=== PATIENT | male | born 1930 | race Caucasian/White ===

== ENCOUNTER 2016-12-20 07:23 | Day surgery (SDC) | payer MEDICARE ==
[2016-12-20] VITALS (7 sets, daily range): BP systolic 154–196; BP diastolic 68–79; PULSE 56–78; RESP 16–20; TEMP 97.6–98.3; O2SAT 97–99
[~2016-12-20 07:23] MED LIST: ASPI81TA11 PO; CRES20TA PO; FISHCAP PO; GEMF600T PO; GLIM4TAB PO; ISOS30TA3 PO; LANTINJ SQ; LEVO100T4 PO; LISI-363 PO; MULT1TAB PO; PROP40TA3 PO
[2016-12-20] MEDS ORDERED: ceFAZolin INJ 1,000 MG VIAL ONE (08:03)
[2016-12-20] MEDS ORDERED: SODIUM CHLORIDE 0.9% INJ 100 ML ONE (08:03)
[2016-12-20] MEDS ORDERED: GLIM4TAB PO (08:05)
[2016-12-20] MEDS ORDERED: ROSU1TAB10 PO (08:05)
[2016-12-20] MEDS ORDERED: ASPI81CH CHEW (08:05)
[2016-12-20] MEDS ORDERED: LEVO100T5 PO (08:05)
[2016-12-20] MEDS ORDERED: VITA10002 PO (08:05)
[2016-12-20] MEDS ORDERED: LISI-515 PO (08:05)
[2016-12-20] MEDS ORDERED: PROP40TA3 PO (08:05)
[2016-12-20] MEDS ORDERED: ISOS30TA3 PO (08:05)
[2016-12-20] MEDS ORDERED: OMEG12007 PO (08:05)
[2016-12-20] MEDS ORDERED: CHLORHEXIDINE GLUCONATE 2 % 1 PACK (2 CLOTHS) TOPICAL PRN (08:15)
[2016-12-20] MEDS ORDERED: POVIDONE IODINE 5% (ANTISEPSIS KIT) 4 APPLICATIONS EACH NARE PRN (08:15)
[2016-12-20] MEDS ORDERED: ceFAZolin 1,000 MG/NS 100 ML IV SCH ×2 (08:15)
[2016-12-20] MEDS ORDERED: INSULIN HUMAN REGULAR 1,000 UNITS/10 ML VIAL SQ PRN (08:15)
[2016-12-20] MEDS ORDERED: LACTATED RINGER'S 1000 ML IV PRN (08:15)
[2016-12-20] MEDS ORDERED: SODIUM CHLORID 0.9% 500 ML IV PRN (08:15)
[2016-12-20] MEDS ORDERED: METOPROLOL TARTRATE 25 MG TAB PO PRN (08:15)
[2016-12-20 08:18] LABS: AUTOMATED NEUTROPHIL # 8.2 TH/MM3 (1.8-7.7); BASOPHIL # 0.1 TH/MM3 (0-0.2); BASOPHIL % 0.5 % (0.0-2.0); EOSINOPHIL # 0.4 TH/MM3 (0-0.4); EOSINOPHIL % 3.5 % (0.0-4.0); HEMATOCRIT 33.5 % (39.0-51.0); HEMO FLAGS DIFF FINAL; LYMPH % 17.3 % (9.0-44.0); MEAN CELL VOLUME 91.7 FL (80.0-100.0); MEAN CORPUSCULAR HEMOGLOBIN 29.3 PG (27.0-34.0); MONO % 7.8 % (0.0-8.0); NEUT % 70.9 % (16.0-70.0); PLATELET COUNT 175 TH/MM3 (150-450); RED BLOOD COUNT 3.65 MIL/MM3 (4.50-5.90); RED CELL DISTRIBUTION WIDTH 13.8 % (11.6-17.2); WHITE BLOOD COUNT 11.5 TH/MM3 (4.0-11.0)
[2016-12-20 08:27] LABS: APTT (PATIENT) 27.2 SEC (24.3-30.1); PROTHROMBIN TIME - PATIENT 11.4 SEC (9.8-11.6)
[2016-12-20 08:34] LABS: BICARBONATE 25.7 MEQ/L (21.0-32.0); POTASSIUM 4.2 MEQ/L (3.5-5.1)
--- NOTE | 2016-12-20 08:35 | EKG ---
Date Performed: 12/20/2016 Time Performed: 08:06:29 PTAGE: 86 years EKG: SINUS BRADYCARDIA LEFT AXIS DEVIATION NONSPECIFIC INTRAVENTRICULAR CONDUCTION DELAY POSSIBL E LEFT VENTRICULAR HYPERTROPHY AND ST-T CHANGE ABNORMAL ECG PREVIOUS TRACING : 12/29/2015 11.13 Compared to previous tracing, lateral T wave inversion is n ow less pronounced. DOCTOR: Chadd Romeo Interpretating Date/Time 12/20/2016 08:34:22
[2016-12-20] MEDS ORDERED: MIDAZOLAM HCL 2 MG/2 ML VIAL ONE (09:40)
[2016-12-20] MEDS ORDERED: FAMOTIDINE 20 MG/2 ML VIAL ONE (09:40)
[2016-12-20] MEDS ORDERED: BUPIVACAINE/EPINEPHRINE 0.5% 50 ML VIAL ONE (09:53)
[2016-12-20] MEDS ORDERED: HEPARIN SODIUM - IV 10,000 UNITS/10 ML VIAL ONE (09:53)
[2016-12-20] MEDS ORDERED: HEPARIN SODIUM - SQ 10,000 UNITS/ML VIAL ONE (09:53)
[2016-12-20] MEDS ORDERED: PROTAMINE SULFATE 50 MG/5 ML VIAL ONE (09:53)
[2016-12-20] MEDS ORDERED: IODIXANOL 320 MG/ML 50 ML VIAL (for EPS) ONE (10:59)
[2016-12-20] MEDS ORDERED: PROPOFOL 200 MG/20 ML AMP IV ONE (12:00)
[2016-12-20] MEDS ORDERED: DO NOT ADM ANY ANTICOAGULANT DRUGS PRN (12:04)
[2016-12-20] MEDS: hydrALAZINE HCL 20 MG/ML VIAL IV PRN ×3 (12:36→18:49)
[2016-12-20] MEDS ORDERED: CLOPIDOGREL 75 MG TAB PO ONE (12:45)
[2016-12-20] MEDS ORDERED: ONDANSETRON HCL 4 MG/2 ML VIAL IV PUSH PRN (12:45)
[2016-12-20] MEDS ORDERED: ATROPINE SULFATE 1 MG/ML VIAL IV PUSH ONE (13:00)
[2016-12-20] MEDS ORDERED: SODIUM CHLORIDE 0.9% FLUSH 10 ML FLUSH IV FLUSH PRN (13:00)
[2016-12-20] MEDS ORDERED: LACTATED RINGER'S 1000 ML INJ 500 ML IV ONE (13:00)
[2016-12-20] MEDS ORDERED: ATROPINE SULFATE 1 MG/10 ML SYRINGE ONE (16:36)
[2016-12-20] MEDS ORDERED: hydrALAZINE HCL 20 MG/ML VIAL IV PUSH ONE (17:15)
--- NOTE | 2016-12-21 08:22 | MP ---
cc: AAKASH HERNANDEZ DATE OF SURGERY: 12/20/2016 PREOPERATIVE DIAGNOSIS Disabling bilateral lower extremity ischemia. POSTOPERATIVE DIAGNOSIS Disabling bilateral lower extremity ischemia. OPERATIVE PROCEDURE Right popliteal percutaneous balloon angioplasty. Aortofemoral arteriogram. SURGEON Aakash Hernandez MD TRANSPORTATION ASSISTANT ASHLEY Romano ANESTHESIA Local MAC. DESCRIPTION OF THE OPERATIVE PROCEDURE With the patient in the supine position IV sedation was induced, the lower abdomen, both groins, thighs were prepped with Betadine and draped in a sterile fashion. Following a protocol time-out, the skin and subcutaneous tissue at proposed access site was preemptively infiltrated with 0.5% Marcaine with epinephrine. Utilizing ultrasound guidance, an 18 gauge needle was inserted into the left mid common femoral lumen. A J-wire was advanced retrograde into the iliac artery. A 5-Tongan hemostatic sheath was deployed over the J-wire. An advantage guidewire Omni catheter combination was navigated into the sub renal aorta. Utilizing CO2 as contrast in conjunction with digital C-arm fluoroscopic imaging, aortofemoral arteriogram was completed. This confirmed a widely patent distal aorta, common internal, external iliac and bilateral common femoral arteries. On the right side the SFA was widely patent down to the adductor level at which point a minor, approximately 30% focal constriction existed. The focal constriction did not appear hemodynamically significant. The above-knee popliteal exhibited a focal, near occlusion at the superior patella margin. Beyond this the popliteal appeared minimally constricted. The previously angioplastied below-knee popliteal remained patent and only minimal restenosis had occurred at this point. The anterior and posterior tibial arteries were occluded. The peroneal provided uninterrupted single vessel runoff to the right foot. The posterior tibial reconstituted beyond the ankle by peroneal collateralization. On the left side the SFA and popliteal were relatively non-diseased. 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 The anterior and posterior tibial arteries were completely occluded. The origin of the peroneal was occluded as well. Several centimeters beyond its origin, the peroneal was reconstituted by collaterals and provided uninterrupted flow to the ankle. The posterior tibial reconstituted at the midcalf level but exhibited multiple stenoses beyond reconstitution. The patient was systemically heparinized with 5000 units. The advantage guidewire was navigated into the right common femoral lumen and the short 5-Tongan sheath exchanged for a 45 cm 5-Tongan sheath which was parked within the proximal right SFA. Utilizing roadmapping guidance and CO2 as contrast, the above-knee popliteal stenosis was balloon angioplastied with a 4 x 40 mm balloon. Also, the below-knee minimal restenosis was treated with the 4 x 40 mm balloon. Both received inflation to nominal 6 atmospheres, 2-minute inflations followed by treatment of both areas with a 4 x 40 mm drug coated balloon inflated to 6 atmospheres, 3-minute inflations. Completion angiogram revealed no residual stenosis with much improved, rapid flow distally. No distal technical defects were present. The long 5-Tongan sheath was exchanged for a short 5-Tongan sheath which was secured with a skin suture of 4-0 Nylon. Sterile dressing was applied. At the conclusion of the procedure the right dorsalis pedis pulse was easily palpable with robust Doppler flow and left pedal Doppler flow unchanged. The patient returned to Post Anesthesia Care Unit in stable condition having tolerated the procedure well. MD CLARE Thomas/CARMEN /7:52 AM /8:09 AM
== END 2016-12-20 20:56 | disposition home or self-care (01) ==
LOC: HSDC 07:23 → HCIN 14:48 → HSDC 20:56
PROVIDERS: ATTEND Surgery Vascular Surgery
DX: I73.89 Other specified peripheral vascular diseases (principal); R00.1 Bradycardia, unspecified; E11.9 Type 2 diabetes mellitus without complications; Z79.84 Long term (current) use of oral hypoglycemic drugs
CPT/HCPCS: 01440; 37224; 75736; 80048; 82948; 85025; 85610; 85730; 86850; 86900; 86901; 93005; C1725; C1769; C1887; C2623; J0360; J0690; J1644; J2250; J2720; J7120; J0461; Q9967

== ENCOUNTER 2018-03-17 13:27 | Inpatient (IN) ==
[2018-03-17 14:35] LABS: Baso % (Auto) 0.2 % (0.0-2.0); Eos % (Auto) 0.3 % (0.0-4.0); Hematocrit 23.5 % (39.0-51.0); Hemoglobin 7.8 gm/dL (13.0-17.0); Lymph # (Auto) 0.9 th/mm3 (1.0-4.8); Lymph % (Auto) 9.8 % (9.0-44.0); Mean Corpuscular HGB Conc 33.1 % (32.0-36.0); Mean Corpuscular Hemoglobin 32.5 pg (27.0-34.0); Mean Platelet Volume 8.5 fL (7.0-11.0); Mono # (Auto) 0.6 th/mm3 (0.0-0.9); Neut # (Auto) 7.4 th/mm3 (1.8-7.7); Neut % (Auto) 82.7 % (16.0-70.0); Platelet Count 251 th/mm3 (150-450); Red Cell Distribution Width 16.7 % (11.6-17.2); White Blood Count 8.9 th/mm3 (4.0-11.0)
[2018-03-17 14:54] LABS: Alanine Aminotransferase 14 U/L (12-78); Albumin 2.7 g/dL (3.4-5.0); Anion Gap 11 meq/L (5-15); Aspartate Aminotransferase 17 U/L (15-37); Blood Urea Nitrogen 46 mg/dL (7-18); Calcium 8.3 mg/dL (8.5-10.1); Carbon Dioxide 19.2 meq/L (21.0-32.0); Chloride 115 meq/L (98-107); Glomerular Filtration Rate 15 mL/min (>89); Glucose,Random 137 mg/dL (74-106); Potassium 4.2 meq/L (3.5-5.1); Sodium 145 meq/L (136-145)
[2018-03-17 14:58] LABS: Alkaline Phosphatase 56 U/L (45-117); Total Protein 6.3 g/dL (6.4-8.2); Troponin I 0.21 ng/mL (0.02-0.05)
[2018-03-17] MEDS ORDERED: Isosorbide Mononitrate 30 MG ER 24HR Tablet (Imdur) PO ONE (15:46)
--- NOTE | 2018-03-17 16:45 | CT ---
EXAM DATE: 03/17/2018 4:34 PM EDT AGE/SEX: 87 years / Male INDICATIONS: Weakness, multiple falls CLINICAL DATA: This is the patient's initial encounter. Patient reports that signs and symptoms have been present for 1 day and indicates a pain score of 0/10. MEDICAL/SURGICAL HISTORY: Diabetes. Hypertension. CABG. RADIATION DOSE: 35.52 CTDI (mGy) COMPARISON: No prior exams available for comparison. TECHNIQUE: CT of the head without contrast. Using automated exposure control and adjustment of the mA and/or kV according to patient size, radiation dose was kept as low as reasonably achievable to ob tain optimal diagnostic quality images. DICOM format image data is available electronically for revi ew and comparison. FINDINGS: Cerebrum: There is mild generalized atrophy and ventricles are normal given the degree of atrophy. M ild periventricular white matter change is present. No midline shift, mass lesion, hemorrhage or acu te infarction. No extraaxial fluid collections are seen. Posterior Fossa: The cerebellum and brainstem demonstrate no acute abnormality. The 4th ventricle is midline. The cerebellopontine angle is within normal limits. Extracranial: The visualized sinuses are clear. Skull: The calvaria is intact. No skull fracture. CONCLUSION: 1. No acute intracranial abnormality is identified. 2. Chronic age-appropriate related changes including mild generalized cerebral atrophy and mild advertising account manager kan periventricular white matter change. . Electronically signed by: Dom Yeboah MD 03/17/2018 4:44 PM EDT
[2018-03-17] MEDS ORDERED: Heparin 10,000 UNITS/10 ML Vial (for IV use) IV.PUSH STA (16:56)
[2018-03-17] MEDS ORDERED: Heparin Drip 25,000 UNIT/250 ML BAG IV.CONT PRN (16:56)
--- NOTE | 2018-03-17 17:15 | ED ---
HPI General Chief complaint: Weakness Stated complaint: Weakness Time Seen by Provider: 03/17/18 13:38 Source: patient Mode of arrival: EMS Limitations: no limitations History of Present Illness HPI narrative: Patient is a 87 year old male who comes in by EMS due to hypoglycemia and generalized weakness. Patient says he has not been eating lately because he feels very weak and no one can help him get any groceries. He says he has just been drinking milk. EMS states that neighbors called because they have noticed he has been declining over the past few days. He says he fell today and hit his elbow. He says his son last month and he has been feeling depressed since then. He denies SI/HI. He denies chest pain, but has had some SOB. Related Data Home Medications Medication Instructions Recorded Confirmed gabapentin 600 mg PO BID 03/17/18 03/17/18 isosorbide mononitrate 30 mg PO DAILY 03/17/18 03/17/18 levothyroxine [Synthroid] 100 mcg PO DAILY 03/17/18 03/17/18 nifedipine [Procardia XL] 60 mg PO BID 03/17/18 03/17/18 propranolol 40 mg PO DAILY 03/17/18 03/17/18 rosuvastatin [Crestor] 20 mg PO DAILY 03/17/18 03/17/18 Allergies Allergy/AdvReac Type Severity Reaction Status Date / Time codeine AdvReac Severe NAUSEA Verified 03/17/18 13:48 Review of Systems ROS: all other systems reviewed are negative Constitutional Denies chills and Denies fever(s) Cardiovascular Denies chest pain and Reports dyspnea Respiratory Denies cough Gastrointestinal Denies abdominal pain, Denies nausea and Denies vomiting Genitourinary Denies dysuria Musculoskeletal Denies myalgias and Denies arthralgias Integumentary/Breasts Denies lesions Neurologic Reports weakness PMFSH Medical History Medical History Diabetes (Acute) Hypertension (Acute) Surgical History Surgical History Hx of CABG (Acute) Family History Family History Father Heart attack Social History Social History Substance History: No History of Abuse Second Hand Smoke Exposure: No Smoking Status: Never smoker How Often Do You Have a Drink Containing Alcohol: Never Recent Travel in [place] within the Last 8 Weeks: No Recent Out of Country Travel within the Last 8 Weeks: No Immunization History Tetanus Immunization: >5 Years Hx Influenza Vaccine This Season: Yes Exam Narrative Exam Narrative: GENERAL: Awake and alert, in no acute distress. SKIN: Focused skin assessment warm/dry. Skin tear to the left elbow. HEAD: Atraumatic. Normocephalic. EYES: Pupils equal and round. No scleral icterus. ENT: Mucous membranes pink and moist. NECK: Trachea midline. No JVD. No cervical spine tenderness. CARDIOVASCULAR: Regular rate and rhythm. No murmur appreciated. RESPIRATORY: No accessory muscle use. Clear to auscultation. Breath sounds equal bilaterally. GASTROINTESTINAL: Abdomen soft, non-tender, nondistended. MUSCULOSKELETAL: No obvious deformities. No clubbing. No cyanosis. No edema. NEUROLOGICAL: Awake and alert. No obvious cranial nerve deficits. Motor grossly within normal limits. Normal speech. PSYCHIATRIC: Appropriate mood and affect; insight and judgment normal. Course Initial Documented Vital Signs Temperature 99.1 F 03/17/18 13:43 Pulse Rate 87 03/17/18 13:43 Respiratory Rate 20 03/17/18 13:43 Blood Pressure 212/97 H 03/17/18 13:43 Pulse Oximetry 98 03/17/18 13:43 Last Documented Vital Signs Temperature 98.3 F 03/20/18 03:00 Pulse Rate 68 03/20/18 07:00 Respiratory Rate 16 03/20/18 03:00 Blood Pressure 146/83 H 03/20/18 03:00 Pulse Oximetry 96 03/20/18 03:00 Medical Decision Making [facility] Narrative Medical decision making narrative: Patient is an 87-year-old male comes in complaining of weakness. He was found to have a glucose of 37 by EMS, this improved after glucose paste as well as D10. IV established, labs sent. Patient given something to eat. Labs concerning for an elevated troponin, creatinine is also elevated. Given aspirin and started on heparin. CT head performed shows no acute abnormalities. Patient will be admitted for further management. Rectal exam shows brown stool negative for occult blood. Medical Screen Exam Complete: Yes Emergency Medical Condition: Yes Differential Diagnosis Differential Diagnosis: Dehydration versus ACS versus electrolyte abnormality versus kidney injury Medical Records Medical records reviewed: Yes I reviewed the patient's medical records. Lab Data Lab results reviewed: Yes I reviewed the patient's lab results. Result diagrams: 03/20/18 06:00 03/20/18 06:00 Lab Results 03/17/18 03/17/18 03/17/18 Range/Units 13:54 13:54 13:54 WBC 8.9 (4.0-11.0) th/mm3 RBC 2.40 L (4.50-5.90) mil/mm3 Hgb 7.8 L (13.0-17.0) gm/dL Hct 23.5 L (39.0-51.0) % MCV 98.0 (80.0-100.0) fL MCH 32.5 (27.0-34.0) pg MCHC 33.1 (32.0-36.0) % RDW 16.7 (11.6-17.2) % Plt Count 251 (150-450) th/mm3 MPV 8.5 (7.0-11.0) fL Neut % (Auto) 82.7 H (16.0-70.0) % Lymph % (Auto) 9.8 (9.0-44.0) % Nye % (Auto) 7.0 (0.0-8.0) % Eos % (Auto) 0.3 (0.0-4.0) % Baso % (Auto) 0.2 (0.0-2.0) % Neut # (Auto) 7.4 (1.8-7.7) th/mm3 Lymph # (Auto) 0.9 L (1.0-4.8) th/mm3 Nye # (Auto) 0.6 (0.0-0.9) th/mm3 Eos # (Auto) 0.0 (0.0-0.4) th/mm3 Baso # (Auto) 0.0 (0.0-0.2) th/mm3 WBC Differential . Differential Comment Auto diff final PT (9.8-11.6) sec INR Ratio APTT (24.3-30.1) sec Sodium 145 (136-145) meq/L Potassium 4.2 (3.5-5.1) meq/L Chloride 115 H (98-107) meq/L Carbon Dioxide 19.2 L (21.0-32.0) meq/L Anion Gap 11 (5-15) meq/L BUN 46 H (7-18) mg/dL Creatinine 3.85 H (0.60-1.30) mg/dL Estimated GFR 15 L (>89) mL/min POC Glucose 152 H (68-110) mg/dl Random Glucose 137 H (74-106) mg/dL Hemoglobin A1c (4.3-6.0) % Calcium 8.3 L (8.5-10.1) mg/dL Phosphorus (2.5-4.9) mg/dL Magnesium (1.5-2.5) mg/dL Iron (65-175) mcg/dL TIBC (250-450) mcg/dL % Saturation (20-50) % Ferritin (26-388) ng/mL Total Bilirubin 0.4 (0.2-1.0) mg/dL AST 17 (15-37) U/L ALT 14 (12-78) U/L Alkaline Phosphatase 56 (45-117) U/L Troponin I 0.21 H (0.02-0.05) ng/mL Total Protein 6.3 L (6.4-8.2) g/dL Albumin 2.7 L (3.4-5.0) g/dL TSH (0.358-3.740) uIU/mL Urine Color (Yellw/Straw) Urine Clarity (Clear) Urine pH (5.0-8.5) Ur Specific [place] (1.002-1.035) Urine Protein (Neg-Trace) mg/dL Urine Glucose (UA) (Negative) mg/dL Urine Ketones (Negative) mg/dL Urine Occult Blood (Negative) Urine Nitrate (Negative) Urine Bilirubin (Negative) Urine Urobilinogen (Less than 2) mg/dL Ur Leukocyte Esterase (Negative) Urine RBC (0-3) /hpf Urine WBC (0-5) /hpf Ur Squamous Epith Cells (0-5) /hpf Amorphous Sediment (None) /hpf Hyaline Casts (0-3) /lpf Granular Casts (None) /lpf Urine Mucus (Occasional) /lpf Micro UA Comment Ur Microscopic Review Urine Culture Comments Blood Type Antibody Screen MTS Gel Crossmatch 03/17/18 03/17/18 03/17/18 Range/Units 13:54 13:54 18:10 WBC (4.0-11.0) th/mm3 RBC (4.50-5.90) mil/mm3 Hgb (13.0-17.0) gm/dL Hct (39.0-51.0) % MCV (80.0-100.0) fL MCH (27.0-34.0) pg MCHC (32.0-36.0) % RDW (11.6-17.2) % Plt Count (150-450) th/mm3 MPV (7.0-11.0) fL Neut % (Auto) (16.0-70.0) % Lymph % (Auto) (9.0-44.0) % Nye % (Auto) (0.0-8.0) % Eos % (Auto) (0.0-4.0) % Baso % (Auto) (0.0-2.0) % Neut # (Auto) (1.8-7.7) th/mm3 Lymph # (Auto) (1.0-4.8) th/mm3 Nye # (Auto) (0.0-0.9) th/mm3 Eos # (Auto) (0.0-0.4) th/mm3 Baso # (Auto) (0.0-0.2) th/mm3 WBC Differential Differential Comment PT 11.5 (9.8-11.6) sec INR 1.1 Ratio APTT 29.2 (24.3-30.1) sec Sodium (136-145) meq/L Potassium (3.5-5.1) meq/L Chloride (98-107) meq/L Carbon Dioxide (21.0-32.0) meq/L Anion Gap (5-15) meq/L BUN (7-18) mg/dL Creatinine (0.60-1.30) mg/dL Estimated GFR (>89) mL/min POC Glucose (68-110) mg/dl Random Glucose (74-106) mg/dL Hemoglobin A1c 5.1 (4.3-6.0) % Calcium (8.5-10.1) mg/dL Phosphorus (2.5-4.9) mg/dL Magnesium (1.5-2.5) mg/dL Iron (65-175) mcg/dL TIBC (250-450) mcg/dL % Saturation (20-50) % Ferritin (26-388) ng/mL Total Bilirubin (0.2-1.0) mg/dL AST (15-37) U/L ALT (12-78) U/L Alkaline Phosphatase (45-117) U/L Troponin I (0.02-0.05) ng/mL Total Protein (6.4-8.2) g/dL Albumin (3.4-5.0) g/dL TSH 1.460 (0.358-3.740) uIU/mL Urine Color (Yellw/Straw) Urine Clarity (Clear) Urine pH (5.0-8.5) Ur Specific [place] (1.002-1.035) Urine Protein (Neg-Trace) mg/dL Urine Glucose (UA) (Negative) mg/dL Urine Ketones (Negative) mg/dL Urine Occult Blood (Negative) Urine Nitrate (Negative) Urine Bilirubin (Negative) Urine Urobilinogen (Less than 2) mg/dL Ur Leukocyte Esterase (Negative) Urine RBC (0-3) /hpf Urine WBC (0-5) /hpf Ur Squamous Epith Cells (0-5) /hpf Amorphous Sediment (None) /hpf Hyaline Casts (0-3) /lpf Granular Casts (None) /lpf Urine Mucus (Occasional) /lpf Micro UA Comment Ur Microscopic Review Urine Culture Comments Blood Type Antibody Screen MTS Gel Crossmatch 03/17/18 03/17/18 03/17/18 Range/Units 18:20 18:40 19:01 WBC (4.0-11.0) th/mm3 RBC (4.50-5.90) mil/mm3 Hgb (13.0-17.0) gm/dL Hct (39.0-51.0) % MCV (80.0-100.0) fL MCH (27.0-34.0) pg MCHC (32.0-36.0) % RDW (11.6-17.2) % Plt Count (150-450) th/mm3 MPV (7.0-11.0) fL Neut % (Auto) (16.0-70.0) % Lymph % (Auto) (9.0-44.0) % Nye % (Auto) (0.0-8.0) % Eos % (Auto) (0.0-4.0) % Baso % (Auto) (0.0-2.0) % Neut # (Auto) (1.8-7.7) th/mm3 Lymph # (Auto) (1.0-4.8) th/mm3 Nye # (Auto) (0.0-0.9) th/mm3 Eos # (Auto) (0.0-0.4) th/mm3 Baso # (Auto) (0.0-0.2) th/mm3 WBC Differential Differential Comment PT (9.8-11.6) sec INR Ratio APTT (24.3-30.1) sec Sodium (136-145) meq/L Potassium (3.5-5.1) meq/L Chloride (98-107) meq/L Carbon Dioxide (21.0-32.0) meq/L Anion Gap (5-15) meq/L BUN (7-18) mg/dL Creatinine (0.60-1.30) mg/dL Estimated GFR (>89) mL/min POC Glucose 49 L* (68-110) mg/dl Random Glucose (74-106) mg/dL Hemoglobin A1c (4.3-6.0) % Calcium (8.5-10.1) mg/dL Phosphorus (2.5-4.9) mg/dL Magnesium (1.5-2.5) mg/dL Iron (65-175) mcg/dL TIBC (250-450) mcg/dL % Saturation (20-50) % Ferritin (26-388) ng/mL Total Bilirubin (0.2-1.0) mg/dL AST (15-37) U/L ALT (12-78) U/L Alkaline Phosphatase (45-117) U/L Troponin I (0.02-0.05) ng/mL Total Protein (6.4-8.2) g/dL Albumin (3.4-5.0) g/dL TSH (0.358-3.740) uIU/mL Urine Color Yellow Yellow (Yellw/Straw) Urine Clarity Turbid H Cloudy H (Clear) Urine pH 7.0 5.0 (5.0-8.5) Ur Specific [place] 1.013 1.013 (1.002-1.035) Urine Protein Negative 500 or greater (Neg-Trace) mg/dL Urine Glucose (UA) Negative 50 (Negative) mg/dL Urine Ketones Trace Negative (Negative) mg/dL Urine Occult Blood Negative Negative (Negative) Urine Nitrate Negative Negative (Negative) Urine Bilirubin Negative Negative (Negative) Urine Urobilinogen Less than 2 Less than 2 (Less than 2) mg/dL Ur Leukocyte Esterase Negative Negative (Negative) Urine RBC 1 2 (0-3) /hpf Urine WBC 3 (0-5) /hpf Ur Squamous Epith Cells 1 (0-5) /hpf Amorphous Sediment Moderate H Few H (None) /hpf Hyaline Casts 1 (0-3) /lpf Granular Casts 1 (None) /lpf Urine Mucus Few H Few H (Occasional) /lpf Micro UA Comment Culture not ind Culture not ind Ur Microscopic Review Not Reportable Not Reportable Urine Culture Comments Culture not ind Culture not ind Blood Type Antibody Screen MTS Gel Crossmatch 03/17/18 03/17/18 03/17/18 Range/Units 20:00 20:00 20:10 WBC (4.0-11.0) th/mm3 RBC (4.50-5.90) mil/mm3 Hgb (13.0-17.0) gm/dL Hct (39.0-51.0) % MCV (80.0-100.0) fL MCH (27.0-34.0) pg MCHC (32.0-36.0) % RDW (11.6-17.2) % Plt Count (150-450) th/mm3 MPV (7.0-11.0) fL Neut % (Auto) (16.0-70.0) % Lymph % (Auto) (9.0-44.0) % Nye % (Auto) (0.0-8.0) % Eos % (Auto) (0.0-4.0) % Baso % (Auto) (0.0-2.0) % Neut # (Auto) (1.8-7.7) th/mm3 Lymph # (Auto) (1.0-4.8) th/mm3 Nye # (Auto) (0.0-0.9) th/mm3 Eos # (Auto) (0.0-0.4) th/mm3 Baso # (Auto) (0.0-0.2) th/mm3 WBC Differential Differential Comment PT (9.8-11.6) sec INR Ratio APTT (24.3-30.1) sec Sodium (136-145) meq/L Potassium (3.5-5.1) meq/L Chloride (98-107) meq/L Carbon Dioxide (21.0-32.0) meq/L Anion Gap (5-15) meq/L BUN (7-18) mg/dL Creatinine (0.60-1.30) mg/dL Estimated GFR (>89) mL/min POC Glucose 96 (68-110) mg/dl Random Glucose 92 (74-106) mg/dL Hemoglobin A1c (4.3-6.0) % Calcium (8.5-10.1) mg/dL Phosphorus (2.5-4.9) mg/dL Magnesium (1.5-2.5) mg/dL Iron (65-175) mcg/dL TIBC (250-450) mcg/dL % Saturation (20-50) % Ferritin (26-388) ng/mL Total Bilirubin (0.2-1.0) mg/dL AST (15-37) U/L ALT (12-78) U/L Alkaline Phosphatase (45-117) U/L Troponin I 0.30 H (0.02-0.05) ng/mL Total Protein (6.4-8.2) g/dL Albumin (3.4-5.0) g/dL TSH (0.358-3.740) uIU/mL Urine Color (Yellw/Straw) Urine Clarity (Clear) Urine pH (5.0-8.5) Ur Specific [place] (1.002-1.035) Urine Protein (Neg-Trace) mg/dL Urine Glucose (UA) (Negative) mg/dL Urine Ketones (Negative) mg/dL Urine Occult Blood (Negative) Urine Nitrate (Negative) Urine Bilirubin (Negative) Urine Urobilinogen (Less than 2) mg/dL Ur Leukocyte Esterase (Negative) Urine RBC (0-3) /hpf Urine WBC (0-5) /hpf Ur Squamous Epith Cells (0-5) /hpf Amorphous Sediment (None) /hpf Hyaline Casts (0-3) /lpf Granular Casts (None) /lpf Urine Mucus (Occasional) /lpf Micro UA Comment Ur Microscopic Review Urine Culture Comments Blood Type Antibody Screen MTS Gel Crossmatch 03/17/18 03/18/18 03/18/18 Range/Units 21:45 02:25 02:25 WBC 11.3 H (4.0-11.0) th/mm3 RBC 2.43 L (4.50-5.90) mil/mm3 Hgb 7.6 L (13.0-17.0) gm/dL Hct 23.3 L (39.0-51.0) % MCV 95.8 (80.0-100.0) fL MCH 31.2 (27.0-34.0) pg MCHC 32.5 (32.0-36.0) % RDW 16.9 (11.6-17.2) % Plt Count 278 (150-450) th/mm3 MPV 8.4 (7.0-11.0) fL Neut % (Auto) 78.2 H (16.0-70.0) % Lymph % (Auto) 12.3 (9.0-44.0) % Nye % (Auto) 8.4 H (0.0-8.0) % Eos % (Auto) 0.8 (0.0-4.0) % Baso % (Auto) 0.3 (0.0-2.0) % Neut # (Auto) 8.9 H (1.8-7.7) th/mm3 Lymph # (Auto) 1.4 (1.0-4.8) th/mm3 Nye # (Auto) 1.0 H (0.0-0.9) th/mm3 Eos # (Auto) 0.1 (0.0-0.4) th/mm3 Baso # (Auto) 0.0 (0.0-0.2) th/mm3 WBC Differential . Differential Comment Auto diff final PT (9.8-11.6) sec INR Ratio APTT (24.3-30.1) sec Sodium (136-145) meq/L Potassium (3.5-5.1) meq/L Chloride (98-107) meq/L Carbon Dioxide (21.0-32.0) meq/L Anion Gap (5-15) meq/L BUN (7-18) mg/dL Creatinine (0.60-1.30) mg/dL Estimated GFR (>89) mL/min POC Glucose 188 H (68-110) mg/dl Random Glucose (74-106) mg/dL Hemoglobin A1c (4.3-6.0) % Calcium (8.5-10.1) mg/dL Phosphorus 3.5 (2.5-4.9) mg/dL Magnesium (1.5-2.5) mg/dL Iron 36 L (65-175) mcg/dL TIBC 304 (250-450) mcg/dL % Saturation 11.8 L (20-50) % Ferritin 77 (26-388) ng/mL Total Bilirubin (0.2-1.0) mg/dL AST (15-37) U/L ALT (12-78) U/L Alkaline Phosphatase (45-117) U/L Troponin I 0.28 H (0.02-0.05) ng/mL Total Protein (6.4-8.2) g/dL Albumin (3.4-5.0) g/dL TSH (0.358-3.740) uIU/mL Urine Color (Yellw/Straw) Urine Clarity (Clear) Urine pH (5.0-8.5) Ur Specific [place] (1.002-1.035) Urine Protein (Neg-Trace) mg/dL Urine Glucose (UA) (Negative) mg/dL Urine Ketones (Negative) mg/dL Urine Occult Blood (Negative) Urine Nitrate (Negative) Urine Bilirubin (Negative) Urine Urobilinogen (Less than 2) mg/dL Ur Leukocyte Esterase (Negative) Urine RBC (0-3) /hpf Urine WBC (0-5) /hpf Ur Squamous Epith Cells (0-5) /hpf Amorphous Sediment (None) /hpf Hyaline Casts (0-3) /lpf Granular Casts (None) /lpf Urine Mucus (Occasional) /lpf Micro UA Comment Ur Microscopic Review Urine Culture Comments Blood Type Antibody Screen MTS Gel Crossmatch 03/18/18 03/18/18 03/18/18 Range/Units 02:25 02:25 06:13 WBC (4.0-11.0) th/mm3 RBC (4.50-5.90) mil/mm3 Hgb (13.0-17.0) gm/dL Hct (39.0-51.0) % MCV (80.0-100.0) fL MCH (27.0-34.0) pg MCHC (32.0-36.0) % RDW (11.6-17.2) % Plt Count (150-450) th/mm3 MPV (7.0-11.0) fL Neut % (Auto) (16.0-70.0) % Lymph % (Auto) (9.0-44.0) % Nye % (Auto) (0.0-8.0) % Eos % (Auto) (0.0-4.0) % Baso % (Auto) (0.0-2.0) % Neut # (Auto) (1.8-7.7) th/mm3 Lymph # (Auto) (1.0-4.8) th/mm3 Nye # (Auto) (0.0-0.9) th/mm3 Eos # (Auto) (0.0-0.4) th/mm3 Baso # (Auto) (0.0-0.2) th/mm3 WBC Differential Differential Comment PT (9.8-11.6) sec INR Ratio APTT 95.4 H* D 43.8 H D (24.3-30.1) sec Sodium 147 H (136-145) meq/L Potassium 4.3 (3.5-5.1) meq/L Chloride 113 H (98-107) meq/L Carbon Dioxide 20.9 L (21.0-32.0) meq/L Anion Gap 13 (5-15) meq/L BUN 50 H (7-18) mg/dL Creatinine 3.95 H (0.60-1.30) mg/dL Estimated GFR 14 L (>89) mL/min POC Glucose (68-110) mg/dl Random Glucose 207 H D (74-106) mg/dL Hemoglobin A1c (4.3-6.0) % Calcium 8.0 L (8.5-10.1) mg/dL Phosphorus (2.5-4.9) mg/dL Magnesium 2.2 (1.5-2.5) mg/dL Iron (65-175) mcg/dL TIBC (250-450) mcg/dL % Saturation (20-50) % Ferritin (26-388) ng/mL Total Bilirubin 0.4 (0.2-1.0) mg/dL AST 17 (15-37) U/L ALT 13 (12-78) U/L Alkaline Phosphatase 55 (45-117) U/L Troponin I (0.02-0.05) ng/mL Total Protein 6.5 (6.4-8.2) g/dL Albumin 2.8 L (3.4-5.0) g/dL TSH (0.358-3.740) uIU/mL Urine Color (Yellw/Straw) Urine Clarity (Clear) Urine pH (5.0-8.5) Ur Specific [place] (1.002-1.035) Urine Protein (Neg-Trace) mg/dL Urine Glucose (UA) (Negative) mg/dL Urine Ketones (Negative) mg/dL Urine Occult Blood (Negative) Urine Nitrate (Negative) Urine Bilirubin (Negative) Urine Urobilinogen (Less than 2) mg/dL Ur Leukocyte Esterase (Negative) Urine RBC (0-3) /hpf Urine WBC (0-5) /hpf Ur Squamous Epith Cells (0-5) /hpf Amorphous Sediment (None) /hpf Hyaline Casts (0-3) /lpf Granular Casts (None) /lpf Urine Mucus (Occasional) /lpf Micro UA Comment Ur Microscopic Review Urine Culture Comments Blood Type Antibody Screen MTS Gel Crossmatch 03/18/18 03/18/18 03/18/18 Range/Units 07:41 10:33 12:37 WBC (4.0-11.0) th/mm3 RBC (4.50-5.90) mil/mm3 Hgb (13.0-17.0) gm/dL Hct (39.0-51.0) % MCV (80.0-100.0) fL MCH (27.0-34.0) pg MCHC (32.0-36.0) % RDW (11.6-17.2) % Plt Count (150-450) th/mm3 MPV (7.0-11.0) fL Neut % (Auto) (16.0-70.0) % Lymph % (Auto) (9.0-44.0) % Nye % (Auto) (0.0-8.0) % Eos % (Auto) (0.0-4.0) % Baso % (Auto) (0.0-2.0) % Neut # (Auto) (1.8-7.7) th/mm3 Lymph # (Auto) (1.0-4.8) th/mm3 Nye # (Auto) (0.0-0.9) th/mm3 Eos # (Auto) (0.0-0.4) th/mm3 Baso # (Auto) (0.0-0.2) th/mm3 WBC Differential Differential Comment PT (9.8-11.6) sec INR Ratio APTT 41.5 H (24.3-30.1) sec Sodium (136-145) meq/L Potassium (3.5-5.1) meq/L Chloride (98-107) meq/L Carbon Dioxide (21.0-32.0) meq/L Anion Gap (5-15) meq/L BUN (7-18) mg/dL Creatinine (0.60-1.30) mg/dL Estimated GFR (>89) mL/min POC Glucose 286 H 320 H (68-110) mg/dl Random Glucose (74-106) mg/dL Hemoglobin A1c (4.3-6.0) % Calcium (8.5-10.1) mg/dL Phosphorus (2.5-4.9) mg/dL Magnesium (1.5-2.5) mg/dL Iron (65-175) mcg/dL TIBC (250-450) mcg/dL % Saturation (20-50) % Ferritin (26-388) ng/mL Total Bilirubin (0.2-1.0) mg/dL AST (15-37) U/L ALT (12-78) U/L Alkaline Phosphatase (45-117) U/L Troponin I (0.02-0.05) ng/mL Total Protein (6.4-8.2) g/dL Albumin (3.4-5.0) g/dL TSH (0.358-3.740) uIU/mL Urine Color (Yellw/Straw) Urine Clarity (Clear) Urine pH (5.0-8.5) Ur Specific [place] (1.002-1.035) Urine Protein (Neg-Trace) mg/dL Urine Glucose (UA) (Negative) mg/dL Urine Ketones (Negative) mg/dL Urine Occult Blood (Negative) Urine Nitrate (Negative) Urine Bilirubin (Negative) Urine Urobilinogen (Less than 2) mg/dL Ur Leukocyte Esterase (Negative) Urine RBC (0-3) /hpf Urine WBC (0-5) /hpf Ur Squamous Epith Cells (0-5) /hpf Amorphous Sediment (None) /hpf Hyaline Casts (0-3) /lpf Granular Casts (None) /lpf Urine Mucus (Occasional) /lpf Micro UA Comment Ur Microscopic Review Urine Culture Comments Blood Type Antibody Screen MTS Gel Crossmatch 03/18/18 03/18/18 03/18/18 Range/Units 16:57 17:30 20:52 WBC (4.0-11.0) th/mm3 RBC (4.50-5.90) mil/mm3 Hgb (13.0-17.0) gm/dL Hct (39.0-51.0) % MCV (80.0-100.0) fL MCH (27.0-34.0) pg MCHC (32.0-36.0) % RDW (11.6-17.2) % Plt Count (150-450) th/mm3 MPV (7.0-11.0) fL Neut % (Auto) (16.0-70.0) % Lymph % (Auto) (9.0-44.0) % Nye % (Auto) (0.0-8.0) % Eos % (Auto) (0.0-4.0) % Baso % (Auto) (0.0-2.0) % Neut # (Auto) (1.8-7.7) th/mm3 Lymph # (Auto) (1.0-4.8) th/mm3 Nye # (Auto) (0.0-0.9) th/mm3 Eos # (Auto) (0.0-0.4) th/mm3 Baso # (Auto) (0.0-0.2) th/mm3 WBC Differential Differential Comment PT (9.8-11.6) sec INR Ratio APTT 41.6 H (24.3-30.1) sec Sodium (136-145) meq/L Potassium (3.5-5.1) meq/L Chloride (98-107) meq/L Carbon Dioxide (21.0-32.0) meq/L Anion Gap (5-15) meq/L BUN (7-18) mg/dL Creatinine (0.60-1.30) mg/dL Estimated GFR (>89) mL/min POC Glucose 197 H 228 H (68-110) mg/dl Random Glucose (74-106) mg/dL Hemoglobin A1c (4.3-6.0) % Calcium (8.5-10.1) mg/dL Phosphorus (2.5-4.9) mg/dL Magnesium (1.5-2.5) mg/dL Iron (65-175) mcg/dL TIBC (250-450) mcg/dL % Saturation (20-50) % Ferritin (26-388) ng/mL Total Bilirubin (0.2-1.0) mg/dL AST (15-37) U/L ALT (12-78) U/L Alkaline Phosphatase (45-117) U/L Troponin I (0.02-0.05) ng/mL Total Protein (6.4-8.2) g/dL Albumin (3.4-5.0) g/dL TSH (0.358-3.740) uIU/mL Urine Color (Yellw/Straw) Urine Clarity (Clear) Urine pH (5.0-8.5) Ur Specific [place] (1.002-1.035) Urine Protein (Neg-Trace) mg/dL Urine Glucose (UA) (Negative) mg/dL Urine Ketones (Negative) mg/dL Urine Occult Blood (Negative) Urine Nitrate (Negative) Urine Bilirubin (Negative) Urine Urobilinogen (Less than 2) mg/dL Ur Leukocyte Esterase (Negative) Urine RBC (0-3) /hpf Urine WBC (0-5) /hpf Ur Squamous Epith Cells (0-5) /hpf Amorphous Sediment (None) /hpf Hyaline Casts (0-3) /lpf Granular Casts (None) /lpf Urine Mucus (Occasional) /lpf Micro UA Comment Ur Microscopic Review Urine Culture Comments Blood Type Antibody Screen MTS Gel Crossmatch 03/19/18 03/19/18 03/19/18 Range/Units 05:55 05:55 05:55 WBC 9.1 (4.0-11.0) th/mm3 RBC 2.18 L (4.50-5.90) mil/mm3 Hgb 6.9 L* (13.0-17.0) gm/dL Hct 20.9 L* (39.0-51.0) % MCV 95.9 (80.0-100.0) fL MCH 31.7 (27.0-34.0) pg MCHC 33.0 (32.0-36.0) % RDW 17.3 H (11.6-17.2) % Plt Count 234 (150-450) th/mm3 MPV 8.6 (7.0-11.0) fL Neut % (Auto) 79.9 H (16.0-70.0) % Lymph % (Auto) 12.6 (9.0-44.0) % Nye % (Auto) 6.6 (0.0-8.0) % Eos % (Auto) 0.6 (0.0-4.0) % Baso % (Auto) 0.3 (0.0-2.0) % Neut # (Auto) 7.3 (1.8-7.7) th/mm3 Lymph # (Auto) 1.1 (1.0-4.8) th/mm3 Nye # (Auto) 0.6 (0.0-0.9) th/mm3 Eos # (Auto) 0.1 (0.0-0.4) th/mm3 Baso # (Auto) 0.0 (0.0-0.2) th/mm3 WBC Differential . Differential Comment Auto diff final PT (9.8-11.6) sec INR Ratio APTT 29.1 D (24.3-30.1) sec Sodium 146 H (136-145) meq/L Potassium 4.0 (3.5-5.1) meq/L Chloride 113 H (98-107) meq/L Carbon Dioxide 18.5 L (21.0-32.0) meq/L Anion Gap 15 (5-15) meq/L BUN 47 H (7-18) mg/dL Creatinine 3.87 H (0.60-1.30) mg/dL Estimated GFR 15 L (>89) mL/min POC Glucose (68-110) mg/dl Random Glucose 175 H (74-106) mg/dL Hemoglobin A1c (4.3-6.0) % Calcium 7.9 L (8.5-10.1) mg/dL Phosphorus (2.5-4.9) mg/dL Magnesium (1.5-2.5) mg/dL Iron (65-175) mcg/dL TIBC (250-450) mcg/dL % Saturation (20-50) % Ferritin (26-388) ng/mL Total Bilirubin 0.4 (0.2-1.0) mg/dL AST 12 L (15-37) U/L ALT 14 (12-78) U/L Alkaline Phosphatase 54 (45-117) U/L Troponin I (0.02-0.05) ng/mL Total Protein 6.4 (6.4-8.2) g/dL Albumin 2.9 L (3.4-5.0) g/dL TSH (0.358-3.740) uIU/mL Urine Color (Yellw/Straw) Urine Clarity (Clear) Urine pH (5.0-8.5) Ur Specific [place] (1.002-1.035) Urine Protein (Neg-Trace) mg/dL Urine Glucose (UA) (Negative) mg/dL Urine Ketones (Negative) mg/dL Urine Occult Blood (Negative) Urine Nitrate (Negative) Urine Bilirubin (Negative) Urine Urobilinogen (Less than 2) mg/dL Ur Leukocyte Esterase (Negative) Urine RBC (0-3) /hpf Urine WBC (0-5) /hpf Ur Squamous Epith Cells (0-5) /hpf Amorphous Sediment (None) /hpf Hyaline Casts (0-3) /lpf Granular Casts (None) /lpf Urine Mucus (Occasional) /lpf Micro UA Comment Ur Microscopic Review Urine Culture Comments Blood Type Antibody Screen MTS Gel Crossmatch 03/19/18 03/19/18 03/19/18 Range/Units 08:21 12:00 12:15 WBC (4.0-11.0) th/mm3 RBC (4.50-5.90) mil/mm3 Hgb (13.0-17.0) gm/dL Hct (39.0-51.0) % MCV (80.0-100.0) fL MCH (27.0-34.0) pg MCHC (32.0-36.0) % RDW (11.6-17.2) % Plt Count (150-450) th/mm3 MPV (7.0-11.0) fL Neut % (Auto) (16.0-70.0) % Lymph % (Auto) (9.0-44.0) % Nye % (Auto) (0.0-8.0) % Eos % (Auto) (0.0-4.0) % Baso % (Auto) (0.0-2.0) % Neut # (Auto) (1.8-7.7) th/mm3 Lymph # (Auto) (1.0-4.8) th/mm3 Nye # (Auto) (0.0-0.9) th/mm3 Eos # (Auto) (0.0-0.4) th/mm3 Baso # (Auto) (0.0-0.2) th/mm3 WBC Differential Differential Comment PT (9.8-11.6) sec INR Ratio APTT (24.3-30.1) sec Sodium (136-145) meq/L Potassium (3.5-5.1) meq/L Chloride (98-107) meq/L Carbon Dioxide (21.0-32.0) meq/L Anion Gap (5-15) meq/L BUN (7-18) mg/dL Creatinine (0.60-1.30) mg/dL Estimated GFR (>89) mL/min POC Glucose 190 H 264 H (68-110) mg/dl Random Glucose (74-106) mg/dL Hemoglobin A1c (4.3-6.0) % Calcium (8.5-10.1) mg/dL Phosphorus (2.5-4.9) mg/dL Magnesium (1.5-2.5) mg/dL Iron (65-175) mcg/dL TIBC (250-450) mcg/dL % Saturation (20-50) % Ferritin (26-388) ng/mL Total Bilirubin (0.2-1.0) mg/dL AST (15-37) U/L ALT (12-78) U/L Alkaline Phosphatase (45-117) U/L Troponin I (0.02-0.05) ng/mL Total Protein (6.4-8.2) g/dL Albumin (3.4-5.0) g/dL TSH (0.358-3.740) uIU/mL Urine Color (Yellw/Straw) Urine Clarity (Clear) Urine pH (5.0-8.5) Ur Specific [place] (1.002-1.035) Urine Protein (Neg-Trace) mg/dL Urine Glucose (UA) (Negative) mg/dL Urine Ketones (Negative) mg/dL Urine Occult Blood (Negative) Urine Nitrate (Negative) Urine Bilirubin (Negative) Urine Urobilinogen (Less than 2) mg/dL Ur Leukocyte Esterase (Negative) Urine RBC (0-3) /hpf Urine WBC (0-5) /hpf Ur Squamous Epith Cells (0-5) /hpf Amorphous Sediment (None) /hpf Hyaline Casts (0-3) /lpf Granular Casts (None) /lpf Urine Mucus (Occasional) /lpf Micro UA Comment Ur Microscopic Review Urine Culture Comments Blood Type A Positive Antibody Screen Negative MTS Gel Crossmatch See Detail 03/19/18 03/19/18 03/20/18 Range/Units 18:10 20:27 06:00 WBC 10.3 (4.0-11.0) th/mm3 RBC 3.07 L (4.50-5.90) mil/mm3 Hgb 9.6 L D (13.0-17.0) gm/dL Hct 28.9 L (39.0-51.0) % MCV 94.1 (80.0-100.0) fL MCH 31.5 (27.0-34.0) pg MCHC 33.4 (32.0-36.0) % RDW 17.8 H (11.6-17.2) % Plt Count 212 (150-450) th/mm3 MPV 8.6 (7.0-11.0) fL Neut % (Auto) 76.4 H (16.0-70.0) % Lymph % (Auto) 12.7 (9.0-44.0) % [place] % (Auto) 9.2 H (0.0-8.0) % Eos % (Auto) 1.5 (0.0-4.0) % Baso % (Auto) 0.2 (0.0-2.0) % Neut # (Auto) 7.9 H (1.8-7.7) th/mm3 Lymph # (Auto) 1.3 (1.0-4.8) th/mm3 [place] # (Auto) 0.9 (0.0-0.9) th/mm3 Eos # (Auto) 0.2 (0.0-0.4) th/mm3 Baso # (Auto) 0.0 (0.0-0.2) th/mm3 WBC Differential . Differential Comment Auto diff final PT (9.8-11.6) sec INR Ratio APTT (24.3-30.1) sec Sodium (136-145) meq/L Potassium (3.5-5.1) meq/L Chloride (98-107) meq/L Carbon Dioxide (21.0-32.0) meq/L Anion Gap (5-15) meq/L BUN (7-18) mg/dL Creatinine (0.60-1.30) mg/dL Estimated GFR (>89) mL/min POC Glucose 138 H 196 H (68-110) mg/dl Random Glucose (74-106) mg/dL Hemoglobin A1c (4.3-6.0) % Calcium (8.5-10.1) mg/dL Phosphorus (2.5-4.9) mg/dL Magnesium (1.5-2.5) mg/dL Iron (65-175) mcg/dL TIBC (250-450) mcg/dL % Saturation (20-50) % Ferritin (26-388) ng/mL Total Bilirubin (0.2-1.0) mg/dL AST (15-37) U/L ALT (12-78) U/L Alkaline Phosphatase (45-117) U/L Troponin I (0.02-0.05) ng/mL Total Protein (6.4-8.2) g/dL Albumin (3.4-5.0) g/dL TSH (0.358-3.740) uIU/mL Urine Color (Yellw/Straw) Urine Clarity (Clear) Urine pH (5.0-8.5) Ur Specific [place] (1.002-1.035) Urine Protein (Neg-Trace) mg/dL Urine Glucose (UA) (Negative) mg/dL Urine Ketones (Negative) mg/dL Urine Occult Blood (Negative) Urine Nitrate (Negative) Urine Bilirubin (Negative) Urine Urobilinogen (Less than 2) mg/dL Ur Leukocyte Esterase (Negative) Urine RBC (0-3) /hpf Urine WBC (0-5) /hpf Ur Squamous Epith Cells (0-5) /hpf Amorphous Sediment (None) /hpf Hyaline Casts (0-3) /lpf Granular Casts (None) /lpf Urine Mucus (Occasional) /lpf Micro UA Comment Ur Microscopic Review Urine Culture Comments Blood Type Antibody Screen MTS Gel Crossmatch 03/20/18 Range/Units 06:00 WBC (4.0-11.0) th/mm3 RBC (4.50-5.90) mil/mm3 Hgb (13.0-17.0) gm/dL Hct (39.0-51.0) % MCV (80.0-100.0) fL MCH (27.0-34.0) pg MCHC (32.0-36.0) % RDW (11.6-17.2) % Plt Count (150-450) th/mm3 MPV (7.0-11.0) fL Neut % (Auto) (16.0-70.0) % Lymph % (Auto) (9.0-44.0) % [place] % (Auto) (0.0-8.0) % Eos % (Auto) (0.0-4.0) % Baso % (Auto) (0.0-2.0) % Neut # (Auto) (1.8-7.7) th/mm3 Lymph # (Auto) (1.0-4.8) th/mm3 [place] # (Auto) (0.0-0.9) th/mm3 Eos # (Auto) (0.0-0.4) th/mm3 Baso # (Auto) (0.0-0.2) th/mm3 WBC Differential Differential Comment PT (9.8-11.6) sec INR Ratio APTT (24.3-30.1) sec Sodium 146 H (136-145) meq/L Potassium 3.9 (3.5-5.1) meq/L Chloride 115 H (98-107) meq/L Carbon Dioxide 18.1 L (21.0-32.0) meq/L Anion Gap 13 (5-15) meq/L BUN 47 H (7-18) mg/dL Creatinine 3.78 H (0.60-1.30) mg/dL Estimated GFR 15 L (>89) mL/min POC Glucose (68-110) mg/dl Random Glucose 112 H (74-106) mg/dL Hemoglobin A1c (4.3-6.0) % Calcium 7.7 L (8.5-10.1) mg/dL Phosphorus 3.8 (2.5-4.9) mg/dL Magnesium (1.5-2.5) mg/dL Iron 174 (65-175) mcg/dL TIBC 298 (250-450) mcg/dL % Saturation 58.4 H (20-50) % Ferritin 106 (26-388) ng/mL Total Bilirubin 0.8 (0.2-1.0) mg/dL AST 14 L (15-37) U/L ALT 17 (12-78) U/L Alkaline Phosphatase 54 (45-117) U/L Troponin I (0.02-0.05) ng/mL Total Protein 6.2 L (6.4-8.2) g/dL Albumin 2.8 L (3.4-5.0) g/dL TSH (0.358-3.740) uIU/mL Urine Color (Yellw/Straw) Urine Clarity (Clear) Urine pH (5.0-8.5) Ur Specific [place] (1.002-1.035) Urine Protein (Neg-Trace) mg/dL Urine Glucose (UA) (Negative) mg/dL Urine Ketones (Negative) mg/dL Urine Occult Blood (Negative) Urine Nitrate (Negative) Urine Bilirubin (Negative) Urine Urobilinogen (Less than 2) mg/dL Ur Leukocyte Esterase (Negative) Urine RBC (0-3) /hpf Urine WBC (0-5) /hpf Ur Squamous Epith Cells (0-5) /hpf Amorphous Sediment (None) /hpf Hyaline Casts (0-3) /lpf Granular Casts (None) /lpf Urine Mucus (Occasional) /lpf Micro UA Comment Ur Microscopic Review Urine Culture Comments Blood Type Antibody Screen MTS Gel Crossmatch Imaging Data Radiologist's impression: Abdomen/Bladder Ultrasound 03/17/18 00:00 CONCLUSION: 1. Cortical thinning and diffuse increased echogenicity throughout both kidneys characteristic of chronic renal disease. 2. Right renal cyst 3. No evidence of hydronephrosis. Head CT 03/17/18 15:45 CONCLUSION: 1. No acute intracranial abnormality is identified. 2. Chronic age-appropriate related changes including mild generalized cerebral atrophy and mild chronic periventricular white matter change. . Chest X-Ray 03/18/18 00:00 CONCLUSION: 1. Cardiomegaly with positive fluid balance. 2. Small to moderate left pleural effusion with associated left lower lobe airspace disease. 3. Probable trace right pleural effusion with associated right lung base airspace disease. 4. Suspect chronic interstitial and parenchymal scarring in the lateral right upper lung zone. Discharge Plan Discharge Disposition Patient Disposition: 30 Still Patient Discharge Condition Condition: Stable Discharge Details Diagnosis: Acute non-ST elevation myocardial infarction (NSTEMI), Kidney failure, acute, Anemia Physicians Team ED Provider: Candy Peck Primary Care Provider: Prashanth Mason Attending Provider: Jerry Tran Other Providers: Allyssa Antoine ; Fara Watt Discharge Interventions Interventions: ED Discharge Assessment Last Done: 03/17/18 20:20 Status ED Status: Left Department Discharge Information Discharge Date/Time: 03/17/18 20:20
[2018-03-17] MEDS ORDERED: Acetaminophen 325 MG Tablet PO PRN (17:41)
--- NOTE | 2018-03-17 17:41 | P.HP ---
History of Present Illness Service: [facility] Primary Care Physician: Prashanth Mason MD Chief Complaint: Weakness x 2 weeks, not eating History of Present Illness: Patient is an 87-year-old male with past medical history of diabetes, hypertension, hyperlipidemia, hypothyroidism, CAD with CABG in 2007, chronic kidney disease who came into the hospital secondary to complaints of generalized weakness, not eating or hydrating. Patient states that he has not been taking his medications for the past 2 weeks. States that he has no intention to hurt himself or kill himself. He just does not feel like doing so. Possible component of depression. Patient reports that his son last January and it was very difficult for him. He is very tearful talking about his son. Patient reports that he is only drinking milk but no solid food, not hydrating well not sleeping well at home. He lives by himself. States that he had a history of chronic kidney disease and has seen Dr. Jose Armando Horton before, approximately several months ago when he was told that he might need hemodialysis. States that he saw Dr. Prashanth Baird about 2 weeks ago but did not have any labs drawn. Reporting that it was a regular visit. Patient states he feels a lot better now that he is at the hospital. Per EMS report, patient has hypoglycemia and generalized weakness. Elevated BP was also noted. Denies pain and discomfort. Denies SOB/ dyspnea. Denies chest pain, palpitations, headaches, dizziness. Denies fevers, chills, n/v/d. Denies dysuria. Denies hematuria, hematemesis, hematochezia. Currently troponin is 0.21, creatinine 3.85, hemoglobin 7.8. CT of the brain without acute intracranial activity. EKG reviewed first-degree AV block with LVH, possible anterior NE. Current vitals 212/97, 99.1, heart rate of 87, respiratory rate 20 - Diagnosis (1) Kidney failure, acute (2) Myocardial infarction Review of Systems All other systems reviewed negative except as stated in HPI PMFSH - History History 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, Office Assistant / EMT - Medical History Medical History: Medical History (Last Reviewed 03/17/18 @ 17:12 by Candy Peck MD) Diabetes Hypertension - Surgical History Surgical History: Surgical History (Last Reviewed 03/17/18 @ 17:12 by Candy Peck MD) Hx of CABG - Family History Family History: Family History (Last Updated 03/17/18 @ 17:59 by GILLIAN Keller) Father Heart attack - Tobacco History Second Hand Smoke Exposure: No Smoking Status: Never smoker - Alcohol History How Often Do You Have a Drink Containing Alcohol: Never - Substance Use History Substance History: No History of Abuse - Travel History Recent Travel in the [place] Within the Last 8 Weeks: No Recent Travel Out of the Country Within the Last 8 Weeks: No - Immunization History Tetanus Immunization: >5 Years Hx Influenza Vaccine This Season: Yes Medications and Allergies Active Medications: Active Medications Heparin Sodium/Dextrose (Heparin/D5w 25,000 U/250 Ml) 25,000 unit in 250 mls @ 0 mls/hr IV.CONT TITRATE PRN; Protocol PRN Reason: Per Protocol Allergies Allergy/AdvReac Type Severity Reaction Status Date / Time codeine AdvReac Severe NAUSEA Verified 03/17/18 13:48 Home Medications Medication Instructions Recorded Confirmed Type gabapentin 600 mg PO BID 03/17/18 03/17/18 History isosorbide mononitrate 30 mg PO DAILY 03/17/18 03/17/18 History levothyroxine [Synthroid] 100 mcg PO DAILY 03/17/18 03/17/18 History nifedipine [Procardia XL] 60 mg PO BID 03/17/18 03/17/18 History propranolol 40 mg PO DAILY 03/17/18 03/17/18 History rosuvastatin [Crestor] 20 mg PO DAILY 03/17/18 03/17/18 History Exam Vital signs: Vital Signs 03/17/18 13:43 03/17/18 15:30 03/17/18 16:41 Temperature 99.1 F 97.9 F 97.8 F Pulse Rate 87 89 77 Respiratory Rate 20 16 17 Blood Pressure 212/97 H 200/91 H 180/87 H Pulse Oximetry 98 98 97 Intake & Output 03/16/18 03/17/18 03/17/18 18:59 06:59 18:59 Weight 72.575 kg Narrative: GENERAL: This is a pleasant, well-developed patient, in no apparent distress. SKIN: Warm and dry. Pale. HEENT: Normocephalic. Pupils equal round and reactive. Nose without bleeding. Airway patent. NECK: Trachea midline. Supple. CARDIOVASCULAR: Regular rate and rhythm with murmurs. No gallops, or rubs. RESPIRATORY: Clear to auscultation. Breath sounds equal bilaterally. No wheezes , rales, or rhonchi. GASTROINTESTINAL: Abdomen soft, non-tender, nondistended. Bowel Sounds normoactive x4. MUSCULOSKELETAL: Extremities without clubbing, cyanosis. Bilateral lower extremity +1 edema NEUROLOGICAL: Awake and alert. No focal neuro deficit. Moves all extremities. Normal speech. Results - Labs CBC & Chem 7: 03/18/18 02:25 03/18/18 02:25 Labs: Laboratory Results - last 24 hr 03/17/18 03/17/18 03/17/18 13:54 13:54 13:54 WBC 8.9 RBC 2.40 L Hgb 7.8 L Hct 23.5 L MCV 98.0 MCH 32.5 MCHC 33.1 RDW 16.7 Plt Count 251 MPV 8.5 Neut % (Auto) 82.7 H Lymph % (Auto) 9.8 [place] % (Auto) 7.0 Eos % (Auto) 0.3 Baso % (Auto) 0.2 Neut # (Auto) 7.4 Lymph # (Auto) 0.9 L [place] # (Auto) 0.6 Eos # (Auto) 0.0 Baso # (Auto) 0.0 WBC Differential . Differential Comment Auto diff final Sodium 145 Potassium 4.2 Chloride 115 H Carbon Dioxide 19.2 L Anion Gap 11 BUN 46 H Creatinine 3.85 H Estimated GFR 15 L POC Glucose 152 H Random Glucose 137 H Calcium 8.3 L Total Bilirubin 0.4 AST 17 ALT 14 Alkaline Phosphatase 56 Troponin I 0.21 H Total Protein 6.3 L Albumin 2.7 L - Imaging Impressions Head CT 03/17/18 15:45 CONCLUSION: 1. No acute intracranial abnormality is identified. 2. Chronic age-appropriate related changes including mild generalized cerebral atrophy and mild chronic periventricular white matter change. . Caprini VTE Risk Assessment Caprini VTE Risk Assessment: Moderate/High Risk (score >= 2) Caprini Risk Assessment Model: Point Value = 1 Point Value = 2 Point Value = 3 Point Value = 5 Age 41-60 Minor surgery BMI > 25 kg/m2 Swollen legs Varicose veins or History of unexplained or recurrent spontaneous Oral contraceptives or hormone replacement Sepsis (< 1 month) Serious lung disease, including pneumonia (< 1 month) Abnormal pulmonary function Acute myocardial infarction Congestive heart failure (< 1 month) History of inflammatory bowel disease Medical patient at bed rest Age 61-74 Arthroscopic surgery Major open surgery (> 45 min) Laparoscopic surgery (> 45 min) Malignancy Confined to bed (> 72 hours) Immobilizing plaster cast Central venous access Age >= 75 History of VTE Family history of VTE Factor V Leiden Prothrombin [id number] Lupus anticoagulant Anticardiolipin antibodies Elevated serum homocysteine Heparin-induced thrombocytopenia Other congenital or acquired thrombophilia Stroke (< 1 month) Elective arthroplasty Hip, pelvis, or leg fracture Acute spinal cord injury (< 1 month) Prophylaxis Regimen: Total Risk Factor Score Risk Level Prophylaxis Regimen 0-1 Low Early ambulation 2 Moderate Order ONE of the following: *Sequential Compression Device (SCD) *Heparin 5000 units SQ BID 3-4 Higher Order ONE of the following medications: *Heparin 5000 units SQ TID *Enoxaparin/Lovenox 40 mg SQ daily (WT < 150 kg, CrCl > 30 mL/min) *Enoxaparin/Lovenox 30 mg SQ daily (WT < 150 kg, CrCl > 10-29 mL/min) *Enoxaparin/Lovenox 30 mg SQ BID (WT < 150 kg, CrCl > 30 mL/min) AND/OR *Sequential Compression Device (SCD) 5 or more Highest Order ONE of the following medications: *Heparin 5000 units SQ TID (Preferred with Epidurals) *Enoxaparin/Lovenox 40 mg SQ daily (WT < 150 kg, CrCl > 30 mL/min) *Enoxaparin/Lovenox 30 mg SQ daily (WT < 150 kg, CrCl > 10-29 mL/min) *Enoxaparin/Lovenox 30 mg SQ BID (WT < 150 kg, CrCl > 30 mL/min) AND *Sequential Compression Device (SCD) Assessment and Plan - Assessment (1) Kidney failure, acute Code(s): N17.9 - Acute kidney failure, unspecified Status: Acute (2) Myocardial infarction Code(s): I21.9 - Acute myocardial infarction, unspecified Status: Acute - Plan Patient is an 87-year-old male with past medical history of diabetes, hypertension, hyperlipidemia, hypothyroidism, CAD with CABG in 2007, chronic kidney disease who came into the hospital secondary to complaints of generalized weakness, not eating or hydrating. Hypertensive urgency R/O ACS Elevated Trop, 0.21 History of CABG HLD -Has not been taking his medication 2 weeks. This could possibly also be secondary to chronic kidney disease stage IV-V -EKG reviewed first-degree AV block with LVH, possible anterior NE. -Started on heparin drip by ED, aspirin given. -Trend troponin, trending EKG. -Follow-up labs, check TSH -Cardiology consulted. Patient is following with Dr. Dumont -Resume home medications, metoprolol 50 mg twice daily, clonidine as needed -Monitor BP trend Acute kidney injury on chronic kidney disease St IV -Dehydration might be contributing factor -Patient is following with Dr. Blake in the outpatient, discussed possibility of hemodialysis -Ultrasound renal, follow-up results -Avoid nephrotoxins. Monitor renal indicis. -Check UA -IVF gentle hydration, monitor for overload -Patient presentation appears to be possibly caused by complications of end- stage renal disease versus separate diagnosis -hypertension, anemia, malnutrition Anemia, normocytic, normochromic -Possibly secondary to chronic kidney disease vs acute bleed -Hemoccult checked in the ED, negative -Denies hematochezia, hematemesis, hematuria DM 2 -States he takes Lantus at home. Has not taken it for 2 weeks. -Check hemoglobin A1c -Hold Lantus for now, insulin sliding scale. Monitor Accu-Cheks. -IVF D5WNS -Monitor for hypoglycemia Hypothyroidism -Continue home medication. Check TSH DVT prop on heparin drip Code Status: Full Code Discussed Condition With: Patient, nursing, Dr. Del Castillo Discharge Planning: Plan to DC home when clinically improved.
[2018-03-17] MEDS ORDERED: Sod Chloride 0.9% Inj 1,000 ML IV.CONT SCH (18:00)
[2018-03-17 18:32] LABS: Activated Partial Thrombo Time 29.2 sec (24.3-30.1); INR 1.1 Ratio; Prothrombin Time 11.5 sec (9.8-11.6)
--- NOTE | 2018-03-17 19:05 | US ---
EXAM DATE: 03/17/2018 6:45 PM EDT AGE/SEX: 87 years / Male INDICATIONS: Increased BUN/Creatnine. CLINICAL DATA: This is the patient's initial encounter. Patient reports that signs and symptoms have been present for 1 day and indicates a pain score of 0/10. MEDICAL/SURGICAL HISTORY: Hypertension. Diabetes. CABG. COMPARISON: No prior exams available for comparison. MEASUREMENTS: Right Kidney:__9.0 x 4.3 x 4.9 cm Left Kidney:__8.7 x 4.4 x 5.2 cm FINDINGS: Right Kidney: Increased echotexture. No mass or hydronephrosis. 2 cm cyst is identified in the upper pole. Left Kidney: Increased echotexture. No mass or hydronephrosis. Bladder: Within normal limits given the degree of distension. Other: None. CONCLUSION: 1. Cortical thinning and diffuse increased echogenicity throughout both kidneys characteristic of ch ronic renal disease. 2. Right renal cyst 3. No evidence of hydronephrosis. Electronically signed by: Jose Desai MD 03/17/2018 7:04 PM EDT
[2018-03-17 19:30] LABS: Amorphous Sediment,Urine Moderate /hpf; Bilirubin,Urine Negative (Negative); Clarity,Urine Turbid (Clear); Color,Urine Yellow (Yellw/Straw); Glucose,Urine (UA) Negative (Negative); Leukocyte Esterase,Urine Negative (Negative); Mucus,Urine Few /lpf (Occasional); Nitrite,Urine Negative (Negative); Specific Gravity,Urine 1.013 (1.002-1.035)
[2018-03-17] MEDS: Isosorbide Mononitrate 30 MG ER 24HR Tablet (Imdur) PO SCH (19:55)
[2018-03-17 20:38] LABS: Amorphous Sediment,Urine Few /hpf; Bilirubin,Urine Negative (Negative); Clarity,Urine Cloudy (Clear); Color,Urine Yellow (Yellw/Straw); Glucose,Urine (UA) 50 mg/dL (Negative); Hyaline Casts,Urine 1 /lpf (0-3); Leukocyte Esterase,Urine Negative (Negative); Mucus,Urine Few /lpf (Occasional); Nitrite,Urine Negative (Negative); Specific Gravity,Urine 1.013 (1.002-1.035); Squamous Epithelial Cell,Urine 1 /hpf (0-5)
[2018-03-17] MEDS ORDERED: Dextrose 50% in Water 50 ML Vial IV.PUSH PRN (20:46)
[2018-03-17] MEDS: Metoprolol Tartrate 50 MG Tablet PO SCH (21:45)
[2018-03-17] MEDS: Senna/Docusate Sodium 8.6/50 MG Tablet PO SCH (21:46)
[2018-03-17] MEDS: Insulin NovoLOG Aspart Correctional Sugar Inj SQ SCH (23:38)
[2018-03-18 03:02] LABS: Hematocrit 23.3 % (39.0-51.0); Hemoglobin 7.6 gm/dL (13.0-17.0); Mean Corpuscular HGB Conc 32.5 % (32.0-36.0); Mean Corpuscular Hemoglobin 31.2 pg (27.0-34.0); Mean Corpuscular Volume 95.8 fL (80.0-100.0); Red Blood Count 2.43 mil/mm3 (4.50-5.90); Red Cell Distribution Width 16.9 % (11.6-17.2); White Blood Count 11.3 th/mm3 (4.0-11.0)
[2018-03-18 03:03] LABS: Baso % (Auto) 0.3 % (0.0-2.0); Eos # (Auto) 0.1 th/mm3 (0.0-0.4); Eos % (Auto) 0.8 % (0.0-4.0); Lymph # (Auto) 1.4 th/mm3 (1.0-4.8); Lymph % (Auto) 12.3 % (9.0-44.0); Mean Platelet Volume 8.4 fL (7.0-11.0); Mono % (Auto) 8.4 % (0.0-8.0); Neut # (Auto) 8.9 th/mm3 (1.8-7.7); Neut % (Auto) 78.2 % (16.0-70.0); Platelet Count 278 th/mm3 (150-450)
[2018-03-18 03:22] LABS: Anion Gap 13 meq/L (5-15); Blood Urea Nitrogen 50 mg/dL (7-18); Carbon Dioxide 20.9 meq/L (21.0-32.0); Chloride 113 meq/L (98-107); Potassium 4.3 meq/L (3.5-5.1); Sodium 147 meq/L (136-145)
[2018-03-18 03:23] LABS: Alanine Aminotransferase 13 U/L (12-78); Albumin 2.8 g/dL (3.4-5.0); Aspartate Aminotransferase 17 U/L (15-37); Glomerular Filtration Rate 14 mL/min (>89); Glucose,Random 207 mg/dL (74-106); Magnesium 2.2 mg/dL (1.5-2.5); Total Protein 6.5 g/dL (6.4-8.2)
[2018-03-18 03:24] LABS: Alkaline Phosphatase 55 U/L (45-117); Phosphorus 3.5 mg/dL (2.5-4.9)
[2018-03-18 03:25] LABS: Troponin I 0.28 ng/mL (0.02-0.05)
[2018-03-18 03:40] LABS: % Iron Saturation 11.8 % (20-50)
[2018-03-18] MEDS: Dextrose 5%/NaCl 0.9% Inj 1,000 ML IV.CONT SCH ×2 (04:55→12:32)
[2018-03-18] MEDS: Levothyroxine 100 MCG Tablet PO SCH (07:34)
[2018-03-18] MEDS: Insulin NovoLOG Aspart Correctional Sugar Inj SQ SCH ×4 (08:00→21:00)
[2018-03-18] MEDS: Metoprolol Tartrate 50 MG Tablet PO SCH ×2 (10:43→21:01)
[2018-03-18] MEDS: Isosorbide Mononitrate 30 MG ER 24HR Tablet (Imdur) PO SCH (10:44)
[2018-03-18] MEDS: Senna/Docusate Sodium 8.6/50 MG Tablet PO SCH ×2 (10:44→21:01)
[2018-03-18 11:06] LABS: Hemoglobin A1c 5.1 % (4.3-6.0)
--- NOTE | 2018-03-18 12:05 | P.PN ---
Subjective Interval history: Follow-up chest pain/hypertensive urgency/acute on chronic kidney disease stage IV March 18, 2018-patient seen and examined, reports some shortness of breath however denies any chest pain. Physical Exam Vital signs: Vital Signs 03/17/18 13:43 03/17/18 15:30 03/17/18 16:41 Temperature 99.1 F 97.9 F 97.8 F Pulse Rate 87 89 77 Respiratory Rate 20 16 17 Blood Pressure 212/97 H 200/91 H 180/87 H Pulse Oximetry 98 98 97 03/17/18 17:42 03/17/18 20:00 03/17/18 21:00 Temperature 97.8 F Pulse Rate 89 94 H 102 H Respiratory Rate 16 16 Blood Pressure 178/82 H 176/79 H Pulse Oximetry 98 96 03/17/18 22:00 03/17/18 23:00 03/18/18 00:00 Temperature 99.2 F Pulse Rate 100 H 83 62 Respiratory Rate 18 Blood Pressure 131/59 L Pulse Oximetry 94 L 03/18/18 01:00 03/18/18 02:00 03/18/18 03:00 Temperature Pulse Rate 62 64 63 Respiratory Rate Blood Pressure Pulse Oximetry 03/18/18 04:00 03/18/18 05:00 03/18/18 06:00 Temperature 98.0 F Pulse Rate 68 70 70 Respiratory Rate 16 Blood Pressure 131/65 Pulse Oximetry 92 L 03/18/18 07:00 03/18/18 07:34 03/18/18 08:00 Temperature 97.6 F Pulse Rate 73 71 72 Respiratory Rate 16 Blood Pressure 135/64 Pulse Oximetry 97 03/18/18 09:00 03/18/18 10:00 03/18/18 10:59 Temperature 97.7 F Pulse Rate 72 84 80 Respiratory Rate 16 Blood Pressure 119/74 Pulse Oximetry 97 Intake & Output 03/17/18 03/18/18 03/18/18 18:59 06:59 18:59 Intake Total 720 / 720 Output Total 100 / 100 Balance 620 / 620 Weight 72.575 kg 72.4 kg Intake: IV 600 / 600 NS Inj 1,000 ML @ 75 mls/hr IV. 600 / 600 CONT .[id number] [facility] Rx#:[id number] Oral 120 / 120 Output: Urine 100 / 100 Other: Date of Last Bowel Movement 03/14/18 Narrative: GENERAL: NAD SKIN: Warm and dry. HEAD: Normocephalic. EYES: No scleral icterus. No injection or drainage. NECK: Supple, trachea midline. No JVD or lymphadenopathy. CARDIOVASCULAR: Regular rate and rhythm without murmurs, gallops, or rubs. RESPIRATORY: Breath sounds decrease bilaterally L>R. No accessory muscle use. GASTROINTESTINAL: Abdomen soft, non-tender, nondistended. MUSCULOSKELETAL: No cyanosis, or edema. BACK: Nontender without obvious deformity. No CVA tenderness. Results - Labs CBC & Chem 7: 03/18/18 02:25 03/18/18 02:25 Laboratory Results - last 24 hr 03/17/18 03/17/18 03/17/18 13:54 13:54 13:54 WBC 8.9 RBC 2.40 L Hgb 7.8 L Hct 23.5 L MCV 98.0 MCH 32.5 MCHC 33.1 RDW 16.7 Plt Count 251 MPV 8.5 Neut % (Auto) 82.7 H Lymph % (Auto) 9.8 [place] % (Auto) 7.0 Eos % (Auto) 0.3 Baso % (Auto) 0.2 Neut # (Auto) 7.4 Lymph # (Auto) 0.9 L [place] # (Auto) 0.6 Eos # (Auto) 0.0 Baso # (Auto) 0.0 WBC Differential . Differential Comment Auto diff final PT INR APTT Sodium 145 Potassium 4.2 Chloride 115 H Carbon Dioxide 19.2 L Anion Gap 11 BUN 46 H Creatinine 3.85 H Estimated GFR 15 L POC Glucose 152 H Random Glucose 137 H Hemoglobin A1c Calcium 8.3 L Phosphorus Magnesium Iron TIBC % Saturation Ferritin Total Bilirubin 0.4 AST 17 ALT 14 Alkaline Phosphatase 56 Troponin I 0.21 H Total Protein 6.3 L Albumin 2.7 L TSH Urine Color Urine Clarity Urine pH Ur Specific [place] Urine Protein Urine Glucose (UA) Urine Ketones Urine Occult Blood Urine Nitrate Urine Bilirubin Urine Urobilinogen Ur Leukocyte Esterase Urine RBC Urine WBC Ur Squamous Epith Cells Amorphous Sediment Hyaline Casts Granular Casts Urine Mucus Micro UA Comment Ur Microscopic Review Urine Culture Comments 03/17/18 03/17/18 03/17/18 13:54 13:54 18:10 WBC RBC Hgb Hct MCV MCH MCHC RDW Plt Count MPV Neut % (Auto) Lymph % (Auto) [place] % (Auto) Eos % (Auto) Baso % (Auto) Neut # (Auto) Lymph # (Auto) [place] # (Auto) Eos # (Auto) Baso # (Auto) WBC Differential Differential Comment PT 11.5 INR 1.1 APTT 29.2 Sodium Potassium Chloride Carbon Dioxide Anion Gap BUN Creatinine Estimated GFR POC Glucose Random Glucose Hemoglobin A1c 5.1 Calcium Phosphorus Magnesium Iron TIBC % Saturation Ferritin Total Bilirubin AST ALT Alkaline Phosphatase Troponin I Total Protein Albumin TSH 1.460 Urine Color Urine Clarity Urine pH Ur Specific [place] Urine Protein Urine Glucose (UA) Urine Ketones Urine Occult Blood Urine Nitrate Urine Bilirubin Urine Urobilinogen Ur Leukocyte Esterase Urine RBC Urine WBC Ur Squamous Epith Cells Amorphous Sediment Hyaline Casts Granular Casts Urine Mucus Micro UA Comment Ur Microscopic Review Urine Culture Comments 03/17/18 03/17/18 03/17/18 18:20 18:40 19:01 WBC RBC Hgb Hct MCV MCH MCHC RDW Plt Count MPV Neut % (Auto) Lymph % (Auto) [place] % (Auto) Eos % (Auto) Baso % (Auto) Neut # (Auto) Lymph # (Auto) [place] # (Auto) Eos # (Auto) Baso # (Auto) WBC Differential Differential Comment PT INR APTT Sodium Potassium Chloride Carbon Dioxide Anion Gap BUN Creatinine Estimated GFR POC Glucose 49 L* Random Glucose Hemoglobin A1c Calcium Phosphorus Magnesium Iron TIBC % Saturation Ferritin Total Bilirubin AST ALT Alkaline Phosphatase Troponin I Total Protein Albumin TSH Urine Color Yellow Yellow Urine Clarity Turbid H Cloudy H Urine pH 7.0 5.0 Ur Specific [place] 1.013 1.013 Urine Protein Negative 500 or greater Urine Glucose (UA) Negative 50 Urine Ketones Trace Negative Urine Occult Blood Negative Negative Urine Nitrate Negative Negative Urine Bilirubin Negative Negative Urine Urobilinogen Less than 2 Less than 2 Ur Leukocyte Esterase Negative Negative Urine RBC 1 2 Urine WBC 3 Ur Squamous Epith Cells 1 Amorphous Sediment Moderate H Few H Hyaline Casts 1 Granular Casts 1 Urine Mucus Few H Few H Micro UA Comment Culture not ind Culture not ind Ur Microscopic Review Not Reportable Not Reportable Urine Culture Comments Culture not ind Culture not ind 03/17/18 03/17/18 03/17/18 20:00 20:00 20:10 WBC RBC Hgb Hct MCV MCH MCHC RDW Plt Count MPV Neut % (Auto) Lymph % (Auto) [place] % (Auto) Eos % (Auto) Baso % (Auto) Neut # (Auto) Lymph # (Auto) [place] # (Auto) Eos # (Auto) Baso # (Auto) WBC Differential Differential Comment PT INR APTT Sodium Potassium Chloride Carbon Dioxide Anion Gap BUN Creatinine Estimated GFR POC Glucose 96 Random Glucose 92 Hemoglobin A1c Calcium Phosphorus Magnesium Iron TIBC % Saturation Ferritin Total Bilirubin AST ALT Alkaline Phosphatase Troponin I 0.30 H Total Protein Albumin TSH Urine Color Urine Clarity Urine pH Ur Specific [place] Urine Protein Urine Glucose (UA) Urine Ketones Urine Occult Blood Urine Nitrate Urine Bilirubin Urine Urobilinogen Ur Leukocyte Esterase Urine RBC Urine WBC Ur Squamous Epith Cells Amorphous Sediment Hyaline Casts Granular Casts Urine Mucus Micro UA Comment Ur Microscopic Review Urine Culture Comments 03/17/18 03/18/18 03/18/18 21:45 02:25 02:25 WBC 11.3 H RBC 2.43 L Hgb 7.6 L Hct 23.3 L MCV 95.8 MCH 31.2 MCHC 32.5 RDW 16.9 Plt Count 278 MPV 8.4 Neut % (Auto) 78.2 H Lymph % (Auto) 12.3 [place] % (Auto) 8.4 H Eos % (Auto) 0.8 Baso % (Auto) 0.3 Neut # (Auto) 8.9 H Lymph # (Auto) 1.4 [place] # (Auto) 1.0 H Eos # (Auto) 0.1 Baso # (Auto) 0.0 WBC Differential . Differential Comment Auto diff final PT INR APTT Sodium Potassium Chloride Carbon Dioxide Anion Gap BUN Creatinine Estimated GFR POC Glucose 188 H Random Glucose Hemoglobin A1c Calcium Phosphorus 3.5 Magnesium Iron 36 L TIBC 304 % Saturation 11.8 L Ferritin 77 Total Bilirubin AST ALT Alkaline Phosphatase Troponin I 0.28 H Total Protein Albumin TSH Urine Color Urine Clarity Urine pH Ur Specific [place] Urine Protein Urine Glucose (UA) Urine Ketones Urine Occult Blood Urine Nitrate Urine Bilirubin Urine Urobilinogen Ur Leukocyte Esterase Urine RBC Urine WBC Ur Squamous Epith Cells Amorphous Sediment Hyaline Casts Granular Casts Urine Mucus Micro UA Comment Ur Microscopic Review Urine Culture Comments 03/18/18 03/18/18 03/18/18 02:25 02:25 06:13 WBC RBC Hgb Hct MCV MCH MCHC RDW Plt Count MPV Neut % (Auto) Lymph % (Auto) [place] % (Auto) Eos % (Auto) Baso % (Auto) Neut # (Auto) Lymph # (Auto) [place] # (Auto) Eos # (Auto) Baso # (Auto) WBC Differential Differential Comment PT INR APTT 95.4 H* D 43.8 H D Sodium 147 H Potassium 4.3 Chloride 113 H Carbon Dioxide 20.9 L Anion Gap 13 BUN 50 H Creatinine 3.95 H Estimated GFR 14 L POC Glucose Random Glucose 207 H D Hemoglobin A1c Calcium 8.0 L Phosphorus Magnesium 2.2 Iron TIBC % Saturation Ferritin Total Bilirubin 0.4 AST 17 ALT 13 Alkaline Phosphatase 55 Troponin I Total Protein 6.5 Albumin 2.8 L TSH Urine Color Urine Clarity Urine pH Ur Specific [place] Urine Protein Urine Glucose (UA) Urine Ketones Urine Occult Blood Urine Nitrate Urine Bilirubin Urine Urobilinogen Ur Leukocyte Esterase Urine RBC Urine WBC Ur Squamous Epith Cells Amorphous Sediment Hyaline Casts Granular Casts Urine Mucus Micro UA Comment Ur Microscopic Review Urine Culture Comments 03/18/18 03/18/18 07:41 10:33 WBC RBC Hgb Hct MCV MCH MCHC RDW Plt Count MPV Neut % (Auto) Lymph % (Auto) [place] % (Auto) Eos % (Auto) Baso % (Auto) Neut # (Auto) Lymph # (Auto) [place] # (Auto) Eos # (Auto) Baso # (Auto) WBC Differential Differential Comment PT INR APTT 41.5 H Sodium Potassium Chloride Carbon Dioxide Anion Gap BUN Creatinine Estimated GFR POC Glucose 286 H Random Glucose Hemoglobin A1c Calcium Phosphorus Magnesium Iron TIBC % Saturation Ferritin Total Bilirubin AST ALT Alkaline Phosphatase Troponin I Total Protein Albumin TSH Urine Color Urine Clarity Urine pH Ur Specific [place] Urine Protein Urine Glucose (UA) Urine Ketones Urine Occult Blood Urine Nitrate Urine Bilirubin Urine Urobilinogen Ur Leukocyte Esterase Urine RBC Urine WBC Ur Squamous Epith Cells Amorphous Sediment Hyaline Casts Granular Casts Urine Mucus Micro UA Comment Ur Microscopic Review Urine Culture Comments - Imaging Impressions Abdomen/Bladder Ultrasound 03/17/18 00:00 CONCLUSION: 1. Cortical thinning and diffuse increased echogenicity throughout both kidneys characteristic of chronic renal disease. 2. Right renal cyst 3. No evidence of hydronephrosis. Head CT 03/17/18 15:45 CONCLUSION: 1. No acute intracranial abnormality is identified. 2. Chronic age-appropriate related changes including mild generalized cerebral atrophy and mild chronic periventricular white matter change. . Assessment and Plan - Assessment (1) Kidney failure, acute Code(s): N17.9 - Acute kidney failure, unspecified Status: Acute (2) Myocardial infarction Code(s): I21.9 - Acute myocardial infarction, unspecified Status: Acute - Plan 87-year-old man with Hypertensive urgency-resolved R/O ACS Elevated Trop, 0.21 History of CABG HLD -Has not been taking his medication 2 weeks. This could possibly also be secondary to chronic kidney disease stage IV-V -EKG reviewed first-degree AV block with LVH, possible anterior IA. -Currently on heparin drip , aspirin given. -Cardiology consulted. Patient is following with Dr. Dumont -Continue home medications, metoprolol 50 mg twice daily, clonidine as needed -Check chest x-ray Acute kidney injury on chronic kidney disease St IV -Dehydration might be contributing factor -Patient is following with Dr. Blake in the outpatient, discussed possibility of hemodialysis -Ultrasound renal noted -Avoid nephrotoxins. Monitor renal indicis. -IVF gentle hydration, monitor for overload Anemia, normocytic, normochromic -Possibly secondary to chronic kidney disease -Hemoccult negative -Monitor H&H DM 2 -States he takes Lantus at home. Has not taken it for 2 weeks. -hemoglobin A1c pending -Hold Lantus for now, insulin sliding scale. Monitor Accu-Cheks. Hypothyroidism -Continue home medication. Check TSH DVT prop on heparin drip
[2018-03-18] MEDS: Sod Chloride 0.9% Inj 1,000 ML IV.CONT SCH (12:30)
--- NOTE | 2018-03-18 13:02 | XR ---
EXAM DATE: 03/18/2018 12:56 PM EDT AGE/SEX: 87 years / Male INDICATIONS: Shortness of bretah and dizziness. CLINICAL DATA: This is the patient's initial encounter. Patient reports that signs and symptoms have been present for 3 days and indicates a pain score of 0/10. MEDICAL/SURGICAL HISTORY: Hypertension. Diabetes. CABG. COMPARISON: No prior exams available for comparison. FINDINGS: Small to moderate left pleural effusion with associated airspace disease in the left lower lung zone. There is likely trace right pleural effusion with associated right lung base airspace disease. Mixed interstitial and parenchymal opacities in the right lateral upper lung zone. Cardiac silhouette is m ildly enlarged with slightly indistinct central pulmonary vascularity. Median sternotomy wires with p ostsurgical features of prior CABG. Bony thorax is intact. CONCLUSION: 1. Cardiomegaly with positive fluid balance. 2. Small to moderate left pleural effusion with associated left lower lobe airspace disease. 3. Probable trace right pleural effusion with associated right lung base airspace disease. 4. Suspect chronic interstitial and parenchymal scarring in the lateral right upper lung zone. Electronically signed by: Edvin Man MD 03/18/2018 1:00 PM EDT
--- NOTE | 2018-03-18 13:35 | ECG ---
Date Performed: 03/17/2018 Time Performed: 14:13:38 PTAGE: 87 years EKG: Sinus rhythm WITH FIRST DEGREE AV BLOCK INTRAVENTRICULAR CONDUCTION DELAY LEFT VENTRICULAR HYPERTROPHY AND ST-T C HANGE POSSIBLE ANTERIOR MYOCARDIAL INFARCTION ABNORMAL ECG PREVIOUS TRACING : 12/20/2016 08.06 Compared to previous tracing, ST depressions are mpre promi nent. Consider Ischemia DOCTOR: Andrea Baires Interpretating Date/Time 03/18/2018 13:34:36
--- NOTE | 2018-03-18 13:37 | ECG ---
Date Performed: 03/17/2018 Time Performed: 19:51:28 PTAGE: 87 years EKG: Sinus rhythm LEFT VENTRICULAR HYPERTROPHY AND ST-T CHANGE POSSIBLE ANTERIOR MYOCARDIAL INFARCTION ABNORMAL ECG PREVIOUS TRACING : 03/17/2018 14.13 Since the previous tracing, no significant change noted DOCTOR: Andrea Baires Interpretating Date/Time 03/18/2018 13:35:28
--- NOTE | 2018-03-18 13:37 | ECG ---
Date Performed: 03/17/2018 Time Performed: 23:50:54 PTAGE: 87 years EKG: Sinus rhythm Leftward axis IV conduction defect Inferior infarct - age undetermined Possible anteroseptal infarct - age undetermined Possible LVH with secondary repolarization abnormality Lateral ST-T changes may b e due to hypertrophy and/or ischemia Abnormal ECG PREVIOUS TRACING : 03/17/2018 19.51 Compared to previous tracing, T-wave changes are more promi nent Consider Ischemia DOCTOR: Andera Baires Interpretating Date/Time 03/18/2018 13:36:19
--- NOTE | 2018-03-18 14:27 | MB ---
cc: Allyssa Antoine MD DATE: 03/18/2018 REASON FOR CONSULTATION: Troponin elevation in the setting of dehydration and generalized weakness. HISTORY OF PRESENT ILLNESS: Mr. Mendoza is an 87-year-old [place] , who presented to [facility] with generalized weakness. Unfortunately, he had some family event and he did not feel like he wanted to eat or drink. He has also skipped his medication for the last 2 weeks. He does have CAD, status post bypass in 2007, and he has been seeing Dr. Dumont regularly. The patient was also noted to have hypertension, hypercholesterolemia, hypothyroidism, and chronic renal insufficiency, and has been followed by Dr. Blake. At some point, he was told that he may need dialysis soon. Again, he has been skipping his medication for weeks and has been eating or drinking. When he was admitted, the patient was noted to have creatinine elevated 3.85 with hemoglobin only 7.8. Potassium is normal, but the patient was also noted to have troponin 0.21 in the setting of elevated creatinine and poor urine output. EKG so far showed T-wave inversions in the precordial leads. He has been admitted. So far, he was treated with D5 half, then switched to normal saline. Urine output has improved. He has been feeling a bit stronger. He denies any recent episodes of chest discomfort. PMH as above. ALLERGIES: NO KNOWN DRUG ALLERGIES. PAST SURGICAL HISTORY: As above including bypass. MEDICATIONS AT HOME: Includin. Atorvastatin 40 mg. 2. Imdur 30 mg. 3. Levothyroxine 100 mcg daily. 4. Metoprolol 50 mg b.i.d. 5. Nifedipine 60 mg every 12 hours b.i.d. He has skipped all his medications for the last few weeks. FAMILY HISTORY: Not significant for CAD at an early age. PHYSICAL EXAMINATION: VITAL SIGNS: The patient has blood pressure 120/70 with pulse in the 70s. The patient is afebrile. HEENT: Normal oral exam. PERRLA. ENDOCRINE: There is no thyroid enlargement. LYMPHATICS: No lymphadenopathy. RESPIRATORY: Decreased breath sounds bilaterally, but no crackles. CARDIOVASCULAR: Slight decrease S1, S2. Bypass scar is noted. No loud murmurs. ABDOMEN: Active bowel sounds in all 4 quadrants. GENITOURINARY: Deferred. MUSCULOSKELETAL: All range of motion intact. SKIN: The patient does have 1+ edema in the lower extremities. PSYCHIATRIC: The patient has good mood and good judgment. NEUROLOGIC: There are no focal neurologic deficits. TESTS: Again, EKG showed T-wave inversion in the precordial leads, with creatinine elevated at 3.85 with hemoglobin A1c low between 7.3-7.8. ASSESSMENT: 1. Troponin elevation in the setting of acute elevation of creatinine, along with dehydration. 2. Coronary artery disease, status post bypass. 3. Hypertension. 4. Hypercholesterolemia. 5. Hypothyroidism. 6. Poor appetite without eating or drinking, along with skipping the medications for 2 weeks. PLAN: I did encourage the patient to have increased p.o. intake including fluids. We will continue all home medications. I did emphasize the importance of medication compliance. We will add Baby aspirin 81 mg back and continue statin therapy, along with Imdur. Continue levothyroxine 100 mcg daily. Continue metoprolol and nifedipine for hypertension and CAD. I will leave the treatment of renal insufficiency up to Dr. Blake. We will also have Dr. Dumont see the patient tomorrow. No specific cardiac intervention needed. We will follow up on the a troponin level for the next 2 draws. I would like to thank Dr. Meredith for letting me participate in the care of Mr. Mendoza, and Dr. Gipson will follow. MD VINITA Austin/александр , 01:09 PM , 01:20 PM
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
[2018-03-19] MEDS: Sod Chloride 0.9% Inj 1,000 ML IV.CONT SCH (05:43)
[2018-03-19] MEDS: Levothyroxine 100 MCG Tablet PO SCH (05:46)
[2018-03-19 06:46] LABS: Baso % (Auto) 0.3 % (0.0-2.0); Eos # (Auto) 0.1 th/mm3 (0.0-0.4); Eos % (Auto) 0.6 % (0.0-4.0); Lymph # (Auto) 1.1 th/mm3 (1.0-4.8); Lymph % (Auto) 12.6 % (9.0-44.0); Mean Corpuscular Hemoglobin 31.7 pg (27.0-34.0); Mean Corpuscular Volume 95.9 fL (80.0-100.0); Mean Platelet Volume 8.6 fL (7.0-11.0); Mono # (Auto) 0.6 th/mm3 (0.0-0.9); Mono % (Auto) 6.6 % (0.0-8.0); Neut # (Auto) 7.3 th/mm3 (1.8-7.7); Neut % (Auto) 79.9 % (16.0-70.0); Platelet Count 234 th/mm3 (150-450); Red Blood Count 2.18 mil/mm3 (4.50-5.90); Red Cell Distribution Width 17.3 % (11.6-17.2); White Blood Count 9.1 th/mm3 (4.0-11.0)
[2018-03-19 06:56] LABS: Hematocrit 20.9 % (39.0-51.0); Hemoglobin 6.9 gm/dL (13.0-17.0)
[2018-03-19 07:17] LABS: Albumin 2.9 g/dL (3.4-5.0); Anion Gap 15 meq/L (5-15); Aspartate Aminotransferase 12 U/L (15-37); Blood Urea Nitrogen 47 mg/dL (7-18); Calcium 7.9 mg/dL (8.5-10.1); Carbon Dioxide 18.5 meq/L (21.0-32.0); Chloride 113 meq/L (98-107); Glomerular Filtration Rate 15 mL/min (>89); Glucose,Random 175 mg/dL (74-106); Sodium 146 meq/L (136-145)
[2018-03-19 07:20] LABS: Alanine Aminotransferase 14 U/L (12-78); Alkaline Phosphatase 54 U/L (45-117); Total Protein 6.4 g/dL (6.4-8.2)
[2018-03-19] MEDS: Metoprolol Tartrate 50 MG Tablet PO SCH ×2 (08:19→21:06)
[2018-03-19] MEDS: Senna/Docusate Sodium 8.6/50 MG Tablet PO SCH ×2 (08:19→21:57)
[2018-03-19] MEDS: Isosorbide Mononitrate 30 MG ER 24HR Tablet (Imdur) PO SCH (08:19)
[2018-03-19] MEDS: Insulin NovoLOG Aspart Correctional Sugar Inj SQ SCH ×4 (08:23→21:08)
--- NOTE | 2018-03-19 10:24 | P.PN ---
Subjective Interval history: Follow-up chest pain/hypertensive urgency/acute on chronic kidney disease stage IV March 18, 2018-patient seen and examined, reports some shortness of breath however denies any chest pain. March 19, 2018-patient seen and examined, denies any shortness of breath, GI bleed. H&H low. 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 Physical Exam Vital signs: Vital Signs 03/18/18 10:59 03/18/18 11:00 03/18/18 12:00 Temperature 97.7 F Pulse Rate 80 78 58 L Respiratory Rate 16 Blood Pressure 119/74 Pulse Oximetry 97 03/18/18 13:00 03/18/18 14:00 03/18/18 15:00 Temperature Pulse Rate 60 60 71 Respiratory Rate Blood Pressure Pulse Oximetry 03/18/18 16:00 03/18/18 17:00 03/18/18 18:00 Temperature 97.6 F Pulse Rate 62 68 70 Respiratory Rate 18 Blood Pressure 120/59 L Pulse Oximetry 92 L 03/18/18 19:00 03/18/18 20:00 03/18/18 21:00 Temperature 98 F Pulse Rate 80 85 77 Respiratory Rate 18 Blood Pressure 150/66 H Pulse Oximetry 96 03/18/18 22:00 03/19/18 00:00 03/19/18 03:00 Temperature 98 F Pulse Rate 77 67 79 Respiratory Rate 18 Blood Pressure 130/63 Pulse Oximetry 97 03/19/18 04:00 03/19/18 04:57 03/19/18 06:00 Temperature 98 F Pulse Rate 79 74 79 Respiratory Rate 18 Blood Pressure 129/64 Pulse Oximetry 97 Intake & Output 03/18/18 03/19/18 03/19/18 18:59 06:59 18:59 Intake Total 1500 / 1500 240 / 240 509 / 509 Output Total 320 / 320 500 / 500 Balance 1180 / 1180 -260 / -260 509 / 509 Weight 72.5 kg Intake: IV 700 / 700 509 / 509 D5W/Normal Saline Inj 1,000 ML 700 / 700 @ 75 mls/hr IV.CONT .[id number] [facility] Rx#:[id number] Heparin/D5W 25,000 U/250 mL 25, 186 / 186 000 unit In 250 ml @ Per Protocol IV.CONT TITRATE PRN Rx #:[id number] NS Inj 1,000 ML @ 70 mls/hr IV. 323 / 323 CONT .[id number] [facility] Rx#:[id number] Oral 800 / 800 240 / 240 Output: Urine 320 / 320 500 / 500 Other: Date of Last Bowel Movement 03/14/18 03/14/18 Narrative: GENERAL: NAD SKIN: Warm and dry. HEAD: Normocephalic. EYES: No scleral icterus. No injection or drainage. NECK: Supple, trachea midline. No JVD or lymphadenopathy. CARDIOVASCULAR: Regular rate and rhythm without murmurs, gallops, or rubs. RESPIRATORY: Breath sounds decrease bilaterally L>R. No accessory muscle use. GASTROINTESTINAL: Abdomen soft, non-tender, nondistended. MUSCULOSKELETAL: No cyanosis, or edema. BACK: Nontender without obvious deformity. No CVA tenderness. Results - Labs CBC & Chem 7: 03/19/18 05:55 03/19/18 05:55 Laboratory Results - last 24 hr 03/17/18 03/18/18 03/18/18 13:54 10:33 12:37 WBC RBC Hgb Hct MCV MCH MCHC RDW Plt Count MPV Neut % (Auto) Lymph % (Auto) [place] % (Auto) Eos % (Auto) Baso % (Auto) Neut # (Auto) Lymph # (Auto) [place] # (Auto) Eos # (Auto) Baso # (Auto) WBC Differential Differential Comment APTT 41.5 H Sodium Potassium Chloride Carbon Dioxide Anion Gap BUN Creatinine Estimated GFR POC Glucose 320 H Random Glucose Hemoglobin A1c 5.1 Calcium Total Bilirubin AST ALT Alkaline Phosphatase Total Protein Albumin 03/18/18 03/18/18 03/18/18 16:57 17:30 20:52 WBC RBC Hgb Hct MCV MCH MCHC RDW Plt Count MPV Neut % (Auto) Lymph % (Auto) [place] % (Auto) Eos % (Auto) Baso % (Auto) Neut # (Auto) Lymph # (Auto) [place] # (Auto) Eos # (Auto) Baso # (Auto) WBC Differential Differential Comment APTT 41.6 H Sodium Potassium Chloride Carbon Dioxide Anion Gap BUN Creatinine Estimated GFR POC Glucose 197 H 228 H Random Glucose Hemoglobin A1c Calcium Total Bilirubin AST ALT Alkaline Phosphatase Total Protein Albumin 03/19/18 03/19/18 03/19/18 05:55 05:55 05:55 WBC 9.1 RBC 2.18 L Hgb 6.9 L* Hct 20.9 L* MCV 95.9 MCH 31.7 MCHC 33.0 RDW 17.3 H Plt Count 234 MPV 8.6 Neut % (Auto) 79.9 H Lymph % (Auto) 12.6 [place]bs % (Auto) 6.6 Eos % (Auto) 0.6 Baso % (Auto) 0.3 Neut # (Auto) 7.3 Lymph # (Auto) 1.1 [place]bs # (Auto) 0.6 Eos # (Auto) 0.1 Baso # (Auto) 0.0 WBC Differential . Differential Comment Auto diff final APTT 29.1 D Sodium 146 H Potassium 4.0 Chloride 113 H Carbon Dioxide 18.5 L Anion Gap 15 BUN 47 H Creatinine 3.87 H Estimated GFR 15 L POC Glucose Random Glucose 175 H Hemoglobin A1c Calcium 7.9 L Total Bilirubin 0.4 AST 12 L ALT 14 Alkaline Phosphatase 54 Total Protein 6.4 Albumin 2.9 L 03/19/18 08:21 WBC RBC Hgb Hct MCV MCH MCHC RDW Plt Count MPV Neut % (Auto) Lymph % (Auto) [place] % (Auto) Eos % (Auto) Baso % (Auto) Neut # (Auto) Lymph # (Auto) [place] # (Auto) Eos # (Auto) Baso # (Auto) WBC Differential Differential Comment APTT Sodium Potassium Chloride Carbon Dioxide Anion Gap BUN Creatinine Estimated GFR POC Glucose 190 H Random Glucose Hemoglobin A1c Calcium Total Bilirubin AST ALT Alkaline Phosphatase Total Protein Albumin - Imaging Impressions Chest X-Ray 03/18/18 00:00 CONCLUSION: 1. Cardiomegaly with positive fluid balance. 2. Small to moderate left pleural effusion with associated left lower lobe airspace disease. 3. Probable trace right pleural effusion with associated right lung base airspace disease. 4. Suspect chronic interstitial and parenchymal scarring in the lateral right upper lung zone. Assessment and Plan - Assessment (1) Kidney failure, acute Code(s): N17.9 - Acute kidney failure, unspecified Status: Acute (2) Myocardial infarction Code(s): I21.9 - Acute myocardial infarction, unspecified Status: Acute - Plan 87-year-old man with Hypertensive urgency-resolved R/O ACS Elevated Trop, 0.21 History of CABG HLD -Has not been taking his medication 2 weeks. This could possibly also be secondary to chronic kidney disease stage IV-V -EKG reviewed first-degree AV block with LVH, possible anterior MS. -Currently on heparin drip , aspirin given. -Cardiology consulted. Patient is following with Dr. Dumont -Continue home medications, metoprolol 50 mg twice daily, clonidine as needed -Check chest x-ray Acute kidney injury on chronic kidney disease St IV -Patient is following with Dr. Blake in the outpatient, discussed possibility of hemodialysis -Ultrasound renal noted -Avoid nephrotoxins. Monitor renal indicis. -d/c IVF hydration Anemia, normocytic, normochromic -Possibly secondary to chronic kidney disease -Hemoccult negative -As H&H down to 6.9/20.9, will transfuse 2 units packed red blood cell today March 19, 2018 DM 2 -States he takes Lantus at home. Has not taken it for 2 weeks. -hemoglobin A1c pending -Hold Lantus for now, insulin sliding scale. Monitor Accu-Cheks. Hypothyroidism -Continue home medication. Check TSH DVT prop on heparin drip
[2018-03-19] MEDS ORDERED: Sodium Chlor 0.9% Inj 250 ML IV.SIG SCH (11:00)
--- NOTE | 2018-03-19 16:50 | P.PNNP ---
Subjective Interval history: Sitting up in chair. Reports that he is feeling better. Denies any shortness of breath. Bilateral lower extremity edema. <Vesna Boland - Last Filed: 03/19/18 16:30> Physical Exam Vital signs: Vital Signs 03/18/18 17:00 03/18/18 18:00 03/18/18 19:00 Temperature Pulse Rate 68 70 80 Respiratory Rate Blood Pressure Pulse Oximetry 03/18/18 20:00 03/18/18 21:00 03/18/18 22:00 Temperature 98 F Pulse Rate 85 77 77 Respiratory Rate 18 Blood Pressure 150/66 H Pulse Oximetry 96 03/19/18 00:00 03/19/18 03:00 03/19/18 04:00 Temperature 98 F 98 F Pulse Rate 67 79 79 Respiratory Rate 18 18 Blood Pressure 130/63 129/64 Pulse Oximetry 97 97 03/19/18 04:57 03/19/18 06:00 03/19/18 07:00 Temperature Pulse Rate 74 79 75 Respiratory Rate Blood Pressure Pulse Oximetry 03/19/18 08:00 03/19/18 12:00 03/19/18 16:07 Temperature 97.7 F 97.6 F 97.6 F Pulse Rate 78 63 Respiratory Rate 18 18 18 Blood Pressure 147/71 H 131/64 147/67 H Pulse Oximetry 97 96 92 L Intake & Output 03/18/18 03/19/18 03/19/18 18:59 06:59 18:59 Intake Total 1500 / 1500 240 / 240 509 / 509 Output Total 320 / 320 500 / 500 Balance 1180 / 1180 -260 / -260 509 / 509 Weight 72.5 kg Intake: IV 700 / 700 509 / 509 D5W/Normal Saline Inj 1,000 ML 700 / 700 @ 75 mls/hr IV.CONT .[id number] [facility] Rx#:[id number] Heparin/D5W 25,000 U/250 mL 25, 186 / 186 000 unit In 250 ml @ Per Protocol IV.CONT TITRATE PRN Rx #:[id number] NS Inj 1,000 ML @ 70 mls/hr IV. 323 / 323 CONT .[id number] [facility] Rx#:[id number] Oral 800 / 800 240 / 240 Intake (Blood Product) Amt 0 / 0 Rbc As-3 Leukoreduced Unit 0 / 0 [id number] Output: Urine 320 / 320 500 / 500 Other: Date of Last Bowel Movement 03/14/18 03/14/18 03/18/18 Narrative: GENERAL: alert and oriented SKIN: Warm and dry. HEAD: Normocephalic. EYES: No scleral icterus. No injection or drainage. NECK: Supple, trachea midline. No JVD or lymphadenopathy. CARDIOVASCULAR: Regular rate and rhythm without murmurs, gallops, or rubs. RESPIRATORY: Breath sounds diminished. No accessory muscle use. GASTROINTESTINAL: Abdomen soft, non-tender, nondistended. MUSCULOSKELETAL: No cyanosis, bilateral lower extremity edema BACK: Nontender without obvious deformity. No CVA tenderness. <Vesna Boland - Last Filed: 03/19/18 16:30> Vital signs: Vital Signs 03/19/18 14:00 03/19/18 15:00 03/19/18 16:00 Temperature 97.6 F Pulse Rate 64 64 70 Respiratory Rate 18 Blood Pressure 135/60 Pulse Oximetry 94 L 03/19/18 16:07 03/19/18 16:24 03/19/18 17:00 Temperature 97.6 F 98.4 F Pulse Rate 73 70 Respiratory Rate 18 18 Blood Pressure 147/67 H 141/69 H Pulse Oximetry 92 L 96 03/19/18 18:00 03/19/18 19:00 03/19/18 19:17 Temperature 97.7 F Pulse Rate 84 78 85 Respiratory Rate 18 Blood Pressure 141/75 H Pulse Oximetry 91 L 03/19/18 19:33 03/19/18 20:00 03/19/18 21:00 Temperature 97.0 F L 97.7 F Pulse Rate 82 80 92 H Respiratory Rate 20 16 Blood Pressure 140/76 141/75 H Pulse Oximetry 92 L 92 L 03/19/18 21:53 03/19/18 22:00 03/19/18 23:00 Temperature 97.5 F L 97.3 F L Pulse Rate 78 78 67 Respiratory Rate 20 16 Blood Pressure 157/80 H 154/79 H Pulse Oximetry 96 95 03/20/18 00:00 03/20/18 01:00 03/20/18 02:00 Temperature Pulse Rate 72 74 82 Respiratory Rate Blood Pressure Pulse Oximetry 03/20/18 03:00 03/20/18 04:00 03/20/18 05:00 Temperature 98.3 F Pulse Rate 108 H 96 H 79 Respiratory Rate 16 Blood Pressure 146/83 H Pulse Oximetry 96 03/20/18 06:00 03/20/18 07:00 03/20/18 08:00 Temperature 97.8 F Pulse Rate 74 68 68 Respiratory Rate 18 Blood Pressure 153/73 H Pulse Oximetry 96 03/20/18 09:00 03/20/18 10:00 03/20/18 11:00 Temperature Pulse Rate 80 72 59 L Respiratory Rate Blood Pressure Pulse Oximetry 03/20/18 12:00 Temperature 97.6 F Pulse Rate 61 Respiratory Rate 18 Blood Pressure 149/68 H Pulse Oximetry 92 L Intake & Output 03/19/18 03/20/18 03/20/18 18:59 06:59 18:59 Intake Total 1109 / 1109 1434 / 1434 480 / 480 Output Total 300 / 300 650 / 650 400 / 400 Balance 809 / 809 784 / 784 80 / 80 Weight 68.5 kg Intake: IV 509 / 509 314 / 314 Heparin/D5W 25,000 U/250 mL 25, 186 / 186 64 / 64 000 unit In 250 ml @ Per Protocol IV.CONT TITRATE PRN Rx #:[id number] NS Inj 1,000 ML @ 70 mls/hr IV. 323 / 323 CONT .[id number] [facility] Rx#:[id number] NS Inj 250 ML @ 15 mls/hr IV. 250 / 250 SIG ONCE [facility] Rx#:[id number] Oral 600 / 600 720 / 720 480 / 480 Intake (Blood Product) Amt 0 / 0 400 / 400 Rbc As-3 Leukoreduced Unit 400 / 400 [id number] Rbc As-3 Leukoreduced Unit 0 / 0 [id number] Output: Urine 300 / 300 650 / 650 400 / 400 Other: # Voids 2 Date of Last Bowel Movement 03/19/18 03/19/18 03/19/18 # Bowel Movements 1 # Incontinent Bowel Movements 1 <Kirill Pavon - Last Filed: 03/20/18 13:58> Assessment and Plan - Assessment (1) Chronic kidney disease, stage IV (severe) Code(s): N18.4 - Chronic kidney disease, stage 4 (severe) Status: Acute Plan: Patient has advance stage 4 chronic kidney disease. 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 Has some acute worsening with a creatinine of 3.87 and HCO3 of 18.5. MONIKA possibly related to poor intake and dehydration. Creatinine when seen in office in December was 3.35 and the GFR at 16 ml/min. Dialysis has been discussed with patient and he would proceed with dialysis if necessary. Creatinine at 3.87 Urinary output at 800ml/24 hours Plan Avoid Nephrotoxins including IV contrast Avoid gadolinium as GFR is less than 30ml/min Continue to monitor strict I+ O HCO3 at 18.5 will add sodium bicarbonate 650 mg BID IV stopped and oral fluids encouraged. Will monitor urinary output and BMP No urgent need for hemodialysis at current time. Labs in AM (2) Anemia Code(s): D64.9 - Anemia, unspecified Status: Acute Plan: Most likely of chronic disease HGB at 6.9 plan to transfuse 2 units of PRBC Anemia panel ordered (3) Diabetes Code(s): E11.9 - Type 2 diabetes mellitus without complications Status: Acute Plan: Maintain blood sugars between 140 mg/dl to 180 mg/dl <Vesna Boland - Last Filed: 03/19/18 16:30> - Assessment (1) Chronic kidney disease, stage IV (severe) Code(s): N18.4 - Chronic kidney disease, stage 4 (severe) Status: Acute (2) Anemia Code(s): D64.9 - Anemia, unspecified Status: Acute Qualifiers: Anemia type: unspecified type Qualified Code(s): D64.9 - Anemia, unspecified - Attending Attestation vPatient seen and examined; records reviewed; agree with the plan and recommendations of the REGISTERED PHARMACIST <Kirill Pavon - Last Filed: 03/20/18 13:58>
--- NOTE | 2018-03-19 17:34 | P.PNCA ---
Subjective Interval history: pt denies chest pain and SOB Physical Exam Vital signs: Vital Signs 03/18/18 18:00 03/18/18 19:00 03/18/18 20:00 Temperature 98 F Pulse Rate 70 80 85 Respiratory Rate 18 Blood Pressure 150/66 H Pulse Oximetry 96 03/18/18 21:00 03/18/18 22:00 03/19/18 00:00 Temperature 98 F Pulse Rate 77 77 67 Respiratory Rate 18 Blood Pressure 130/63 Pulse Oximetry 97 03/19/18 03:00 03/19/18 04:00 03/19/18 04:57 Temperature 98 F Pulse Rate 79 79 74 Respiratory Rate 18 Blood Pressure 129/64 Pulse Oximetry 97 03/19/18 06:00 03/19/18 07:00 03/19/18 08:00 Temperature 97.7 F Pulse Rate 79 75 78 Respiratory Rate 18 Blood Pressure 147/71 H Pulse Oximetry 97 03/19/18 12:00 03/19/18 16:07 03/19/18 16:24 Temperature 97.6 F 97.6 F 98.4 F Pulse Rate 63 73 Respiratory Rate 18 18 18 Blood Pressure 131/64 147/67 H 141/69 H Pulse Oximetry 96 92 L 96 Intake & Output 03/18/18 03/19/18 03/19/18 18:59 06:59 18:59 Intake Total 1500 / 1500 240 / 240 509 / 509 Output Total 320 / 320 500 / 500 Balance 1180 / 1180 -260 / -260 509 / 509 Weight 72.5 kg Intake: IV 700 / 700 509 / 509 D5W/Normal Saline Inj 1,000 ML 700 / 700 @ 75 mls/hr IV.CONT .[id number] [facility] Rx#:[id number] Heparin/D5W 25,000 U/250 mL 25, 186 / 186 000 unit In 250 ml @ Per Protocol IV.CONT TITRATE PRN Rx #:[id number] NS Inj 1,000 ML @ 70 mls/hr IV. 323 / 323 CONT .[id number] [facility] Rx#:[id number] Oral 800 / 800 240 / 240 Intake (Blood Product) Amt 0 / 0 Rbc As-3 Leukoreduced Unit 0 / 0 [id number] Output: Urine 320 / 320 500 / 500 Other: Date of Last Bowel Movement 03/14/18 03/14/18 03/18/18 - Constitutional no acute distress - Routine HEENT Exam Head: Present: normocephalic, atraumatic Eye: Present: PERRL - Routine Neck Exam Present: supple. Absent: JVD - Routine Respiratory Exam Present: CTA bilaterally. Absent: accessory muscle use - Routine Cardiovascular Exam Present: RRR, S1, S2. Absent: S3 - Routine Abdominal Exam Present: soft. Absent: tenderness, rigid - Routine Extremities Exam Present: edema. Absent: cyanosis, clubbing Assessment and Plan - Plan NO impression of ACS, Mildly positive Trops is due to renal failure. Keep Hgb> 10.0 gm due to previous history of CAD, S/P CABG. appreciate renal input. I will follow
[2018-03-19] MEDS: Sodium Bicarbonate 650 MG Tablet PO SCH (21:47)
[2018-03-20] MEDS: Levothyroxine 100 MCG Tablet PO SCH (05:03)
[2018-03-20 06:43] LABS: Baso % (Auto) 0.2 % (0.0-2.0); Eos # (Auto) 0.2 th/mm3 (0.0-0.4); Eos % (Auto) 1.5 % (0.0-4.0); Hematocrit 28.9 % (39.0-51.0); Hemoglobin 9.6 gm/dL (13.0-17.0); Lymph # (Auto) 1.3 th/mm3 (1.0-4.8); Lymph % (Auto) 12.7 % (9.0-44.0); Mean Corpuscular HGB Conc 33.4 % (32.0-36.0); Mean Corpuscular Hemoglobin 31.5 pg (27.0-34.0); Mean Corpuscular Volume 94.1 fL (80.0-100.0); Mean Platelet Volume 8.6 fL (7.0-11.0); Mono # (Auto) 0.9 th/mm3 (0.0-0.9); Mono % (Auto) 9.2 % (0.0-8.0); Neut # (Auto) 7.9 th/mm3 (1.8-7.7); Neut % (Auto) 76.4 % (16.0-70.0); Platelet Count 212 th/mm3 (150-450); Red Blood Count 3.07 mil/mm3 (4.50-5.90); Red Cell Distribution Width 17.8 % (11.6-17.2); White Blood Count 10.3 th/mm3 (4.0-11.0)
[2018-03-20 06:57] LABS: Alanine Aminotransferase 17 U/L (12-78); Albumin 2.8 g/dL (3.4-5.0); Anion Gap 13 meq/L (5-15); Aspartate Aminotransferase 14 U/L (15-37); Blood Urea Nitrogen 47 mg/dL (7-18); Calcium 7.7 mg/dL (8.5-10.1); Carbon Dioxide 18.1 meq/L (21.0-32.0); Chloride 115 meq/L (98-107); Glomerular Filtration Rate 15 mL/min (>89); Glucose,Random 112 mg/dL (74-106); Iron 174 mcg/dL (65-175); Phosphorus 3.8 mg/dL (2.5-4.9); Potassium 3.9 meq/L (3.5-5.1); Sodium 146 meq/L (136-145)
[2018-03-20 07:00] LABS: % Iron Saturation 58.4 % (20-50); Alkaline Phosphatase 54 U/L (45-117); Ferritin 106 ng/mL (26-388); Total Iron Binding Capacity 298 mcg/dL (250-450); Total Protein 6.2 g/dL (6.4-8.2)
[2018-03-20] MEDS: Sodium Bicarbonate 650 MG Tablet PO SCH (09:14)
[2018-03-20] MEDS: Insulin NovoLOG Aspart Correctional Sugar Inj SQ SCH ×2 (09:14→13:01)
[2018-03-20] MEDS: Senna/Docusate Sodium 8.6/50 MG Tablet PO SCH (09:15)
[2018-03-20] MEDS: Isosorbide Mononitrate 30 MG ER 24HR Tablet (Imdur) PO SCH (09:15)
[2018-03-20] MEDS: Metoprolol Tartrate 50 MG Tablet PO SCH (09:15)
--- NOTE | 2018-03-20 10:20 | P.DCO ---
- Diagnosis (2) Anemia - Physical Therapy Order: Evaluate and treat - Home Health Nursing Order: Signs/symptoms of disease process - Certification I have seen patient Ankit Mendoza on 03/20/18. My clinical findings support the need for the requested home health care services because: Patient has SOB, Deconditioned with increased weakness I certify that my clinical findings support that this patient is homebound because: Poor cardiac reserve (2) Anemia Qualifiers: Anemia type: unspecified type Qualified Code(s): D64.9 - Anemia, unspecified
--- NOTE | 2018-03-20 10:23 | P.PN ---
Subjective Interval history: Follow-up chest pain/hypertensive urgency/acute on chronic kidney disease stage IV March 18, 2018-patient seen and examined, reports some shortness of breath however denies any chest pain. March 19, 2018-patient seen and examined, denies any shortness of breath, GI bleed. H&H low. Case discussed with nurse practitioner from supervisor stave finishing March 20, 2018-patient seen and examined, was transfused 2 units packed red blood cells yesterday with improvement of H&H. Denies any chest pain. No nausea or vomiting with p.o. intake. Currently afebrile. Physical Exam Vital signs: Vital Signs 03/19/18 11:00 03/19/18 12:00 03/19/18 13:00 Temperature 97.6 F Pulse Rate 60 62 70 Respiratory Rate 18 Blood Pressure 131/64 Pulse Oximetry 96 03/19/18 14:00 03/19/18 15:00 03/19/18 16:00 Temperature 97.6 F Pulse Rate 64 64 70 Respiratory Rate 18 Blood Pressure 135/60 Pulse Oximetry 94 L 03/19/18 16:07 03/19/18 16:24 03/19/18 17:00 Temperature 97.6 F 98.4 F Pulse Rate 73 70 Respiratory Rate 18 18 Blood Pressure 147/67 H 141/69 H Pulse Oximetry 92 L 96 03/19/18 18:00 03/19/18 19:00 03/19/18 19:17 Temperature 97.7 F Pulse Rate 84 78 85 Respiratory Rate 18 Blood Pressure 141/75 H Pulse Oximetry 91 L 03/19/18 19:33 03/19/18 20:00 03/19/18 21:00 Temperature 97.0 F L 97.7 F Pulse Rate 82 80 92 H Respiratory Rate 20 16 Blood Pressure 140/76 141/75 H Pulse Oximetry 92 L 92 L 03/19/18 21:53 03/19/18 22:00 03/19/18 23:00 Temperature 97.5 F L 97.3 F L Pulse Rate 78 78 67 Respiratory Rate 20 16 Blood Pressure 157/80 H 154/79 H Pulse Oximetry 96 95 03/20/18 00:00 03/20/18 01:00 03/20/18 02:00 Temperature Pulse Rate 72 74 82 Respiratory Rate Blood Pressure Pulse Oximetry 03/20/18 03:00 03/20/18 04:00 03/20/18 05:00 Temperature 98.3 F Pulse Rate 108 H 96 H 79 Respiratory Rate 16 Blood Pressure 146/83 H Pulse Oximetry 96 03/20/18 06:00 03/20/18 07:00 Temperature Pulse Rate 74 68 Respiratory Rate Blood Pressure Pulse Oximetry Intake & Output 03/19/18 03/20/18 03/20/18 18:59 06:59 18:59 Intake Total 1109 / 1109 1434 / 1434 Output Total 300 / 300 650 / 650 Balance 809 / 809 784 / 784 Weight 68.5 kg Intake: IV 509 / 509 314 / 314 Heparin/D5W 25,000 U/250 mL 25, 186 / 186 64 / 64 000 unit In 250 ml @ Per Protocol IV.CONT TITRATE PRN Rx #:[id number] NS Inj 1,000 ML @ 70 mls/hr IV. 323 / 323 CONT .[id number] PAMELA Rx#:[id number] NS Inj 250 ML @ 15 mls/hr IV. 250 / 250 SIG ONCE PAMELA Rx#:[id number] Oral 600 / 600 720 / 720 Intake (Blood Product) Amt 0 / 0 400 / 400 Rbc As-3 Leukoreduced Unit 400 / 400 [id number] Rbc As-3 Leukoreduced Unit 0 / 0 [id number] Output: Urine 300 / 300 650 / 650 Other: # Voids 2 Date of Last Bowel Movement 03/19/18 03/19/18 # Bowel Movements 1 # Incontinent Bowel Movements 1 Narrative: GENERAL: NAD SKIN: Warm and dry. HEAD: Normocephalic. EYES: No scleral icterus. No injection or drainage. NECK: Supple, trachea midline. No JVD or lymphadenopathy. CARDIOVASCULAR: Regular rate and rhythm without murmurs, gallops, or rubs. RESPIRATORY: Breath sounds diminished. No accessory muscle use. GASTROINTESTINAL: Abdomen soft, non-tender, nondistended. MUSCULOSKELETAL: No cyanosis, bilateral lower extremity edema BACK: Nontender without obvious deformity. No CVA tenderness. Results - Labs CBC & Chem 7: 03/20/18 06:00 03/20/18 06:00 Laboratory Results - last 24 hr 03/19/18 03/19/18 03/19/18 12:00 12:15 18:10 WBC RBC Hgb Hct MCV MCH MCHC RDW Plt Count MPV Neut % (Auto) Lymph % (Auto) [place] % (Auto) Eos % (Auto) Baso % (Auto) Neut # (Auto) Lymph # (Auto) [place] # (Auto) Eos # (Auto) Baso # (Auto) WBC Differential Differential Comment Sodium Potassium Chloride Carbon Dioxide Anion Gap BUN Creatinine Estimated GFR POC Glucose 264 H 138 H Random Glucose Calcium Phosphorus Iron TIBC % Saturation Ferritin Total Bilirubin AST ALT Alkaline Phosphatase Total Protein Albumin Blood Type A Positive Antibody Screen Negative MTS Gel Crossmatch See Detail 03/19/18 03/20/18 03/20/18 20:27 06:00 06:00 WBC 10.3 RBC 3.07 L Hgb 9.6 L D Hct 28.9 L MCV 94.1 MCH 31.5 MCHC 33.4 RDW 17.8 H Plt Count 212 MPV 8.6 Neut % (Auto) 76.4 H Lymph % (Auto) 12.7 [place] % (Auto) 9.2 H Eos % (Auto) 1.5 Baso % (Auto) 0.2 Neut # (Auto) 7.9 H Lymph # (Auto) 1.3 [place] # (Auto) 0.9 Eos # (Auto) 0.2 Baso # (Auto) 0.0 WBC Differential . Differential Comment Auto diff final Sodium 146 H Potassium 3.9 Chloride 115 H Carbon Dioxide 18.1 L Anion Gap 13 BUN 47 H Creatinine 3.78 H Estimated GFR 15 L POC Glucose 196 H Random Glucose 112 H Calcium 7.7 L Phosphorus 3.8 Iron 174 TIBC 298 % Saturation 58.4 H Ferritin 106 Total Bilirubin 0.8 AST 14 L ALT 17 Alkaline Phosphatase 54 Total Protein 6.2 L Albumin 2.8 L Blood Type Antibody Screen MTS Gel Crossmatch 03/20/18 09:13 WBC RBC Hgb Hct MCV MCH MCHC RDW Plt Count MPV Neut % (Auto) Lymph % (Auto) [place] % (Auto) Eos % (Auto) Baso % (Auto) Neut # (Auto) Lymph # (Auto) [place] # (Auto) Eos # (Auto) Baso # (Auto) WBC Differential Differential Comment Sodium Potassium Chloride Carbon Dioxide Anion Gap BUN Creatinine Estimated GFR POC Glucose 120 H Random Glucose Calcium Phosphorus Iron TIBC % Saturation Ferritin Total Bilirubin AST ALT Alkaline Phosphatase Total Protein Albumin Blood Type Antibody Screen MTS Gel Crossmatch - Procedures None Assessment and Plan - Assessment (1) Acute non-ST elevation myocardial infarction (NSTEMI) Code(s): I21.4 - Non-ST elevation (NSTEMI) myocardial infarction Status: Acute (2) Anemia Code(s): D64.9 - Anemia, unspecified Status: Acute (3) Chronic kidney disease, stage IV (severe) Code(s): N18.4 - Chronic kidney disease, stage 4 (severe) Status: Acute (4) Kidney failure, acute Code(s): N17.9 - Acute kidney failure, unspecified Status: Acute (5) Myocardial infarction Code(s): I21.9 - Acute myocardial infarction, unspecified Status: Acute - Plan 87-year-old man with Hypertensive urgency-resolved R/O ACS Elevated Trop, 0.21 History of CABG HLD -Has not been taking his medication 2 weeks. This could possibly also be secondary to chronic kidney disease stage IV-V -EKG reviewed first-degree AV block with LVH, possible anterior SC. -d/c heparin drip , aspirin given. -Cardiology consulted. Patient is following with Dr. Dumnot -Continue home medications, metoprolol 50 mg twice daily, clonidine as needed Acute kidney injury on chronic kidney disease St IV -Patient is following with Dr. Blake in the outpatient, discussed possibility of hemodialysis, however for the time being continue to monitor BUN and Cr -Ultrasound renal noted -Avoid nephrotoxins. Monitor renal indicis. -d/c IVF hydration Anemia, normocytic, normochromic Transfused 2 units packed red blood cells yesterday March 19, 2018, H&H currently stable -Possibly secondary to chronic kidney disease -Hemoccult negative DM 2 -States he takes Lantus at home. Has not taken it for 2 weeks. -hemoglobin A1c 5.1 -Hold Lantus for now, insulin sliding scale. Monitor Accu-Cheks. Hypothyroidism -Continue home medication. Check TSH DVT prop on heparin drip (2) Anemia Qualifiers: Anemia type: unspecified type Qualified Code(s): D64.9 - Anemia, unspecified (4) Kidney failure, acute Qualifiers: Acute renal failure type: unspecified Qualified Code(s): N17.9 - Acute kidney failure, unspecified
--- NOTE | 2018-03-20 10:34 | P.DS ---
Date of admission: 03/17/18 17:51 Primary care physician: Prashanth Mason MD Anticipated date of discharge: 03/20/18 Brief History from admission: Patient is an 87-year-old male with past medical history of diabetes, hypertension, hyperlipidemia, hypothyroidism, CAD with CABG in 2007, chronic kidney disease who came into the hospital secondary to complaints of generalized weakness, not eating or hydrating. Patient states that he has not been taking his medications for the past 2 weeks. States that he has no intention to hurt himself or kill himself. He just does not feel like doing so. Possible component of depression. Patient reports that his son last January and it was very difficult for him. He is very tearful talking about his son. Patient reports that he is only drinking milk but no solid food, not hydrating well not sleeping well at home. He lives by himself. States that he had a history of chronic kidney disease and has seen Dr. Jose Armando Horton before, approximately several months ago when he was told that he might need hemodialysis. States that he saw Dr. Prashanth Baird about 2 weeks ago but did not have any labs drawn. Reporting that it was a regular visit. Patient states he feels a lot better now that he is at the hospital. Per EMS report, patient has hypoglycemia and generalized weakness. Elevated BP was also noted. Denies pain and discomfort. Denies SOB/ dyspnea. Denies chest pain, palpitations, headaches, dizziness. Denies fevers, chills, n/v/d. Denies dysuria. Denies hematuria, hematemesis, hematochezia. Currently troponin is 0.21, creatinine 3.85, hemoglobin 7.8. CT of the brain without acute intracranial activity. EKG reviewed first-degree AV block with LVH, possible anterior WA. Current vitals 212/97, 99.1, heart rate of 87, respiratory rate 20 DS: Diagnosis - Discharge Diagnosis (1) Acute non-ST elevation myocardial infarction (NSTEMI) Status: Acute (2) Anemia Status: Acute (3) Chronic kidney disease, stage IV (severe) Status: Acute (4) Kidney failure, acute Status: Acute (5) Myocardial infarction Status: Acute DS: Summary Hospital Course: While in hospital, patient was treated for: Hypertensive urgency-resolved R/O ACS Elevated Trop, 0.21 History of CABG HLD -Has not been taking his medication 2 weeks. This could possibly also be secondary to chronic kidney disease stage IV-V -EKG reviewed first-degree AV block with LVH, possible anterior WA. -d/c heparin drip , aspirin given. -Cardiology consulted. Patient is following with Dr. Dumont -Treated with home medications, metoprolol 50 mg twice daily, clonidine as needed Acute kidney injury on chronic kidney disease St IV -Patient is following with Dr. Blake in the outpatient, discussed possibility of hemodialysis, however for the time being continue to monitor BUN and Cr -Ultrasound renal noted -Avoid nephrotoxins. Monitor renal indicis. -d/c IVF hydration Anemia, normocytic, normochromic Transfused 2 units packed red blood cells March 19, 2018, H&H currently stable -Possibly secondary to chronic kidney disease -Hemoccult negative DM 2 -States he takes Lantus at home. -hemoglobin A1c 5.1 Hypothyroidism -Continue home medication. Check TSH DVT prop on heparin drip - Time Spent with Patient Total time spent providing and/or coordinating discharge services: Greater than 30 minutes Exam Vital signs: Vital Signs 03/19/18 11:00 03/19/18 12:00 03/19/18 13:00 Temperature 97.6 F Pulse Rate 60 62 70 Respiratory Rate 18 Blood Pressure 131/64 Pulse Oximetry 96 03/19/18 14:00 03/19/18 15:00 03/19/18 16:00 Temperature 97.6 F Pulse Rate 64 64 70 Respiratory Rate 18 Blood Pressure 135/60 Pulse Oximetry 94 L 03/19/18 16:07 03/19/18 16:24 03/19/18 17:00 Temperature 97.6 F 98.4 F Pulse Rate 73 70 Respiratory Rate 18 18 Blood Pressure 147/67 H 141/69 H Pulse Oximetry 92 L 96 03/19/18 18:00 03/19/18 19:00 03/19/18 19:17 Temperature 97.7 F Pulse Rate 84 78 85 Respiratory Rate 18 Blood Pressure 141/75 H Pulse Oximetry 91 L 03/19/18 19:33 03/19/18 20:00 03/19/18 21:00 Temperature 97.0 F L 97.7 F Pulse Rate 82 80 92 H Respiratory Rate 20 16 Blood Pressure 140/76 141/75 H Pulse Oximetry 92 L 92 L 03/19/18 21:53 03/19/18 22:00 03/19/18 23:00 Temperature 97.5 F L 97.3 F L Pulse Rate 78 78 67 Respiratory Rate 20 16 Blood Pressure 157/80 H 154/79 H Pulse Oximetry 96 95 03/20/18 00:00 03/20/18 01:00 03/20/18 02:00 Temperature Pulse Rate 72 74 82 Respiratory Rate Blood Pressure Pulse Oximetry 03/20/18 03:00 03/20/18 04:00 03/20/18 05:00 Temperature 98.3 F Pulse Rate 108 H 96 H 79 Respiratory Rate 16 Blood Pressure 146/83 H Pulse Oximetry 96 03/20/18 06:00 03/20/18 07:00 03/20/18 08:00 Temperature 97.8 F Pulse Rate 74 68 87 Respiratory Rate 18 Blood Pressure 153/73 H Pulse Oximetry 96 Intake & Output 03/19/18 03/20/18 03/20/18 18:59 06:59 18:59 Intake Total 1109 / 1109 1434 / 1434 Output Total 300 / 300 650 / 650 Balance 809 / 809 784 / 784 Weight 68.5 kg Intake: IV 509 / 509 314 / 314 Heparin/D5W 25,000 U/250 mL 25, 186 / 186 64 / 64 000 unit In 250 ml @ Per Protocol IV.CONT TITRATE PRN Rx #:[id number] NS Inj 1,000 ML @ 70 mls/hr IV. 323 / 323 CONT .[id number] PAMELA Rx#:[id number] NS Inj 250 ML @ 15 mls/hr IV. 250 / 250 SIG ONCE PAMELA Rx#:[id number] Oral 600 / 600 720 / 720 Intake (Blood Product) Amt 0 / 0 400 / 400 Rbc As-3 Leukoreduced Unit 400 / 400 [id number] Rbc As-3 Leukoreduced Unit 0 / 0 [id number] Output: Urine 300 / 300 650 / 650 Other: # Voids 2 Date of Last Bowel Movement 03/19/18 03/19/18 03/19/18 # Bowel Movements 1 # Incontinent Bowel Movements 1 Narrative: GENERAL: NAD SKIN: Warm and dry. HEAD: Atraumatic. Normocephalic. EYES: Pupils equal and round. No scleral icterus. No injection or drainage. ENT: No nasal bleeding or discharge. Mucous membranes pink and moist. NECK: Trachea midline. No JVD. CARDIOVASCULAR: Regular rate and rhythm. RESPIRATORY: No accessory muscle use. Clear to auscultation. Breath sounds equal bilaterally. GASTROINTESTINAL: Abdomen soft, non-tender, nondistended. Hepatic and splenic margins not palpable. MUSCULOSKELETAL: Extremities without clubbing, cyanosis, or edema. No obvious deformities. NEUROLOGICAL: Awake and alert. No obvious cranial nerve deficits. Motor grossly within normal limits. Five out of 5 muscle strength in the arms and legs. Normal speech. PSYCHIATRIC: Appropriate mood and affect; insight and judgment normal. Results Procedures completed during hospitalization: None Labs on day of discharge: Labs from last 24 hours 03/20/18 03/20/18 03/20/18 09:13 06:00 06:00 WBC 10.3 RBC 3.07 L Hgb 9.6 L D Hct 28.9 L MCV 94.1 MCH 31.5 MCHC 33.4 RDW 17.8 H Plt Count 212 MPV 8.6 Neut % (Auto) 76.4 H Lymph % (Auto) 12.7 [place] % (Auto) 9.2 H Eos % (Auto) 1.5 Baso % (Auto) 0.2 Neut # (Auto) 7.9 H Lymph # (Auto) 1.3 [place] # (Auto) 0.9 Eos # (Auto) 0.2 Baso # (Auto) 0.0 WBC Differential . Differential Comment Auto diff final Sodium 146 H Potassium 3.9 Chloride 115 H Carbon Dioxide 18.1 L Anion Gap 13 BUN 47 H Creatinine 3.78 H Estimated GFR 15 L POC Glucose 120 H Random Glucose 112 H Calcium 7.7 L Phosphorus 3.8 Iron 174 TIBC 298 % Saturation 58.4 H Ferritin 106 Total Bilirubin 0.8 AST 14 L ALT 17 Alkaline Phosphatase 54 Total Protein 6.2 L Albumin 2.8 L Blood Type Antibody Screen MTS Gel Crossmatch 03/19/18 03/19/18 03/19/18 20:27 18:10 12:15 WBC RBC Hgb Hct MCV MCH MCHC RDW Plt Count MPV Neut % (Auto) Lymph % (Auto) [place] % (Auto) Eos % (Auto) Baso % (Auto) Neut # (Auto) Lymph # (Auto) [place] # (Auto) Eos # (Auto) Baso # (Auto) WBC Differential Differential Comment Sodium Potassium Chloride Carbon Dioxide Anion Gap BUN Creatinine Estimated GFR POC Glucose 196 H 138 H 264 H Random Glucose Calcium Phosphorus Iron TIBC % Saturation Ferritin Total Bilirubin AST ALT Alkaline Phosphatase Total Protein Albumin Blood Type Antibody Screen MTS Gel Crossmatch 03/19/18 12:00 WBC RBC Hgb Hct MCV MCH MCHC RDW Plt Count MPV Neut % (Auto) Lymph % (Auto) [place] % (Auto) Eos % (Auto) Baso % (Auto) Neut # (Auto) Lymph # (Auto) [place] # (Auto) Eos # (Auto) Baso # (Auto) WBC Differential Differential Comment Sodium Potassium Chloride Carbon Dioxide Anion Gap BUN Creatinine Estimated GFR POC Glucose Random Glucose Calcium Phosphorus Iron TIBC % Saturation Ferritin Total Bilirubin AST ALT Alkaline Phosphatase Total Protein Albumin Blood Type A Positive Antibody Screen Negative MTS Gel Crossmatch See Detail - Impressions ITS Impressions Abdomen/Bladder Ultrasound 03/17/18 00:00 CONCLUSION: 1. Cortical thinning and diffuse increased echogenicity throughout both kidneys characteristic of chronic renal disease. 2. Right renal cyst 3. No evidence of hydronephrosis. Head CT 03/17/18 15:45 CONCLUSION: 1. No acute intracranial abnormality is identified. 2. Chronic age-appropriate related changes including mild generalized cerebral atrophy and mild chronic periventricular white matter change. . Chest X-Ray 03/18/18 00:00 CONCLUSION: 1. Cardiomegaly with positive fluid balance. 2. Small to moderate left pleural effusion with associated left lower lobe airspace disease. 3. Probable trace right pleural effusion with associated right lung base airspace disease. 4. Suspect chronic interstitial and parenchymal scarring in the lateral right upper lung zone. Discharge Plan - Discharge Disposition Patient Disposition: /Home Health Service - Discharge Condition Condition: Stable - Discharge Order Discharge Orders: Discharge Order (Routine); Ordered 03/20/18 Ordered By: Jerry Tran - Discharge Details Anticipated Discharge Date: 03/20/18 - Physicians Team Primary Care Provider: Prashanth Mason Attending Provider: Jerry Tran Other Providers: Allyssa Antoine MD ; Fara Watt MD
--- NOTE | 2018-03-20 10:48 | P.PNNP ---
Subjective Interval history: Reports feeling well. Denies any shortness of breath. Bilateral lower extremity edema. Creatinine is improving at 3.78 today, non oliguric. <Vesna Boland - Last Filed: 03/20/18 10:41> Physical Exam Vital signs: Vital Signs 03/19/18 11:00 03/19/18 12:00 03/19/18 13:00 Temperature 97.6 F Pulse Rate 60 62 70 Respiratory Rate 18 Blood Pressure 131/64 Pulse Oximetry 96 03/19/18 14:00 03/19/18 15:00 03/19/18 16:00 Temperature 97.6 F Pulse Rate 64 64 70 Respiratory Rate 18 Blood Pressure 135/60 Pulse Oximetry 94 L 03/19/18 16:07 03/19/18 16:24 03/19/18 17:00 Temperature 97.6 F 98.4 F Pulse Rate 73 70 Respiratory Rate 18 18 Blood Pressure 147/67 H 141/69 H Pulse Oximetry 92 L 96 03/19/18 18:00 03/19/18 19:00 03/19/18 19:17 Temperature 97.7 F Pulse Rate 84 78 85 Respiratory Rate 18 Blood Pressure 141/75 H Pulse Oximetry 91 L 03/19/18 19:33 03/19/18 20:00 03/19/18 21:00 Temperature 97.0 F L 97.7 F Pulse Rate 82 80 92 H Respiratory Rate 20 16 Blood Pressure 140/76 141/75 H Pulse Oximetry 92 L 92 L 03/19/18 21:53 03/19/18 22:00 03/19/18 23:00 Temperature 97.5 F L 97.3 F L Pulse Rate 78 78 67 Respiratory Rate 20 16 Blood Pressure 157/80 H 154/79 H Pulse Oximetry 96 95 03/20/18 00:00 03/20/18 01:00 03/20/18 02:00 Temperature Pulse Rate 72 74 82 Respiratory Rate Blood Pressure Pulse Oximetry 03/20/18 03:00 03/20/18 04:00 03/20/18 05:00 Temperature 98.3 F Pulse Rate 108 H 96 H 79 Respiratory Rate 16 Blood Pressure 146/83 H Pulse Oximetry 96 03/20/18 06:00 03/20/18 07:00 03/20/18 08:00 Temperature 97.8 F Pulse Rate 74 68 87 Respiratory Rate 18 Blood Pressure 153/73 H Pulse Oximetry 96 Intake & Output 03/19/18 03/20/18 03/20/18 18:59 06:59 18:59 Intake Total 1109 / 1109 1434 / 1434 Output Total 300 / 300 650 / 650 Balance 809 / 809 784 / 784 Weight 68.5 kg Intake: IV 509 / 509 314 / 314 Heparin/D5W 25,000 U/250 mL 25, 186 / 186 64 / 64 000 unit In 250 ml @ Per Protocol IV.CONT TITRATE PRN Rx #:[id number] NS Inj 1,000 ML @ 70 mls/hr IV. 323 / 323 CONT .[id number] PAMELA Rx#:[id number] NS Inj 250 ML @ 15 mls/hr IV. 250 / 250 SIG ONCE PAMELA Rx#:[id number] Oral 600 / 600 720 / 720 Intake (Blood Product) Amt 0 / 0 400 / 400 Rbc As-3 Leukoreduced Unit 400 / 400 [id number] Rbc As-3 Leukoreduced Unit 0 / 0 [id number] Output: Urine 300 / 300 650 / 650 Other: # Voids 2 Date of Last Bowel Movement 03/19/18 03/19/18 03/19/18 # Bowel Movements 1 # Incontinent Bowel Movements 1 Narrative: GENERAL: alert and oriented SKIN: Warm and dry. HEAD: Normocephalic. NECK: Supple, trachea midline. No JVD or lymphadenopathy. CARDIOVASCULAR: Regular rate and rhythm without murmurs, gallops, or rubs. RESPIRATORY: Breath sounds diminished. No accessory muscle use. GASTROINTESTINAL: Abdomen soft, non-tender, nondistended. MUSCULOSKELETAL: No cyanosis, bilateral lower extremity edema BACK: Nontender without obvious deformity. No CVA tenderness. <Vesna Boland - Last Filed: 03/20/18 10:41> Vital signs: Vital Signs 03/19/18 15:00 03/19/18 16:00 03/19/18 16:07 Temperature 97.6 F 97.6 F Pulse Rate 64 70 Respiratory Rate 18 18 Blood Pressure 135/60 147/67 H Pulse Oximetry 94 L 92 L 03/19/18 16:24 03/19/18 17:00 03/19/18 18:00 Temperature 98.4 F Pulse Rate 73 70 84 Respiratory Rate 18 Blood Pressure 141/69 H Pulse Oximetry 96 03/19/18 19:00 03/19/18 19:17 03/19/18 19:33 Temperature 97.7 F 97.0 F L Pulse Rate 78 85 82 Respiratory Rate 18 20 Blood Pressure 141/75 H 140/76 Pulse Oximetry 91 L 92 L 03/19/18 20:00 03/19/18 21:00 03/19/18 21:53 Temperature 97.7 F 97.5 F L Pulse Rate 80 92 H 78 Respiratory Rate 16 20 Blood Pressure 141/75 H 157/80 H Pulse Oximetry 92 L 96 03/19/18 22:00 03/19/18 23:00 03/20/18 00:00 Temperature 97.3 F L Pulse Rate 78 67 72 Respiratory Rate 16 Blood Pressure 154/79 H Pulse Oximetry 95 03/20/18 01:00 03/20/18 02:00 03/20/18 03:00 Temperature 98.3 F Pulse Rate 74 82 108 H Respiratory Rate 16 Blood Pressure 146/83 H Pulse Oximetry 96 03/20/18 04:00 03/20/18 05:00 03/20/18 06:00 Temperature Pulse Rate 96 H 79 74 Respiratory Rate Blood Pressure Pulse Oximetry 03/20/18 07:00 03/20/18 08:00 03/20/18 09:00 Temperature 97.8 F Pulse Rate 68 68 80 Respiratory Rate 18 Blood Pressure 153/73 H Pulse Oximetry 96 03/20/18 10:00 03/20/18 11:00 03/20/18 12:00 Temperature 97.6 F Pulse Rate 72 59 L 61 Respiratory Rate 18 Blood Pressure 149/68 H Pulse Oximetry 92 L Intake & Output 03/19/18 03/20/18 03/20/18 18:59 06:59 18:59 Intake Total 1109 / 1109 1434 / 1434 480 / 480 Output Total 300 / 300 650 / 650 400 / 400 Balance 809 / 809 784 / 784 80 / 80 Weight 68.5 kg Intake: IV 509 / 509 314 / 314 Heparin/D5W 25,000 U/250 mL 25, 186 / 186 64 / 64 000 unit In 250 ml @ Per Protocol IV.CONT TITRATE PRN Rx #:[id number] NS Inj 1,000 ML @ 70 mls/hr IV. 323 / 323 CONT .[id number] PAMELA Rx#:[id number] NS Inj 250 ML @ 15 mls/hr IV. 250 / 250 SIG ONCE PAMELA Rx#:[id number] Oral 600 / 600 720 / 720 480 / 480 Intake (Blood Product) Amt 0 / 0 400 / 400 Rbc As-3 Leukoreduced Unit 400 / 400 [id number] Rbc As-3 Leukoreduced Unit 0 / 0 [id number] Output: Urine 300 / 300 650 / 650 400 / 400 Other: # Voids 2 Date of Last Bowel Movement 03/19/18 03/19/18 03/19/18 # Bowel Movements 1 # Incontinent Bowel Movements 1 <DiannacristoferRenetta smithmadhu Sloan - Last Filed: 03/20/18 14:07> Assessment and Plan - Assessment (1) Chronic kidney disease, stage IV (severe) Code(s): N18.4 - Chronic kidney disease, stage 4 (severe) Status: Acute Plan: Patient has advance stage 4 chronic kidney disease. 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 Has some acute worsening with a creatinine of 3.87 and HCO3 of 18.5 on day of consult. MONIKA possibly related to poor intake and dehydration. Creatinine when seen in office in December was 3.35 and the GFR at 16 ml/min. Dialysis has been discussed with patient and he would proceed with dialysis if necessary. Creatinine at 3.87 ->3.78 Urinary output at 900ml/24 hours Plan Avoid Nephrotoxins including IV contrast Avoid gadolinium as GFR is less than 30ml/min Continue to monitor strict I+ O Continue sodium bicarbonate 650 mg BID Oral fluids encouraged. Plan for discharge home today. Follow up with Nephrology in 2 weeks needed. Office contacted. (2) Anemia Code(s): D64.9 - Anemia, unspecified Status: Acute Qualifiers: Anemia type: unspecified type Qualified Code(s): D64.9 - Anemia, unspecified Plan: Most likely of chronic disease HGB at 6.9 yesterday transfused with 2 units of PRBC with HGB of 9.6 Anemia panel done and iron stores normal. <Vesna Boland - Last Filed: 03/20/18 10:41> - Assessment (1) Chronic kidney disease, stage IV (severe) Code(s): N18.4 - Chronic kidney disease, stage 4 (severe) Status: Acute (2) Anemia Code(s): D64.9 - Anemia, unspecified Status: Acute Qualifiers: Anemia type: unspecified type Qualified Code(s): D64.9 - Anemia, unspecified - Attending Attestation Patient seen and examined; records reviewed; agree with the plan and recommendations of the HEAD MIXER <Kirill Pavon S - Last Filed: 03/20/18 14:07>
--- NOTE | 2018-03-20 16:07 | ECG ---
Date Performed: 03/20/2018 Time Performed: 05:15:58 PTAGE: 87 years EKG: Sinus rhythm with PVC(s) Leftward axis IV conduction defect Possible anterior infarct - age undetermined Lateral ST-T changes may be due to myocardial ischemia Since the previous tracing, no significant change note d Abnormal ECG NO PREVIOUS TRACING DOCTOR: Dre Amaya Interpretating Date/Time 03/20/2018 16:07:26
== END 2018-03-20 13:19 | disposition home health service (06) ==
LOC: NEPE 13:27 → NEDA 17:51 → HCIS 20:20
PROVIDERS: ADMIT Hospitalist; ATTEND Hospitalist

== ENCOUNTER 2018-03-27 20:23 | Observation (INO) ==
--- NOTE | 2018-03-27 20:48 | ED ---
HPI General Chief complaint: Fall Stated complaint: Diabetic Issue Source: patient Mode of arrival: EMS Limitations: no limitations History of Present Illness HPI narrative: 87yo M with PMH of DM, HTN, HLD, hypothyroidism, CAD with CABG, CKD who lives by himself was brought in by [facility] after falling at 2pm today and unable to get up. When [facility] arrived, his glucose was 33 and given D10. Glucose here is 110. Pt said he has been feeling generalized weakness for a few days as well as diarrhea. Said he went to unload his laundry but his legs gave out and he slip on the floor. Denies any head trauma or LOC. However, was unable to get up for hours. Denies any fever, chest pain, sob, n/v, abdominal pain, focal weakness or numbness. Related Data Home Medications Medication Instructions Recorded Confirmed gabapentin 600 mg PO BID 03/17/18 03/17/18 Previous Rx's Medication Instructions Recorded aspirin 81 mg PO DAILY #30 tab 03/20/18 isosorbide mononitrate 30 mg PO DAILY #30 mg 03/20/18 levothyroxine [Synthroid] 100 mcg PO DAILY #30 mcg 03/20/18 metoprolol tartrate 50 mg PO BID #60 tab 03/20/18 nifedipine [Procardia XL] 60 mg PO BID #60 mg 03/20/18 rosuvastatin [Crestor] 20 mg PO DAILY #30 mg 03/20/18 Allergies Allergy/AdvReac Type Severity Reaction Status Date / Time codeine AdvReac Severe NAUSEA Verified 03/27/18 20:48 Review of Systems ROS: all other systems reviewed are negative PMFSH Family History Family History Father Heart attack Social History Social History Substance History: No History of Abuse Second Hand Smoke Exposure: No Smoking Status: Unknown if ever smoked Tobacco Type: Cigarettes How Often Do You Have a Drink Containing Alcohol: Unable to Obtain Recent Travel in [place] within the Last 8 Weeks: No Recent Out of Country Travel within the Last 8 Weeks: No Exam Narrative Exam Narrative: GENERAL: 87yo M in mild distress. SKIN: Focused skin assessment warm/dry. HEAD: Atraumatic. Normocephalic. EYES: Pupils equal and round. No scleral icterus. No injection or drainage. ENT: No nasal bleeding or discharge. Mucous membranes pink and moist. NECK: Trachea midline. No JVD. CARDIOVASCULAR: Regular rate and rhythm. No murmur appreciated. RESPIRATORY: No accessory muscle use. Clear to auscultation. Breath sounds equal bilaterally. GASTROINTESTINAL: Abdomen soft, non-tender, nondistended. MUSCULOSKELETAL: No obvious deformities. No clubbing. No cyanosis. No edema. NEUROLOGICAL: Awake and alert. No obvious cranial nerve deficits. Motor grossly within normal limits in all extremities. Sensation intact and equal. Normal speech. PSYCHIATRIC: Appropriate mood and affect; insight and judgment normal. Course Initial Documented Vital Signs Temperature 97.9 F 03/27/18 20:49 Pulse Rate 77 03/27/18 20:49 Respiratory Rate 18 03/27/18 20:49 Blood Pressure 154/99 H 03/27/18 20:49 Pulse Oximetry 97 03/27/18 20:49 Last Documented Vital Signs Temperature 96.9 F L 03/28/18 04:00 Pulse Rate 70 03/28/18 04:00 Respiratory Rate 20 03/28/18 04:00 Blood Pressure 145/66 H 03/28/18 04:00 Pulse Oximetry 96 03/28/18 04:00 Medical Decision Making MDM Narrative Medical decision making narrative: 87yo M was found on floor after feeling weak and unable to get up himself for hours today. Denies any head trauma. Pt was recently discharged end of last month and had elevated troponin and was evaluated by Dr. Dumont who thought it was from renal failure. Labs reviewed, no leukocytosis. H/H low at 9.7/29.5. Glucose low at 51. Pt given juice. He is awake and alert. BUN/creatinine elevated at 66/3.80. Last creatinine is 3.78. CPK normal. UA showed WBC 0-5. Repeat glucose is 40 after 2 juice so ordered 25gm of D50 IV. Pt has not taken insulin today but has persistent hypoglycemia. Will admit for observation for hypoglycemia and rn field case manager consult for placement likely since pt cannot take care of himself. Discussed with Dr. Lim and accepted to her service. Medical Screen Exam Complete: Yes Emergency Medical Condition: Yes Differential Diagnosis Differential Diagnosis: Rhabdomyolysis vs. dehydration vs. electrolyte abnormality vs. cdiff vs. UTI Lab Data Result diagrams: 03/28/18 05:50 03/28/18 05:50 Lab Results 03/27/18 03/27/18 03/27/18 Range/Units 20:44 21:10 21:45 CBC w Diff Slide review pending WBC 6.5 (4.0-11.0) th/mm3 RBC 3.21 L (4.50-5.90) mil/mm3 Hgb 9.7 L (13.0-17.0) gm/dL Hct 29.5 L (39.0-51.0) % MCV 91.8 (80.0-100.0) fL MCH 30.3 (27.0-34.0) pg MCHC 33.0 (32.0-36.0) % RDW 16.3 (11.6-17.2) % Plt Count 176 (150-450) th/mm3 MPV 8.9 (7.0-11.0) fL Neut % (Auto) (16.0-70.0) % Lymph % (Auto) (9.0-44.0) % [place] % (Auto) (0.0-8.0) % Eos % (Auto) (0.0-4.0) % Baso % (Auto) (0.0-2.0) % Neut # (Auto) (1.8-7.7) th/mm3 Lymph # (Auto) (1.0-4.8) th/mm3 [place] # (Auto) (0.0-0.9) th/mm3 Eos # (Auto) (0.0-0.4) th/mm3 Baso # (Auto) (0.0-0.2) th/mm3 WBC Differential Manual diff final Seg Neuts % (Manual) 78 H (16-70) % Band Neuts % (Manual) 4 (0-6) % Lymphocytes % (Manual) 12 (9-44) % Monocytes % (Manual) 6 (0-8) % Abs Neuts (Manual) 5.3 (1.8-7.7) th/mm3 Differential Comment . Platelet Estimate Normal (Normal) Platelet Morphology Normal (Normal) RBC Morphology Normal (Normal) Sodium 145 (136-145) meq/L Potassium 3.4 L (3.5-5.1) meq/L Chloride 113 H (98-107) meq/L Carbon Dioxide 19.7 L (21.0-32.0) meq/L Anion Gap 12 (5-15) meq/L BUN 66 H (7-18) mg/dL Creatinine 3.80 H (0.60-1.30) mg/dL Estimated GFR 15 L (>89) mL/min POC Glucose 101 (68-110) mg/dl Random Glucose 51 L (74-106) mg/dL Calcium 8.0 L (8.5-10.1) mg/dL Total Creatine Kinase 91 (39-308) U/L Urine Color (Yellw/Straw) Urine Clarity (Clear) Urine pH (5.0-8.5) Ur Specific [place] (1.002-1.035) Urine Protein (Neg-Trace) mg/dL Urine Glucose (UA) (Negative) mg/dL Urine Ketones (Negative) mg/dL Urine Occult Blood (Negative) Urine Nitrate (Negative) Urine Bilirubin (Negative) Urine Urobilinogen (Less than 2) mg/dL Ur Leukocyte Esterase (Negative) Urine RBC (0-3) /hpf Urine WBC (0-5) /hpf Ur Squamous Epith Cells (0-5) /hpf Amorphous Sediment (None) /hpf Micro UA Comment Ur Microscopic Review Urine Culture Comments 03/27/18 03/27/18 03/28/18 Range/Units 21:45 22:51 00:41 CBC w Diff WBC (4.0-11.0) th/mm3 RBC (4.50-5.90) mil/mm3 Hgb (13.0-17.0) gm/dL Hct (39.0-51.0) % MCV (80.0-100.0) fL MCH (27.0-34.0) pg MCHC (32.0-36.0) % RDW (11.6-17.2) % Plt Count (150-450) th/mm3 MPV (7.0-11.0) fL Neut % (Auto) (16.0-70.0) % Lymph % (Auto) (9.0-44.0) % [place] % (Auto) (0.0-8.0) % Eos % (Auto) (0.0-4.0) % Baso % (Auto) (0.0-2.0) % Neut # (Auto) (1.8-7.7) th/mm3 Lymph # (Auto) (1.0-4.8) th/mm3 [place] # (Auto) (0.0-0.9) th/mm3 Eos # (Auto) (0.0-0.4) th/mm3 Baso # (Auto) (0.0-0.2) th/mm3 WBC Differential Seg Neuts % (Manual) (16-70) % Band Neuts % (Manual) (0-6) % Lymphocytes % (Manual) (9-44) % Monocytes % (Manual) (0-8) % Abs Neuts (Manual) (1.8-7.7) th/mm3 Differential Comment Platelet Estimate (Normal) Platelet Morphology (Normal) RBC Morphology (Normal) Sodium (136-145) meq/L Potassium (3.5-5.1) meq/L Chloride (98-107) meq/L Carbon Dioxide (21.0-32.0) meq/L Anion Gap (5-15) meq/L BUN (7-18) mg/dL Creatinine (0.60-1.30) mg/dL Estimated GFR (>89) mL/min POC Glucose 40 L* 73 (68-110) mg/dl Random Glucose (74-106) mg/dL Calcium (8.5-10.1) mg/dL Total Creatine Kinase (39-308) U/L Urine Color Yellow (Yellw/Straw) Urine Clarity Slightly cloudy (Clear) Urine pH 5.5 (5.0-8.5) Ur Specific [place] 1.020 (1.002-1.035) Urine Protein 100 H (Neg-Trace) mg/dL Urine Glucose (UA) Negative (Negative) mg/dL Urine Ketones Negative (Negative) mg/dL Urine Occult Blood Trace (Negative) Urine Nitrate Negative (Negative) Urine Bilirubin Negative (Negative) Urine Urobilinogen 0.2 (Less than 2) mg/dL Ur Leukocyte Esterase Negative (Negative) Urine RBC 4-15 H (0-3) /hpf Urine WBC 0-5 (0-5) /hpf Ur Squamous Epith Cells 0-5 (0-5) /hpf Amorphous Sediment Moderate H (None) /hpf Micro UA Comment Cath-culture not ind Ur Microscopic Review Microscopic reviewed Urine Culture Comments Cath-cult not ind 03/28/18 03/28/18 03/28/18 Range/Units 01:41 02:58 05:50 CBC w Diff Auto diff final WBC 7.4 (4.0-11.0) th/mm3 RBC 3.09 L (4.50-5.90) mil/mm3 Hgb 9.3 L (13.0-17.0) gm/dL Hct 29.0 L (39.0-51.0) % MCV 94.0 (80.0-100.0) fL MCH 30.1 (27.0-34.0) pg MCHC 32.0 (32.0-36.0) % RDW 16.1 (11.6-17.2) % Plt Count 223 (150-450) th/mm3 MPV 8.3 (7.0-11.0) fL Neut % (Auto) 67.7 (16.0-70.0) % Lymph % (Auto) 15.6 (9.0-44.0) % [place] % (Auto) 12.5 H (0.0-8.0) % Eos % (Auto) 4.1 H (0.0-4.0) % Baso % (Auto) 0.1 (0.0-2.0) % Neut # (Auto) 5.1 (1.8-7.7) th/mm3 Lymph # (Auto) 1.2 (1.0-4.8) th/mm3 [place] # (Auto) 0.9 (0.0-0.9) th/mm3 Eos # (Auto) 0.3 (0.0-0.4) th/mm3 Baso # (Auto) 0.0 (0.0-0.2) th/mm3 WBC Differential . Seg Neuts % (Manual) (16-70) % Band Neuts % (Manual) (0-6) % Lymphocytes % (Manual) (9-44) % Monocytes % (Manual) (0-8) % Abs Neuts (Manual) (1.8-7.7) th/mm3 Differential Comment . Platelet Estimate (Normal) Platelet Morphology (Normal) RBC Morphology (Normal) Sodium (136-145) meq/L Potassium (3.5-5.1) meq/L Chloride (98-107) meq/L Carbon Dioxide (21.0-32.0) meq/L Anion Gap (5-15) meq/L BUN (7-18) mg/dL Creatinine (0.60-1.30) mg/dL Estimated GFR (>89) mL/min POC Glucose 69 106 (68-110) mg/dl Random Glucose (74-106) mg/dL Calcium (8.5-10.1) mg/dL Total Creatine Kinase (39-308) U/L Urine Color (Yellw/Straw) Urine Clarity (Clear) Urine pH (5.0-8.5) Ur Specific [place] (1.002-1.035) Urine Protein (Neg-Trace) mg/dL Urine Glucose (UA) (Negative) mg/dL Urine Ketones (Negative) mg/dL Urine Occult Blood (Negative) Urine Nitrate (Negative) Urine Bilirubin (Negative) Urine Urobilinogen (Less than 2) mg/dL Ur Leukocyte Esterase (Negative) Urine RBC (0-3) /hpf Urine WBC (0-5) /hpf Ur Squamous Epith Cells (0-5) /hpf Amorphous Sediment (None) /hpf Micro UA Comment Ur Microscopic Review Urine Culture Comments 03/28/18 Range/Units 05:50 CBC w Diff WBC (4.0-11.0) th/mm3 RBC (4.50-5.90) mil/mm3 Hgb (13.0-17.0) gm/dL Hct (39.0-51.0) % MCV (80.0-100.0) fL MCH (27.0-34.0) pg MCHC (32.0-36.0) % RDW (11.6-17.2) % Plt Count (150-450) th/mm3 MPV (7.0-11.0) fL Neut % (Auto) (16.0-70.0) % Lymph % (Auto) (9.0-44.0) % [place] % (Auto) (0.0-8.0) % Eos % (Auto) (0.0-4.0) % Baso % (Auto) (0.0-2.0) % Neut # (Auto) (1.8-7.7) th/mm3 Lymph # (Auto) (1.0-4.8) th/mm3 [place] # (Auto) (0.0-0.9) th/mm3 Eos # (Auto) (0.0-0.4) th/mm3 Baso # (Auto) (0.0-0.2) th/mm3 WBC Differential Seg Neuts % (Manual) (16-70) % Band Neuts % (Manual) (0-6) % Lymphocytes % (Manual) (9-44) % Monocytes % (Manual) (0-8) % Abs Neuts (Manual) (1.8-7.7) th/mm3 Differential Comment Platelet Estimate (Normal) Platelet Morphology (Normal) RBC Morphology (Normal) Sodium 147 H (136-145) meq/L Potassium 3.3 L (3.5-5.1) meq/L Chloride 115 H (98-107) meq/L Carbon Dioxide 21.1 (21.0-32.0) meq/L Anion Gap 11 (5-15) meq/L BUN (7-18) mg/dL Creatinine (0.60-1.30) mg/dL Estimated GFR (>89) mL/min POC Glucose (68-110) mg/dl Random Glucose (74-106) mg/dL Calcium 7.5 L (8.5-10.1) mg/dL Total Creatine Kinase (39-308) U/L Urine Color (Yellw/Straw) Urine Clarity (Clear) Urine pH (5.0-8.5) Ur Specific [place] (1.002-1.035) Urine Protein (Neg-Trace) mg/dL Urine Glucose (UA) (Negative) mg/dL Urine Ketones (Negative) mg/dL Urine Occult Blood (Negative) Urine Nitrate (Negative) Urine Bilirubin (Negative) Urine Urobilinogen (Less than 2) mg/dL Ur Leukocyte Esterase (Negative) Urine RBC (0-3) /hpf Urine WBC (0-5) /hpf Ur Squamous Epith Cells (0-5) /hpf Amorphous Sediment (None) /hpf Micro UA Comment Ur Microscopic Review Urine Culture Comments ECG Data EKG Prior to Arrival: No Attestation: I personally reviewed and interpreted this ECG as follows: Interpretation: NSR with 1st degree AV block. LAD. Q waves III, aVF. Discharge Plan Discharge Disposition Patient Disposition: 30 Still Patient Discharge Details Diagnosis: Hypoglycemia Physicians Team ED Provider: Angela Smart Primary Care Provider: Prashanth Mason Attending Provider: Nicole Triana Discharge Interventions Interventions: ED Discharge Assessment Last Done: 03/28/18 01:47 Vital Signs Last Done: 03/27/18 23:28 Status ED Status: Left Department Discharge Information Discharge Date/Time: 03/28/18 01:40
[2018-03-27 21:19] LABS: Hematocrit 29.5 % (39.0-51.0); Hemoglobin 9.7 gm/dL (13.0-17.0); Mean Corpuscular Hemoglobin 30.3 pg (27.0-34.0); Mean Corpuscular Volume 91.8 fL (80.0-100.0); Mean Platelet Volume 8.9 fL (7.0-11.0); Platelet Count 176 th/mm3 (150-450); Red Blood Count 3.21 mil/mm3 (4.50-5.90); Red Cell Distribution Width 16.3 % (11.6-17.2); White Blood Count 6.5 th/mm3 (4.0-11.0)
[2018-03-27 21:51] LABS: Lymphocytes 12 % (9-44); Monocytes 6 % (0-8)
[2018-03-27 21:52] LABS: Platelet Estimate Normal (Normal); Platelet Morphology Normal (Normal); RBC Morphology Normal (Normal)
[2018-03-27 21:53] LABS: Bilirubin,Urine Negative (Negative); Clarity,Urine Slightly Cloudy (Clear); Color,Urine Yellow (Yellw/Straw); Glucose,Urine (UA) Negative (Negative); Leukocyte Esterase,Urine Negative (Negative); Nitrite,Urine Negative (Negative); PH,Urine 5.5 (5.0-8.5); Urobilinogen,Urine 0.2 mg/dL (Less than 2)
[2018-03-27 21:59] LABS: Amorphous Sediment,Urine Moderate /hpf; Squamous Epithelial Cell,Urine 0-5 /hpf (0-5); WBC,Urine 0-5 /hpf (0-5)
[2018-03-27 22:01] LABS: Potassium 3.4 meq/L (3.5-5.1)
[2018-03-27 22:04] LABS: Carbon Dioxide 19.7 meq/L (21.0-32.0)
[2018-03-27] MEDS ORDERED: Sodium Chlor 0.9% Inj 500 ML IV.SIG SCH (23:00)
[2018-03-27] MEDS ORDERED: Bisacodyl 10 MG Supp RECTAL PRN (23:41)
[2018-03-27] MEDS ORDERED: Acetaminophen 325 MG Tablet PO PRN (23:41)
[2018-03-28] MEDS: Dextrose 5% in Water Inj 1,000 ML IV.CONT SCH ×2 (02:19→15:40)
[2018-03-28] MEDS: Dextrose 50% in Water 50 ML Vial IV.PUSH PRN ×2 (02:19→07:05)
[2018-03-28 06:30] LABS: Baso % (Auto) 0.1 % (0.0-2.0); Eos # (Auto) 0.3 th/mm3 (0.0-0.4); Eos % (Auto) 4.1 % (0.0-4.0); Hemoglobin 9.3 gm/dL (13.0-17.0); Lymph # (Auto) 1.2 th/mm3 (1.0-4.8); Lymph % (Auto) 15.6 % (9.0-44.0); Mean Corpuscular Hemoglobin 30.1 pg (27.0-34.0); Mean Platelet Volume 8.3 fL (7.0-11.0); Mono # (Auto) 0.9 th/mm3 (0.0-0.9); Mono % (Auto) 12.5 % (0.0-8.0); Neut # (Auto) 5.1 th/mm3 (1.8-7.7); Neut % (Auto) 67.7 % (16.0-70.0); Platelet Count 223 th/mm3 (150-450); Red Blood Count 3.09 mil/mm3 (4.50-5.90); Red Cell Distribution Width 16.1 % (11.6-17.2); White Blood Count 7.4 th/mm3 (4.0-11.0)
[2018-03-28 06:38] LABS: Potassium 3.3 meq/L (3.5-5.1)
[2018-03-28 06:42] LABS: Calcium 7.5 mg/dL (8.5-10.1); Carbon Dioxide 21.1 meq/L (21.0-32.0)
[2018-03-28] MEDS: Senna/Docusate Sodium 8.6/50 MG Tablet PO SCH ×2 (08:40→20:09)
--- NOTE | 2018-03-28 10:56 | ECG ---
Date Performed: 03/27/2018 Time Performed: 20:57:58 PTAGE: 87 years EKG: Sinus rhythm WITH FIRST DEGREE AV BLOCK INTRAVENTRICULAR CONDUCTION DELAY INFERIOR MYOCARDIAL INFARCTION ABNORMAL ECG PREVIOUS TRACING : 03/20/2018 05.15 DOCTOR: Brent Hawkins Interpretating Date/Time 03/28/2018 10:54:26
--- NOTE | 2018-03-28 11:55 | P.HP ---
History of Present Illness Service: Hospitalist Primary Care Physician: Prashanth Mason MD Chief Complaint: Fall, inability to get up, low glucose. History of Present Illness: Mr. Mendoza is a pleasant 87 year old male with a history of DM, HTN, HLD, hypothyroidism, CAD with CABG, CKD who presented to the ED after he fell at home and was unable to get up. He was doing laundry and fell on the floor but was unable to get up until he received help. EMS found his blood glucose to be around 33 and subsequently gave him D50. Patient was recently admitted to the hospital and was discharged towards the end of February. He reports that he has not been taking Lantus since he was discharged. He was started on D5W and his blood glucose continued to be low. Patient denies any chest pain, shortness of breath, fever, chills. Denies any changes in bowel or bladder habits. PMH: Diabetes mellitus - does not take any insulin anymore, CAD, CKD PSH: CABG Social history: Does not use tobacco, alcohol or illicit drugs. Family history: No family history of Alzheimer's or Parkinson's. - Diagnosis (1) Chronic kidney disease, stage IV (severe) (2) Hypoglycemia Review of Systems All other systems reviewed negative except as stated in HPI [facility] - History History 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 - Medical History Medical History: Medical History (Last Reviewed 03/28/18 @ 11:52 by Darren Jara) Diabetes Hypertension - Surgical History Surgical History: Surgical History (Last Reviewed 03/28/18 @ 11:52 by Darren Jara) Hx of CABG - Family History Family History: Family History (Last Updated 03/17/18 @ 17:59 by GILLIAN Keller) Father Heart attack - Tobacco History Second Hand Smoke Exposure: No Tobacco Use In Past 30 Days: Yes Smoking Status: Unknown if ever smoked Tobacco Type: Cigarettes - Alcohol History How Often Do You Have a Drink Containing Alcohol: Unable to Obtain - Substance Use History Substance History: No History of Abuse - Travel History Recent Travel in the [place] Within the Last 8 Weeks: No Recent Travel Out of the Country Within the Last 8 Weeks: No - Immunization History Tetanus Immunization: <5 Years Hx Influenza Vaccine This Season: Yes Medications and Allergies Active Medications: Active Medications Acetaminophen (Tylenol) 650 mg PO Q4H PRN PRN Reason: Temp > 100.4 Al Hydroxide/Mg Hydroxide (Milk Of Magnesia Liq) 30 ml PO Q12H PRN PRN Reason: Mild Constipation Bisacodyl (Dulcolax Supp) 10 mg RECTAL DAILY PRN PRN Reason: SEVERE CONSITIPATION Dextrose (D50w Vial) 50 ml IV.PUSH UNSCH PRN PRN Reason: PER HYPOGLYCEMIA PROTOCOL Last Admin: 03/28/18 07:05 Dose: 50 ml Glucagon (Glucagon Inj) 1 mg OTHER PRN PRN PRN Reason: for Hypoglycemia Protocol Sodium Chloride (Ns Inj) 500 mls @ 0 mls/hr IV.SIG BOLUS PAMELA Dextrose (D5w Inj) 1,000 mls @ 84 mls/hr IV.CONT .[id number] [facility] Last Admin: 03/28/18 02:19 Dose: 84 mls/hr Dextrose (D10w Inj) 1,000 mls @ 84 mls/hr IV.CONT .[id number] PAMELA Lactulose (Lactulose Liq) 30 ml PO DAILY PRN PRN Reason: SEVERE CONSITIPATION Ondansetron HCl (Zofran Inj) 4 mg IV.PUSH Q6H PRN PRN Reason: NAUSEA OR VOMITING Senna/Docusate Sodium (Jossy-Colace) [address] [facility] Last Admin: 03/28/18 08:40 Dose: Not Given Sennosides (Senokot) 17.2 mg PO Q12H PRN PRN Reason: Moderate Constipation Allergies Allergy/AdvReac Type Severity Reaction Status Date / Time codeine AdvReac Severe NAUSEA Verified 03/27/18 20:48 Home Medications Medication Instructions Recorded Confirmed Type gabapentin 600 mg PO BID 03/17/18 03/28/18 History rosuvastatin [Crestor] 20 mg PO HS 03/28/18 03/28/18 History Exam Vital signs: Vital Signs 03/27/18 20:49 03/27/18 22:30 03/27/18 23:28 Temperature 97.9 F Pulse Rate 77 71 79 Respiratory Rate 18 18 18 Blood Pressure 154/99 H 162/70 H 167/80 H Pulse Oximetry 97 03/28/18 01:07 03/28/18 01:44 03/28/18 01:55 Temperature 96.8 F L Pulse Rate 76 72 81 Respiratory Rate 18 20 Blood Pressure 187/68 H 130/74 190/80 H Pulse Oximetry 98 03/28/18 04:00 03/28/18 08:00 Temperature 96.9 F L 97.8 F Pulse Rate 70 73 Respiratory Rate 20 17 Blood Pressure 145/66 H 148/67 H Pulse Oximetry 96 98 Intake & Output 03/27/18 03/28/18 03/28/18 18:59 06:59 18:59 Intake Total 540 / 540 Output Total 1200 / 1200 Balance -660 / -660 Weight 67.5 kg Intake: Oral 540 / 540 Output: Urine 300 / 300 Stool 400 / 400 Urine Amount (Catheter) 500 / 500 Straight 500 / 500 Other: # Voids 1 Date of Last Bowel Movement 03/28/18 # Bowel Movements 1 Weight On Admission 67.3 kg Narrative: GENERAL: This is a well-nourished, well-developed patient, in no apparent distress. SKIN: No rashes, ecchymoses or lesions. Warm and dry. HEAD: Atraumatic. Normocephalic. No temporal or scalp tenderness. EYES: Pupils equal round and reactive. No injection or drainage. ENT: Nose without bleeding, purulent drainage or septal hematoma. Airway patent. NECK: Trachea midline. No lymphadenopathy. Supple, nontender, no meningeal signs. CARDIOVASCULAR: Regular rate and rhythm without murmurs, gallops, or rubs. No JVD. RESPIRATORY: Clear to auscultation. Breath sounds equal bilaterally. No wheezes , rales, or rhonchi. GASTROINTESTINAL: Abdomen soft, non-tender, nondistended. No guarding. MUSCULOSKELETAL: Extremities without clubbing, cyanosis, or edema. NEUROLOGICAL: Awake and alert. Cranial nerves II through XII intact. No focal neurological deficits. Normal speech. Results - Labs CBC & Chem 7: 03/28/18 05:50 03/28/18 05:50 Labs: Laboratory Results - last 24 hr 03/27/18 03/27/18 03/27/18 20:44 21:10 21:45 CBC w Diff Slide review pending WBC 6.5 RBC 3.21 L Hgb 9.7 L Hct 29.5 L MCV 91.8 MCH 30.3 MCHC 33.0 RDW 16.3 Plt Count 176 MPV 8.9 Neut % (Auto) Lymph % (Auto) [place]berry % (Auto) Eos % (Auto) Baso % (Auto) Neut # (Auto) Lymph # (Auto) [place]berry # (Auto) Eos # (Auto) Baso # (Auto) WBC Differential Manual diff final Seg Neuts % (Manual) 78 H Band Neuts % (Manual) 4 Lymphocytes % (Manual) 12 Monocytes % (Manual) 6 Abs Neuts (Manual) 5.3 Differential Comment . Platelet Estimate Normal Platelet Morphology Normal RBC Morphology Normal Sodium 145 Potassium 3.4 L Chloride 113 H Carbon Dioxide 19.7 L Anion Gap 12 BUN 66 H Creatinine 3.80 H Estimated GFR 15 L POC Glucose 101 Random Glucose 51 L Calcium 8.0 L Total Creatine Kinase 91 Urine Color Urine Clarity Urine pH Ur Specific Dieterich Urine Protein Urine Glucose (UA) Urine Ketones Urine Occult Blood Urine Nitrate Urine Bilirubin Urine Urobilinogen Ur Leukocyte Esterase Urine RBC Urine WBC Ur Squamous Epith Cells Amorphous Sediment Micro UA Comment Ur Microscopic Review Urine Culture Comments 03/27/18 03/27/18 03/28/18 21:45 22:51 00:41 CBC w Diff WBC RBC Hgb Hct MCV MCH MCHC RDW Plt Count MPV Neut % (Auto) Lymph % (Auto) Newberry % (Auto) Eos % (Auto) Baso % (Auto) Neut # (Auto) Lymph # (Auto) [place]berry # (Auto) Eos # (Auto) Baso # (Auto) WBC Differential Seg Neuts % (Manual) Band Neuts % (Manual) Lymphocytes % (Manual) Monocytes % (Manual) Abs Neuts (Manual) Differential Comment Platelet Estimate Platelet Morphology RBC Morphology Sodium Potassium Chloride Carbon Dioxide Anion Gap BUN Creatinine Estimated GFR POC Glucose 40 L* 73 Random Glucose Calcium Total Creatine Kinase Urine Color Yellow Urine Clarity Slightly cloudy Urine pH 5.5 Ur Specific Dieterich 1.020 Urine Protein 100 H Urine Glucose (UA) Negative Urine Ketones Negative Urine Occult Blood Trace Urine Nitrate Negative Urine Bilirubin Negative Urine Urobilinogen 0.2 Ur Leukocyte Esterase Negative Urine RBC 4-15 H Urine WBC 0-5 Ur Squamous Epith Cells 0-5 Amorphous Sediment Moderate H Micro UA Comment Cath-culture not ind Ur Microscopic Review Microscopic reviewed Urine Culture Comments Cath-cult not ind 03/28/18 03/28/18 03/28/18 01:41 02:58 05:50 CBC w Diff Auto diff final WBC 7.4 RBC 3.09 L Hgb 9.3 L Hct 29.0 L MCV 94.0 MCH 30.1 MCHC 32.0 RDW 16.1 Plt Count 223 MPV 8.3 Neut % (Auto) 67.7 Lymph % (Auto) 15.6 Newberry % (Auto) 12.5 H Eos % (Auto) 4.1 H Baso % (Auto) 0.1 Neut # (Auto) 5.1 Lymph # (Auto) 1.2 Newberry # (Auto) 0.9 Eos # (Auto) 0.3 Baso # (Auto) 0.0 WBC Differential . Seg Neuts % (Manual) Band Neuts % (Manual) Lymphocytes % (Manual) Monocytes % (Manual) Abs Neuts (Manual) Differential Comment . Platelet Estimate Platelet Morphology RBC Morphology Sodium Potassium Chloride Carbon Dioxide Anion Gap BUN Creatinine Estimated GFR POC Glucose 69 106 Random Glucose Calcium Total Creatine Kinase Urine Color Urine Clarity Urine pH Ur Specific Dieterich Urine Protein Urine Glucose (UA) Urine Ketones Urine Occult Blood Urine Nitrate Urine Bilirubin Urine Urobilinogen Ur Leukocyte Esterase Urine RBC Urine WBC Ur Squamous Epith Cells Amorphous Sediment Micro UA Comment Ur Microscopic Review Urine Culture Comments 03/28/18 03/28/18 03/28/18 05:50 07:05 07:15 CBC w Diff WBC RBC Hgb Hct MCV MCH MCHC RDW Plt Count MPV Neut % (Auto) Lymph % (Auto) Newberry % (Auto) Eos % (Auto) Baso % (Auto) Neut # (Auto) Lymph # (Auto) Newberry # (Auto) Eos # (Auto) Baso # (Auto) WBC Differential Seg Neuts % (Manual) Band Neuts % (Manual) Lymphocytes % (Manual) Monocytes % (Manual) Abs Neuts (Manual) Differential Comment Platelet Estimate Platelet Morphology RBC Morphology Sodium 147 H Potassium 3.3 L Chloride 115 H Carbon Dioxide 21.1 Anion Gap 11 BUN 61 H Creatinine 3.50 H Estimated GFR 17 L POC Glucose 50 L 190 H Random Glucose 46 L* Calcium 7.5 L Total Creatine Kinase Urine Color Urine Clarity Urine pH Ur Specific Dieterich Urine Protein Urine Glucose (UA) Urine Ketones Urine Occult Blood Urine Nitrate Urine Bilirubin Urine Urobilinogen Ur Leukocyte Esterase Urine RBC Urine WBC Ur Squamous Epith Cells Amorphous Sediment Micro UA Comment Ur Microscopic Review Urine Culture Comments 03/28/18 03/28/18 08:31 10:58 CBC w Diff WBC RBC Hgb Hct MCV MCH MCHC RDW Plt Count MPV Neut % (Auto) Lymph % (Auto) Newberry % (Auto) Eos % (Auto) Baso % (Auto) Neut # (Auto) Lymph # (Auto) [place] # (Auto) Eos # (Auto) Baso # (Auto) WBC Differential Seg Neuts % (Manual) Band Neuts % (Manual) Lymphocytes % (Manual) Monocytes % (Manual) Abs Neuts (Manual) Differential Comment Platelet Estimate Platelet Morphology RBC Morphology Sodium Potassium Chloride Carbon Dioxide Anion Gap BUN Creatinine Estimated GFR POC Glucose 119 H 89 Random Glucose Calcium Total Creatine Kinase Urine Color Urine Clarity Urine pH Ur Specific Dieterich Urine Protein Urine Glucose (UA) Urine Ketones Urine Occult Blood Urine Nitrate Urine Bilirubin Urine Urobilinogen Ur Leukocyte Esterase Urine RBC Urine WBC Ur Squamous Epith Cells Amorphous Sediment Micro UA Comment Ur Microscopic Review Urine Culture Comments Caprini VTE Risk Assessment Caprini VTE Risk Assessment: No/Low Risk (score <= 1) Caprini Risk Assessment Model: Point Value = 1 Point Value = 2 Point Value = 3 Point Value = 5 Age 41-60 Minor surgery BMI > 25 kg/m2 Swollen legs Varicose veins or History of unexplained or recurrent spontaneous Oral contraceptives or hormone replacement Sepsis (< 1 month) Serious lung disease, including pneumonia (< 1 month) Abnormal pulmonary function Acute myocardial infarction Congestive heart failure (< 1 month) History of inflammatory bowel disease Medical patient at bed rest Age 61-74 Arthroscopic surgery Major open surgery (> 45 min) Laparoscopic surgery (> 45 min) Malignancy Confined to bed (> 72 hours) Immobilizing plaster cast Central venous access Age >= 75 History of VTE Family history of VTE Factor V Leiden Prothrombin [id number] Lupus anticoagulant Anticardiolipin antibodies Elevated serum homocysteine Heparin-induced thrombocytopenia Other congenital or acquired thrombophilia Stroke (< 1 month) Elective arthroplasty Hip, pelvis, or leg fracture Acute spinal cord injury (< 1 month) Prophylaxis Regimen: Total Risk Factor Score Risk Level Prophylaxis Regimen 0-1 Low Early ambulation 2 Moderate Order ONE of the following: *Sequential Compression Device (SCD) *Heparin 5000 units SQ BID 3-4 Higher Order ONE of the following medications: *Heparin 5000 units SQ TID *Enoxaparin/Lovenox 40 mg SQ daily (WT < 150 kg, CrCl > 30 mL/min) *Enoxaparin/Lovenox 30 mg SQ daily (WT < 150 kg, CrCl > 10-29 mL/min) *Enoxaparin/Lovenox 30 mg SQ BID (WT < 150 kg, CrCl > 30 mL/min) AND/OR *Sequential Compression Device (SCD) 5 or more Highest Order ONE of the following medications: *Heparin 5000 units SQ TID (Preferred with Epidurals) *Enoxaparin/Lovenox 40 mg SQ daily (WT < 150 kg, CrCl > 30 mL/min) *Enoxaparin/Lovenox 30 mg SQ daily (WT < 150 kg, CrCl > 10-29 mL/min) *Enoxaparin/Lovenox 30 mg SQ BID (WT < 150 kg, CrCl > 30 mL/min) AND *Sequential Compression Device (SCD) Assessment and Plan - Assessment (1) Chronic kidney disease, stage IV (severe) Code(s): N18.4 - Chronic kidney disease, stage 4 (severe) Status: Acute (2) Hypoglycemia Code(s): E16.2 - Hypoglycemia, unspecified Status: Acute - Plan Mr. Mendoza is a pleasant 87-year-old male with a history of diabetes mellitus, hypertension, CAD who was brought to the hospital after he was found on the floor where he fell after doing laundry. His blood glucose was 33 at the time of EMS arrival. Hypoglycemia -Blood glucose was 33 on EMS arrival. He required multiple D50 administration. -Initially he was on D5 W and subsequently switched to D10. -He has a history of diabetes mellitus. His last hemoglobin A1c was 5.1 on . -Patient reports confidently that he has not been taking Lantus since his discharge on 03/20/2018. -We will check his insulin and C-peptide level. Chronic kidney disease stage IV Mild hypernatremia -Follows up with Dr. Blake. Baseline appears to be around 3.4-3.5. -Hypernatremia is likely due to poor oral intake -Will re-check BMP in the AM. Coronary artery disease Hypertension Hypothyroidism Diabetic neuropathy -We will continue home medications including statin, metoprolol, levothyroxine, Imdur, gabapentin, nifedipine. Full code. SCDs.
[2018-03-28] MEDS: Dextrose 10% in Water Inj 1,000 ML IV.CONT SCH (12:02)
[2018-03-28] MEDS: Metoprolol Tartrate 50 MG Tablet PO SCH (20:08)
[2018-03-29] MEDS: Dextrose 10% in Water Inj 1,000 ML IV.CONT SCH (00:32)
[2018-03-29] MEDS: Dextrose 50% in Water 50 ML Vial IV.PUSH PRN ×2 (03:08→06:06)
[2018-03-29] MEDS: Levothyroxine 100 MCG Tablet PO SCH (06:06)
[2018-03-29] MEDS: Isosorbide Mononitrate 30 MG ER 24HR Tablet (Imdur) PO SCH (06:06)
[2018-03-29 06:30] LABS: Potassium 3.2 meq/L (3.5-5.1)
[2018-03-29 06:38] LABS: Calcium 7.3 mg/dL (8.5-10.1)
[2018-03-29 06:50] LABS: Total Protein 5.3 g/dL (6.4-8.2)
--- NOTE | 2018-03-29 08:50 | P.PN ---
Subjective Interval history: Follow up for hypoglycemia, CKD, fall. Patient is currently doing well. Denies any CP, SOB, fever/chills. Eating breakfast but does not like the breakfast much. Physical Exam Vital signs: Vital Signs 03/28/18 12:00 03/28/18 16:00 03/28/18 20:00 Temperature 97.6 F 97.8 F 101.8 F H Pulse Rate 78 80 100 H Respiratory Rate 17 16 20 Blood Pressure 140/76 136/60 176/74 H Pulse Oximetry 97 98 90 L 03/29/18 00:00 03/29/18 04:00 03/29/18 08:27 Temperature 99.5 F 98.5 F 97.8 F Pulse Rate 66 89 57 L Respiratory Rate 20 22 16 Blood Pressure 144/63 H 195/89 H 163/67 H Pulse Oximetry 95 94 L 97 Intake & Output 03/28/18 03/29/18 03/29/18 18:59 06:59 18:59 Intake Total 1570 / 1570 1060 / 1060 Output Total 350 / 350 Balance 1570 / 1570 710 / 710 Weight 67.8 kg Intake: IV 850 / 850 1000 / 1000 D10W Inj 1,000 ML @ 50 mls/hr 1000 / 1000 IV.CONT .Q20H PAMELA Rx#: [id number] D5W Inj 1,000 ML @ 84 mls/hr IV 850 / 850 .CONT .[id number] PAMELA Rx#: [id number] Oral 720 / 720 60 / 60 Output: Urine 350 / 350 Other: # Incontinent Voids 3 2 # Urine Diapers 2 # Bowel Movements 1 # Incontinent Bowel Movements 2 Narrative: GENERAL: Alert, NAD. SKIN: Warm and dry. HEAD: Normocephalic. EYES: No scleral icterus. No injection or drainage. NECK: Supple, trachea midline. No JVD or lymphadenopathy. CARDIOVASCULAR: Regular rate and rhythm without murmurs, gallops, or rubs. RESPIRATORY: Breath sounds equal bilaterally. No accessory muscle use. GASTROINTESTINAL: Abdomen soft, non-tender, nondistended. MUSCULOSKELETAL: No cyanosis, or edema. BACK: Nontender without obvious deformity. No CVA tenderness. - Urinary Catheter Management Straight Cath placed during this visit: no Results - Labs CBC & Chem 7: 03/28/18 05:50 03/29/18 05:25 Laboratory Results - last 24 hr 03/27/18 03/28/18 03/28/18 23:30 10:58 12:01 Sodium Potassium Chloride Carbon Dioxide Anion Gap BUN Creatinine Estimated GFR POC Glucose 89 68 Random Glucose Calcium Prot Corrected Calcium Total Protein St C. diff Tox Epid 027 Negative C. difficile Tox (PCR) Negative 03/28/18 03/28/18 03/28/18 12:04 12:52 15:31 Sodium Potassium Chloride Carbon Dioxide Anion Gap BUN Creatinine Estimated GFR POC Glucose 73 77 198 H Random Glucose Calcium Prot Corrected Calcium Total Protein St C. diff Tox Epid 027 C. difficile Tox (PCR) 03/28/18 03/28/18 03/28/18 16:42 17:29 20:07 Sodium Potassium Chloride Carbon Dioxide Anion Gap BUN Creatinine Estimated GFR POC Glucose 102 121 H 176 H Random Glucose Calcium Prot Corrected Calcium Total Protein St C. diff Tox Epid 027 C. difficile Tox (PCR) 03/29/18 03/29/18 03/29/18 02:54 03:25 05:25 Sodium 145 Potassium 3.2 L Chloride 114 H Carbon Dioxide 21.0 Anion Gap 10 BUN 58 H Creatinine 3.50 H Estimated GFR 17 L POC Glucose 74 351 H Random Glucose 57 L Calcium 7.3 L* Prot Corrected Calcium 8.3 L Total Protein 5.[address] C[address] diff Tox Epid 027 C. difficile Tox (PCR) 03/29/18 03/29/18 03/29/18 06:01 06:23 07:16 Sodium Potassium Chloride Carbon Dioxide Anion Gap BUN Creatinine Estimated GFR POC Glucose 74 200 H 123 H Random Glucose Calcium Prot Corrected Calcium Total Protein St C. diff Tox Epid 027 C. difficile Tox (PCR) Assessment and Plan - Assessment (1) Chronic kidney disease, stage IV (severe) Code(s): N18.4 - Chronic kidney disease, stage 4 (severe) Status: Acute (2) Hypoglycemia Code(s): E16.2 - Hypoglycemia, unspecified Status: Acute - Plan Mr. Mendoza is a pleasant 87-year-old male with a history of diabetes mellitus, hypertension, CAD who was brought to the hospital after he was found on the floor where he fell after doing laundry. His blood glucose was 33 at the time of EMS arrival. Hypoglycemia -Blood glucose was 33 on EMS arrival. He required multiple D50 administration. -Will d/c D10W and observe. -He has a history of diabetes mellitus. His last hemoglobin A1c was 5.1 on . -Patient reports confidently that he has not been taking Lantus since his discharge on 03/20/2018. -We will check his insulin and C-peptide level. Chronic kidney disease stage IV Mild hypernatremia -Follows up with Dr. Blake. Baseline appears to be around 3.4-3.5. -Hypernatremia is likely due to poor oral intake Coronary artery disease Hypertension Hypothyroidism Diabetic neuropathy -We will continue home medications including statin, metoprolol, levothyroxine, Imdur, gabapentin, nifedipine. Psychiatry evaluated patient and believes that patient has capacity. Full code. SCDs.
[2018-03-29] MEDS: Senna/Docusate Sodium 8.6/50 MG Tablet PO SCH ×2 (09:29→22:15)
[2018-03-29] MEDS: Metoprolol Tartrate 50 MG Tablet PO SCH ×2 (09:32→22:15)
--- NOTE | 2018-03-29 13:30 | P.CONPSY ---
Provisional Diagnosis Admission Date: March 27, 2018 23:35 Brokaw I.: Adjustment disorder with depressed mood vs major depressive disorder Brokaw II.: Deferred Brokaw III.: Diabetes, hypertension Brokaw IV.: Recent loss of a significant family member Brokaw V.: 55 History of Present Illness Service: Medicine Primary Care Provider: Prashanth Mason MD Family Provider: Prashanth Mason MD Chief Complaint: Fall, inability to get up, low glucose. History of Present Illness: The patient is 87 year-old man, domiciled in [facility] by himself, single, retired, with no previous psychiatric history, no previous suicide attempts, no previous psychiatric hospitalizations, with a medical history of DM , HTN, HLD, hypothyroidism, CAD with CABG, CKD who presented to the ED after he fell at home and was unable to get up. He was doing laundry and fell on the floor but was unable to get up until he received help. EMS found his blood glucose to be around 33 and subsequently gave him D50. Patient was recently admitted to the hospital and was discharged towards the end of February. He was consulted to psychiatry for symptomatology of depression in the context of recent loss of his son. Chart was reviewed. The case was discussed with primary medical team. On my psychiatric evaluation I find a patient that is awake, calm, cooperative and pleasant. The patient reports that he has been feeling much better today. He denies pain, denies distress, and describes his mood as improved. He tells me that his son passed in a car accident about a month ago, he has been dealing with sadness since then, having episodes of tears , he denies anhedonia, denies hopelessness, denies helplessness, denies suicidal and homicidal ideation, denies visual and auditory hallucinations. He does report weight loss, poor sleep at night and decreased appetite. He reports that he is a very independent person, he drives everywhere, he takes care of himself, he has a very good special support group "I am a mirela and we meet weekly". He has a home health aide who comes 3 times per week, and he also has a nephew that comes once in a while to help him. The patient is fully oriented 3, without no attention deficit, no fluctuation of consciousness, no gross cognitive impairment present. I offered to the patient to take some medication for depression and to sleep better, and also to increase in weight, int his care Remeron, but the patient declines, stating that he prefers to try to get better without medications PPHx: No previous psychiatric history, no suicide attempts, no psychiatric hospitalizations per PMHx: Diabetes mellitus - does not take any insulin anymore, CAD, CKD Substance Hx: Does not use tobacco, alcohol or illicit drugs. Family Hx: No family history of Alzheimer's or Parkinson's Social Hx: Patient was born and raised in [place], he lives in [facility] by himself, he is , retired, his highest level of education is high school Review of Systems All other systems reviewed negative except as stated in HPI Psychiatric: Reports depression PMFSH - History History 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 - Medical History Medical History: Medical History (Last Reviewed 03/29/18 @ 12:48 by Gadiel Pak) Diabetes Hypertension - Surgical History Surgical History: Surgical History (Last Reviewed 03/29/18 @ 12:48 by Gadiel Pak) Hx of CABG - Family History Family History: Family History (Last Updated 03/17/18 @ 17:59 by GILLIAN Keller) Father Heart attack - Tobacco History Second Hand Smoke Exposure: No Tobacco Use In Past 30 Days: Yes Smoking Status: Unknown if ever smoked Tobacco Type: Cigarettes - Alcohol History How Often Do You Have a Drink Containing Alcohol: Unable to Obtain - Substance Use History Substance History: No History of Abuse - Travel History Recent Travel in the [place] Within the Last 8 Weeks: No Recent Travel Out of the Country Within the Last 8 Weeks: No - Immunization History Tetanus Immunization: <5 Years Hx Influenza Vaccine This Season: Yes Medications and Allergies Active Medications: Active Medications Acetaminophen (Tylenol) 650 mg PO Q4H PRN PRN Reason: Temp > 100.4 Last Admin: 03/28/18 21:38 Dose: 650 mg Al Hydroxide/Mg Hydroxide (Milk Of Magnesia Liq) 30 ml PO Q12H PRN PRN Reason: Mild Constipation Aspirin (Aspirin Chew) 81 mg PO DAILY PAMELA Last Admin: 03/29/18 09:32 Dose: 81 mg Atorvastatin Calcium (Lipitor) 40 mg PO HS PAMELA Last Admin: 03/28/18 20:08 Dose: 40 mg Bisacodyl (Dulcolax Supp) 10 mg RECTAL DAILY PRN PRN Reason: SEVERE CONSITIPATION Dextrose (D50w Vial) 50 ml IV.PUSH UNSCH PRN PRN Reason: PER HYPOGLYCEMIA PROTOCOL Last Admin: 03/29/18 06:06 Dose: 50 ml Glucagon (Glucagon Inj) 1 mg OTHER PRN PRN PRN Reason: for Hypoglycemia Protocol Sodium Chloride (Ns Inj) 500 mls @ 0 mls/hr IV.SIG BOLUS [facility] Isosorbide Mononitrate (Imdur) 30 mg PO DAILY@0700 [facility] Last Admin: 03/29/18 06:06 Dose: 30 mg Lactulose (Lactulose Liq) 30 ml PO DAILY PRN PRN Reason: SEVERE CONSITIPATION Levothyroxine Sodium (Synthroid) 100 mcg PO DAILY@0600 [facility] Last Admin: 03/29/18 06:06 Dose: 100 mcg Metoprolol Tartrate (Lopressor) 50 mg PO BID [facility] Last Admin: 03/29/18 09:32 Dose: 50 mg Nifedipine (Procardia Xl) 60 mg PO DAILY [facility] Last Admin: 03/29/18 09:32 Dose: 60 mg Ondansetron HCl (Zofran Inj) 4 mg IV.PUSH Q6H PRN PRN Reason: NAUSEA OR VOMITING Senna/Docusate Sodium (Jossy-Colace) 1 tab PO BID [facility] Last Admin: 03/29/18 09:29 Dose: Not Given Sennosides (Senokot) 17.2 mg PO Q12H PRN PRN Reason: Moderate Constipation Allergies Allergy/AdvReac Type Severity Reaction Status Date / Time codeine AdvReac Severe NAUSEA Verified 03/27/18 20:48 Home Medications Medication Instructions Recorded Confirmed Type gabapentin 600 mg PO BID 03/17/18 03/28/18 History rosuvastatin [Crestor] 20 mg PO HS 03/28/18 03/28/18 History Exam Vital signs: Vital Signs 03/28/18 16:00 03/28/18 20:00 03/29/18 00:00 Temperature 97.8 F 101.8 F H 99.5 F Pulse Rate 80 100 H 66 Respiratory Rate 16 20 20 Blood Pressure 136/60 176/74 H 144/63 H Pulse Oximetry 98 90 L 95 03/29/18 04:00 03/29/18 08:27 03/29/18 09:31 Temperature 98.5 F 97.8 F Pulse Rate 89 57 L 64 Respiratory Rate 22 16 Blood Pressure 195/89 H 163/67 H Pulse Oximetry 94 L 97 03/29/18 12:32 Temperature 96.7 F L Pulse Rate 58 L Respiratory Rate 16 Blood Pressure 170/73 H Pulse Oximetry 100 Intake & Output 03/28/18 03/29/18 03/29/18 18:59 06:59 18:59 Intake Total 1570 / 1570 1060 / 1060 Output Total 350 / 350 Balance 1570 / 1570 710 / 710 Weight 67.8 kg Intake: IV 850 / 850 1000 / 1000 D10W Inj 1,000 ML @ 50 mls/hr 1000 / 1000 IV.CONT .Q20H PAMELA Rx#: [id number] D5W Inj 1,000 ML @ 84 mls/hr IV 850 / 850 .CONT .[id number] PAMELA Rx#: [id number] Oral 720 / 720 60 / 60 Output: Urine 350 / 350 Other: # Incontinent Voids 3 2 # Urine Diapers 2 # Bowel Movements 1 # Incontinent Bowel Movements 2 Narrative: No tremors, no EPS, no psychomotor agitation retardation, no withdrawal symptoms - Constitutional no acute distress - Routine HEENT Exam Head: Present: normocephalic Eye: Present: EOMI, PERRL ENT: Present: mucous membranes moist Mental Status Examination Appearance: Appropriate Consciousness: Alert Orientation: x4 Motor Activity: Normal gait Speech: Unremarkable Language: Adequate Fund of Knowledge: Adequate Attention and Concentration: Adequate Memory: Unremarkable Mood: Appropriate Affect: Appropriate Thought Process & Associations: Intact Thought Content: Appropriate Hallucination Type: None Delusion Type: None Suicidal Ideation: No Suicidal Plan: No Suicidal Intention: No Homicidal Ideation: No Homicidal Plan: No Homicidal Intention: No Insight: Adequate Judgment: Adequate Assessment and Plan - Assessment (1) Acute adjustment disorder with depressed mood Code(s): F43.21 - Adjustment disorder with depressed mood Status: Acute - Plan Plan: Estimated LOS: [] days On my psychiatric evaluation today I find a patient that is calm, cooperative, very pleasant. The patient reports sadness, moments of tears, poor appetite, difficulty sleeping at night after the of his son about a month ago. However, the patient denies anhedonia, he denies hopelessness, he denies helplessness, he denies worthlessness, he denies suicidal and homicidal ideation he denies visual and auditory hallucinations. the patient seems to be motivated to continue his medical treatment and get better. He is future oriented, and reports protective factors and reasons to live. He does not have any previous psychiatric history, does not have any previous psychiatric hospitalizations, previous suicide attempts. He seems to be cognitively intact , oriented 3 at this moment. The patient does not meet criteria for involuntary psychiatric admission. I have discussed with him the benefit of taking Remeron 15 mg at bedtime to help with depression, insomnia and also with poor appetite, but the patient declined to take medications at this moment. He will think about it. Brief supportive psychotherapy, psychoeducation and motivation provided. Justification for Continued Inpatient Stay: No admission is indicated at this moment.
[2018-03-29] MEDS ORDERED: Dextrose 5% in Water Inj 1,000 ML IV.CONT SCH (19:30)
[2018-03-30] MEDS: Levothyroxine 100 MCG Tablet PO SCH (06:10)
[2018-03-30] MEDS: Isosorbide Mononitrate 30 MG ER 24HR Tablet (Imdur) PO SCH (06:10)
[2018-03-30] MEDS: Metoprolol Tartrate 50 MG Tablet PO SCH ×2 (08:51→22:28)
[2018-03-30] MEDS: Senna/Docusate Sodium 8.6/50 MG Tablet PO SCH ×2 (08:53→22:28)
--- NOTE | 2018-03-30 10:25 | P.PNIM ---
Subjective Interval history: The pt was resting comfortably in bed. He wanted to go home. He was not sure why his blood sugar was so low. He says he has been eating and working with physical therapy. Physical Exam Vital signs: Vital Signs 03/29/18 12:32 03/29/18 15:30 03/29/18 17:21 Temperature 96.7 F L Pulse Rate 58 L 64 64 Respiratory Rate 16 16 Blood Pressure 170/73 H 146/65 H Pulse Oximetry 100 94 L 97 03/29/18 20:00 03/29/18 21:55 03/30/18 00:00 Temperature 98.4 F 98.2 F Pulse Rate 81 67 Respiratory Rate 16 18 Blood Pressure 161/72 H 153/69 H Pulse Oximetry 95 97 98 03/30/18 08:42 Temperature 98.1 F Pulse Rate 80 Respiratory Rate 16 Blood Pressure 162/73 H Pulse Oximetry 9 L Intake & Output 03/29/18 03/30/18 03/30/18 18:59 06:59 18:59 Intake Total 800 / 800 Output Total 750 / 750 Balance 50 / 50 Weight 68.3 kg Intake: Oral 800 / 800 Output: Urine 750 / 750 Other: # Incontinent Voids 3 Date of Last Bowel Movement 03/28/18 # Incontinent Bowel Movements 1 Narrative: GENERAL: Alert, NAD. SKIN: Warm and dry. HEAD: Normocephalic. EYES: No scleral icterus. No injection or drainage. NECK: Supple, trachea midline. No JVD or lymphadenopathy. CARDIOVASCULAR: Regular rate and rhythm with harsh systolic murmur. RESPIRATORY: Breath sounds equal bilaterally. No accessory muscle use. GASTROINTESTINAL: Abdomen soft, non-tender, nondistended. MUSCULOSKELETAL: No cyanosis, or edema. BACK: Nontender without obvious deformity. No CVA tenderness. - Urinary Catheter Management Straight Cath placed during this visit: no Results - Labs CBC & Chem 7: 03/28/18 05:50 03/29/18 05:25 Laboratory Results - last 24 hr 03/29/18 03/29/18 03/29/18 11:18 17:12 17:14 POC Glucose 104 43 L* 41 L* 03/29/18 03/29/18 03/29/18 17:38 18:11 23:00 POC Glucose 58 L 89 208 H 03/30/18 03/30/18 06:10 07:25 POC Glucose 234 H 165 H Assessment and Plan - Assessment (1) Chronic kidney disease, stage IV (severe) Code(s): N18.4 - Chronic kidney disease, stage 4 (severe) Status: Acute (2) Hypoglycemia Code(s): E16.2 - Hypoglycemia, unspecified Status: Acute - Plan Mr. Mendoza is an 87-year-old male with a history of diabetes mellitus, hypertension, CAD who was brought to the hospital after he was found on the floor where he fell after doing laundry. His blood glucose was 33 at the time of EMS arrival. Hypoglycemia -Blood glucose was 33 on EMS arrival. He required multiple D50 administrations. -Will d/c dextrose and observe glucose every 4 hours. -He has a history of diabetes mellitus. His last hemoglobin A1c was 5.1 on . -Patient reports that he has not been taking Lantus since his discharge on . -We will check his insulin and C-peptide levels. Chronic kidney disease stage IV Mild hypernatremia Hypokalemia -Follows up with Dr. Blake. Baseline appears to be around 3.4-3.5. -Hypernatremia and hypokalemia are likely due to poor oral intake. -follow BMP. Coronary artery disease Hypertension Hypothyroidism Diabetic neuropathy -We will continue home medications including statin, metoprolol, levothyroxine, Imdur, gabapentin, nifedipine. Psychiatry evaluated patient and believes that the patient has capacity. PPx: SCDs
[2018-03-30 11:51] LABS: Potassium 3.5 meq/L (3.5-5.1)
[2018-03-30 11:56] LABS: Calcium 7.3 mg/dL (8.5-10.1); Carbon Dioxide 20.6 meq/L (21.0-32.0)
[2018-03-30 12:49] LABS: Total Protein 5.4 g/dL (6.4-8.2)
--- NOTE | 2018-03-30 15:00 | XR ---
EXAM DATE: 03/30/2018 2:51 PM EDT AGE/SEX: 87 years / Male INDICATIONS: Dyspnea. CLINICAL DATA: This is the patient's initial encounter. Patient reports that signs and symptoms have been present for 2 days and indicates a pain score of 0/10. MEDICAL/SURGICAL HISTORY: Hypertension. Diabetes. CABG. COMPARISON: [facility] [place], CHEST 1V SINGLE AP, 03/18/2018. . FINDINGS: The cardiac silhouette is enlarged in transverse diameter. There are findings of congestive heart jaime lure with interstitial and alveolar opacity bilaterally. There is left lower lobe atelectasis versus pneumonia. A moderate size left sided effusion is present. Median sternotomy wires are present. CONCLUSION: Cardiomegaly and findings of congestive heart failure. The findings are similar to the prior exam. Electronically signed by: Bull Salazar MD 03/30/2018 2:59 PM EDT
--- NOTE | 2018-03-30 20:28 | US ---
EXAM DATE: 03/30/2018 8:09 PM EDT AGE/SEX: 87 years / Male INDICATIONS: Insulinoma evaluation. CLINICAL DATA: This is the patient's initial encounter. Patient reports that signs and symptoms have been present for 3 days and indicates a pain score of 5/10. MEDICAL/SURGICAL HISTORY: Diabetes. Hypertension. Hypothyroidism. Hyperlipidemia. Coronary a rtery disease. Chronic kidney disease IV. CABG. [place] [facility] [place]17[place]. . MEASUREMENTS: Liver:__ 14.1 cm. Common Duct:__ 7mm. Right Kidney:__ 8.2 x 5.0 x 5.2 cm. FINDINGS: Liver: Normal echotexture without focal lesion or ductal dilatation. Common Duct: No intraluminal mass or stone visualized. Gallbladder: Demonstrates no wall thickening or pericholecystic fluid. No stones visualized. Pancreas: The visualized portions are within normal limits. The tail of the pancreas is not well vis ualized. The pancreatic duct measures 2 mm in caliber. Other: Right renal cysts are noted with the largest measuring 19 mm. The right kidney is small in si ze, echogenic and somewhat lobulated in contour. Right pleural effusion is noted. CONCLUSION: 1. Limited evaluation of the pancreas demonstrates no definite focal lesion within the visualized po rtions. 2. Right renal cysts with the largest measuring 19 mm. 3. Small echogenic lobulated right kidney. 4. Right pleural effusion. Electronically signed by: Luis Thomas MD 03/30/2018 8:26 PM EDT
[2018-03-31 03:51] LABS: Insulin Blood 5.4 uIU/mL (2.0-19.6)
[2018-03-31] MEDS: Levothyroxine 100 MCG Tablet PO SCH (06:46)
[2018-03-31] MEDS: Isosorbide Mononitrate 30 MG ER 24HR Tablet (Imdur) PO SCH (06:46)
[2018-03-31 07:51] VITALS: BP 167/77; PULSE 79; RESP 20; TEMP 96.8
[2018-03-31 08:07] LABS: Potassium 3.5 meq/L (3.5-5.1)
[2018-03-31 08:12] LABS: Calcium 7.7 mg/dL (8.5-10.1)
[2018-03-31 08:13] LABS: Carbon Dioxide 20.4 meq/L (21.0-32.0); Magnesium 1.9 mg/dL (1.5-2.5)
[2018-03-31] MEDS: Metoprolol Tartrate 50 MG Tablet PO SCH (08:44)
[2018-03-31] MEDS: Senna/Docusate Sodium 8.6/50 MG Tablet PO SCH (08:44)
--- NOTE | 2018-03-31 10:04 | P.DCO ---
- Physical Therapy Order: Evaluate and treat, Improve ambulation, Strength and gait training - Home Health Nursing Order: Medical education, Signs/symptoms of disease process, Medication education-adverse effect, Nursing assessment with vital signs - Certification I have seen patient Ankit Mendoza on 03/31/18. My clinical findings support the need for the requested home health care services because: Limited mobility due to disease progression, Deconditioned with increased weakness, Medication compliance is questionable, Limited ability to care for self, Need for psychosocial assistance I certify that my clinical findings support that this patient is homebound because: Unsteady gait/balance, Unsafe to leave home unassisted, Need for psychosocial assistance
--- NOTE | 2018-03-31 10:12 | P.DS ---
Date of admission: 03/27/18 23:35 Primary care physician: Prashanth Mason MD Anticipated date of discharge: 03/31/18 Brief History from admission: Mr. Mendoza is a pleasant 87 year old male with a history of DM, HTN, HLD, hypothyroidism, CAD with CABG, CKD who presented to the ED after he fell at home and was unable to get up. He was doing laundry and fell on the floor but was unable to get up until he received help. EMS found his blood glucose to be around 33 and subsequently gave him D50. Patient was recently admitted to the hospital and was discharged towards the end of February. He reports that he has not been taking Lantus since he was discharged. He was started on D5W and his blood glucose continued to be low. Patient denies any chest pain, shortness of breath, fever, chills. Denies any changes in bowel or bladder habits. PMH: Diabetes mellitus - does not take any insulin anymore, CAD, CKD PSH: CABG Social history: Does not use tobacco, alcohol or illicit drugs. Family history: No family history of Alzheimer's or Parkinson's. Patient update on day of discharge: The patient was feeling well and wanted to go home. He had no acute complaints. DS: Diagnosis - Discharge Diagnosis (1) Chronic kidney disease, stage IV (severe) Status: Acute (2) Hypoglycemia Status: Acute DS: Summary Hospital Course: Hypoglycemia Mr. Mendoza is an 87-year-old male with a history of diabetes mellitus, hypertension, CAD who was brought to the hospital after he was found on the floor where he fell after doing laundry. His blood glucose was 33 at the time of EMS arrival. He required multiple D50 administrations and was started on a continuous dextrose infusion. His last hemoglobin A1c was 5.1 on 03/17/2018. Patient reports that he has not been taking Lantus since his discharge on 2017. Insulin level normal. C-peptide level pending. Abdominal US negative for insulinoma. The pt was weaned off of dextrose and his blood sugars remained normal. He passed a home oxygen walk test prior to discharge. He will follow up with his PCP in 3-5 days. He was instructed not to resume his insulin without recommendation from a physician and to check his blood sugar regularly upon discharge. - Time Spent with Patient Total time spent providing and/or coordinating discharge services: Greater than 30 minutes - Quality: VTE Deep Vein Thrombosis/Pulmonary Embolism Present on Admission: No Exam Vital signs: Vital Signs 03/30/18 11:07 03/30/18 12:00 03/30/18 16:00 Temperature 97.5 F L 97.9 F Pulse Rate 77 84 Respiratory Rate 16 20 Blood Pressure 166/74 H 123/57 L Pulse Oximetry 94 L 94 L 93 L 03/30/18 20:00 03/30/18 22:32 03/31/18 00:00 Temperature 99.1 F 99.3 F Pulse Rate 91 H 66 Respiratory Rate 18 18 Blood Pressure 149/69 H 135/88 Pulse Oximetry 97 95 94 L 03/31/18 07:51 Temperature 96.8 F L Pulse Rate 79 Respiratory Rate 20 Blood Pressure 167/77 H Pulse Oximetry 100 Intake & Output 03/30/18 03/31/18 03/31/18 18:59 06:59 18:59 Intake Total 500 / 500 Balance 500 / 500 Weight 66.2 kg Intake: IV 500 / 500 D5W Inj 1,000 ML @ 50 mls/hr IV 500 / 500 .CONT .Q20H [facility] Rx#:[id number] Other: # Voids 2 Date of Last Bowel Movement 03/28/18 Narrative: GENERAL: Alert, NAD. SKIN: Warm and dry. HEAD: Normocephalic. EYES: No scleral icterus. No injection or drainage. NECK: Supple, trachea midline. No JVD or lymphadenopathy. CARDIOVASCULAR: Regular rate and rhythm with harsh systolic murmur. RESPIRATORY: Breath sounds equal bilaterally. No accessory muscle use. GASTROINTESTINAL: Abdomen soft, non-tender, nondistended. MUSCULOSKELETAL: No cyanosis, or edema. BACK: Nontender without obvious deformity. No CVA tenderness. Results Procedures completed during hospitalization: None Labs on day of discharge: Labs from last 24 hours 03/31/18 03/30/18 03/30/18 07:30 21:10 15:23 Sodium 145 Potassium 3.5 Chloride 114 H Carbon Dioxide 20.4 L Anion Gap 11 BUN 51 H Creatinine 3.20 H Estimated GFR 18 L POC Glucose 258 H 170 H Random Glucose 121 H Insulin Level Calcium 7.7 L Prot Corrected Calcium Magnesium 1.9 Total Protein 03/30/18 03/30/18 03/28/18 11:30 11:07 12:15 Sodium 142 Potassium 3.5 Chloride 111 H Carbon Dioxide 20.6 L Anion Gap 10 BUN 53 H Creatinine 3.30 H Estimated GFR 18 L POC Glucose 200 H Random Glucose 187 H D Insulin Level 5.4 Calcium 7.3 L* Prot Corrected Calcium 8.2 L Magnesium Total Protein 5.4 L - Impressions ITS Impressions Pancreas Ultrasound 03/30/18 00:00 CONCLUSION: 1. Limited evaluation of the pancreas demonstrates no definite focal lesion within the visualized portions. 2. Right renal cysts with the largest measuring 19 mm. 3. Small echogenic lobulated right kidney. 4. Right pleural effusion. Chest X-Ray 03/30/18 14:24 CONCLUSION: Cardiomegaly and findings of congestive heart failure. The findings are similar to the prior exam. Discharge Plan - Discharge Disposition Patient Disposition: /Home Health Service - Discharge Condition Condition: Stable - Discharge Order Discharge Orders: Discharge Order (Routine); Ordered 03/31/18 Ordered By: Daniel Da Silva - Discharge Details Anticipated Discharge Date: 03/31/18 - Physicians Team Primary Care Provider: Prashanth Mason Attending Provider: Daniel Da Silva Other Providers: Gabe Jewell MD
[2018-03-31 11:10] VITALS: O2SAT 93
[2018-03-31 23:52] LABS: C-Peptide 3.81 ng/mL (0.80-3.85)
== END 2018-03-31 11:49 | disposition home health service (06) ==
LOC: PHED 20:23 → PHEDA 20:23 → PH3 03-28 01:34
PROVIDERS: ADMIT Hospitalist; ATTEND Hospitalist

== ENCOUNTER 2018-05-07 12:13 | Inpatient (IN) ==
--- NOTE | 2018-05-07 13:42 | XR ---
EXAM DATE: 05/07/2018 1:05 PM EDT AGE/SEX: 87 years / Male INDICATIONS: Fall CLINICAL DATA: This is the patient's initial encounter. Patient reports that signs and symptoms have been present for 2 days and indicates a pain score of 5/10. MEDICAL/SURGICAL HISTORY: . Hypertension. Diabetes. CABG. COMPARISON: [facility], CHEST 1V SINGLE AP, 03/30/2018. . FINDINGS: There is a moderate left effusion which is slightly increased. Alveolar and interstitial opacities ar e noted bilaterally as before. Median sternotomy wires and cardiomegaly are noted. CONCLUSION: Slight increase in left effusion and bilateral infiltrates are stable. Electronically signed by: Rashad Booth MD 05/07/2018 1:40 PM EDT
[2018-05-07 13:44] LABS: Baso % (Auto) 0.3 % (0.0-2.0); Eos % (Auto) 0.5 % (0.0-4.0); Hematocrit 21.9 % (39.0-51.0); Hemoglobin 7.4 gm/dL (13.0-17.0); Lymph # (Auto) 1.6 th/mm3 (1.0-4.8); Lymph % (Auto) 16.5 % (9.0-44.0); Mean Corpuscular HGB Conc 33.6 % (32.0-36.0); Mean Corpuscular Hemoglobin 30.3 pg (27.0-34.0); Mean Corpuscular Volume 90.1 fL (80.0-100.0); Mean Platelet Volume 9.1 fL (7.0-11.0); Mono # (Auto) 0.8 th/mm3 (0.0-0.9); Mono % (Auto) 8.4 % (0.0-8.0); Neut # (Auto) 7.2 th/mm3 (1.8-7.7); Neut % (Auto) 74.3 % (16.0-70.0); Platelet Count 219 th/mm3 (150-450); Red Blood Count 2.43 mil/mm3 (4.50-5.90); Red Cell Distribution Width 17.8 % (11.6-17.2); White Blood Count 9.6 th/mm3 (4.0-11.0)
[2018-05-07 13:50] LABS: Potassium 4.3 meq/L (3.5-5.1)
[2018-05-07 13:54] LABS: Calcium 7.6 mg/dL (8.5-10.1); Carbon Dioxide 20.3 meq/L (21.0-32.0)
--- NOTE | 2018-05-07 14:07 | CT ---
EXAM DATE: 05/07/2018 1:36 PM EDT AGE/SEX: 87 years / Male INDICATIONS: Fell yesterday. Hit head. Left frontal contusion. CLINICAL DATA: This is the patient's initial encounter. Patient reports that signs and symptoms have been present for 2 days and indicates a pain score of 6/10. MEDICAL/SURGICAL HISTORY: Diabetes. Cardiovascular disease. Hypertension. CABG. RADIATION DOSE: 59.08 CTDI (mGy) COMPAR[place]: [facility] [place], 03/17/2018. . TECHNIQUE: CT of the head without contrast. Using automated exposure control and adjustment of the mA and/or kV according to patient size, radiation dose was kept as low as reasonably achievable to ob tain optimal diagnostic quality images. DICOM format image data is available electronically for revi ew and comparison. FINDINGS: Cerebrum: Moderate diffuse cerebral atrophy. The ventricles are normal for degree of atrophy. Mild p eriventricular white matter hypodensities. No evidence of midline shift, mass lesion, hemorrhage or a cute infarction. No extraaxial fluid collections are seen. Posterior Fossa: The cerebellum and brainstem are intact. The 4th ventricle is midline. The cerebe llopontine angle is unremarkable. Extracranial: The visualized portion of the orbits is intact. Skull: The calvaria is intact. No evidence of skull fracture. CONCLUSION: 1. No acute intracranial abnormality. . Electronically signed by: Edvin Man MD 05/07/2018 2:05 PM EDT
--- NOTE | 2018-05-07 14:10 | CT ---
EXAM DATE: 05/07/2018 1:36 PM EDT AGE/SEX: 87 years / Male INDICATIONS: Fell and hit head yesterday. Pain. CLINICAL DATA: This is the patient's initial encounter. Patient reports that signs and symptoms have been present for 2 days and indicates a pain score of 6/10. MEDICAL/SURGICAL HISTORY: Cardiovascular disease. Diabetes. Hypertension. CABG. RADIATION DOSE: 26.64 CTDI (mGy) COMPARISON: No prior exams available for comparison. TECHNIQUE: Contiguous axial images were obtained using helical multirow detector technique. The vol umetric data was post-processed with multiplanar reconstruction in oblique axial, sagittal, and coron al planes. Using automated exposure control and adjustment of the mA and/or kV according to patient s ize, radiation dose was kept as low as reasonably achievable to obtain optimal diagnostic quality addison ges. DICOM format image data is available electronically for review and comparison. FINDINGS: OSSEOUS STRUCTURES: Vertebral body heights are maintained. Osseous structures are intact without evid ence for acute bony fracture. Dens is intact. ALIGNMENT: Sagittal alignment is maintained. There is a normal C1-2 relationship. Facets are normal ly aligned. SOFT TISSUES: There is no significant prevertebral soft tissue hematoma. No significant cervical alanna nopathy or gross mass. The thyroid appears unremarkable. Visualized lung apices are clear without pn eumothorax. ADDITIONAL FINDINGS: Advanced multilevel degenerative spondylosis most prominently at C3-4, C5-6 and C6-7 with disc space narrowing and posterior disc osteophytes. Eccentric bony central canal narrowing at C3-4 and T6-7 secondary to bulky posterior osteophytes. Moderate severe bilateral bony neural for aminal narrowing at C6-7. Advanced multilevel facet arthropathy most prominently at C4-5. CONCLUSION: 1. No acute fracture or subluxation. 2. 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 Electronically signed by: Edvin Man MD 05/07/2018 2:09 PM EDT
[2018-05-07 14:12] LABS: Troponin I 1.92 ng/mL (0.02-0.05)
--- NOTE | 2018-05-07 16:32 | ED ---
HPI General Chief Complaint: Fall Stated Complaint: fall x yesterday/head injury/lt arm injury Time Seen by Provider: 05/07/18 12:53 Source: patient and other Mode of arrival: wheelchair History of Present Illness HPI Narrative: Patient is an 87-year-old male, past medical history significant for diabetes, CKD, previous DC, dementia, who presents after a fall. Yesterday he fell asleep on his wheelchair and slipped out falling onto his face. He sustained a bruise to the left side of his face. He and his caregiver also report that he had chest pain yesterday but the patient will not provide further information regarding this. He is on Xarelto for unknown DVT in the left upper extremity. He denies any pain at this time. complaint: Reports fall Onset (ago): day(s) Fall from: chair Fall witnessed: no Place fall occurred: home Loss of consciousness: none Prolonged down time: no Symptoms prior to fall: Reports none Associated symptoms (after fall): Reports denies Related Data Home Medications Medication Instructions Recorded Confirmed gabapentin 600 mg PO BID 03/17/18 05/07/18 rosuvastatin [Crestor] 20 mg PO HS 03/28/18 05/07/18 tamsulosin 0.4 mg PO DAILY 05/07/18 05/07/18 vitamins A,C,I-tkhq-xwadwu 1 tab PO BID 05/07/18 05/07/18 [PreserVision AREDS] Previous Rx's Medication Instructions Recorded isosorbide mononitrate 30 mg PO DAILY #30 mg 03/20/18 levothyroxine [Synthroid] 100 mcg PO DAILY #30 mcg 03/20/18 metoprolol tartrate 50 mg PO BID #60 tab 03/20/18 nifedipine [Procardia XL] 60 mg PO BID #60 mg 03/20/18 Allergies Allergy/AdvReac Type Severity Reaction Status Date / Time codeine AdvReac Severe NAUSEA Verified 05/07/18 13:06 Review of Systems ROS: all other systems reviewed are negative [facility] Medical History Medical History Blood clot of artery under arm (Acute) Enlarged prostate (Acute) High cholesterol (Acute) Neuropathy (Acute) Diabetes (Acute) Hypertension (Acute) Surgical History Surgical History History of cardiac radiofrequency ablation (Acute) Hx of CABG (Acute) Family History Family History Father Heart attack Social History Social History Substance History: No History of Abuse Second Hand Smoke Exposure: No Smoking Status: Former smoker Tobacco Type: Cigarettes How Often Do You Have a Drink Containing Alcohol: Never Recent Travel in [facility] within the Last 8 Weeks: No Recent Out of Country Travel within the Last 8 Weeks: No Immunization History Tetanus Immunization: Unsure Exam Narrative Exam Narrative: GENERAL: Well-appearing, elderly male in no acute distress SKIN: Focused skin assessment warm/dry. Bruising to left side of face with extensive bruising to the left forearm. HEAD: Normocephalic. EYES: Pupils equal and round. No scleral icterus. No injection or drainage. ENT: No nasal bleeding or discharge. Mucous membranes pink and moist. NECK: Trachea midline. No JVD. CARDIOVASCULAR: Regular rate and rhythm. No murmur appreciated. RESPIRATORY: No accessory muscle use. Clear to auscultation. Breath sounds equal bilaterally. GASTROINTESTINAL: Abdomen soft, non-tender, nondistended. Hepatic and splenic margins not palpable. MUSCULOSKELETAL: No obvious deformities. No clubbing. No cyanosis. Bilateral lower extreme any pitting edema with edema of the left upper extremity NEUROLOGICAL: Awake and alert oriented x 2. No obvious cranial nerve deficits. Motor grossly within normal limits. Normal sensation. Normal speech. PSYCHIATRIC: Appropriate mood and affect; insight and judgment normal. Course Initial Documented Vital Signs Temperature 97.8 F 05/07/18 12:31 Pulse Rate 86 05/07/18 12:31 Respiratory Rate 18 05/07/18 12:31 Blood Pressure 142/63 H 05/07/18 12:31 Pulse Oximetry 89 L 05/07/18 12:31 Last Documented Vital Signs Temperature 97.8 F 05/07/18 12:31 Pulse Rate 90 05/07/18 14:29 Respiratory Rate 18 05/07/18 14:29 Blood Pressure 143/85 H 05/07/18 14:29 Pulse Oximetry 94 L 05/07/18 14:29 Medical Decision Making MDM Narrative Medical decision making narrative: Patient is an 87-year-old male who presents with complaint of fall yesterday. He is on Xarelto. He also mentioned chest pain that occurred yesterday but has not happened since. EKG shows known left bundle branch block with slightly worsening depressions in V4 through V6. CT head and C-spine are unremarkable. Labs reveal worsening CKD in addition to an elevated troponin. He received aspirin. I spoke with Dr. Greco, Public Health Program Manager business continuity manager, whom recommended that heparin be held at this time as this patient took his Xarelto today. He recommended that the patient be transferred to the main hospital in case he needs a cardiac cath. Medical Screen Exam Complete: Yes Emergency Medical Condition: Yes Differential Diagnosis Differential Diagnosis: Differential diagnosis includes but is not limited to closed head injury, intracranial hemorrhage, acute coronary syndrome. Medical Records Medical records reviewed: Yes I reviewed the patient's medical records. Lab Data Lab results reviewed: Yes I reviewed the patient's lab results. Result diagrams: 05/07/18 13:10 05/07/18 13:10 Lab Results 05/07/18 05/07/18 Range/Units 13:10 13:10 CBC w Diff Auto diff final WBC 9.6 (4.0-11.0) th/mm3 RBC 2.43 L (4.50-5.90) mil/mm3 Hgb 7.4 L (13.0-17.0) gm/dL Hct 21.9 L (39.0-51.0) % MCV 90.1 (80.0-100.0) fL MCH 30.3 (27.0-34.0) pg MCHC 33.6 (32.0-36.0) % RDW 17.8 H (11.6-17.2) % Plt Count 219 (150-450) th/mm3 MPV 9.1 (7.0-11.0) fL Neut % (Auto) 74.3 H (16.0-70.0) % Lymph % (Auto) 16.5 (9.0-44.0) % [place] % (Auto) 8.4 H (0.0-8.0) % Eos % (Auto) 0.5 (0.0-4.0) % Baso % (Auto) 0.3 (0.0-2.0) % Neut # (Auto) 7.2 (1.8-7.7) th/mm3 Lymph # (Auto) 1.6 (1.0-4.8) th/mm3 [place] # (Auto) 0.8 (0.0-0.9) th/mm3 Eos # (Auto) 0.0 (0.0-0.4) th/mm3 Baso # (Auto) 0.0 (0.0-0.2) th/mm3 WBC Differential . Differential Comment . Sodium 143 (136-145) meq/L Potassium 4.3 (3.5-5.1) meq/L Chloride 112 H (98-107) meq/L Carbon Dioxide 20.3 L (21.0-32.0) meq/L Anion Gap 11 (5-15) meq/L BUN 71 H (7-18) mg/dL Creatinine 4.20 H (0.60-1.30) mg/dL Estimated GFR 13 L (>89) mL/min Random Glucose 140 H (74-106) mg/dL Calcium 7.6 L (8.5-10.1) mg/dL Troponin I 1.92 H* (0.02-0.05) ng/mL Imaging Data Attestation: I personally reviewed and interpreted this imaging study as follows : Radiologist's impression: Cervical Spine CT 05/07/18 13:05 CONCLUSION: 1. No acute fracture or subluxation. 2. 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 Chest X-Ray 05/07/18 13:05 CONCLUSION: Slight increase in left effusion and bilateral infiltrates are stable. Head CT 05/07/18 13:05 CONCLUSION: 1. No acute intracranial abnormality. . ECG Data EKG Prior to Arrival: No Attestation: I personally reviewed and interpreted this ECG as follows: (Sinus rhythm at a rate of 87 bpm. Left bundle branch block present. He has slight worsening depression of the ST segment in V4 through V6 which is slightly worse than his previous EKG.) Discharge Plan Discharge Disposition Patient Disposition: 02 Transfer To [facility] [place] Discharge Condition Condition: Stable Discharge Details Diagnosis: Acute non-ST elevation myocardial infarction (NSTEMI), CKD (chronic kidney disease), CHI (closed head injury) Physicians Team ED Provider: Christina Glass Primary Care Provider: Prashanth Mason Attending Provider: Jerry Tran Discharge Interventions Interventions: Vital Signs Last Done: 05/07/18 14:29 Status ED Status: Admitted Patient
[2018-05-07] MEDS ORDERED: Sod Chloride 0.9% Inj 1,000 ML IV.CONT SCH (18:00)
[2018-05-07] MEDS ORDERED: Acetaminophen 325 MG Tablet PO PRN (18:00)
[2018-05-07 20:18] LABS: Troponin I 1.4 ng/mL (0.02-0.05)
[2018-05-07] MEDS ORDERED: Sodium Chlor 0.9% Inj 250 ML IV.SIG SCH (22:00)
[2018-05-07] MEDS: Metoprolol Tartrate 50 MG Tablet PO SCH (22:44)
[2018-05-07] MEDS ORDERED: Pantoprazole Inj 40 MG Vial IV.PUSH ONE (23:15)
[2018-05-08] MEDS: Levothyroxine 100 MCG Tablet PO SCH (05:01)
[2018-05-08] MEDS: Metoprolol Tartrate 50 MG Tablet PO SCH ×2 (09:10→21:08)
[2018-05-08] MEDS: Isosorbide Mononitrate 30 MG ER 24HR Tablet (Imdur) PO SCH (09:10)
--- NOTE | 2018-05-08 09:40 | US ---
EXAM DATE: 05/08/2018 12:00 AM EDT AGE/SEX: 87 years / Male INDICATIONS: Increased BUN/Creatnine. CLINICAL DATA: This is the patient's subsequent encounter. Patient reports that signs and symptoms h ave been present for 1 day and indicates a pain score of 0/10. MEDICAL/SURGICAL HISTORY: . Diabetes. Chronic kidney disease. Myocardial infarction. Dementia. Anticoagulant therapy. CABG. Cardiac ablation. COMPARISON: [facility], US ABDOMEN PANCREAS, 03/30/2018. . MEASUREMENTS: Right Kidney:__9.0 x 5.1 x 4.8 cm Left Kidney:__8.8 x 5.6 x 5.0 cm FINDINGS: Right Kidney: Increased echotexture. No mass or hydronephrosis. Redemonstration of small anechoic hcoco al cysts measuring 1.9 x 2.0 x 1.9 cm and 1.1 x 1.4 x 0.9 cm in the superior pole. Left Kidney: Increased echotexture. No mass or hydronephrosis. Bladder: Anterior bladder diverticulum measuring 2.6 x 1.2 x 2.4 cm. Other: Prominent prostate gland. CONCLUSION: 1. Echogenic kidneys consistent with medical renal disease. No obstructive uropathy. 2. Redemonstration of small right renal cysts. 3. Prominent prostate gland with anterior bladder diverticulum measuring 2.6 cm. This may reflect so me degree of chronic bladder outlet obstruction. Electronically signed by: Edvin Man MD 05/08/2018 9:38 AM EDT
--- NOTE | 2018-05-08 09:55 | MB ---
cc: Jacqueline Dumont MD DATE: 05/08/2018 REASON FOR CONSULTATION: [id number] myocardial infarction and fall. HISTORY OF PRESENT ILLNESS: This is an 87-year-old male who is well known to me, has a past medical history of coronary artery disease, status post CABG, type 2 diabetes mellitus, hypertension, [employer] pacemaker, atrial fibrillation on Coumadin, severe cardiomyopathy with ejection fraction of 20%. The patient presented to [facility] Emergency Room after he got up out of a chair and fell. He denies a complete loss of consciousness. The patient sustained bruises to his left side of the face. The initial workup in the emergency room included a 12-lead EKG, which showed no acute ST changes. Troponin came back positive at 1.92 and this morning it was 1.4. The patient remains chest pain free. His creatinine was elevated at 4.20. The patient had a history of chronic kidney disease. His hemoglobin was low at 7.4 and he is receiving a blood transfusion. As mentioned above, the patient denies chest pain or shortness of breath. SOCIAL HISTORY: Nonsmoker, nondrinker. FAMILY HISTORY: Noncontributory. REVIEW OF SYSTEMS: HEENT: No complaints of syncope or presyncope. CARDIOVASCULAR: History of coronary artery disease, status post CABG, atrial fibrillation on Coumadin, and pacemaker. PULMONARY: No history of asthma or COPD. GASTROINTESTINAL: No history of GERD or GI bleed. GENITOURINARY: History of chronic kidney insufficiency. ENDOCRINE: Positive for type 2 diabetes mellitus. The remainder of his review of system is within normal limits. PHYSICAL EXAMINATION: VITAL SIGNS: Showed a temperature of 97.2, blood pressure of 125/63 with a heart rate of 87, respiratory rate of 12. The patient is afebrile. NECK: Supple with no jugular venous distention. CHEST: Clear to auscultation and percussion. HEART: S1 normal intensity S2 single. Regular rate and rhythm. No S3 appreciated. ABDOMEN: Benign. EXTREMITIES: No edema, clubbing or cyanosis. IMPRESSION: 1. Non-ST elevation myocardial infarction. 2. History of coronary artery disease, status post coronary artery bypass grafting. 3. 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 4. Status post pacemaker. 5. Chronic kidney disease. 6. Hypertension. 7. Type 2 diabetes mellitus. 8. Acute anemia. RECOMMENDATIONS: I had a discussion before with the patient during his last hospitalization about left heart catheterization. I explained the risk of developing end-stage renal disease requiring hemodialysis. The patient declined. We will adhere to conservative management. I recommend keeping hemoglobin above 10 because of the patient has history of coronary artery disease and recent non-ST elevation myocardial infarction. We will hold all anticoagulation because of possibility of gastrointestinal bleed. We will continue beta blockers at this point. There was also discussion before regarding placement of a defibrillator and the patient declined. I will continue to follow and provide further recommendations accordingly. MD SHASHANK Camarena/aníbal , 08:05 AM , 08:14 AM
[2018-05-08 10:12] LABS: Chol/HDL Ratio 2.28 Ratio; HDL Cholesterol 37.2 mg/dL (40.0-60.0)
--- NOTE | 2018-05-08 11:30 | P.HP ---
History of Present Illness Primary Care Physician: Prashanth Mason MD Chief Complaint: Fall at home History of Present Illness: This is an 87-year-old male patient with a known medical history of CAD with previous PA, diabetes, CKD, dementia and who presented to the ED status post fall at home. Patient is awake and alert upon assessment this morning, he states that yesterday he fell asleep in his wheelchair and he slipped falling out of his wheelchair hitting his left side of his face as well as his arm. Patient does live at home alone, is independent with his ADLs, does have a caregiver that comes in every day to see him. He denies any recent illness including fever, chills, cough, chest pain, shortness of breath, dumping, nausea , vomiting, diarrhea or dysuria. Patient denies any dizziness or lightheadedness prior to slipping out of his wheelchair. He has been eating well without any nausea or vomiting. Patient does state that he follows closely with his PCP, was diagnosed with a left upper extremity DVT 2 weeks ago and placed on Xarelto. Patient also follows with scrap separator, Dr. Dumont. Patient denies any new changes to his medications. He is also been told he has a history of chronic kidney disease and follows closely with Dr. Blake. - Diagnosis (1) Acute non-ST elevation myocardial infarction (NSTEMI) (2) Chronic kidney disease, stage IV (severe) (3) Anemia (4) Diabetes Inpatient Certification: I certify that the inpatient services were ordered in accordance with Medicare regulations governing the order. This includes certification that hospital inpatient services are reasonable and necessary and in the case of services not specified as inpatient-only under 42 CFR 419.22(n), that they are appropriately provided as inpatient services in accordance to with the 2-midnight benchmark under 43 CFR 412.3(e) Estimated Total Length of Stay (Days): 2 Plans for Post Hospital Care: Not yet determined Review of Systems All other systems reviewed negative except as stated in [facility] - History History 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 - Medical History Medical History: Medical History (Last Reviewed 05/08/18 @ 12:44 by Candy Reis) Blood clot of artery under arm Enlarged prostate High cholesterol Neuropathy Diabetes Hypertension - Surgical History Surgical History: Surgical History (Last Reviewed 05/08/18 @ 12:44 by Candy Reis) History of cardiac radiofrequency ablation Hx of CABG - Family History Family History: Family History (Last Reviewed 05/08/18 @ 12:44 by Candy Reis) Father Heart attack - Social History I have reviewed the patient's Social History: Yes - Tobacco History Second Hand Smoke Exposure: No Smoking Status: Never smoker Tobacco Type: Cigarettes - Alcohol History How Often Do You Have a Drink Containing Alcohol: Never - Substance Use History Substance History: No History of Abuse - Travel History Recent Travel in the [place] Within the Last 8 Weeks: No Recent Travel Out of the Country Within the Last 8 Weeks: No - Immunization History Tetanus Immunization: Unable to Assess Hx Influenza Vaccine This Season: Yes Medications and Allergies Active Medications: Active Medications Acetaminophen (Tylenol) 650 mg PO Q4H PRN PRN Reason: Temp > 100.4 Al Hydroxide/Mg Hydroxide (Milk Of Magnluz maria Liq) 30 ml PO Q12H PRN PRN Reason: Mild Constipation Albuterol (Duoneb Neb (Prn)) 1 ampul NEB Q2HR NEB PRN PRN Reason: SHORTNESS OF BREATH/WHEEZING Last Admin: 05/08/18 06:34 Dose: 1 ampul Atorvastatin Calcium (Lipitor) 40 mg PO HS [facility] Last Admin: 05/07/18 22:54 Dose: 40 mg Sodium Chloride (Ns Inj) 250 mls @ 15 mls/hr IV.SIG ONCE [facility] Stop: 05/08/18 14:39 Isosorbide Mononitrate (Imdur) 30 mg PO DAILY [facility] Last Admin: 05/08/18 09:10 Dose: 30 mg Levothyroxine Sodium (Synthroid) 100 mcg PO DAILY@0600 [facility] Last Admin: 05/08/18 05:01 Dose: 100 mcg Metoprolol Tartrate (Lopressor) 50 mg PO BID [facility] Last Admin: 05/08/18 09:10 Dose: 50 mg Nifedipine (Procardia Xl) 60 mg PO BID [facility] Last Admin: 05/07/18 22:46 Dose: Not Given Ondansetron HCl (Zofran Inj) 4 mg IV.PUSH Q6H PRN PRN Reason: NAUSEA OR VOMITING Sodium Chloride (Ns Flush) 2 ml IV.FLUSH PRN PRN PRN Reason: FLUSH AFTER USING IV ACCESS Tamsulosin HCl (Flomax) 0.4 mg PO DAILY [facility] Last Admin: 05/08/18 09:10 Dose: 0.4 mg Allergies Allergy/AdvReac Type Severity Reaction Status Date / Time codeine AdvReac Severe NAUSEA Verified 05/07/18 13:06 Home Medications Medication Instructions Recorded Confirmed Type gabapentin 600 mg PO BID 03/17/18 05/07/18 History rosuvastatin [Crestor] 20 mg PO HS 03/28/18 05/07/18 History tamsulosin 0.4 mg PO DAILY 05/07/18 05/07/18 History vitamins A,C,W-tjxy-jjemph 1 tab PO BID 05/07/18 05/07/18 History [PreserVision AREDS] Exam Vital signs: Vital Signs 05/07/18 12:31 05/07/18 13:07 05/07/18 14:29 Temperature 97.8 F Pulse Rate 86 85 90 Respiratory Rate 18 18 18 Blood Pressure 142/63 H 135/62 143/85 H Pulse Oximetry 89 L 95 94 L 05/07/18 17:26 05/07/18 19:48 05/07/18 20:45 Temperature Pulse Rate 94 H 86 Respiratory Rate 20 22 Blood Pressure 135/62 105/56 L Pulse Oximetry 95 93 L 94 L 05/07/18 21:15 05/07/18 21:16 05/07/18 23:00 Temperature 95.9 F L Pulse Rate 76 76 Respiratory Rate 22 25 H Blood Pressure 91/47 L 99/62 L Pulse Oximetry 94 L 98 98 05/07/18 23:11 05/07/18 23:15 05/08/18 01:00 Temperature 95.9 F L Pulse Rate 72 Respiratory Rate 16 Blood Pressure 91/64 L Pulse Oximetry 97 99 05/08/18 01:40 05/08/18 01:58 05/08/18 03:00 Temperature 94.9 F L 95.7 F L 96.2 F L Pulse Rate 78 74 78 Respiratory Rate 14 20 Blood Pressure 91/64 L 114/52 L 110/64 Pulse Oximetry 97 96 94 L 05/08/18 05:00 05/08/18 05:03 05/08/18 06:29 Temperature 97.2 F L 97.7 F Pulse Rate 84 87 Respiratory Rate 20 22 Blood Pressure 125/63 125/63 Pulse Oximetry 92 L 92 L 05/08/18 06:35 05/08/18 07:00 05/08/18 08:00 Temperature Pulse Rate 66 86 88 Respiratory Rate 20 8 L 13 Blood Pressure 143/74 H 146/87 H Pulse Oximetry 93 L 93 L 05/08/18 09:00 05/08/18 10:00 Temperature Pulse Rate 90 76 Respiratory Rate 19 19 Blood Pressure 148/69 H 119/69 Pulse Oximetry 91 L 90 L Intake & Output 05/07/18 05/08/18 05/08/18 18:59 06:59 18:59 Intake Total 800 / 800 Output Total 300 / 300 Balance -300 / -300 800 / 800 Weight 71.6 kg Intake: Other 400 / 400 Rbc As-3 Leukoreduced Unit 400 / 400 [id number] Intake (Blood Product) Amt 400 / 400 Rbc As-3 Leukoreduced Unit 400 / 400 [id number] Output: Urine 300 / 300 Other: Post Void Residual 300 # Voids 1 Date of Last Bowel Movement 05/06/18 05/06/18 Weight On Admission 71 kg Narrative: GENERAL: Well-developed, well-nourished patient in [facility]. SKIN: Warm and dry. No rash. HEAD: Normocephalic. Atraumatic. EYES: Pupils equal and round. No scleral icterus. Left eye ecchymosis. ENT: No nasal bleeding or discharge. Mucous membranes pink and moist. NECK: Supple. Trachea midline. CARDIOVASCULAR: Regular rate and rhythm. S1-S2 noted. Grade 2/6 systolic murmur. RESPIRATORY: No accessory muscle use. Clear to auscultation. Breath sounds equal bilaterally. GASTROINTESTINAL: Abdomen soft, non-tender, nondistended. Normoactive bowel sounds x4. MUSCULOSKELETAL: No obvious deformities. Extremities without clubbing, cyanosis , or edema. NEUROLOGICAL: Awake and alert. No obvious cranial nerve deficits. Motor grossly within normal limits. 5/5 muscle strength in bilateral upper and lower extremities. Normal speech. PSYCHIATRIC: Appropriate mood and affect; insight and judgment normal. Left upper extremity: Swollen with scattered ecchymosis. Previous DVT. Results - Labs CBC & Chem 7: 05/08/18 07:05 05/08/18 07:05 Labs: Laboratory Results - last 24 hr 05/07/18 05/07/18 05/07/18 13:10 13:10 19:30 CBC w Diff Auto diff final WBC 9.6 RBC 2.43 L Hgb 7.4 L Hct 21.9 L MCV 90.1 MCH 30.3 MCHC 33.6 RDW 17.8 H Plt Count 219 MPV 9.1 Neut % (Auto) 74.3 H Lymph % (Auto) 16.5 [place] % (Auto) 8.4 H Eos % (Auto) 0.5 Baso % (Auto) 0.3 Neut # (Auto) 7.2 Lymph # (Auto) 1.6 [place] # (Auto) 0.8 Eos # (Auto) 0.0 Baso # (Auto) 0.0 WBC Differential . Differential Comment . Sodium 143 Potassium 4.3 Chloride 112 H Carbon Dioxide 20.3 L Anion Gap 11 BUN 71 H Creatinine 4.20 H Estimated GFR 13 L POC Glucose Random Glucose 140 H Calcium 7.6 L Total Creatine Kinase 178 Troponin I 1.92 H* 1.40 H* Triglycerides Cholesterol LDL Cholesterol, Calc HDL Cholesterol Cholesterol/HDL Ratio Blood Type Antibody Screen MTS Gel Crossmatch Bld Prod Order Comment 05/07/18 05/08/18 05/08/18 20:15 07:05 07:47 CBC w Diff WBC RBC Hgb Hct MCV MCH MCHC RDW Plt Count MPV Neut % (Auto) Lymph % (Auto) [place] % (Auto) Eos % (Auto) Baso % (Auto) Neut # (Auto) Lymph # (Auto) [place] # (Auto) Eos # (Auto) Baso # (Auto) WBC Differential Differential Comment Sodium Potassium Chloride Carbon Dioxide Anion Gap BUN Creatinine Estimated GFR POC Glucose 209 H Random Glucose Calcium Total Creatine Kinase Troponin I Triglycerides 102 Cholesterol 85 L LDL Cholesterol, Calc 27 HDL Cholesterol 37.2 L Cholesterol/HDL Ratio 2.28 Blood Type A Positive Antibody Screen Negative MTS Gel Crossmatch See Detail Bld Prod Order Comment - Imaging Impressions Cervical Spine CT 05/07/18 13:05 CONCLUSION: 1. No acute fracture or subluxation. 2. 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 Chest X-Ray 05/07/18 13:05 CONCLUSION: Slight increase in left effusion and bilateral infiltrates are stable. Head CT 05/07/18 13:05 CONCLUSION: 1. No acute intracranial abnormality. . Abdomen/Bladder Ultrasound 05/08/18 00:00 CONCLUSION: 1. Echogenic kidneys consistent with medical renal disease. No obstructive uropathy. 2. Redemonstration of small right renal cysts. 3. Prominent prostate gland with anterior bladder diverticulum measuring 2.6 cm. This may reflect some degree of chronic bladder outlet obstruction. Caprini VTE Risk Assessment Caprini VTE Risk Assessment: Moderate/High Risk (score >= 2) Caprini Risk Assessment Model: Point Value = 1 Point Value = 2 Point Value = 3 Point Value = 5 Age 41-60 Minor surgery BMI > 25 kg/m2 Swollen legs Varicose veins or History of unexplained or recurrent spontaneous Oral contraceptives or hormone replacement Sepsis (< 1 month) Serious lung disease, including pneumonia (< 1 month) Abnormal pulmonary function Acute myocardial infarction Congestive heart failure (< 1 month) History of inflammatory bowel disease Medical patient at bed rest Age 61-74 Arthroscopic surgery Major open surgery (> 45 min) Laparoscopic surgery (> 45 min) Malignancy Confined to bed (> 72 hours) Immobilizing plaster cast Central venous access Age >= 75 History of VTE Family history of VTE Factor V Leiden Prothrombin [id number] Lupus anticoagulant Anticardiolipin antibodies Elevated serum homocysteine Heparin-induced thrombocytopenia Other congenital or acquired thrombophilia Stroke (< 1 month) Elective arthroplasty Hip, pelvis, or leg fracture Acute spinal cord injury (< 1 month) Prophylaxis Regimen: Total Risk Factor Score Risk Level Prophylaxis Regimen 0-1 Low Early ambulation 2 Moderate Order ONE of the following: *Sequential Compression Device (SCD) *Heparin 5000 units SQ BID 3-4 Higher Order ONE of the following medications: *Heparin 5000 units SQ TID *Enoxaparin/Lovenox 40 mg SQ daily (WT < 150 kg, CrCl > 30 mL/min) *Enoxaparin/Lovenox 30 mg SQ daily (WT < 150 kg, CrCl > 10-29 mL/min) *Enoxaparin/Lovenox 30 mg SQ BID (WT < 150 kg, CrCl > 30 mL/min) AND/OR *Sequential Compression Device (SCD) 5 or more Highest Order ONE of the following medications: *Heparin 5000 units SQ TID (Preferred with Epidurals) *Enoxaparin/Lovenox 40 mg SQ daily (WT < 150 kg, CrCl > 30 mL/min) *Enoxaparin/Lovenox 30 mg SQ daily (WT < 150 kg, CrCl > 10-29 mL/min) *Enoxaparin/Lovenox 30 mg SQ BID (WT < 150 kg, CrCl > 30 mL/min) AND *Sequential Compression Device (SCD) Assessment and Plan - Assessment (1) Acute non-ST elevation myocardial infarction (NSTEMI) Code(s): I21.4 - Non-ST elevation (NSTEMI) myocardial infarction Status: Acute (2) Chronic kidney disease, stage IV (severe) Code(s): N18.4 - Chronic kidney disease, stage 4 (severe) Status: Acute (3) Anemia Code(s): D64.9 - Anemia, unspecified Status: Acute (4) Diabetes Code(s): E11.9 - Type 2 diabetes mellitus without complications Status: Acute - Plan This is an 87-year-old with: Non-ST elevation myocardial infarction History of CAD with previous PA and CABG 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 Denies any chest pain. -Patient's scrap separator Dr. Dumont has been consulted and has seen patient. Conservative measures recommended for now. Keep H&H above 10 per cards recommendations. -Continue beta-becca. Recommendations are to hold anticoagulates secondary to GI bleed. -Continue on cardiac telemetry, monitor for any arrhythmias. Continue to monitor BP trends. -Supportive care. Systolic heart failure in exacerbation Acute hypoxia suspect secondary to above History of severe cardiomyopathy with EF 20% -Patient has been placed on supplemental O2 of 5LNC. A repeat x-ray has been ordered. Previous x-ray showing pleural effusions with stable infiltrates. -Continue Lasix gtt. Monitor intake and output. -Cardiology following. Fall at home -Patient states he asleep in his wheelchair and slipped out onto his face and left arm. Denies any LOC. Did hit his head with resultant left eye ecchymosis. -Head CT on presentation negative. -PT evaluation ordered, pending recommendations. -Monitor closely. Acute on chronic kidney disease -Creatinine 4.2/GFR 12 on presentation. -Nephrology consulted and has seen patient, started on Lasix drip. -Follow intake and output closely. -US has been ordered and reviewed showing echogenic kidneys consistent with medical renal disease. No obstructive uropathy. -Avoid nephrotoxins. -Follow BMP. Type 2 diabetes mellitus, chronic -ACCU check ACHS, sliding scale, cover as needed. Monitor blood sugar trends. Recent history of left upper arm DVT -Recently placed on Xarelto at home. Per cardiology recommendations, will hold anticoagulation for now. Encourage elevation. Hyperlipidemia, chronic: Continue home statin. DVT Prophylaxis: SCDs. Chemical prophylaxis held per cardiology recommendations. (3) Anemia Qualifiers: Anemia type: unspecified type Qualified Code(s): D64.9 - Anemia, unspecified
--- NOTE | 2018-05-08 11:42 | P.CONNP ---
History of Present Illness Service: Nephrology Consult date: 05/08/18 Requesting Physician: Jerry Tran Reason for Consult: Acute and chronic kidney disease Primary Care Provider: Prashanth Mason MD Chief Complaint: Shortness of breath History of Present Illness: Patient is a 87-year-old white male with a history of chronic kidney disease last creatinine 2.6-3.2 and, patient states that he had a fall, slipped from chair and injured his left side of the face there is a bruise around the left eye, he had increasing shortness of breath and came with these complaint feeling tired weak and lethargic, patient was found to be in congestive heart failure, creatinine of 4.2. He states he has been passing urine, caregiver states his appetite was declining and he had been weak. Review of Systems Constitutional: Reports anorexia, Reports body ache(s), Reports lack of energy, Reports weight gain Eyes: Reports other Ears, Nose, Mouth, and Throat: Reports other Cardiovascular: Reports foot swelling, Reports generalized swelling, Reports shortness of breath Respiratory: Reports shortness of breath Gastrointestinal: Reports nausea, Reports other Genitourinary: Reports other Musculoskeletal: Reports muscle weakness Skin/Breast: Reports other Psychiatric: Reports anxiety Endocrine: Reports other Hematologic/Lymphatic: Reports easy bruising PMFSH - History History 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 - Medical History Medical History: Medical History (Last Reviewed 05/08/18 @ 11:38 by Fara Watt MD) Blood clot of artery under arm Enlarged prostate High cholesterol Neuropathy Diabetes Hypertension - Surgical History Surgical History: Surgical History (Last Reviewed 05/08/18 @ 11:38 by Fara Watt MD) History of cardiac radiofrequency ablation Hx of CABG - Family History Family History: Family History (Last Reviewed 05/08/18 @ 11:38 by Fara Watt MD) Father Heart attack - Social History I have reviewed the patient's Social History: Yes - Tobacco History Second Hand Smoke Exposure: No Smoking Status: Never smoker Tobacco Type: Cigarettes - Alcohol History How Often Do You Have a Drink Containing Alcohol: Never - Substance Use History Substance History: No History of Abuse - Travel History Recent Travel in the [place] Within the Last 8 Weeks: No Recent Travel Out of the Country Within the Last 8 Weeks: No - Immunization History Tetanus Immunization: Unable to Assess Hx Influenza Vaccine This Season: Yes Medications and Allergies Active Medications: Active Medications Acetaminophen (Tylenol) 650 mg PO Q4H PRN PRN Reason: Temp > 100.4 Al Hydroxide/Mg Hydroxide (Milk Of Magnluz amria Liq) 30 ml PO Q12H PRN PRN Reason: Mild Constipation Albuterol (Duoneb Neb (Prn)) 1 ampul NEB Q2HR NEB PRN PRN Reason: SHORTNESS OF BREATH/WHEEZING Last Admin: 05/08/18 06:34 Dose: 1 ampul Atorvastatin Calcium (Lipitor) 40 mg PO HS [facility] Last Admin: 05/07/18 22:54 Dose: 40 mg Sodium Chloride (Ns Inj) 250 mls @ 15 mls/hr IV.SIG ONCE [facility] Stop: 05/08/18 14:39 Isosorbide Mononitrate (Imdur) 30 mg PO DAILY [facility] Last Admin: 05/08/18 09:10 Dose: 30 mg Levothyroxine Sodium (Synthroid) 100 mcg PO DAILY@0600 [facility] Last Admin: 05/08/18 05:01 Dose: 100 mcg Metoprolol Tartrate (Lopressor) 50 mg PO BID [facility] Last Admin: 05/08/18 09:10 Dose: 50 mg Nifedipine (Procardia Xl) 60 mg PO BID [facility] Last Admin: 05/07/18 22:46 Dose: Not Given Ondansetron HCl (Zofran Inj) 4 mg IV.PUSH Q6H PRN PRN Reason: NAUSEA OR VOMITING Sodium Chloride (Ns Flush) 2 ml IV.FLUSH PRN PRN PRN Reason: FLUSH AFTER USING IV ACCESS Tamsulosin HCl (Flomax) 0.4 mg PO DAILY [facility] Last Admin: 05/08/18 09:10 Dose: 0.4 mg Allergies Allergy/AdvReac Type Severity Reaction Status Date / Time codeine AdvReac Severe NAUSEA Verified 05/07/18 13:06 Home Medications Medication Instructions Recorded Confirmed Type gabapentin 600 mg PO BID 03/17/18 05/07/18 History rosuvastatin [Crestor] 20 mg PO HS 03/28/18 05/07/18 History tamsulosin 0.4 mg PO DAILY 05/07/18 05/07/18 History vitamins A,C,[id number] 1 tab PO BID 05/07/18 05/07/18 History [PreserVision AREDS] Exam Vital signs: Vital Signs 05/07/18 12:31 05/07/18 13:07 05/07/18 14:29 Temperature 97.8 F Pulse Rate 86 85 90 Respiratory Rate 18 18 18 Blood Pressure 142/63 H 135/62 143/85 H Pulse Oximetry 89 L 95 94 L 05/07/18 17:26 05/07/18 19:48 05/07/18 20:45 Temperature Pulse Rate 94 H 86 Respiratory Rate 20 22 Blood Pressure 135/62 105/56 L Pulse Oximetry 95 93 L 94 L 05/07/18 21:15 05/07/18 21:16 05/07/18 23:00 Temperature 95.9 F L Pulse Rate 76 76 Respiratory Rate 22 25 H Blood Pressure 91/47 L 99/62 L Pulse Oximetry 94 L 98 98 05/07/18 23:11 05/07/18 23:15 05/08/18 01:00 Temperature 95.9 F L Pulse Rate 72 Respiratory Rate 16 Blood Pressure 91/64 L Pulse Oximetry 97 99 05/08/18 01:40 05/08/18 01:58 05/08/18 03:00 Temperature 94.9 F L 95.7 F L 96.2 F L Pulse Rate 78 74 78 Respiratory Rate 14 20 Blood Pressure 91/64 L 114/52 L 110/64 Pulse Oximetry 97 96 94 L 05/08/18 05:00 05/08/18 05:03 05/08/18 06:29 Temperature 97.2 F L 97.7 F Pulse Rate 84 87 Respiratory Rate 20 22 Blood Pressure 125/63 125/63 Pulse Oximetry 92 L 92 L 05/08/18 06:35 05/08/18 07:00 05/08/18 08:00 Temperature Pulse Rate 66 86 88 Respiratory Rate 20 8 L 13 Blood Pressure 143/74 H 146/87 H Pulse Oximetry 93 L 93 L 05/08/18 09:00 05/08/18 10:00 Temperature Pulse Rate 90 76 Respiratory Rate 19 19 Blood Pressure 148/69 H 119/69 Pulse Oximetry 91 L 90 L Intake & Output 05/07/18 05/08/18 05/08/18 18:59 06:59 18:59 Intake Total 800 / 800 Output Total 300 / 300 Balance -300 / -300 800 / 800 Weight 71.6 kg Intake: Other 400 / 400 Rbc As-3 Leukoreduced Unit 400 / 400 [id number] Intake (Blood Product) Amt 400 / 400 Rbc As-3 Leukoreduced Unit 400 / 400 [id number] Output: Urine 300 / 300 Other: Post Void Residual 300 # Voids 1 Date of Last Bowel Movement 05/06/18 05/06/18 Weight On Admission 71 kg Narrative: GENERAL: Well-nourished, well-developed elderly patient. SKIN: Warm and dry. HEAD: Bruise around left orbit EYES: No scleral icterus. No injection or drainage. Bruising around left eye NECK: Supple, trachea midline. No JVD or lymphadenopathy. CARDIOVASCULAR: S1-S2 irregular 2+ edema. RESPIRATORY: Diminished air entry at bases. GASTROINTESTINAL: Abdomen soft, non-tender, nondistended. EXTREMITIES: As above NEUROLOGICAL: Awake, alert, and oriented x 3. Non-focal. Results - Lab Results 05/07/18 13:10 05/07/18 13:10 Most recent lab results Calcium 7.6 mg/dL (8.5-10.1) L 05/07/18 13:10 Assessment and Plan - Assessment (1) Acute renal failure Code(s): N17.9 - Acute kidney failure, unspecified Status: Acute (2) Diabetes Code(s): E11.9 - Type 2 diabetes mellitus without complications Status: Acute (3) Acute non-ST elevation myocardial infarction (NSTEMI) Code(s): I21.4 - Non-ST elevation (NSTEMI) myocardial infarction Status: Acute (4) CKD (chronic kidney disease) Code(s): N18.9 - Chronic kidney disease, unspecified Status: Acute - Plan Patient is told about possibility of end-stage renal disease and hemodialysis was discussed however he wanted to wait to see if his kidney functions improve with current management, continue with diuresis, follow BMP, follow phosphorus PTH and vitamin D levels He may require dialysis if there is no improvement Lasix drip at 10 mg/h ordered Continue to monitor BMP Avoid nephrotoxins (4) CKD (chronic kidney disease) Qualifiers: Chronic kidney disease stage: unspecified stage Qualified Code(s): N18.9 - Chronic kidney disease, unspecified
[2018-05-08 12:21] LABS: Baso # (Auto) 0.1 th/mm3 (0.0-0.2); Baso % (Auto) 0.6 % (0.0-2.0); Hematocrit 26.7 % (39.0-51.0); Hemoglobin 8.6 gm/dL (13.0-17.0); Lymph # (Auto) 0.7 th/mm3 (1.0-4.8); Lymph % (Auto) 8.6 % (9.0-44.0); Mean Corpuscular HGB Conc 32.1 % (32.0-36.0); Mean Corpuscular Hemoglobin 29.7 pg (27.0-34.0); Mean Corpuscular Volume 92.5 fL (80.0-100.0); Mean Platelet Volume 9.1 fL (7.0-11.0); Mono # (Auto) 0.3 th/mm3 (0.0-0.9); Neut # (Auto) 7.6 th/mm3 (1.8-7.7); Neut % (Auto) 86.8 % (16.0-70.0); Platelet Count 229 th/mm3 (150-450); Red Blood Count 2.88 mil/mm3 (4.50-5.90); Red Cell Distribution Width 16.5 % (11.6-17.2); White Blood Count 8.7 th/mm3 (4.0-11.0)
[2018-05-08 12:23] LABS: Potassium 4.6 meq/L (3.5-5.1)
[2018-05-08 12:25] LABS: Calcium 7.9 mg/dL (8.5-10.1)
[2018-05-08 12:26] LABS: Carbon Dioxide 18.9 meq/L (21.0-32.0)
[2018-05-08] MEDS: Furosemide Inj 100 MG in Sodium Chlor 0.9% Inj 90 ML IV.CONT SCH (12:50)
--- NOTE | 2018-05-08 12:53 | ECHRPT ---
Indication: Chest Pain CONCLUSIONS Normal left ventricular size. Mild concentric left ventricular hypertrophy. The left ventricular systolic function is kxdzirpt-pm-bgmozwb reduced with an estimated ejection fra ction in the range of 35-40%. Moderate mitral valve regurgitation. Aortic valve sclerosis is present. Dmsn-pj-facbwaip aortic valve regurgitation. Mild aortic valve stenosis. There is mild tricuspid valve regurgitation. The estimated pulmonary arterial pressure is 48 mmHg. Trivial pulmonary valve regurgitation. BP: / HR: Rhythm: MEASUREMENTS (Male / Female) Normal Values Technical Quality:Excellent 2D ECHO LV Diastolic Diameter PLAX 4.9 cm 4.2 - 5.9 / 3.9 - 5.3 cm LV Systolic Diameter PLAX 4.0 cm IVS Diastolic Thickness 1.1 cm 0.6 - 1.0 / 0.6 - 0.9 cm LVPW Diastolic Thickness 1.1 cm 0.6 - 1.0 / 0.6 - 0.9 cm LV Relative Wall Thickness 0.5 RV Internal Dim ED PLAX 3.3 cm LVOT Diameter 2.2 cm Aortic Root Diameter 2.5 cm LA Systolic Diameter LX 4.4 cm 3.0 - 4.0 / 2.7 - 3.8 cm LV Ejection Fraction MOD 4C 41.0 % LV Ejection Fraction 4C AL 42.1 % DOPPLER AV Peak Velocity 285.0 cm/s AV Peak Gradient 32.5 mmHg AV Mean Gradient 20.5 mmHg AV Velocity Time Integral 63.1 cm AI Peak Velocity 299.5 cm/s AI Peak Gradient 35.9 mmHg AI Pressure Half Time 354.0 ms LVOT Peak Velocity 151.0 cm/s LVOT Peak Gradient 9.1 mmHg LVOT Velocity Time Integral 32.3 cm AV Area Cont Eq vti 1.9 cm AV Area Cont Eq pk 2.0 cm Mitral E Point Velocity 126.0 cm/s Mitral A Point Velocity 87.4 cm/s Mitral E to A Ratio 1.4 LV E' Lateral Velocity 11.2 cm/s Mitral E to LV E' Lateral Ratio 11.3 LV E' Septal Velocity 6.1 cm/s Mitral E to LV E' Septal Ratio 20.5 TR Peak Velocity 308.0 cm/s TR Peak Gradient 37.9 mmHg Right Atrial Pressure 10.0 mmHg Pulmonary Artery Systolic Pressu 47.9 mmHg Right Ventricular Systolic Press 47.9 mmHg PV Peak Velocity 109.0 cm/s PV Peak Gradient 4.8 mmHg FINDINGS LEFT VENTRICLE Normal left ventricular size. Mild concentric left ventricular hypertrophy. The left ventricular systolic function is jeefpusy-yl-wnopdjt reduced with an estimated ejection fra ction in the range of 35-40%. RIGHT VENTRICLE Normal right ventricular size and systolic function. LEFT ATRIUM The left atrial size is mildly dilated. RIGHT ATRIUM The right atrial size is normal. ATRIAL SEPTUM Normal atrial septal thickness without atrial level shunting by limited color doppler interrogation. AORTA The aortic root and proximal ascending aorta are normal in size on limited imaging. MITRAL VALVE Moderate mitral valve regurgitation. AORTIC VALVE Trileaflet aortic valve. Aortic valve sclerosis is present. Mild-to moderate aortic valve regurgitation. Mild aortic valve stenosis. TRICUSPID VALVE There is mild tricuspid valve regurgitation. The estimated pulmonary arterial pressure is 48 mmHg. PULMONARY VALVE Trivial pulmonary valve regurgitation. VESSELS The inferior vena cava is normal in size. PERICARDIUM No pericardial effusion. Elroy Jimenez MD (Electronically Signed) Final Date:08 May 2018 12:52
[2018-05-08] MEDS ORDERED: Dextrose 50% in Water 50 ML Vial IV.PUSH PRN (13:06)
--- NOTE | 2018-05-08 13:30 | XR ---
EXAM DATE: 05/08/2018 12:00 AM EDT AGE/SEX: 87 years / Male INDICATIONS: Wheezing,cough, congestion. CLINICAL DATA: This is the patient's subsequent encounter. Patient reports that signs and symptoms h ave been present for 2 days and indicates a pain score of 0/10. MEDICAL/SURGICAL HISTORY: Diabetes. Chronic kidney disease. Myocardial infarction. Dementia. An ticoagulant therapy. Cardiac ablation. CABG. COMPARISON: [facility], CHEST 1V SINGLE AP, 05/07/2018. . FINDINGS: Diffuse interstitial prominence with persistent small to moderate left pleural effusion and associate d left lower lobe airspace disease. Mild patchy right lower lung zone airspace disease. Cardiac silho uette is enlarged with indistinct central pulmonary vascularity. Remainder of the exam is unchanged. CONCLUSION: 1. Cardiomegaly with pulmonary vascular congestion. 2. Stable ihspl-oc-uieakaed left pleural effusion with associated left lower lobe airspace disease. 3. Stable mild patchy right lower lobe airspace disease, presumably atelectasis. Electronically signed by: Edvin Man MD 05/08/2018 1:29 PM EDT
[2018-05-08] MEDS: Insulin NovoLOG Aspart Correctional Sugar Inj SQ SCH ×2 (17:50→21:19)
--- NOTE | 2018-05-08 20:25 | ECG ---
Date Performed: 05/07/2018 Time Performed: 13:43:13 PTAGE: 87 years EKG: Sinus rhythm LEFT BUNDLE BRANCH BLOCK ABNORMAL ECG PREVIOUS TRACING : 03/27/2018 20.57 Since the previous tracing, no significant change noted DOCTOR: Humble Jimenez Interpretating Date/Time 05/08/2018 20:24:13
--- NOTE | 2018-05-08 20:25 | ECG ---
Date Performed: 05/07/2018 Time Performed: 19:18:39 PTAGE: 87 years EKG: Sinus rhythm LEFT ANTERIOR FASCICULAR BLOCK SEPTAL MYOCARDIAL INFARCTION ST DEVIATION AND MODERATE T-WAVE ABNORMA LITY, CONSIDER LATERAL ISCHEMIA ABNORMAL ECG PREVIOUS TRACING : 05/07/2018 13.43 Compared to previous tracing, anterolateral ischemic change s are present DOCTOR: Humble Jimenez Interpretating Date/Time 05/08/2018 20:24:40
[2018-05-08] MEDS: MethylPREDNISolone Sod Succinate Inj 40 MG/ML Vial IV.PUSH SCH (21:10)
[2018-05-09] MEDS: Furosemide Inj 100 MG in Sodium Chlor 0.9% Inj 90 ML IV.CONT SCH ×3 (00:45→19:59)
[2018-05-09] MEDS: MethylPREDNISolone Sod Succinate Inj 40 MG/ML Vial IV.PUSH SCH ×5 (00:57→17:55)
[2018-05-09] MEDS: Levothyroxine 100 MCG Tablet PO SCH (06:23)
[2018-05-09 06:44] LABS: Baso % (Auto) 0.1 % (0.0-2.0); Eos % (Auto) 0.1 % (0.0-4.0); Hemoglobin 8.2 gm/dL (13.0-17.0); Lymph # (Auto) 0.3 th/mm3 (1.0-4.8); Lymph % (Auto) 2.5 % (9.0-44.0); Mean Corpuscular HGB Conc 32.7 % (32.0-36.0); Mean Corpuscular Hemoglobin 30.1 pg (27.0-34.0); Mono % (Auto) 0.4 % (0.0-8.0); Neut % (Auto) 96.9 % (16.0-70.0); Platelet Count 215 th/mm3 (150-450); Red Blood Count 2.72 mil/mm3 (4.50-5.90); Red Cell Distribution Width 17.7 % (11.6-17.2); White Blood Count 10.3 th/mm3 (4.0-11.0)
[2018-05-09 06:53] LABS: Potassium 4.3 meq/L (3.5-5.1)
[2018-05-09 06:56] LABS: Calcium 7.6 mg/dL (8.5-10.1)
[2018-05-09 06:57] LABS: Carbon Dioxide 17.3 meq/L (21.0-32.0)
[2018-05-09 07:01] LABS: Phosphorus 5.8 mg/dL (2.5-4.9)
[2018-05-09] MEDS: Metoprolol Tartrate 50 MG Tablet PO SCH ×2 (08:53→20:04)
[2018-05-09] MEDS: Isosorbide Mononitrate 30 MG ER 24HR Tablet (Imdur) PO SCH (08:53)
[2018-05-09] MEDS: Insulin NovoLOG Aspart Correctional Sugar Inj SQ SCH ×4 (08:54→21:20)
--- NOTE | 2018-05-09 09:35 | P.PNIM ---
Physical Exam Vital signs: Vital Signs 05/08/18 10:00 05/08/18 11:00 05/08/18 12:00 Temperature 97.8 F Pulse Rate 76 72 72 Respiratory Rate 19 17 25 H Blood Pressure 119/69 116/75 124/72 Pulse Oximetry 90 L 90 L 93 L 05/08/18 13:00 05/08/18 13:41 05/08/18 14:00 Temperature 98.5 F Pulse Rate 80 80 Respiratory Rate 24 14 Blood Pressure 137/69 145/62 H Pulse Oximetry 92 L 95 94 L 05/08/18 15:00 05/08/18 16:00 05/08/18 16:30 Temperature 97.9 F Pulse Rate 76 82 Respiratory Rate 7 L 25 H Blood Pressure 146/81 H 138/86 Pulse Oximetry 96 94 L 90 L 05/08/18 17:00 05/08/18 18:00 05/08/18 19:31 Temperature Pulse Rate 78 84 86 Respiratory Rate 20 11 L 24 Blood Pressure 143/77 H 129/70 Pulse Oximetry 93 L 94 L 94 L 05/08/18 20:00 05/08/18 21:00 05/08/18 22:00 Temperature Pulse Rate 86 92 H 88 Respiratory Rate 21 24 14 Blood Pressure 141/68 H 105/54 L 108/57 L Pulse Oximetry 97 97 95 05/08/18 23:00 05/08/18 23:46 05/09/18 00:00 Temperature 98.4 F Pulse Rate 86 86 86 Respiratory Rate 16 20 14 Blood Pressure 127/67 131/62 Pulse Oximetry 94 L 83 L 05/09/18 02:00 05/09/18 03:23 05/09/18 04:00 Temperature 98.8 F Pulse Rate 90 92 H 94 H Respiratory Rate 18 20 14 Blood Pressure 110/69 125/62 Pulse Oximetry 100 96 05/09/18 06:00 05/09/18 07:14 05/09/18 08:00 Temperature 97.6 F Pulse Rate 92 H 91 H 118 H Respiratory Rate 18 12 21 Blood Pressure 122/62 113/67 Pulse Oximetry 97 95 118 H Intake & Output 05/08/18 05/09/18 05/09/18 18:59 06:59 18:59 Intake Total 100 / 100 Output Total 650 / 650 845 / 845 Balance -650 / -650 -745 / -745 Weight 71.6 kg Intake: IV 100 / 100 Lasix Inj 100 MG In NS Inj 90 100 / 100 ML @ 10 mls/hr IV.CONT .Q10H [facility] Rx#:[id number] Output: Urine 300 / 300 Urine Amount (Catheter) 350 / 350 845 / 845 Condom 350 / 350 845 / 845 Other: Post Void Residual 300 # Voids 1 # Incontinent Voids 1 # Urine Diapers 1 1 Date of Last Bowel Movement 05/07/18 05/07/18 - Urinary Catheter Management Condom Cath placed during this visit: no Results - Labs CBC & Chem 7: 05/09/18 05:30 05/09/18 05:30 Laboratory Results - last 24 hr 05/08/18 05/08/18 05/08/18 07:05 07:05 07:05 CBC w Diff Auto diff final WBC 8.7 RBC 2.88 L Hgb 8.6 L Hct 26.7 L MCV 92.5 MCH 29.7 MCHC 32.1 RDW 16.5 Plt Count 229 MPV 9.1 Neut % (Auto) 86.8 H Lymph % (Auto) 8.6 L [place] % (Auto) 4.0 Eos % (Auto) 0.0 Baso % (Auto) 0.6 Neut # (Auto) 7.6 Lymph # (Auto) 0.7 L [place] # (Auto) 0.3 Eos # (Auto) 0.0 Baso # (Auto) 0.1 WBC Differential . Differential Comment . Sodium 143 Potassium 4.6 Chloride 113 H Carbon Dioxide 18.9 L Anion Gap 11 BUN 78 H Creatinine 4.80 H Estimated GFR 12 L POC Glucose Random Glucose 185 H Calcium 7.9 L Phosphorus Triglycerides 102 Cholesterol 85 L LDL Cholesterol, Calc 27 HDL Cholesterol 37.2 L Cholesterol/HDL Ratio 2.28 05/08/18 05/08/18 05/08/18 12:30 16:36 21:12 CBC w Diff WBC RBC Hgb Hct MCV MCH MCHC RDW Plt Count MPV Neut % (Auto) Lymph % (Auto) [place] % (Auto) Eos % (Auto) Baso % (Auto) Neut # (Auto) Lymph # (Auto) [place] # (Auto) Eos # (Auto) Baso # (Auto) WBC Differential Differential Comment Sodium Potassium Chloride Carbon Dioxide Anion Gap BUN Creatinine Estimated GFR POC Glucose 168 H 249 H 171 H Random Glucose Calcium Phosphorus Triglycerides Cholesterol LDL Cholesterol, Calc HDL Cholesterol Cholesterol/HDL Ratio 05/09/18 05/09/18 05/09/18 05:30 05:30 08:05 CBC w Diff Auto diff final WBC 10.3 RBC 2.72 L Hgb 8.2 L Hct 25.0 L MCV 92.0 MCH 30.1 MCHC 32.7 RDW 17.7 H Plt Count 215 MPV 9.0 Neut % (Auto) 96.9 H Lymph % (Auto) 2.5 L [place] % (Auto) 0.4 Eos % (Auto) 0.1 Baso % (Auto) 0.1 Neut # (Auto) 10.0 H Lymph # (Auto) 0.3 L [place] # (Auto) 0.0 Eos # (Auto) 0.0 Baso # (Auto) 0.0 WBC Differential . Differential Comment . Sodium 143 Potassium 4.3 Chloride 112 H Carbon Dioxide 17.3 L Anion Gap 14 BUN 85 H Creatinine 5.40 H Estimated GFR 10 L POC Glucose 226 H Random Glucose 195 H Calcium 7.6 L Phosphorus 5.8 H Triglycerides Cholesterol LDL Cholesterol, Calc HDL Cholesterol Cholesterol/HDL Ratio - Imaging Impressions Abdomen/Bladder Ultrasound 05/08/18 00:00 CONCLUSION: 1. Echogenic kidneys consistent with medical renal disease. No obstructive uropathy. 2. Redemonstration of small right renal cysts. 3. Prominent prostate gland with anterior bladder diverticulum measuring 2.6 cm. This may reflect some degree of chronic bladder outlet obstruction. Chest X-Ray 05/08/18 00:00 CONCLUSION: 1. Cardiomegaly with pulmonary vascular congestion. 2. Stable wtxdw-us-ttfuiogn left pleural effusion with associated left lower lobe airspace disease. 3. Stable mild patchy right lower lobe airspace disease, presumably atelectasis. 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 Denies any chest pain. 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 Dumont has been consulted and has seen patient. Conservative measures recommended for now. Keep H&H above 10 per cards recommendations. -Continue beta-becca. Recommendations are to hold anticoagulates secondary to GI bleed. -Continue on cardiac telemetry, monitor for any arrhythmias. Continue to monitor BP trends. -Supportive care. Systolic heart failure in exacerbation Acute hypoxia suspect secondary to above History of severe cardiomyopathy with EF 20% -Patient has been placed on supplemental O2 of 5LNC. A repeat x-ray has been ordered. Previous x-ray showing pleural effusions with stable infiltrates. -Continue Lasix gtt. Monitor intake and output. -Cardiology following. Fall at home -Patient states he asleep in his wheelchair and slipped out onto his face and left arm. Denies any LOC. Did hit his head with resultant left eye ecchymosis. -Head CT on presentation negative. -PT evaluation ordered, pending recommendations. -Monitor closely. Acute on chronic kidney disease -Creatinine 4.2/GFR 12 on presentation. -Nephrology consulted and has seen patient, started on Lasix drip. -Follow intake and output closely. -US has been ordered and reviewed showing echogenic kidneys consistent with medical renal disease. No obstructive uropathy. -Avoid nephrotoxins. -Follow BMP. Type 2 diabetes mellitus, chronic -ACCU check ACHS, sliding scale, cover as needed. Monitor blood sugar trends. Recent history of left upper arm DVT -Recently placed on Xarelto at home. Per cardiology recommendations, will hold anticoagulation for now. Encourage elevation. Hyperlipidemia, chronic: Continue home statin. DVT Prophylaxis: SCDs. Chemical prophylaxis held per cardiology recommendations. (3) Anemia Qualifiers: Anemia type: unspecified type Qualified Code(s): D64.9 - Anemia, unspecified
--- NOTE | 2018-05-09 10:37 | P.PNCA ---
Subjective Interval history: pt denies chest pain and SOB Medications and Allergies Active Medications: Active Medications Acetaminophen (Tylenol) 650 mg PO Q4H PRN PRN Reason: Temp > 100.4 Al Hydroxide/Mg Hydroxide (Milk Of Magnluz maria Liq) 30 ml PO Q12H PRN PRN Reason: Mild Constipation Albuterol (Duoneb Neb (Prn)) 1 ampul NEB Q2HR NEB PRN PRN Reason: SHORTNESS OF BREATH/WHEEZING Last Admin: 05/09/18 03:21 Dose: 1 ampul Albuterol (Duoneb Neb ([facility])) 1 ampul NEB Q6HR WHILE AWAKE NEB [facility] Last Admin: 05/09/18 07:13 Dose: 1 ampul Atorvastatin Calcium (Lipitor) 40 mg PO HS [facility] Last Admin: 05/08/18 21:08 Dose: 40 mg Dextrose (D50w Vial) 50 ml IV.PUSH UNSCH PRN PRN Reason: PER HYPOGLYCEMIA PROTOCOL Glucagon (Glucagon Inj) 1 mg OTHER PRN PRN PRN Reason: for Hypoglycemia Protocol Furosemide 100 mg/ Sodium (Chloride) 100 mls @ 10 mls/hr IV.CONT .Q10H [facility] Last Admin: 05/09/18 10:34 Dose: 10 mls/hr Insulin Aspart (Novolog Insulin Correctional Sugar Inj) 0 unit SQ ACHS [facility]; Protocol Last Admin: 05/09/18 08:54 Dose: 3 unit Isosorbide Mononitrate (Imdur) 30 mg PO DAILY [facility] Last Admin: 05/09/18 08:53 Dose: 30 mg Levothyroxine Sodium (Synthroid) 100 mcg PO DAILY@0600 [facility] Last Admin: 05/09/18 06:23 Dose: 100 mcg Methylprednisolone Sodium Succinate (Solumedrol Inj) 40 mg IV.PUSH Q6HR [facility] Last Admin: 05/09/18 06:23 Dose: 40 mg Metoprolol Tartrate (Lopressor) 50 mg PO BID [facility] Last Admin: 05/09/18 08:53 Dose: 50 mg Nifedipine (Procardia Xl) 60 mg PO BID [facility] Last Admin: 05/09/18 08:53 Dose: 60 mg Ondansetron HCl (Zofran Inj) 4 mg IV.PUSH Q6H PRN PRN Reason: NAUSEA OR VOMITING Sodium Chloride (Ns Flush) 2 ml IV.FLUSH PRN PRN PRN Reason: FLUSH AFTER USING IV ACCESS Tamsulosin HCl (Flomax) 0.4 mg PO DAILY [facility] Last Admin: 05/09/18 08:53 Dose: 0.4 mg Allergies Allergy/AdvReac Type Severity Reaction Status Date / Time codeine AdvReac Severe NAUSEA Verified 05/07/18 13:06 Home Medications Medication Instructions Recorded Confirmed Type gabapentin 600 mg PO BID 03/17/18 05/07/18 History rosuvastatin [Crestor] 20 mg PO HS 03/28/18 05/07/18 History tamsulosin 0.4 mg PO DAILY 05/07/18 05/07/18 History vitamins A,C,E-fjzd-uwulne 1 tab PO BID 05/07/18 05/07/18 History [PreserVision AREDS] Physical Exam Vital signs: Vital Signs 05/08/18 11:00 05/08/18 12:00 05/08/18 13:00 Temperature 97.8 F 98.5 F Pulse Rate 72 72 80 Respiratory Rate 17 25 H 24 Blood Pressure 116/75 124/72 137/69 Pulse Oximetry 90 L 93 L 92 L 05/08/18 13:41 05/08/18 14:00 05/08/18 15:00 Temperature Pulse Rate 80 76 Respiratory Rate 14 7 L Blood Pressure 145/62 H 146/81 H Pulse Oximetry 95 94 L 96 05/08/18 16:00 05/08/18 16:30 05/08/18 17:00 Temperature 97.9 F Pulse Rate 82 78 Respiratory Rate 25 H 20 Blood Pressure 138/86 143/77 H Pulse Oximetry 94 L 90 L 93 L 05/08/18 18:00 05/08/18 19:31 05/08/18 20:00 Temperature Pulse Rate 84 86 86 Respiratory Rate 11 L 24 21 Blood Pressure 129/70 141/68 H Pulse Oximetry 94 L 94 L 97 05/08/18 21:00 05/08/18 22:00 05/08/18 23:00 Temperature Pulse Rate 92 H 88 86 Respiratory Rate 24 14 16 Blood Pressure 105/54 L 108/57 L 127/67 Pulse Oximetry 97 95 94 L 05/08/18 23:46 05/09/18 00:00 05/09/18 02:00 Temperature 98.4 F Pulse Rate 86 86 90 Respiratory Rate 20 14 18 Blood Pressure 131/62 110/69 Pulse Oximetry 83 L 100 05/09/18 03:23 05/09/18 04:00 05/09/18 06:00 Temperature 98.8 F Pulse Rate 92 H 94 H 92 H Respiratory Rate 20 14 18 Blood Pressure 125/62 122/62 Pulse Oximetry 96 97 05/09/18 07:14 05/09/18 08:00 Temperature 97.6 F Pulse Rate 91 H 118 H Respiratory Rate 12 21 Blood Pressure 113/67 Pulse Oximetry 95 118 H Intake & Output 05/08/18 05/09/18 05/09/18 18:59 06:59 18:59 Intake Total 100 / 100 100 / 100 Output Total 650 / 650 845 / 845 Balance -650 / -650 -745 / -745 100 / 100 Weight 71.6 kg Intake: IV 100 / 100 100 / 100 Lasix Inj 100 MG In NS Inj 90 100 / 100 100 / 100 ML @ 10 mls/hr IV.CONT .Q10H [facility] Rx#:[id number] Output: Urine 300 / 300 Urine Amount (Catheter) 350 / 350 845 / 845 Condom 350 / 350 845 / 845 Other: Post Void Residual 300 # Voids 1 # Incontinent Voids 1 # Urine Diapers 1 1 Date of Last Bowel Movement 05/07/18 05/07/18 - Constitutional no acute distress - Routine HEENT Exam Head: Present: normocephalic - Routine Neck Exam Absent: JVD, carotid bruit - Routine Respiratory Exam Present: rales. Absent: CTA bilaterally, wheezes - Routine Cardiovascular Exam Present: RRR, S1, S2, irregularly irregular - Routine Extremities Exam Absent: cyanosis, clubbing, edema - Urinary Catheter Management Condom Cath placed during this visit: no Results 05/09/18 05:30 05/09/18 05:30 Cardiac Enzymes 05/07/18 05/07/18 Range/Units 13:10 19:30 Troponin I 1.92 H* 1.40 H* (0.02-0.05) ng/mL Lipids 05/08/18 Range/Units 07:05 Triglycerides 102 (42-150) mg/dL Cholesterol 85 L (120-200) mg/dL HDL Cholesterol 37.2 L (40.0-60.0) mg/dL Cholesterol/HDL Ratio 2.28 Ratio CBC 05/07/18 05/08/18 05/09/18 Range/Units 13:10 07:05 05:30 WBC 9.6 8.7 10.3 (4.0-11.0) th/mm3 RBC 2.43 L 2.88 L 2.72 L (4.50-5.90) mil/mm3 Hgb 7.4 L 8.6 L 8.2 L (13.0-17.0) gm/dL Hct 21.9 L 26.7 L 25.0 L (39.0-51.0) % Plt Count 219 229 215 (150-450) th/mm3 Neut # (Auto) 7.2 7.6 10.0 H (1.8-7.7) th/mm3 Lymph # (Auto) 1.6 0.7 L 0.3 L (1.0-4.8) th/mm3 [place] # (Auto) 0.8 0.3 0.0 (0.0-0.9) th/mm3 Eos # (Auto) 0.0 0.0 0.0 (0.0-0.4) th/mm3 Baso # (Auto) 0.0 0.1 0.0 (0.0-0.2) th/mm3 Comprehensive Metabolic Panel 05/07/18 05/08/18 05/09/18 Range/Units 13:10 07:05 05:30 Sodium 143 143 143 (136-145) meq/L Potassium 4.3 4.6 4.3 (3.5-5.1) meq/L Chloride 112 H 113 H 112 H (98-107) meq/L Carbon Dioxide 20.3 L 18.9 L 17.3 L (21.0-32.0) meq/L BUN 71 H 78 H 85 H (7-18) mg/dL Creatinine 4.20 H 4.80 H 5.40 H (0.60-1.30) mg/dL Calcium 7.6 L 7.9 L 7.6 L (8.5-10.1) mg/dL Intake and Output 05/08/18 05/09/18 05/09/18 22:59 06:59 14:59 Intake Total 100 / 100 100 / 100 Output Total 740 / 740 755 / 755 Balance -740 / -740 -655 / -655 100 / 100 Intake: IV 100 / 100 100 / 100 Lasix Inj 100 MG In NS Inj 90 100 / 100 100 / 100 ML @ 10 mls/hr IV.CONT .Q10H [facility] Rx#:[id number] Output: Urine 300 / 300 Urine Amount (Catheter) 440 / 440 755 / 755 Condom 440 / 440 755 / 755 Other: Post Void Residual 300 # Voids 1 # Incontinent Voids 1 # Urine Diapers 1 Date of Last Bowel Movement 05/07/18 05/07/18 Weight 71.6 kg - Imaging and Cardiology Imaging: Impressions Cervical Spine CT 05/07/18 13:05 CONCLUSION: 1. No acute fracture or subluxation. 2. 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 Chest X-Ray 05/07/18 13:05 CONCLUSION: Slight increase in left effusion and bilateral infiltrates are stable. Head CT 05/07/18 13:05 CONCLUSION: 1. No acute intracranial abnormality. . Abdomen/Bladder Ultrasound 05/08/18 00:00 CONCLUSION: 1. Echogenic kidneys consistent with medical renal disease. No obstructive uropathy. 2. Redemonstration of small right renal cysts. 3. Prominent prostate gland with anterior bladder diverticulum measuring 2.6 cm. This may reflect some degree of chronic bladder outlet obstruction. Chest X-Ray 05/08/18 00:00 CONCLUSION: 1. Cardiomegaly with pulmonary vascular congestion. 2. Stable emhlb-dt-hsatdkkp left pleural effusion with associated left lower lobe airspace disease. 3. Stable mild patchy right lower lobe airspace disease, presumably atelectasis. Assessment and Plan - Plan CONSERVATIVE MANAGEMENT. keep Hbg > 10 g. continue BB. Warfarin on hold due to anemia. CHF is improving. I will follow
--- NOTE | 2018-05-09 11:06 | P.PNNP ---
Subjective Interval history: Patient remains short of breath on oxygen Physical Exam Vital signs: Vital Signs 05/08/18 12:00 05/08/18 13:00 05/08/18 13:41 Temperature 97.8 F 98.5 F Pulse Rate 72 80 Respiratory Rate 25 H 24 Blood Pressure 124/72 137/69 Pulse Oximetry 93 L 92 L 95 05/08/18 14:00 05/08/18 15:00 05/08/18 16:00 Temperature Pulse Rate 80 76 Respiratory Rate 14 7 L Blood Pressure 145/62 H 146/81 H Pulse Oximetry 94 L 96 94 L 05/08/18 16:30 05/08/18 17:00 05/08/18 18:00 Temperature 97.9 F Pulse Rate 82 78 84 Respiratory Rate 25 H 20 11 L Blood Pressure 138/86 143/77 H 129/70 Pulse Oximetry 90 L 93 L 94 L 05/08/18 19:31 05/08/18 20:00 05/08/18 21:00 Temperature Pulse Rate 86 86 92 H Respiratory Rate 24 21 24 Blood Pressure 141/68 H 105/54 L Pulse Oximetry 94 L 97 97 05/08/18 22:00 05/08/18 23:00 05/08/18 23:46 Temperature Pulse Rate 88 86 86 Respiratory Rate 14 16 20 Blood Pressure 108/57 L 127/67 Pulse Oximetry 95 94 L 05/09/18 00:00 05/09/18 02:00 05/09/18 03:23 Temperature 98.4 F Pulse Rate 86 90 92 H Respiratory Rate 14 18 20 Blood Pressure 131/62 110/69 Pulse Oximetry 83 L 100 05/09/18 04:00 05/09/18 06:00 05/09/18 07:14 Temperature 98.8 F Pulse Rate 94 H 92 H 91 H Respiratory Rate 14 18 12 Blood Pressure 125/62 122/62 Pulse Oximetry 96 97 95 05/09/18 08:00 Temperature 97.6 F Pulse Rate 118 H Respiratory Rate 21 Blood Pressure 113/67 Pulse Oximetry 118 H Intake & Output 05/08/18 05/09/18 05/09/18 18:59 06:59 18:59 Intake Total 100 / 100 100 / 100 Output Total 650 / 650 845 / 845 Balance -650 / -650 -745 / -745 100 / 100 Weight 71.6 kg Intake: IV 100 / 100 100 / 100 Lasix Inj 100 MG In NS Inj 90 100 / 100 100 / 100 ML @ 10 mls/hr IV.CONT .Q10H [facility] Rx#:[id number] Output: Urine 300 / 300 Urine Amount (Catheter) 350 / 350 845 / 845 Condom 350 / 350 845 / 845 Other: Post Void Residual 300 # Voids 1 # Incontinent Voids 1 # Urine Diapers 1 1 Date of Last Bowel Movement 05/07/18 05/07/18 Narrative: GENERAL: Bruising around the left eye SKIN: Warm and dry. HEAD: Normocephalic. As above EYES: No scleral icterus. No injection or drainage. As above NECK: Supple, trachea midline. No JVD or lymphadenopathy. CARDIOVASCULAR: Irregular heart rate RESPIRATORY: Breath sounds diminished at bases GASTROINTESTINAL: Abdomen soft, non-tender, nondistended. EXTREMITIES: Mild edema NEUROLOGICAL: Awake, alert, and oriented x 3. Non-focal. - Urinary Catheter Management Condom Cath placed during this visit: no Assessment and Plan - Assessment (1) Acute renal failure Code(s): N17.9 - Acute kidney failure, unspecified Status: Acute (2) Diabetes Code(s): E11.9 - Type 2 diabetes mellitus without complications Status: Acute (3) Acute non-ST elevation myocardial infarction (NSTEMI) Code(s): I21.4 - Non-ST elevation (NSTEMI) myocardial infarction Status: Acute (4) CKD (chronic kidney disease) Code(s): N18.9 - Chronic kidney disease, unspecified Status: Acute Qualifiers: Chronic kidney disease stage: unspecified stage Qualified Code(s): N18.9 - Chronic kidney disease, unspecified - Plan Patient has of end-stage renal disease and hemodialysis was discussed He again refused it Stated that he has a living well Explained to him he may not leave the hospital in this condition, and may not survive without dialysis for too long Complicated due to accumulation of fluids and waste products was explained to him including confusion, shortness of breath, even He continues to refuse it Discussed with primary team Request palliative care consult Continue to diurese he did not respond well to Lasix drip Monitor BMP Add PhosLo and Nephrocaps Zemplar started for secondary hyperparathyroidism he follows with Dr. Blake will notify him
--- NOTE | 2018-05-09 11:08 | P.PNIM ---
Subjective Interval history: Follow-up worsening kidney disease, elevated troponins, diabetes. Patient seen and examined, lying in bed comfortably on 4 L nasal cannula. Continued on Lasix drip, negative fluid balance. No acute events overnight. Eating well with no abdominal pain nausea or vomiting. No chest pain. No shortness of breath at this time. Continue PT efforts. Patient is a DNR. Physical Exam Vital signs: Vital Signs 05/08/18 12:00 05/08/18 13:00 05/08/18 13:41 Temperature 97.8 F 98.5 F Pulse Rate 72 80 Respiratory Rate 25 H 24 Blood Pressure 124/72 137/69 Pulse Oximetry 93 L 92 L 95 05/08/18 14:00 05/08/18 15:00 05/08/18 16:00 Temperature Pulse Rate 80 76 Respiratory Rate 14 7 L Blood Pressure 145/62 H 146/81 H Pulse Oximetry 94 L 96 94 L 05/08/18 16:30 05/08/18 17:00 05/08/18 18:00 Temperature 97.9 F Pulse Rate 82 78 84 Respiratory Rate 25 H 20 11 L Blood Pressure 138/86 143/77 H 129/70 Pulse Oximetry 90 L 93 L 94 L 05/08/18 19:31 05/08/18 20:00 05/08/18 21:00 Temperature Pulse Rate 86 86 92 H Respiratory Rate 24 21 24 Blood Pressure 141/68 H 105/54 L Pulse Oximetry 94 L 97 97 05/08/18 22:00 05/08/18 23:00 05/08/18 23:46 Temperature Pulse Rate 88 86 86 Respiratory Rate 14 16 20 Blood Pressure 108/57 L 127/67 Pulse Oximetry 95 94 L 05/09/18 00:00 05/09/18 02:00 05/09/18 03:23 Temperature 98.4 F Pulse Rate 86 90 92 H Respiratory Rate 14 18 20 Blood Pressure 131/62 110/69 Pulse Oximetry 83 L 100 05/09/18 04:00 05/09/18 06:00 05/09/18 07:14 Temperature 98.8 F Pulse Rate 94 H 92 H 91 H Respiratory Rate 14 18 12 Blood Pressure 125/62 122/62 Pulse Oximetry 96 97 95 05/09/18 08:00 Temperature 97.6 F Pulse Rate 118 H Respiratory Rate 21 Blood Pressure 113/67 Pulse Oximetry 118 H Intake & Output 05/08/18 05/09/18 05/09/18 18:59 06:59 18:59 Intake Total 100 / 100 100 / 100 Output Total 650 / 650 845 / 845 Balance -650 / -650 -745 / -745 100 / 100 Weight 71.6 kg Intake: IV 100 / 100 100 / 100 Lasix Inj 100 MG In NS Inj 90 100 / 100 100 / 100 ML @ 10 mls/hr IV.CONT .Q10H PAMELA Rx#:[id number] Output: Urine 300 / 300 Urine Amount (Catheter) 350 / 350 845 / 845 Condom 350 / 350 845 / 845 Other: Post Void Residual 300 # Voids 1 # Incontinent Voids 1 # Urine Diapers 1 1 Date of Last Bowel Movement 05/07/18 05/07/18 Narrative: GENERAL: Well-developed, well-nourished patient in NAD. On supplemental O2. SKIN: Warm and dry. No rash. HEAD: Normocephalic. Atraumatic. EYES: Pupils equal and round. No scleral icterus. Left eye ecchymosis. ENT: No nasal bleeding or discharge. Mucous membranes pink and moist. NECK: Supple. Trachea midline. CARDIOVASCULAR: Regular rate and rhythm. S1-S2 noted. Grade 2/6 systolic murmur. RESPIRATORY: No accessory muscle use. Rhonchi throughout. Breath sounds equal bilaterally. GASTROINTESTINAL: Abdomen soft, non-tender, nondistended. Normoactive bowel sounds x4. MUSCULOSKELETAL: No obvious deformities. Extremities without clubbing, cyanosis , or edema. NEUROLOGICAL: Awake and alert. No obvious cranial nerve deficits. Motor grossly within normal limits. 5/5 muscle strength in bilateral upper and lower extremities. Normal speech. PSYCHIATRIC: Appropriate mood and affect; insight and judgment normal. Left upper extremity: Swollen with scattered ecchymosis. Previous DVT. - Urinary Catheter Management Condom Cath placed during this visit: no Results - Labs CBC & Chem 7: 05/09/18 05:30 05/09/18 05:30 Laboratory Results - last 24 hr 05/08/18 05/08/18 05/08/18 07:05 07:05 12:30 CBC w Diff Auto diff final WBC 8.7 RBC 2.88 L Hgb 8.6 L Hct 26.7 L MCV 92.5 MCH 29.7 MCHC 32.1 RDW 16.5 Plt Count 229 MPV 9.1 Neut % (Auto) 86.8 H Lymph % (Auto) 8.6 L Bremer % (Auto) 4.0 Eos % (Auto) 0.0 Baso % (Auto) 0.6 Neut # (Auto) 7.6 Lymph # (Auto) 0.7 L Bremer # (Auto) 0.3 Eos # (Auto) 0.0 Baso # (Auto) 0.1 WBC Differential . Differential Comment . Sodium 143 Potassium 4.6 Chloride 113 H Carbon Dioxide 18.9 L Anion Gap 11 BUN 78 H Creatinine 4.80 H Estimated GFR 12 L POC Glucose 168 H Random Glucose 185 H Calcium 7.9 L Phosphorus PTH Intact 05/08/18 05/08/18 05/09/18 16:36 21:12 05:30 CBC w Diff Auto diff final WBC 10.3 RBC 2.72 L Hgb 8.2 L Hct 25.0 L MCV 92.0 MCH 30.1 MCHC 32.7 RDW 17.7 H Plt Count 215 MPV 9.0 Neut % (Auto) 96.9 H Lymph % (Auto) 2.5 L Bremer % (Auto) 0.4 Eos % (Auto) 0.1 Baso % (Auto) 0.1 Neut # (Auto) 10.0 H Lymph # (Auto) 0.3 L Bremer # (Auto) 0.0 Eos # (Auto) 0.0 Baso # (Auto) 0.0 WBC Differential . Differential Comment . Sodium Potassium Chloride Carbon Dioxide Anion Gap BUN Creatinine Estimated GFR POC Glucose 249 H 171 H Random Glucose Calcium Phosphorus PTH Intact 05/09/18 05/09/18 05/09/18 05:30 05:30 08:05 CBC w Diff WBC RBC Hgb Hct MCV MCH MCHC RDW Plt Count MPV Neut % (Auto) Lymph % (Auto) Bremer % (Auto) Eos % (Auto) Baso % (Auto) Neut # (Auto) Lymph # (Auto) Bremer # (Auto) Eos # (Auto) Baso # (Auto) WBC Differential Differential Comment Sodium 143 Potassium 4.3 Chloride 112 H Carbon Dioxide 17.3 L Anion Gap 14 BUN 85 H Creatinine 5.40 H Estimated GFR 10 L POC Glucose 226 H Random Glucose 195 H Calcium 7.6 L Phosphorus 5.8 H PTH Intact 275.1 H - Imaging Impressions Chest X-Ray 10/16/18 00:00 CONCLUSION: 1. Cardiomegaly with pulmonary vascular congestion. 2. Stable [id number] left pleural effusion with associated left lower lobe airspace disease. 3. Stable mild patchy right lower lobe airspace disease, presumably atelectasis. 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 Denies any chest pain. -Patient's bus assistant Dr. Dumont has been consulted and has seen patient. Conservative measures recommended for now. Keep H&H above 10 per cards recommendations. -Continue beta-becca. Recommendations are to hold anticoagulates secondary to GI bleed. -Continue on cardiac telemetry, monitor for any arrhythmias. No arrhythmias overnight. Continue to monitor BP trends. -Supportive care. Systolic heart failure in exacerbation Acute hypoxia suspect secondary to above History of severe cardiomyopathy with EF 20% -Patient has been placed on supplemental O2 of 5LNC this is been decreased to 4 L nasal cannula. A repeat x-ray has been ordered and reviewed showing congestion. Previous x-ray showing pleural effusions with stable infiltrates. -Continue Lasix gtt. Monitor intake and output. Negative fluid balance noted. -Cardiology following. Fall at home -Patient states he asleep in his wheelchair and slipped out onto his face and left arm. Denies any LOC. Did hit his head with resultant left eye ecchymosis. -Head CT on presentation negative. -PT evaluation ordered, and input recommendations appreciated. -Monitor closely. Acute on chronic kidney disease -Creatinine 4.2/GFR 12 on presentation. Worsening today. -Nephrology consulted and has seen patient, started on Lasix drip. Worsening despite Lasix drip. Patient at this time is refusing dialysis. A palliative care consult has been placed to further discuss goals. Ultimately patient will need dialysis. -Follow intake and output closely. -US has been ordered and reviewed showing echogenic kidneys consistent with medical renal disease. No obstructive uropathy. -Avoid nephrotoxins. -Follow BMP. Type 2 diabetes mellitus, chronic -ACCU check ACHS, sliding scale, cover as needed. Monitor blood sugar trends. Recent history of left upper arm DVT -Recently placed on Xarelto at home. Per cardiology recommendations, will hold anticoagulation for now. Encourage elevation. Hyperlipidemia, chronic: Continue home statin. DVT Prophylaxis: SCDs. Chemical prophylaxis held per cardiology recommendations. DNR. Discharge Planning: Await palliative care consult. Worsening kidney disease, ultimately patient needs dialysis. Is refusing at this time. (3) Anemia Qualifiers: Anemia type: unspecified type Qualified Code(s): D64.9 - Anemia, unspecified
[2018-05-09] MEDS: Calcium Acetate 667 MG Capsule PO SCH ×2 (12:48→17:55)
--- NOTE | 2018-05-09 12:58 | P.CONPAL ---
Consult Service: Palliative Care Requesting Physician: Candy Reis Reason for Consult: a. To assist with evaluation and management of symptoms including: dyspnea, weakness b. To assist medical decision maker(s) with: better understanding of current medical conditions; weighing benefits/burdens of medical treatment options; making medical treatment decisions. Primary Care Provider: Prashanth Mason MD History of Present Illness History of Present Illness: Mr. Mendoza is an 87-year-old male patient who presented to [facility] ED on 05/07/2018 after an unwitnessed fall fall. Patient stated he had fallen asleep in his wheelchair and slipped out falling onto his face. He sustained bruising to the left side of his face. Patient states he has been following closely with his PCP after being diagnosed with a left upper extremity DVT 2 weeks ago and being placed on Xarelto. 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 * Chest x-ray with slight increase in left effusion and bilateral infiltrates are stable. * CT head with no acute intracranial abnormalities * EKG: Sinus rhythm with a rate of 87 bpm; left bundle branch block present; slight worsening depression of the ST segment in V4 through V6 which is slightly worse than his previous EKG Patient was admitted for further evaluation and medical management of the NSTEMI and acute on chronic kidney failure following a fall at home. Cardiology and nephrology were consulted. Dr. Dumont evaluated the patient; recommendations for conservative therapy. Maintaining hemoglobin greater than 10. Continue beta-blockers. Recommendations to hold anticoagulation secondary to GI bleed. Discussed consideration for placement of defibrillator, but the patient declined. Echocardiogram showing moderately severe to severely reduced left ventricular systolic function with an estimated EF of 35-40% Follow-up chest x-ray on 05/08/2018 revealed cardiomegaly with pulmonary vascular congestion. Stable small to moderate left pleural effusion with associated left lower lobe airspace disease. Stable mild patchy right lower lobe airspace disease, presumably atelectasis. Nephrology was consulted to evaluate this patient with a known history of chronic kidney disease. Baseline creatinine 2.6-3.2. Patient found to be in congestive heart failure. Creatinine on admission was 4.20, increasing to 5.40 today 05/09/2018. Kidney ultrasound on 05/08/2018 showed echogenic kidneys consistent with medical renal disease, no obstructive uropathy. Remonstration of small right renal cyst. Prominent prostate gland with anterior bladder diverticulum measuring 2.6 cm. This may reflect some degree of chronic bladder outlet obstruction. Palliative Care was consulted to assist with symptom management and to discuss with the patient/family the benefits and burdens of his current illnesses and the options regarding future care. Patient reports feeling increasingly weak and having increased shortness of breath with minimal exertion. He states it was very difficult for him to move a few feet from the recliner back to his hospital bed. He denies pain. Patient appears to have a good insight about his medical conditions. He is uncertain if he wants to proceed with dialysis. After discussing the risks versus benefits of dialysis in patients with ESD R as well as his overall prognosis without dialysis, patient reluctantly states he plans to move forward with HD. We also discussed the process of cardiopulmonary resuscitation in detail. Patient states were he to suffer cardiac or respiratory arrest he would not want aggressive resuscitation but instead asked that he be allowed to pass peacefully and naturally at that time. This is consistent with previous conversations patient has had with Candy Reis APRN. CODE STATUS changed to NO CODE. Function/Cognitive Trajectory: Patient lives alone. He is independent with his ADLs. He has a caregiver that comes in every day to see him. Review of Systems Constitutional: Reports fatigue, Reports weakness Cardiovascular: Reports foot swelling (intermediate), Reports shortness of breath with activity, Denies chest pain Gastrointestinal: Denies vomiting, Denies vomiting blood Neurologic: Reports frequent falls PMFSH - History History 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 - Medical History Medical History: Medical History (Last Updated 05/09/18 @ 17:19 by GILLIAN Bruce) High cholesterol (Acute) Hypertension (Acute) Diabetes (Acute) Blood clot of artery under arm Coronary artery disease DVT (deep venous thrombosis) Enlarged prostate Hypothyroidism Neuropathy - Surgical History Surgical History: Surgical History (Last Reviewed 05/09/18 @ 13:43 by Darren Jara) History of cardiac radiofrequency ablation Hx of CABG - Family History Family History: Family History (Last Reviewed 05/08/18 @ 12:44 by Candy Reis) Father Heart attack - Social History I have reviewed the patient's Social History: Yes - Tobacco History Second Hand Smoke Exposure: No Tobacco Use In Past 30 Days: No Smoking Status: Former smoker Tobacco Type: Cigarettes - Alcohol History How Often Do You Have a Drink Containing Alcohol: Never - Substance Use History Substance History: No History of Abuse - Travel History Recent Travel in the [place] Within the Last 8 Weeks: No Recent Travel Out of the Country Within the Last 8 Weeks: No - Immunization History Tetanus Immunization: Unable to Assess Hx Influenza Vaccine This Season: Yes Medications and Allergies Active Medications: Active Medications Acetaminophen (Tylenol) 650 mg PO Q4H PRN PRN Reason: Temp > 100.4 Al Hydroxide/Mg Hydroxide (Milk [employer]) 30 ml PO Q12H PRN PRN Reason: Mild Constipation Albuterol (Duoneb Neb (Prn)) 1 ampul NEB Q2HR NEB PRN PRN Reason: SHORTNESS OF BREATH/WHEEZING Last Admin: 05/09/18 03:21 Dose: 1 ampul Albuterol (Duoneb Neb (Juan A)) 1 ampul NEB Q6HR WHILE AWAKE NEB JUAN A Last Admin: 05/09/18 07:13 Dose: 1 ampul Atorvastatin Calcium (Lipitor) 40 mg PO HS [facility] Last Admin: 05/08/18 21:08 Dose: 40 mg Calcium Acetate (Phoslo) 667 mg PO TID [facility] Dextrose (D50w Vial) 50 ml IV.PUSH UNSCH PRN PRN Reason: PER HYPOGLYCEMIA PROTOCOL Glucagon (Glucagon Inj) 1 mg OTHER PRN PRN PRN Reason: for Hypoglycemia Protocol Furosemide 100 mg/ Sodium (Chloride) 100 mls @ 10 mls/hr IV.CONT .Q10H [facility] Last Admin: 05/09/18 10:34 Dose: 10 mls/hr Insulin Aspart (Novolog Insulin [employer] Sugar Inj) 0 unit SQ ACHS JUAN A; Protocol Last Admin: 05/09/18 08:54 Dose: 3 unit Isosorbide Mononitrate (Imdur) 30 mg PO DAILY [facility] Last Admin: 05/09/18 08:53 Dose: 30 mg Levothyroxine Sodium (Synthroid) 100 mcg PO DAILY@0600 [facility] Last Admin: 05/09/18 06:23 Dose: 100 mcg Methylprednisolone Sodium Succinate (Solumedrol Inj) 40 mg IV.PUSH Q6HR [facility] Last Admin: 05/09/18 10:39 Dose: 40 mg Metoprolol Tartrate (Lopressor) 50 mg PO BID [facility] Last Admin: 05/09/18 08:53 Dose: 50 mg Nifedipine (Procardia Xl) 60 mg PO BID [facility] Last Admin: 05/09/18 08:53 Dose: 60 mg Ondansetron HCl (Zofran Inj) 4 mg IV.PUSH Q6H PRN PRN Reason: NAUSEA OR VOMITING Paricalcitol (Zemplar) 1 mcg PO DAILY [facility] Sodium Chloride (Ns Flush) 2 ml IV.FLUSH PRN PRN PRN Reason: FLUSH AFTER USING IV ACCESS Tamsulosin HCl (Flomax) 0.4 mg PO DAILY [facility] Last Admin: 05/09/18 08:53 Dose: 0.4 mg Vitamin B Complex/Vit C/Folic Acid (Nephrocaps) 1 tab PO DAILY [facility] Allergies Allergy/AdvReac Type Severity Reaction Status Date / Time codeine AdvReac Severe NAUSEA Verified 05/07/18 13:06 Home Medications Medication Instructions Recorded Confirmed Type gabapentin 600 mg PO BID 03/17/18 05/07/18 History rosuvastatin [Crestor] 20 mg PO HS 03/28/18 05/07/18 History tamsulosin 0.4 mg PO DAILY 05/07/18 05/07/18 History vitamins A,C,P-[id number]-[id number] 1 tab PO BID 05/07/18 05/07/18 History [PreserVision AREDS] Advance Directives Advance Directives Date on File: 05/08/18 Living Will: No Healthcare Surrogate: Yes Health Care Surrogate Name and Number: Rose Ramirez (niece) [phone] Power of Receiver/Laborer Relationship to Patient: Other (Niece) Documented care wishes: Living will form and 5 wishes left at patient's bedside per patient's request Today's verbally stated goals: Discussed risks versus benefits of HD in patient's with ESRD as well as over all prognosis without dialysis. Patient reluctantly states he plans to move forward with HD. Physical Exam Vital Signs: Vital Signs - 24 hr 05/08/18 13:00 05/08/18 13:41 05/08/18 14:00 Temperature 98.5 F Pulse Rate 80 80 Respiratory Rate 24 14 Blood Pressure 137/69 145/62 H Pulse Oximetry 92 L 95 94 L 05/08/18 15:00 05/08/18 16:00 05/08/18 16:30 Temperature 97.9 F Pulse Rate 76 82 Respiratory Rate 7 L 25 H Blood Pressure 146/81 H 138/86 Pulse Oximetry 96 94 L 90 L 05/08/18 17:00 05/08/18 18:00 05/08/18 19:31 Temperature Pulse Rate 78 84 86 Respiratory Rate 20 11 L 24 Blood Pressure 143/77 H 129/70 Pulse Oximetry 93 L 94 L 94 L 05/08/18 20:00 05/08/18 21:00 05/08/18 22:00 Temperature Pulse Rate 86 92 H 88 Respiratory Rate 21 24 14 Blood Pressure 141/68 H 105/54 L 108/57 L Pulse Oximetry 97 97 95 05/08/18 23:00 05/08/18 23:46 05/09/18 00:00 Temperature 98.4 F Pulse Rate 86 86 86 Respiratory Rate 16 20 14 Blood Pressure 127/67 131/62 Pulse Oximetry 94 L 83 L 05/09/18 02:00 05/09/18 03:23 05/09/18 04:00 Temperature 98.8 F Pulse Rate 90 92 H 94 H Respiratory Rate 18 20 14 Blood Pressure 110/69 125/62 Pulse Oximetry 100 96 05/09/18 06:00 05/09/18 07:00 05/09/18 07:14 Temperature Pulse Rate 92 H 92 H 91 H Respiratory Rate 18 14 12 Blood Pressure 122/62 122/63 Pulse Oximetry 97 95 95 05/09/18 08:00 05/09/18 09:00 05/09/18 10:00 Temperature 97.6 F Pulse Rate 118 H 102 H 76 Respiratory Rate 29 H 29 H 11 L Blood Pressure 113/67 119/62 135/75 Pulse Oximetry 92 L 92 L 91 L 05/09/18 11:00 05/09/18 12:00 Temperature Pulse Rate 78 78 Respiratory Rate 15 12 Blood Pressure 114/65 125/62 Pulse Oximetry 93 L 92 L I&O: Intake & Output 05/07/18 05/08/18 05/09/18 05/10/18 06:59 06:59 06:59 06:59 Intake Total 800 / 800 100 / 100 100 / 100 Output Total 300 / 300 1495 / 1495 100 / 100 Balance 500 / 500 -1395 / -1395 0 / 0 Weight 71.6 kg 71.6 kg Physical Exam: CONSTITUTIONAL/GENERAL: This is a frail, elderly male patient in no acute ditress TUBES/LINES/DRAINS: PIV, NC, Condom catheter SKIN: No jaundice, rashes, or lesions. Ecchymoses on left side of his face. Skin temperature appropriate. Not diaphoretic. HEAD: Atraumatic. Normocephalic. EYES: Pupils equal and round and reactive. Extraocular motions intact. No scleral icterus. No injection or drainage. Fundi not examined. ENT: Hearing grossly normal. Nose without bleeding or purulent drainage. Throat without visible erythema, exudates, masses, or lesions. NECK: Trachea midline. Supple, nontender. No palpable thyroid enlargement or nodularity. CARDIOVASCULAR: Regular rate and rhythm without murmurs, gallops, or rubs. No JVD. Peripheral pulses symmetric. RESPIRATORY/CHEST: Symmetric, unlabored respirations. Clear to auscultation. No wheezes, rales, or rhonchi. GASTROINTESTINAL: Abdomen soft, non-tender, nondistended. No guarding. Bowel sounds present. GENITOURINARY: Without palpable bladder distension. Condom catheter in place. MUSCULOSKELETAL: Extremities without clubbing, cyanosis, or edema. No calf tenderness. No mottling or clubbing. LYMPHATICS: No palpable cervical or supraclavicular adenopathy. NEUROLOGICAL: Awake and alert. Lethargic. Follows commands. Cognitively sharp. Moves all extremities. PSYCHIATRIC: No obvious anxiety/depression. No apparent hallucinations or other psychotic thought process. Diagnostic Tests Laboratory: Laboratory Results - last 72 hr 05/07/18 05/07/18 05/07/18 13:10 13:10 19:30 CBC w Diff Auto diff final WBC 9.6 RBC 2.43 L Hgb 7.4 L Hct 21.9 L MCV 90.1 MCH 30.3 MCHC 33.6 RDW 17.8 H Plt Count 219 MPV 9.1 Neut % (Auto) 74.3 H Lymph % (Auto) 16.5 [place] % (Auto) 8.4 H Eos % (Auto) 0.5 Baso % (Auto) 0.3 Neut # (Auto) 7.2 Lymph # (Auto) 1.6 [place] # (Auto) 0.8 Eos # (Auto) 0.0 Baso # (Auto) 0.0 WBC Differential . Differential Comment . Sodium 143 Potassium 4.3 Chloride 112 H Carbon Dioxide 20.3 L Anion Gap 11 BUN 71 H Creatinine 4.20 H Estimated GFR 13 L POC Glucose Random Glucose 140 H Calcium 7.6 L Phosphorus Total Creatine Kinase 178 Troponin I 1.92 H* 1.40 H* Triglycerides Cholesterol LDL Cholesterol, Calc HDL Cholesterol Cholesterol/HDL Ratio Vitamin D 25-Hydroxy PTH Intact Blood Type Antibody Screen MTS Gel Crossmatch Bld Prod Order Comment 05/07/18 05/08/18 05/08/18 20:15 07:05 07:05 CBC w Diff Auto diff final WBC 8.7 RBC 2.88 L Hgb 8.6 L Hct 26.7 L MCV 92.5 MCH 29.7 MCHC 32.1 RDW 16.5 Plt Count 229 MPV 9.1 Neut % (Auto) 86.8 H Lymph % (Auto) 8.6 L [place] % (Auto) 4.0 Eos % (Auto) 0.0 Baso % (Auto) 0.6 Neut # (Auto) 7.6 Lymph # (Auto) 0.7 L [place] # (Auto) 0.3 Eos # (Auto) 0.0 Baso # (Auto) 0.1 WBC Differential . Differential Comment . Sodium Potassium Chloride Carbon Dioxide Anion Gap BUN Creatinine Estimated GFR POC Glucose Random Glucose Calcium Phosphorus Total Creatine Kinase Troponin I Triglycerides 102 Cholesterol 85 L LDL Cholesterol, Calc 27 HDL Cholesterol 37.2 L Cholesterol/HDL Ratio 2.28 Vitamin D 25-Hydroxy PTH Intact Blood Type A Positive Antibody Screen Negative MTS Gel Crossmatch See Detail Bld Prod Order Comment 05/08/18 05/08/18 05/08/18 07:05 07:47 12:30 CBC w Diff WBC RBC Hgb Hct MCV MCH MCHC RDW Plt Count MPV Neut % (Auto) Lymph % (Auto) [place] % (Auto) Eos % (Auto) Baso % (Auto) Neut # (Auto) Lymph # (Auto) [place] # (Auto) Eos # (Auto) Baso # (Auto) WBC Differential Differential Comment Sodium 143 Potassium 4.6 Chloride 113 H Carbon Dioxide 18.9 L Anion Gap 11 BUN 78 H Creatinine 4.80 H Estimated GFR 12 L POC Glucose 209 H 168 H Random Glucose 185 H Calcium 7.9 L Phosphorus Total Creatine Kinase Troponin I Triglycerides Cholesterol LDL Cholesterol, Calc HDL Cholesterol Cholesterol/HDL Ratio Vitamin D 25-Hydroxy PTH Intact Blood Type Antibody Screen MTS Gel Crossmatch Bld Prod Order Comment 05/08/18 05/08/18 05/09/18 16:36 21:12 05:30 CBC w Diff Auto diff final WBC 10.3 RBC 2.72 L Hgb 8.2 L Hct 25.0 L MCV 92.0 MCH 30.1 MCHC 32.7 RDW 17.7 H Plt Count 215 MPV 9.0 Neut % (Auto) 96.9 H Lymph % (Auto) 2.5 L [place] % (Auto) 0.4 Eos % (Auto) 0.1 Baso % (Auto) 0.1 Neut # (Auto) 10.0 H Lymph # (Auto) 0.3 L [place] # (Auto) 0.0 Eos # (Auto) 0.0 Baso # (Auto) 0.0 WBC Differential . Differential Comment . Sodium Potassium Chloride Carbon Dioxide Anion Gap BUN Creatinine Estimated GFR POC Glucose 249 H 171 H Random Glucose Calcium Phosphorus Total Creatine Kinase Troponin I Triglycerides Cholesterol LDL Cholesterol, Calc HDL Cholesterol Cholesterol/HDL Ratio Vitamin D 25-Hydroxy PTH Intact Blood Type Antibody Screen MTS Gel Crossmatch Bld Prod Order Comment 05/09/18 05/09/18 05/09/18 05:30 05:30 05:30 CBC w Diff WBC RBC Hgb Hct MCV MCH MCHC RDW Plt Count MPV Neut % (Auto) Lymph % (Auto) [place] % (Auto) Eos % (Auto) Baso % (Auto) Neut # (Auto) Lymph # (Auto) [place] # (Auto) Eos # (Auto) Baso # (Auto) WBC Differential Differential Comment Sodium 143 Potassium 4.3 Chloride 112 H Carbon Dioxide 17.3 L Anion Gap 14 BUN 85 H Creatinine 5.40 H Estimated GFR 10 L POC Glucose Random Glucose 195 H Calcium 7.6 L Phosphorus 5.8 H Total Creatine Kinase Troponin I Triglycerides Cholesterol LDL Cholesterol, Calc HDL Cholesterol Cholesterol/HDL Ratio Vitamin D 25-Hydroxy 18.4 L PTH Intact 275.1 H Blood Type Antibody Screen MTS Gel Crossmatch Bld Prod Order Comment 05/09/18 05/09/18 08:05 12:34 CBC w Diff WBC RBC Hgb Hct MCV MCH MCHC RDW Plt Count MPV Neut % (Auto) Lymph % (Auto) [place] % (Auto) Eos % (Auto) Baso % (Auto) Neut # (Auto) Lymph # (Auto) [place] # (Auto) Eos # (Auto) Baso # (Auto) WBC Differential Differential Comment Sodium Potassium Chloride Carbon Dioxide Anion Gap BUN Creatinine Estimated GFR POC Glucose 226 H 260 H Random Glucose Calcium Phosphorus Total Creatine Kinase Troponin I Triglycerides Cholesterol LDL Cholesterol, Calc HDL Cholesterol Cholesterol/HDL Ratio Vitamin D 25-Hydroxy PTH Intact Blood Type Antibody Screen MTS Gel Crossmatch Bld Prod Order Comment Result Diagrams: 05/09/18 05:30 05/10/18 04:15 Imaging: Cervical Spine CT 05/07/18 13:05 CONCLUSION: 1. No acute fracture or subluxation. 2. 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 Head CT 05/07/18 13:05 CONCLUSION: 1. No acute intracranial abnormality. . Abdomen/Bladder Ultrasound 05/08/18 00:00 CONCLUSION: 1. Echogenic kidneys consistent with medical renal disease. No obstructive uropathy. 2. Redemonstration of small right renal cysts. 3. Prominent prostate gland with anterior bladder diverticulum measuring 2.6 cm. This may reflect some degree of chronic bladder outlet obstruction. Chest X-Ray 05/08/18 00:00 CONCLUSION: 1. Cardiomegaly with pulmonary vascular congestion. 2. Stable [id number] left pleural effusion with associated left lower lobe airspace disease. 3. Stable mild patchy right lower lobe airspace disease, presumably atelectasis. Patient/Family Conference Present at Family Conference: Met with patient Family Conference Location: Bedside Issues Discussed: * Palliative care role, purpose, approach * Additional medical, psychosocial, and spiritual history * Patients general health, functional status, and cognitive changes in the months leading up to the current hospitalization * Patient/family understanding of the current medical problems * Patient/family understanding of prognosis * Patients goals of care as best understood from advance directives and/or conversations and/or values * Current medical treatment options and benefits/burdens of those options * Likely scenarios comparing ongoing aggressive care with a transition to comfort measures only * Questions answered to the best of my ability * Palliative care contact information provided Assessment and Plan Pertinent Non-Medical Issues: Psychosocial: Patient is originally from [place]. His highest level of education was high school. He moved to [place] in 1998. He was for approximately 48 years. His in 1999, and he has been single since that time. He had 2 sons (Thony and Rayray), both . His younger son secondary to MVA in February,. He lives alone but has a private caregiver at his home almost daily. Spiritual: Jewish alena Legal: Healthcare surrogate designation form was completed 05/08/2018. Patient' s niece (Rose Ramirez) is the primary healthcare surrogate decision maker. His nephew (Lino España) is the alternate healthcare surrogate decision-maker Ethical issues impacting care: No known ethical issues impacting care at this time Important Contacts: Evelyn Ramirez niece: [phone] Lino España, nephew: [phone] Prognosis: Patient is an 87-year-old with a complex medical history who has had a recent decline in functional status. Now with end-stage renal disease, uncertain if he wishes to proceed with hemodialysis. If the patient decides to refuse hemodialysis, hospice would not be an appropriate option at that time. Code Status: No Code DNR Plan: * NO CODE * Discussed the process of cardiopulmonary resuscitation with the patient in detail. Patient states in the event of cardiac or respiratory arrest, he does not want aggressive interventions but would prefer to be allowed to pass peacefully and naturally putting it in "God's hands." This is consistent with conversations the patient has had previously with Candy Reis APRN. * Healthcare surrogate designation form was completed 05/08/2018. Patient's niece (Rose Ramirez) is the primary healthcare surrogate decision maker. His nephew (Lino España) is the alternate healthcare surrogate decision-maker * Discussed patient with Candy Reis APRN and RN (Flor). * Discussed risks versus benefits of HD in patient's with ESRD as well as over all prognosis without dialysis. Patient reluctantly states he plans to move forward with HD. * Symptom management: Weakness: Patient lives alone and relatively independent with his ADLs. He has a caregiver that comes in every day to see him. He reports increasing weakness and fatigue. Decreased mobilty with recent fall. Physical therapy was consulted. If goals remain aggressive, patient would benefit from SNF placement at discharge for rehabilitation. Dyspnea: Patient reporting shortness of breath with minimal exertion. Patient requiring 4L supplemental oxygen via nasal cannula. A repeat x-ray has been ordered and reviewed showing congestion. Previous x-ray showing pleural effusions with stable infiltrates. On Lasix gtt. * Palliative care will continue to follow this patient throughout his hospitalization to establish trust, assist with symptom management and clarification of medical treatment goals. Appreciation Thank you for the opportunity to participate in the care of Ankit Mendoza.
[2018-05-09] MEDS: Vitamin B Complex/Vit C/Folic Tablet PO SCH (13:54)
[2018-05-10] MEDS: MethylPREDNISolone Sod Succinate Inj 40 MG/ML Vial IV.PUSH SCH ×5 (01:10→23:32)
[2018-05-10 04:57] LABS: Potassium 4.6 meq/L (3.5-5.1)
[2018-05-10 04:59] LABS: Calcium 7.7 mg/dL (8.5-10.1)
[2018-05-10 05:00] LABS: Carbon Dioxide 17.8 meq/L (21.0-32.0)
[2018-05-10] MEDS: Levothyroxine 100 MCG Tablet PO SCH (06:05)
[2018-05-10] MEDS: Furosemide Inj 100 MG in Sodium Chlor 0.9% Inj 90 ML IV.CONT SCH ×2 (06:30→17:49)
[2018-05-10] MEDS: Insulin NovoLOG Aspart Correctional Sugar Inj SQ SCH ×4 (08:00→23:32)
[2018-05-10] MEDS: Vitamin B Complex/Vit C/Folic Tablet PO SCH (09:08)
[2018-05-10] MEDS: Metoprolol Tartrate 50 MG Tablet PO SCH ×2 (09:08→21:27)
[2018-05-10] MEDS: Isosorbide Mononitrate 30 MG ER 24HR Tablet (Imdur) PO SCH (09:08)
[2018-05-10] MEDS: Calcium Acetate 667 MG Capsule PO SCH ×3 (09:09→17:40)
--- NOTE | 2018-05-10 09:46 | P.PNIM ---
Physical Exam Vital signs: Vital Signs 05/09/18 10:00 05/09/18 11:00 05/09/18 12:00 Temperature Pulse Rate 76 78 78 Respiratory Rate 11 L 15 12 Blood Pressure 135/75 114/65 125/62 Pulse Oximetry 91 L 93 L 92 L 05/09/18 13:00 05/09/18 14:00 05/09/18 14:15 Temperature Pulse Rate 78 84 88 Respiratory Rate 20 19 22 Blood Pressure 106/75 118/65 109/59 L Pulse Oximetry 93 L 94 L 92 L 05/09/18 14:25 05/09/18 16:00 05/09/18 17:00 Temperature 97.6 F Pulse Rate 85 90 92 H Respiratory Rate 16 16 21 Blood Pressure 115/61 104/53 L Pulse Oximetry 92 L 89 L 05/09/18 18:00 05/09/18 19:00 05/09/18 19:25 Temperature Pulse Rate 88 104 H 122 H Respiratory Rate 18 19 16 Blood Pressure 130/58 L 126/77 Pulse Oximetry 95 90 L 100 05/09/18 19:40 05/09/18 20:00 05/09/18 21:00 Temperature 97.6 F Pulse Rate 111 H 98 H Respiratory Rate 18 24 Blood Pressure 117/68 124/73 Pulse Oximetry 94 L 97 96 05/09/18 22:00 05/09/18 23:00 05/10/18 00:00 Temperature 98 F Pulse Rate 86 86 82 Respiratory Rate 26 H 21 20 Blood Pressure 111/67 118/70 118/84 Pulse Oximetry 96 96 97 05/10/18 01:00 05/10/18 02:00 05/10/18 03:00 Temperature Pulse Rate 86 84 Respiratory Rate 22 17 Blood Pressure 116/62 Pulse Oximetry 93 L 92 L 93 L 05/10/18 04:00 05/10/18 05:00 05/10/18 06:00 Temperature 98 F Pulse Rate 88 96 H Respiratory Rate 21 18 Blood Pressure 119/68 118/61 Pulse Oximetry 92 L 94 L 97 05/10/18 07:42 05/10/18 07:54 Temperature Pulse Rate 87 Respiratory Rate 16 Blood Pressure Pulse Oximetry 98 93 L Intake & Output 05/09/18 05/10/18 05/10/18 18:59 06:59 18:59 Intake Total 100 / 100 320 / 320 Output Total 425 / 425 320 / 320 Balance -325 / -325 0 / 0 Weight 70.4 kg Intake: IV 100 / 100 200 / 200 Lasix Inj 100 MG In NS Inj 90 100 / 100 200 / 200 ML @ 10 mls/hr IV.CONT .Q10H [facility] Rx#:[id number] Oral 120 / 120 Output: Urine 100 / 100 0 / 0 Urine Amount (Catheter) 325 / 325 320 / 320 Condom 325 / 325 320 / 320 Other: Post Void Residual 300 # Voids 1 1 # Incontinent Voids 1 1 # Urine Diapers 1 Date of Last Bowel Movement 05/07/18 05/07/18 - Urinary Catheter Management Condom Cath placed during this visit: no Results - Labs CBC & Chem 7: 05/09/18 05:30 05/10/18 04:15 Laboratory Results - last 24 hr 05/09/18 05/09/18 05/09/18 05:30 05:30 12:34 Sodium Potassium Chloride Carbon Dioxide Anion Gap BUN Creatinine Estimated GFR POC Glucose 260 H Random Glucose Calcium Vitamin D 25-Hydroxy 18.4 L PTH Intact 275.1 H 05/09/18 05/09/18 05/10/18 16:38 21:16 04:15 Sodium 140 Potassium 4.6 Chloride 109 H Carbon Dioxide 17.8 L Anion Gap 13 BUN 100 H Creatinine 6.00 H Estimated GFR 9 L POC Glucose 223 H 202 H Random Glucose 193 H Calcium 7.7 L Vitamin D 25-Hydroxy PTH Intact 05/10/18 08:00 Sodium Potassium Chloride Carbon Dioxide Anion Gap BUN Creatinine Estimated GFR POC Glucose 226 H Random Glucose Calcium Vitamin D 25-Hydroxy PTH Intact Assessment and Plan - Assessment (1) Acute non-ST elevation myocardial infarction (NSTEMI) Code(s): I21.4 - Non-ST elevation (NSTEMI) myocardial infarction Status: Acute (2) Chronic kidney disease, stage IV (severe) Code(s): N18.4 - Chronic kidney disease, stage 4 (severe) Status: Acute (3) Anemia Code(s): D64.9 - Anemia, unspecified Status: Acute (4) Diabetes Code(s): E11.9 - Type 2 diabetes mellitus without complications Status: Acute - Plan Discharge Planning: Await palliative care consult. Worsening kidney disease, ultimately patient needs dialysis. Is refusing at this time. (3) Anemia Qualifiers: Anemia type: unspecified type Qualified Code(s): D64.9 - Anemia, unspecified
[2018-05-10] MEDS ORDERED: Albumin Human 25% Inj 100 ML IV.SIG PRN (10:21)
[2018-05-10] MEDS ORDERED: Sod Chloride 0.9% Inj 1,000 ML IV.CONT PRN (10:21)
[2018-05-10] MEDS ORDERED: Heparin 10,000 UNITS/10 ML Vial (for IV use) OTHER PRN ×2 (10:21)
[2018-05-10] MEDS ORDERED: Sod Chloride 0.9% Inj 1,000 ML OTHER PRN ×2 (10:21)
[2018-05-10] MEDS ORDERED: Gelatin 12 MM/7 MM Topical Foam TOPICAL PRN (10:21)
--- NOTE | 2018-05-10 10:24 | P.PNCA ---
Subjective Interval history: pt denies chest pain Medications and Allergies Active Medications: Active Medications Acetaminophen (Tylenol) 650 mg PO Q4H PRN PRN Reason: Temp > 100.4 Al Hydroxide/Mg Hydroxide (Milk Of Magnluz maria Liq) 30 ml PO Q12H PRN PRN Reason: Mild Constipation Albuterol (Duoneb Neb (Prn)) 1 ampul NEB Q2HR NEB PRN PRN Reason: SHORTNESS OF BREATH/WHEEZING Last Admin: 05/09/18 03:21 Dose: 1 ampul Albuterol (Duoneb Neb (Pamela)) 1 ampul NEB Q6HR WHILE AWAKE NEB [facility] Last Admin: 05/10/18 07:40 Dose: 1 ampul Aspirin (Ecotrin) 81 mg PO DAILY [facility] Atorvastatin Calcium (Lipitor) 40 mg PO HS [facility] Last Admin: 05/09/18 20:04 Dose: 40 mg Calcium Acetate (Phoslo) 667 mg PO TID [facility] Last Admin: 05/10/18 09:09 Dose: 667 mg Dextrose (D50w Vial) 50 ml IV.PUSH UNSCH PRN PRN Reason: PER HYPOGLYCEMIA PROTOCOL Glucagon (Glucagon Inj) 1 mg OTHER PRN PRN PRN Reason: for Hypoglycemia Protocol Furosemide 100 mg/ Sodium (Chloride) 100 mls @ 10 mls/hr IV.CONT .Q10H [facility] Last Admin: 05/10/18 06:30 Dose: 10 mls/hr Insulin Aspart (Novolog Insulin Correctional Sugar Inj) 0 unit SQ ACHS [facility]; Protocol Last Admin: 05/10/18 08:00 Dose: 3 unit Isosorbide Mononitrate (Imdur) 30 mg PO DAILY [facility] Last Admin: 05/10/18 09:08 Dose: 30 mg Levothyroxine Sodium (Synthroid) 100 mcg PO DAILY@0600 [facility] Last Admin: 05/10/18 06:05 Dose: 100 mcg Methylprednisolone Sodium Succinate (Solumedrol Inj) 40 mg IV.PUSH Q6HR [facility] Last Admin: 05/10/18 06:05 Dose: 40 mg Metoprolol Tartrate (Lopressor) 50 mg PO BID [facility] Last Admin: 05/10/18 09:08 Dose: 50 mg Nifedipine (Procardia Xl) 60 mg PO BID [facility] Last Admin: 05/10/18 09:08 Dose: 60 mg Ondansetron HCl (Zofran Inj) 4 mg IV.PUSH Q6H PRN PRN Reason: NAUSEA OR VOMITING Paricalcitol (Zemplar) 1 mcg PO DAILY [facility] Last Admin: 05/10/18 09:09 Dose: 1 mcg Sodium Chloride (Ns Flush) 2 ml IV.FLUSH PRN PRN PRN Reason: FLUSH AFTER USING IV ACCESS Tamsulosin HCl (Flomax) 0.4 mg PO DAILY [facility] Last Admin: 05/10/18 09:08 Dose: 0.4 mg Vitamin B Complex/Vit C/Folic Acid (Nephrocaps) 1 tab PO DAILY [facility] Last Admin: 05/10/18 09:08 Dose: 1 tab Allergies Allergy/AdvReac Type Severity Reaction Status Date / Time codeine AdvReac Severe NAUSEA Verified 05/07/18 13:06 Home Medications Medication Instructions Recorded Confirmed Type gabapentin 600 mg PO BID 03/17/18 05/07/18 History rosuvastatin [Crestor] 20 mg PO HS 03/28/18 05/07/18 History tamsulosin 0.4 mg PO DAILY 05/07/18 05/07/18 History vitamins A,C,D-gbob-wrnrff 1 tab PO BID 05/07/18 05/07/18 History [PreserVision AREDS] Physical Exam Vital signs: Vital Signs 05/09/18 11:00 05/09/18 12:00 05/09/18 13:00 Temperature Pulse Rate 78 78 78 Respiratory Rate 15 12 20 Blood Pressure 114/65 125/62 106/75 Pulse Oximetry 93 L 92 L 93 L 05/09/18 14:00 05/09/18 14:15 05/09/18 14:25 Temperature Pulse Rate 84 88 85 Respiratory Rate 19 22 16 Blood Pressure 118/65 109/59 L Pulse Oximetry 94 L 92 L 05/09/18 16:00 05/09/18 17:00 05/09/18 18:00 Temperature 97.6 F Pulse Rate 90 92 H 88 Respiratory Rate 16 21 18 Blood Pressure 115/61 104/53 L 130/58 L Pulse Oximetry 92 L 89 L 95 05/09/18 19:00 05/09/18 19:25 05/09/18 19:40 Temperature Pulse Rate 104 H 122 H Respiratory Rate 19 16 Blood Pressure 126/77 Pulse Oximetry 90 L 100 94 L 05/09/18 20:00 05/09/18 21:00 05/09/18 22:00 Temperature 97.6 F Pulse Rate 111 H 98 H 86 Respiratory Rate 18 24 26 H Blood Pressure 117/68 124/73 111/67 Pulse Oximetry 97 96 96 05/09/18 23:00 05/10/18 00:00 05/10/18 01:00 Temperature 98 F Pulse Rate 86 82 86 Respiratory Rate 21 20 22 Blood Pressure 118/70 118/84 116/62 Pulse Oximetry 96 97 93 L 05/10/18 02:00 05/10/18 03:00 05/10/18 04:00 Temperature 98 F Pulse Rate 84 88 Respiratory Rate 17 21 Blood Pressure 119/68 Pulse Oximetry 92 L 93 L 92 L 05/10/18 05:00 05/10/18 06:00 05/10/18 07:42 Temperature Pulse Rate 96 H 87 Respiratory Rate 18 16 Blood Pressure 118/61 Pulse Oximetry 94 L 97 98 05/10/18 07:54 Temperature Pulse Rate Respiratory Rate Blood Pressure Pulse Oximetry 93 L Intake & Output 05/09/18 05/10/18 05/10/18 18:59 06:59 18:59 Intake Total 100 / 100 320 / 320 Output Total 425 / 425 320 / 320 Balance -325 / -325 0 / 0 Weight 70.4 kg Intake: IV 100 / 100 200 / 200 Lasix Inj 100 MG In NS Inj 90 100 / 100 200 / 200 ML @ 10 mls/hr IV.CONT .Q10H [facility] Rx#:[id number] Oral 120 / 120 Output: Urine 100 / 100 0 / 0 Urine Amount (Catheter) 325 / 325 320 / 320 Condom 325 / 325 320 / 320 Other: Post Void Residual 300 # Voids 1 1 # Incontinent Voids 1 1 # Urine Diapers 1 Date of Last Bowel Movement 05/07/18 05/07/18 - Constitutional no acute distress - Routine HEENT Exam Head: Present: normocephalic, atraumatic Eye: Present: PERRL - Routine Respiratory Exam Present: CTA bilaterally - Routine Cardiovascular Exam Present: S1, S2, murmur - Routine Abdominal Exam Present: soft, firm - Detailed Neurological Exam: Coma Scale Verbal Response: Oriented - Urinary Catheter Management Condom Cath placed during this visit: no Results 05/09/18 05:30 05/10/18 04:15 CBC 05/08/18 05/09/18 Range/Units 07:05 05:30 WBC 8.7 10.3 (4.0-11.0) th/mm3 RBC 2.88 L 2.72 L (4.50-5.90) mil/mm3 Hgb 8.6 L 8.2 L (13.0-17.0) gm/dL Hct 26.7 L 25.0 L (39.0-51.0) % Plt Count 229 215 (150-450) th/mm3 Neut # (Auto) 7.6 10.0 H (1.8-7.7) th/mm3 Lymph # (Auto) 0.7 L 0.3 L (1.0-4.8) th/mm3 Coleman # (Auto) 0.3 0.0 (0.0-0.9) th/mm3 Eos # (Auto) 0.0 0.0 (0.0-0.4) th/mm3 Baso # (Auto) 0.1 0.0 (0.0-0.2) th/mm3 Comprehensive Metabolic Panel 05/08/18 05/09/18 05/10/18 Range/Units 07:05 05:30 04:15 Sodium 143 143 140 (136-145) meq/L Potassium 4.6 4.3 4.6 (3.5-5.1) meq/L Chloride 113 H 112 H 109 H (98-107) meq/L Carbon Dioxide 18.9 L 17.3 L 17.8 L (21.0-32.0) meq/L BUN 78 H 85 H 100 H (7-18) mg/dL Creatinine 4.80 H 5.40 H 6.00 H (0.60-1.30) mg/dL Calcium 7.9 L 7.6 L 7.7 L (8.5-10.1) mg/dL Intake and Output 05/09/18 05/10/18 05/10/18 22:59 06:59 14:59 Intake Total 100 / 100 220 / 220 Output Total 275 / 275 320 / 320 Balance -175 / -175 -100 / -100 Intake: IV 100 / 100 100 / 100 Lasix Inj 100 MG In NS Inj 90 100 / 100 100 / 100 ML @ 10 mls/hr IV.CONT .Q10H [facility] Rx#:[id number] Oral 120 / 120 Output: Urine 0 / 0 0 / 0 Urine Amount (Catheter) 275 / 275 320 / 320 Condom 275 / 275 320 / 320 Other: Post Void Residual 300 # Voids 1 1 # Incontinent Voids 1 1 # Urine Diapers 1 Date of Last Bowel Movement 05/07/18 05/07/18 Weight 70.4 kg - Imaging and Cardiology Imaging: Impressions Chest X-Ray 05/08/18 00:00 CONCLUSION: 1. Cardiomegaly with pulmonary vascular congestion. 2. Stable [id number] left pleural effusion with associated left lower lobe airspace disease. 3. Stable mild patchy right lower lobe airspace disease, presumably atelectasis. Assessment and Plan - Plan CONSERVATIVE MANAGEMENT. start ASA. continue BB. Warfarin on hold due to anemia. CHF is improving. HD today by renal. I will follow
--- NOTE | 2018-05-10 10:31 | P.PNPAL ---
Reason for Visit Reason for visit: a. To assist with evaluation and management of symptoms including: dyspnea, weakness b. To assist medical decision maker(s) with: better understanding of current medical conditions; weighing benefits/burdens of medical treatment options; making medical treatment decisions. Subjective Subjective/Interval History: Follow-up visit for symptom management and clarification of medical treatment goals. Patient presents sitting upright in his recliner waiting for breakfast. He is alert and oriented to person place and time. He endorses mild to moderate shortness of breath at rest. Oxygen saturations in the low 90s on 4-6 L via nasal cannula. Patient has decided to proceed with hemodialysis, verbalizing aggressive goals at this time. Clinical data: * Sodium: 140, potassium 4.6, chloride 109, carbon dioxide 17.8, glucose 193, calcium 7.7 * BUN: 100, creatinine 6.00, GFR 9 * PT: 12.2, INR 1.2, APTT 29.2 Spoke to patient's niece (Rose) who should be arriving in [place] this evening. She has Palliative care's contact information. possibly meeting tomorrow 05/11/18 Advance Directives Advance Directives Date on File: 05/08/18 Health Care Surrogate Name and Number: Rose Ramirez (niece) [phone] Documented care wishes:: Living will form and 5 wishes left at patient's bedside per patient's request Objective Vital Signs: Vital Signs 05/09/18 11:00 05/09/18 12:00 05/09/18 13:00 Temperature Pulse Rate 78 78 78 Respiratory Rate 15 12 20 Blood Pressure 114/65 125/62 106/75 Pulse Oximetry 93 L 92 L 93 L 05/09/18 14:00 05/09/18 14:15 05/09/18 14:25 Temperature Pulse Rate 84 88 85 Respiratory Rate 19 22 16 Blood Pressure 118/65 109/59 L Pulse Oximetry 94 L 92 L 05/09/18 16:00 05/09/18 17:00 05/09/18 18:00 Temperature 97.6 F Pulse Rate 90 92 H 88 Respiratory Rate 16 21 18 Blood Pressure 115/61 104/53 L 130/58 L Pulse Oximetry 92 L 89 L 95 05/09/18 19:00 05/09/18 19:25 05/09/18 19:40 Temperature Pulse Rate 104 H 122 H Respiratory Rate 19 16 Blood Pressure 126/77 Pulse Oximetry 90 L 100 94 L 05/09/18 20:00 05/09/18 21:00 05/09/18 22:00 Temperature 97.6 F Pulse Rate 111 H 98 H 86 Respiratory Rate 18 24 26 H Blood Pressure 117/68 124/73 111/67 Pulse Oximetry 97 96 96 05/09/18 23:00 05/10/18 00:00 05/10/18 01:00 Temperature 98 F Pulse Rate 86 82 86 Respiratory Rate 21 20 22 Blood Pressure 118/70 118/84 116/62 Pulse Oximetry 96 97 93 L 05/10/18 02:00 05/10/18 03:00 05/10/18 04:00 Temperature 98 F Pulse Rate 84 88 Respiratory Rate 17 21 Blood Pressure 119/68 Pulse Oximetry 92 L 93 L 92 L 05/10/18 05:00 05/10/18 06:00 05/10/18 07:42 Temperature Pulse Rate 96 H 87 Respiratory Rate 18 16 Blood Pressure 118/61 Pulse Oximetry 94 L 97 98 05/10/18 07:54 Temperature Pulse Rate Respiratory Rate Blood Pressure Pulse Oximetry 93 L Intake & Output 05/09/18 05/10/18 05/10/18 18:59 06:59 18:59 Intake Total 100 / 100 320 / 320 Output Total 425 / 425 320 / 320 Balance -325 / -325 0 / 0 Weight 70.4 kg Intake: IV 100 / 100 200 / 200 Lasix Inj 100 MG In NS Inj 90 100 / 100 200 / 200 ML @ 10 mls/hr IV.CONT .Q10H [facility] Rx#:[id number] Oral 120 / 120 Output: Urine 100 / 100 0 / 0 Urine Amount (Catheter) 325 / 325 320 / 320 Condom 325 / 325 320 / 320 Other: Post Void Residual 300 # Voids 1 1 # Incontinent Voids 1 1 # Urine Diapers 1 Date of Last Bowel Movement 05/07/18 05/07/18 Physical Exam: CONSTITUTIONAL/GENERAL: This is a frail, elderly male patient in no acute ditress TUBES/LINES/DRAINS: PIV, NC, Condom catheter SKIN: No jaundice, rashes, or lesions. Ecchymoses on left side of his face. Skin temperature appropriate. Not diaphoretic. HEAD: Atraumatic. Normocephalic. EYES: Pupils equal and round and reactive. Extraocular motions intact. No scleral icterus. No injection or drainage. Fundi not examined. ENT: Hearing grossly normal. Nose without bleeding or purulent drainage. Throat without visible erythema, exudates, masses, or lesions. NECK: Trachea midline. Supple, nontender. No palpable thyroid enlargement or nodularity. CARDIOVASCULAR: Regular rate and rhythm without murmurs, gallops, or rubs. No JVD. Peripheral pulses symmetric. RESPIRATORY/CHEST: Symmetric, unlabored respirations. Clear to auscultation. No wheezes, rales, or rhonchi. GASTROINTESTINAL: Abdomen soft, non-tender, nondistended. No guarding. Bowel sounds present. GENITOURINARY: Without palpable bladder distension. Condom catheter in place. MUSCULOSKELETAL: Extremities without clubbing, cyanosis, or edema. No calf tenderness. No mottling or clubbing. LYMPHATICS: No palpable cervical or supraclavicular adenopathy. NEUROLOGICAL: Awake and alert. Lethargic. Follows commands. Cognitively sharp. Moves all extremities. PSYCHIATRIC: No obvious anxiety/depression. No apparent hallucinations or other psychotic thought process. Diagnostic Tests Laboratory: Laboratory Results - last 72 hr 05/07/18 05/07/18 05/07/18 13:10 13:10 19:30 CBC w Diff Auto diff final WBC 9.6 RBC 2.43 L Hgb 7.4 L Hct 21.9 L MCV 90.1 MCH 30.3 MCHC 33.6 RDW 17.8 H Plt Count 219 MPV 9.1 Neut % (Auto) 74.3 H Lymph % (Auto) 16.5 [place] % (Auto) 8.4 H Eos % (Auto) 0.5 Baso % (Auto) 0.3 Neut # (Auto) 7.2 Lymph # (Auto) 1.6 [place] # (Auto) 0.8 Eos # (Auto) 0.0 Baso # (Auto) 0.0 WBC Differential . Differential Comment . Sodium 143 Potassium 4.3 Chloride 112 H Carbon Dioxide 20.3 L Anion Gap 11 BUN 71 H Creatinine 4.20 H Estimated GFR 13 L POC Glucose Random Glucose 140 H Calcium 7.6 L Phosphorus Total Creatine Kinase 178 Troponin I 1.92 H* 1.40 H* Triglycerides Cholesterol LDL Cholesterol, Calc HDL Cholesterol Cholesterol/HDL Ratio Vitamin D 25-Hydroxy PTH Intact Blood Type Antibody Screen MTS Gel Crossmatch Bld Prod Order Comment 05/07/18 05/08/18 05/08/18 20:15 07:05 07:05 CBC w Diff Auto diff final WBC 8.7 RBC 2.88 L Hgb 8.6 L Hct 26.7 L MCV 92.5 MCH 29.7 MCHC 32.1 RDW 16.5 Plt Count 229 MPV 9.1 Neut % (Auto) 86.8 H Lymph % (Auto) 8.6 L [place] % (Auto) 4.0 Eos % (Auto) 0.0 Baso % (Auto) 0.6 Neut # (Auto) 7.6 Lymph # (Auto) 0.7 L [place] # (Auto) 0.3 Eos # (Auto) 0.0 Baso # (Auto) 0.1 WBC Differential . Differential Comment . Sodium Potassium Chloride Carbon Dioxide Anion Gap BUN Creatinine Estimated GFR POC Glucose Random Glucose Calcium Phosphorus Total Creatine Kinase Troponin I Triglycerides 102 Cholesterol 85 L LDL Cholesterol, Calc 27 HDL Cholesterol 37.2 L Cholesterol/HDL Ratio 2.28 Vitamin D 25-Hydroxy PTH Intact Blood Type A Positive Antibody Screen Negative MTS Gel Crossmatch See Detail Bld Prod Order Comment 05/08/18 05/08/18 05/08/18 07:05 07:47 12:30 CBC w Diff WBC RBC Hgb Hct MCV MCH MCHC RDW Plt Count MPV Neut % (Auto) Lymph % (Auto) [place] % (Auto) Eos % (Auto) Baso % (Auto) Neut # (Auto) Lymph # (Auto) [place] # (Auto) Eos # (Auto) Baso # (Auto) WBC Differential Differential Comment Sodium 143 Potassium 4.6 Chloride 113 H Carbon Dioxide 18.9 L Anion Gap 11 BUN 78 H Creatinine 4.80 H Estimated GFR 12 L POC Glucose 209 H 168 H Random Glucose 185 H Calcium 7.9 L Phosphorus Total Creatine Kinase Troponin I Triglycerides Cholesterol LDL Cholesterol, Calc HDL Cholesterol Cholesterol/HDL Ratio Vitamin D 25-Hydroxy PTH Intact Blood Type Antibody Screen MTS Gel Crossmatch Bld Prod Order Comment 05/08/18 05/08/18 05/09/18 16:36 21:12 05:30 CBC w Diff Auto diff final WBC 10.3 RBC 2.72 L Hgb 8.2 L Hct 25.0 L MCV 92.0 MCH 30.1 MCHC 32.7 RDW 17.7 H Plt Count 215 MPV 9.0 Neut % (Auto) 96.9 H Lymph % (Auto) 2.5 L [place] % (Auto) 0.4 Eos % (Auto) 0.1 Baso % (Auto) 0.1 Neut # (Auto) 10.0 H Lymph # (Auto) 0.3 L [place] # (Auto) 0.0 Eos # (Auto) 0.0 Baso # (Auto) 0.0 WBC Differential . Differential Comment . Sodium Potassium Chloride Carbon Dioxide Anion Gap BUN Creatinine Estimated GFR POC Glucose 249 H 171 H Random Glucose Calcium Phosphorus Total Creatine Kinase Troponin I Triglycerides Cholesterol LDL Cholesterol, Calc HDL Cholesterol Cholesterol/HDL Ratio Vitamin D 25-Hydroxy PTH Intact Blood Type Antibody Screen [facility] Gel Crossmatch Bld Prod Order Comment 05/09/18 05/09/18 05/09/18 05:30 05:30 05:30 CBC w Diff WBC RBC Hgb Hct MCV MCH MCHC RDW Plt Count MPV Neut % (Auto) Lymph % (Auto) [place] % (Auto) Eos % (Auto) Baso % (Auto) Neut # (Auto) Lymph # (Auto) [place] # (Auto) Eos # (Auto) Baso # (Auto) WBC Differential Differential Comment Sodium 143 Potassium 4.3 Chloride 112 H Carbon Dioxide 17.3 L Anion Gap 14 BUN 85 H Creatinine 5.40 H Estimated GFR 10 L POC Glucose Random Glucose 195 H Calcium 7.6 L Phosphorus 5.8 H Total Creatine Kinase Troponin I Triglycerides Cholesterol LDL Cholesterol, Calc HDL Cholesterol Cholesterol/HDL Ratio Vitamin D 25-Hydroxy 18.4 L PTH Intact 275.1 H Blood Type Antibody Screen MTS Gel Crossmatch Bld Prod Order Comment 05/09/18 05/09/18 05/09/18 08:05 12:34 16:38 CBC w Diff WBC RBC Hgb Hct MCV MCH MCHC RDW Plt Count MPV Neut % (Auto) Lymph % (Auto) [place] % (Auto) Eos % (Auto) Baso % (Auto) Neut # (Auto) Lymph # (Auto) [place] # (Auto) Eos # (Auto) Baso # (Auto) WBC Differential Differential Comment Sodium Potassium Chloride Carbon Dioxide Anion Gap BUN Creatinine Estimated GFR POC Glucose 226 H 260 H 223 H Random Glucose Calcium Phosphorus Total Creatine Kinase Troponin I Triglycerides Cholesterol LDL Cholesterol, Calc HDL Cholesterol Cholesterol/HDL Ratio Vitamin D 25-Hydroxy PTH Intact Blood Type Antibody Screen [facility] Gel Crossmatch Bld Prod Order Comment 05/09/18 05/10/18 05/10/18 21:16 04:15 08:00 CBC w Diff WBC RBC Hgb Hct MCV MCH MCHC RDW Plt Count MPV Neut % (Auto) Lymph % (Auto) [place] % (Auto) Eos % (Auto) Baso % (Auto) Neut # (Auto) Lymph # (Auto) [place] # (Auto) Eos # (Auto) Baso # (Auto) WBC Differential Differential Comment Sodium 140 Potassium 4.6 Chloride 109 H Carbon Dioxide 17.8 L Anion Gap 13 BUN 100 H Creatinine 6.00 H Estimated GFR 9 L POC Glucose 202 H 226 H Random Glucose 193 H Calcium 7.7 L Phosphorus Total Creatine Kinase Troponin I Triglycerides Cholesterol LDL Cholesterol, Calc HDL Cholesterol Cholesterol/HDL Ratio Vitamin D 25-Hydroxy PTH Intact Blood Type Antibody Screen MTS Gel Crossmatch Bld Prod Order Comment Result Diagrams: 05/09/18 05:30 05/10/18 04:15 Assessment and Plan Pertinent Non-Medical Issues: Psychosocial: Patient is originally from [place]. His highest level of education was high school. He moved to [place] in 1998. He was for approximately 48 years. His in 1999, and he has been single since that time. He had 2 sons (Thony and Rayray), both . His younger son secondary to MVA in February,. He lives alone but has a private caregiver at his home almost daily. Spiritual: Episcopal alena Legal: Healthcare surrogate designation form was completed 05/08/2018. Patient' s niece (Rose Ramirez) is the primary healthcare surrogate decision maker. His nephew (Lino España) is the alternate healthcare surrogate decision-maker Ethical issues impacting care: No known ethical issues impacting care at this time Important Contacts: daniele Shiece: [phone] Lino España, nephew: [phone] Prognosis: Patient is an 87-year-old with a complex medical history who has had a recent decline in functional status. Now with end-stage renal disease, uncertain if he wishes to proceed with hemodialysis. If the patient decides to refuse hemodialysis, hospice would not be an appropriate option at that time. Code Status: No Code DNR Plan: * NO CODE * Discussed the process of cardiopulmonary resuscitation with the patient in detail. Patient states in the event of cardiac or respiratory arrest, he does not want aggressive interventions but would prefer to be allowed to pass peacefully and naturally putting it in "God's hands." This is consistent with conversations the patient has had previously with Candy Reis APRN. * Healthcare surrogate designation form was completed 05/08/2018. Patient's niece (Rose Ramirez) is the primary healthcare surrogate decision maker. His nephew (Lino España) is the alternate healthcare surrogate decision-maker * Spoke to patient's niece (Rose) who should be arriving in [place] this evening. She has Palliative care's contact information. possibly meeting tomorrow 05/11/18 * Discussed patient with Candy Reis APRN and RN * Discussed risks versus benefits of HD in patient's with ESRD as well as over all prognosis without dialysis. Patient reluctantly states he plans to move forward with HD. * Symptom management: Weakness: Patient lives alone and relatively independent with his ADLs. He has a caregiver that comes in every day to see him. He reports increasing weakness and fatigue. Decreased mobilty with recent fall. Physical therapy was consulted. If goals remain aggressive, patient would benefit from SNF placement at discharge for rehabilitation. Dyspnea: Patient reporting shortness of breath with minimal exertion. Patient requiring 4L supplemental oxygen via nasal cannula. A repeat x-ray has been ordered and reviewed showing congestion. Previous x-ray showing pleural effusions with stable infiltrates. On Lasix gtt. * Palliative care will continue to follow this patient throughout his hospitalization to establish trust, assist with symptom management and clarification of medical treatment goals.
--- NOTE | 2018-05-10 10:44 | P.PNIM ---
Subjective Interval history: Follow-up worsening kidney disease. Patient seen and examined, sitting up in chair comfortably no apparent distress, continue on 5 L nasal cannula. Patient has decided on undergoing dialysis treatment. Nephrology has been called and Vas-Cath placement has been arranged, dialysis will be started tomorrow. Patient denies any chest pain. Does complain of dry cough. Vital signs stable. Physical Exam Vital signs: Vital Signs 05/09/18 11:00 05/09/18 12:00 05/09/18 13:00 Temperature Pulse Rate 78 78 78 Respiratory Rate 15 12 20 Blood Pressure 114/65 125/62 106/75 Pulse Oximetry 93 L 92 L 93 L 05/09/18 14:00 05/09/18 14:15 05/09/18 14:25 Temperature Pulse Rate 84 88 85 Respiratory Rate 19 22 16 Blood Pressure 118/65 109/59 L Pulse Oximetry 94 L 92 L 05/09/18 16:00 05/09/18 17:00 05/09/18 18:00 Temperature 97.6 F Pulse Rate 90 92 H 88 Respiratory Rate 16 21 18 Blood Pressure 115/61 104/53 L 130/58 L Pulse Oximetry 92 L 89 L 95 05/09/18 19:00 05/09/18 19:25 05/09/18 19:40 Temperature Pulse Rate 104 H 122 H Respiratory Rate 19 16 Blood Pressure 126/77 Pulse Oximetry 90 L 100 94 L 05/09/18 20:00 05/09/18 21:00 05/09/18 22:00 Temperature 97.6 F Pulse Rate 111 H 98 H 86 Respiratory Rate 18 24 26 H Blood Pressure 117/68 124/73 111/67 Pulse Oximetry 97 96 96 05/09/18 23:00 05/10/18 00:00 05/10/18 01:00 Temperature 98 F Pulse Rate 86 82 86 Respiratory Rate 21 20 22 Blood Pressure 118/70 118/84 116/62 Pulse Oximetry 96 97 93 L 05/10/18 02:00 05/10/18 03:00 05/10/18 04:00 Temperature 98 F Pulse Rate 84 88 Respiratory Rate 17 21 Blood Pressure 119/68 Pulse Oximetry 92 L 93 L 92 L 05/10/18 05:00 05/10/18 06:00 05/10/18 07:42 Temperature Pulse Rate 96 H 87 Respiratory Rate 18 16 Blood Pressure 118/61 Pulse Oximetry 94 L 97 98 05/10/18 07:54 Temperature Pulse Rate Respiratory Rate Blood Pressure Pulse Oximetry 93 L Intake & Output 05/09/18 05/10/18 05/10/18 18:59 06:59 18:59 Intake Total 100 / 100 320 / 320 Output Total 425 / 425 320 / 320 Balance -325 / -325 0 / 0 Weight 70.4 kg Intake: IV 100 / 100 200 / 200 Lasix Inj 100 MG In NS Inj 90 100 / 100 200 / 200 ML @ 10 mls/hr IV.CONT .Q10H [facility] Rx#:[id number] Oral 120 / 120 Output: Urine 100 / 100 0 / 0 Urine Amount (Catheter) 325 / 325 320 / 320 Condom 325 / 325 320 / 320 Other: Post Void Residual 300 # Voids 1 1 # Incontinent Voids 1 1 # Urine Diapers 1 Date of Last Bowel Movement 05/07/18 05/07/18 Narrative: GENERAL: Well-developed, well-nourished patient in NAD. On supplemental O2. Sitting up in chair. SKIN: Warm and dry. No rash. HEAD: Normocephalic. Atraumatic. EYES: Pupils equal and round. No scleral icterus. Left eye ecchymosis. ENT: No nasal bleeding or discharge. Mucous membranes pink and moist. NECK: Supple. Trachea midline. CARDIOVASCULAR: Regular rate and rhythm. S1-S2 noted. Grade 2/6 systolic murmur. RESPIRATORY: No accessory muscle use. Rhonchi throughout. Breath sounds equal bilaterally. GASTROINTESTINAL: Abdomen soft, non-tender, nondistended. Normoactive bowel sounds x4. MUSCULOSKELETAL: No obvious deformities. Extremities without clubbing, cyanosis , or edema. NEUROLOGICAL: Awake and alert. No obvious cranial nerve deficits. Motor grossly within normal limits. 5/5 muscle strength in bilateral upper and lower extremities. Normal speech. PSYCHIATRIC: Appropriate mood and affect; insight and judgment normal. Left upper extremity: Swollen with scattered ecchymosis. Previous DVT. - Urinary Catheter Management Condom Cath placed during this visit: no Results - Labs CBC & Chem 7: 05/09/18 05:30 05/10/18 04:15 Laboratory Results - last 24 hr 05/09/18 05/09/18 05/09/18 05:30 05:30 12:34 Sodium Potassium Chloride Carbon Dioxide Anion Gap BUN Creatinine Estimated GFR POC Glucose 260 H Random Glucose Calcium Vitamin D 25-Hydroxy 18.4 L PTH Intact 275.1 H 05/09/18 05/09/18 05/10/18 16:38 21:16 04:15 Sodium 140 Potassium 4.6 Chloride 109 H Carbon Dioxide 17.8 L Anion Gap 13 BUN 100 H Creatinine 6.00 H Estimated GFR 9 L POC Glucose 223 H 202 H Random Glucose 193 H Calcium 7.7 L Vitamin D 25-Hydroxy PTH Intact 05/10/18 08:00 Sodium Potassium Chloride Carbon Dioxide Anion Gap BUN Creatinine Estimated GFR POC Glucose 226 H Random Glucose Calcium Vitamin D 25-Hydroxy PTH Intact Assessment and Plan - Assessment (1) Acute non-ST elevation myocardial infarction (NSTEMI) Code(s): I21.4 - Non-ST elevation (NSTEMI) myocardial infarction Status: Acute (2) Chronic kidney disease, stage IV (severe) Code(s): N18.4 - Chronic kidney disease, stage 4 (severe) Status: Acute (3) Anemia Code(s): D64.9 - Anemia, unspecified Status: Acute (4) Diabetes Code(s): E11.9 - Type 2 diabetes mellitus without complications Status: Acute - Plan This is an 87-year-old with: Non-ST elevation myocardial infarction History of CAD with previous TX and CABG 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 Denies any chest pain. -Patient's rnfa Dr. Dmuont has been consulted and has seen patient. Conservative measures recommended for now. Keep H&H above 10 per cards recommendations. -Continue beta-becca. Recommendations are to hold anticoagulates secondary to GI bleed. -Continue on cardiac telemetry, monitor for any arrhythmias. No arrhythmias overnight. Continue to monitor BP trends. -Supportive care. Systolic heart failure in exacerbation Acute hypoxia suspect secondary to above History of severe cardiomyopathy with EF 20% -Patient has been placed on supplemental O2 of 5LNC. A repeat x-ray has been ordered and reviewed showing congestion. Previous x-ray showing pleural effusions with stable infiltrates. -Continue Lasix gtt. Monitor intake and output. Minimal response to Lasix drip. -Cardiology following. Fall at home -Patient states he asleep in his wheelchair and slipped out onto his face and left arm. Denies any LOC. Did hit his head with resultant left eye ecchymosis. -Head CT on presentation negative. -PT evaluation ordered, and input recommendations appreciated. -Monitor closely. Acute on chronic kidney disease, worsening. -Creatinine 4.2/GFR 12 on presentation. Worsening today, creatinin 6.0. -Nephrology consulted and has seen patient, started on Lasix drip. Worsening despite Lasix drip. -A palliative care consult has been placed to further discuss goals. Appreciate input and recommendations. -US has been ordered and reviewed showing echogenic kidneys consistent with medical renal disease. No obstructive uropathy. -Avoid nephrotoxins. -Follow BMP. -Patient is agreeable to recommendations for dialysis. Industrial Tech Instructor has been updated and arrangements have been made for patient to undergo a vas cath today and start dialysis tomorrow. Type 2 diabetes mellitus, chronic -ACCU check ACHS, sliding scale, cover as needed. Monitor blood sugar trends. Recent history of left upper arm DVT -Recently placed on Xarelto at home. Per cardiology recommendations, will hold anticoagulation for now. Encourage elevation. Hyperlipidemia, chronic: Continue home statin. DVT Prophylaxis: SCDs. Chemical prophylaxis held per cardiology recommendations. DNR. Discharge Planning: Initiation of dialysis. Await clinical improvement, still on 5LNC. (3) Anemia Qualifiers: Anemia type: unspecified type Qualified Code(s): D64.9 - Anemia, unspecified
--- NOTE | 2018-05-10 11:38 | P.PNNP ---
Subjective Interval history: Patient is alert, lying on the bed, has mild SOB, with nasal cannula. Physical Exam Vital signs: Vital Signs 05/09/18 12:00 05/09/18 13:00 05/09/18 14:00 Temperature Pulse Rate 78 78 84 Respiratory Rate 12 20 19 Blood Pressure 125/62 106/75 118/65 Pulse Oximetry 92 L 93 L 94 L 05/09/18 14:15 05/09/18 14:25 05/09/18 16:00 Temperature 97.6 F Pulse Rate 88 85 90 Respiratory Rate 22 16 16 Blood Pressure 109/59 L 115/61 Pulse Oximetry 92 L 92 L 05/09/18 17:00 05/09/18 18:00 05/09/18 19:00 Temperature Pulse Rate 92 H 88 104 H Respiratory Rate 21 18 19 Blood Pressure 104/53 L 130/58 L 126/77 Pulse Oximetry 89 L 95 90 L 05/09/18 19:25 05/09/18 19:40 05/09/18 20:00 Temperature 97.6 F Pulse Rate 122 H 111 H Respiratory Rate 16 18 Blood Pressure 117/68 Pulse Oximetry 100 94 L 97 05/09/18 21:00 05/09/18 22:00 05/09/18 23:00 Temperature Pulse Rate 98 H 86 86 Respiratory Rate 24 26 H 21 Blood Pressure 124/73 111/67 118/70 Pulse Oximetry 96 96 96 05/10/18 00:00 05/10/18 01:00 05/10/18 02:00 Temperature 98 F Pulse Rate 82 86 84 Respiratory Rate 20 22 17 Blood Pressure 118/84 116/62 Pulse Oximetry 97 93 L 92 L 05/10/18 03:00 05/10/18 04:00 05/10/18 05:00 Temperature 98 F Pulse Rate 88 Respiratory Rate 21 Blood Pressure 119/68 Pulse Oximetry 93 L 92 L 94 L 05/10/18 06:00 05/10/18 07:42 05/10/18 07:54 Temperature Pulse Rate 96 H 87 Respiratory Rate 18 16 Blood Pressure 118/61 Pulse Oximetry 97 98 93 L Intake & Output 05/09/18 05/10/18 05/10/18 18:59 06:59 18:59 Intake Total 100 / 100 560 / 560 Output Total 425 / 425 320 / 320 Balance -325 / -325 240 / 240 Weight 70.4 kg Intake: IV 100 / 100 200 / 200 Lasix Inj 100 MG In NS Inj 90 100 / 100 200 / 200 ML @ 10 mls/hr IV.CONT .Q10H [facility] Rx#:[id number] Oral 360 / 360 Output: Urine 100 / 100 0 / 0 Urine Amount (Catheter) 325 / 325 320 / 320 Condom 325 / 325 320 / 320 Other: Post Void Residual 300 # Voids 1 1 # Incontinent Voids 1 1 # Urine Diapers 1 Date of Last Bowel Movement 05/07/18 05/07/18 Narrative: GENERAL: Well-developed, in mild distress. On supplemental O2. SKIN: Warm and dry. No rash. Left upper ext swelling, previous DVT. Right vas cath in place. HEAD: Normocephalic. Atraumatic. EYES: Pupils equal and round. No scleral icterus. Left eye ecchymosis. ENT: No nasal bleeding or discharge. Mucous membranes pink and moist. NECK: Supple. Trachea midline. CARDIOVASCULAR: Regular rate and rhythm. S1-S2 noted. Grade 2/6 systolic murmur. RESPIRATORY: No accessory muscle use. Rhonchi throughout. Breath sounds equal bilaterally. GASTROINTESTINAL: Abdomen soft, non-tender, nondistended. Normoactive bowel sounds x4. MUSCULOSKELETAL: No obvious deformities. Extremities without clubbing, cyanosis , or edema. NEUROLOGICAL: Awake and alert. No obvious cranial nerve deficits. Motor grossly within normal limits. 5/5 muscle strength in bilateral upper and lower extremities. Normal speech. PSYCHIATRIC: Appropriate mood and affect; insight and judgment normal. Left upper extremity: Swollen with scattered ecchymosis. Previous DVT. - Urinary Catheter Management Condom Cath placed during this visit: no Assessment and Plan - Assessment (1) Acute renal failure Code(s): N17.9 - Acute kidney failure, unspecified Status: Acute (2) Diabetes Code(s): E11.9 - Type 2 diabetes mellitus without complications Status: Acute (3) Acute non-ST elevation myocardial infarction (NSTEMI) Code(s): I21.4 - Non-ST elevation (NSTEMI) myocardial infarction Status: Acute (4) CKD (chronic kidney disease) Code(s): N18.9 - Chronic kidney disease, unspecified Status: Acute Qualifiers: Chronic kidney disease stage: unspecified stage Qualified Code(s): N18.9 - Chronic kidney disease, unspecified - Plan Patient has advance renal disease and approach end-stage renal disease. Discussed with him about Dialysis, Now he agreed to proceed with it and want to see if it help his breathing. He will need Vascath or PermCath and then will start him on HD possibly today or tomorrow. BUN and Creatinine very high. He is not sure about nursing home Dialysis.
[2018-05-10 11:42] LABS: Activated Partial Thrombo Time 29.2 sec (24.3-30.1); INR 1.2 Ratio; Prothrombin Time 12.2 sec (9.8-11.6)
[2018-05-10 16:16] LABS: Hepatitis A IgM Antibody Nonreactive (Nonreactive); Hepatitits B Surface Antigen Nonreactive (Nonreactive)
[2018-05-10] MEDS ORDERED: Aluminum/Magnesium/Simethacone Susp 30 ML UDC PO PRN (17:10)
[2018-05-10] MEDS: Pantoprazole Sodium 20 MG DR Tablet PO SCH (17:40)
[2018-05-10 22:01] LABS: Potassium 4.4 meq/L (3.5-5.1)
[2018-05-10 22:03] LABS: Calcium 7.7 mg/dL (8.5-10.1)
[2018-05-10 22:04] LABS: Carbon Dioxide 17.3 meq/L (21.0-32.0)
[2018-05-11] MEDS ORDERED: Benzonatate 100 MG Capsule PO PRN (01:29)
[2018-05-11] MEDS: Furosemide Inj 100 MG in Sodium Chlor 0.9% Inj 90 ML IV.CONT SCH (04:12)
[2018-05-11 04:57] LABS: Potassium 4.7 meq/L (3.5-5.1)
[2018-05-11 05:00] LABS: Calcium 7.7 mg/dL (8.5-10.1); Carbon Dioxide 17.9 meq/L (21.0-32.0)
[2018-05-11] MEDS: Levothyroxine 100 MCG Tablet PO SCH (05:41)
[2018-05-11] MEDS: MethylPREDNISolone Sod Succinate Inj 40 MG/ML Vial IV.PUSH SCH (05:41)
[2018-05-11] MEDS ORDERED: ceFAZolin 2 GM IV; once IV.SIG PRN (06:45)
[2018-05-11] MEDS ORDERED: Vancomycin Inj 1,000 MG in Sodium Chlor 0.9% Inj 250 ML IV.SIG PRN (06:46)
[2018-05-11] MEDS ORDERED: Heparin 10,000 UNITS/10 ML Vial (for IV use) OTHER ONE (08:30)
--- NOTE | 2018-05-11 09:28 | P.PNIM ---
Subjective Interval history: Follow up worsening renal function, elevated trops. Patient seen and examined, lying in bed comfortably no apparent distress. Reports of several runs of V. tach overnight. Patient underwent Vas-Cath placement last evening, dialysis in place this morning. Patient denies any shortness of breath, chest pain. He has been eating well without any nausea, abdominal pain or vomiting. Vital signs stable at this time. We will continue on cardiac telemetry. Physical Exam Vital signs: Vital Signs 05/10/18 11:00 05/10/18 12:00 05/10/18 13:20 Temperature 97.6 F Pulse Rate 80 82 86 Respiratory Rate 15 11 L 24 Blood Pressure 111/55 L 117/60 Pulse Oximetry 93 L 93 L 05/10/18 16:00 05/10/18 18:00 05/10/18 19:00 Temperature 98.0 F 98.0 F Pulse Rate 90 92 H 90 Respiratory Rate 20 14 14 Blood Pressure 122/62 122/62 119/67 Pulse Oximetry 91 L 95 93 L 05/10/18 19:15 05/10/18 20:00 05/10/18 21:55 Temperature Pulse Rate 91 H 98 H 133 H Respiratory Rate 22 18 23 Blood Pressure 107/78 Pulse Oximetry 94 L 94 L 97 05/10/18 22:00 05/10/18 23:00 05/11/18 00:00 Temperature 97 F L Pulse Rate 116 H 102 H 94 H Respiratory Rate 14 15 13 Blood Pressure 122/64 118/67 104/65 Pulse Oximetry 98 97 96 05/11/18 04:00 05/11/18 06:00 05/11/18 07:24 Temperature 98 F Pulse Rate 94 H 98 H 99 H Respiratory Rate 16 22 22 Blood Pressure 103/66 113/65 Pulse Oximetry 93 L 98 96 Intake & Output 05/10/18 05/11/18 05/11/18 18:59 06:59 18:59 Intake Total 580 / 580 160 / 160 Output Total 50 / 50 400 / 400 Balance 530 / 530 -240 / -240 Intake: IV 100 / 100 100 / 100 Lasix Inj 100 MG In NS Inj 90 100 / 100 100 / 100 ML @ 10 mls/hr IV.CONT .Q10H [facility] Rx#:[id number] Oral 480 / 480 60 / 60 Output: Urine 50 / 50 Urine Amount (Catheter) 400 / 400 Condom 400 / 400 Other: Date of Last Bowel Movement 05/07/18 05/10/18 # Bowel Movements 1 Narrative: GENERAL: Well-developed, well-nourished patient in NAD. On supplemental O2. SKIN: Warm and dry. No rash. Left upper ext swelling, previous DVT. Right vas cath in place. HEAD: Normocephalic. Atraumatic. EYES: Pupils equal and round. No scleral icterus. Left eye ecchymosis. ENT: No nasal bleeding or discharge. Mucous membranes pink and moist. NECK: Supple. Trachea midline. CARDIOVASCULAR: Regular rate and rhythm. S1-S2 noted. Grade 2/6 systolic murmur. RESPIRATORY: No accessory muscle use. Rhonchi throughout. Breath sounds equal bilaterally. GASTROINTESTINAL: Abdomen soft, non-tender, nondistended. Normoactive bowel sounds x4. MUSCULOSKELETAL: No obvious deformities. Extremities without clubbing, cyanosis , or edema. NEUROLOGICAL: Awake and alert. No obvious cranial nerve deficits. Motor grossly within normal limits. 5/5 muscle strength in bilateral upper and lower extremities. Normal speech. PSYCHIATRIC: Appropriate mood and affect; insight and judgment normal. Left upper extremity: Swollen with scattered ecchymosis. Previous DVT. - Urinary Catheter Management Condom Cath placed during this visit: no Results - Labs CBC & Chem 7: 05/09/18 05:30 05/11/18 04:10 Laboratory Results - last 24 hr 05/10/18 05/10/18 05/10/18 11:15 11:15 12:02 PT 12.2 H INR 1.2 APTT 29.2 Sodium Potassium Chloride Carbon Dioxide Anion Gap BUN Creatinine Estimated GFR POC Glucose 336 H Random Glucose Calcium Magnesium Hepatitis A IgM Ab Nonreactive Hep Bs Antigen Nonreactive Hep B Core IgM Ab Nonreactive Hep C IgG Ab Nonreactive 05/10/18 05/10/18 05/10/18 17:26 21:30 21:45 PT INR APTT Sodium 139 Potassium 4.4 Chloride 108 H Carbon Dioxide 17.3 L Anion Gap 14 BUN 113 H Creatinine 6.50 H Estimated GFR 8 L POC Glucose 230 H 228 H Random Glucose 203 H Calcium 7.7 L Magnesium Hepatitis A IgM Ab Hep Bs Antigen Hep B Core IgM Ab Hep C IgG Ab 05/10/18 05/11/18 05/11/18 21:45 04:10 07:44 PT INR APTT Sodium 141 Potassium 4.7 Chloride 109 H Carbon Dioxide 17.9 L Anion Gap 14 BUN 115 H Creatinine 6.70 H Estimated GFR 8 L POC Glucose 227 H Random Glucose 151 H Calcium 7.7 L Magnesium 2.1 Hepatitis A IgM Ab Hep Bs Antigen Hep B Core IgM Ab Hep C IgG Ab Assessment and Plan - Assessment (1) Acute non-ST elevation myocardial infarction (NSTEMI) Code(s): I21.4 - Non-ST elevation (NSTEMI) myocardial infarction Status: Acute (2) Chronic kidney disease, stage IV (severe) Code(s): N18.4 - Chronic kidney disease, stage 4 (severe) Status: Acute (3) Anemia Code(s): D64.9 - Anemia, unspecified Status: Acute (4) Diabetes Code(s): E11.9 - Type 2 diabetes mellitus without complications Status: Acute - Plan This is an 87-year-old with: Non-ST elevation myocardial infarction History of CAD with previous CT and CABG 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 Denies any chest pain. -Patient's heel shaver Dr. Dumont has been consulted and has seen patient. Conservative measures recommended for now. Keep H&H above 10 per cards recommendations. -Continue beta-becca. Recommendations are to hold anticoagulates secondary to GI bleed. -Continue on cardiac telemetry, monitor for any arrhythmias. No arrhythmias overnight. Continue to monitor BP trends. -Supportive care. Systolic heart failure in exacerbation Acute hypoxia suspect secondary to above History of severe cardiomyopathy with EF 20% -Patient has been placed on supplemental O2 on 5LNC. A repeat x-ray has been ordered and reviewed showing congestion. Previous x-ray showing pleural effusions with stable infiltrates. -Continue Lasix gtt. Monitor intake and output. Minimal response to Lasix drip. Will undergo dialysis, status post vas cath placement. -Cardiology following. Fall at home -Patient states he asleep in his wheelchair and slipped out onto his face and left arm. Denies any LOC. Did hit his head with resultant left eye ecchymosis. Improving. -Head CT on presentation negative. -PT evaluation ordered, and input/recommendations appreciated. -Monitor closely. Acute on chronic kidney disease, worsening. -Creatinine 4.2/GFR 12 on presentation. Worsening today, creatinine 6.0. -Nephrology consulted and has seen patient, started on Lasix drip, with minimal response. Worsening despite Lasix drip. -A palliative care consult has been placed to further discuss goals. Appreciate input and recommendations. -US has been ordered and reviewed showing echogenic kidneys consistent with medical renal disease. No obstructive uropathy. -Avoid nephrotoxins. -Continue to follow BMP. -Patient is agreeable to recommendations for dialysis. Pulper Operator has been updated and arrangements have been made for patient to undergo dialysis today, status post vas cath. Type 2 diabetes mellitus, chronic -ACCU check ACHS, sliding scale, cover as needed. Monitor blood sugar trends. Recent history of left upper arm DVT -Recently placed on Xarelto at home. Per cardiology recommendations, will hold anticoagulation for now. Encourage elevation. Hyperlipidemia, chronic: Continue home statin. DVT Prophylaxis: SCDs. Chemical prophylaxis held per cardiology recommendations. Discharge Planning: Initiation of dialysis. Await clinical improvement, still on 5LNC. (3) Anemia Qualifiers: Anemia type: unspecified type Qualified Code(s): D64.9 - Anemia, unspecified
[2018-05-11] MEDS: Insulin NovoLOG Aspart Correctional Sugar Inj SQ SCH ×4 (09:40→21:38)
[2018-05-11] MEDS: Calcium Acetate 667 MG Capsule PO SCH ×3 (09:41→17:00)
[2018-05-11] MEDS: Pantoprazole Sodium 20 MG DR Tablet PO SCH (09:42)
[2018-05-11] MEDS: Vitamin B Complex/Vit C/Folic Tablet PO SCH (09:42)
[2018-05-11] MEDS: Metoprolol Tartrate 50 MG Tablet PO SCH ×2 (09:45→20:51)
--- NOTE | 2018-05-11 10:01 | IR ---
EXAM DATE: 05/11/2018 12:00 AM EDT AGE/SEX: 87 years / Male INDICATIONS: Patient with a history of renal failure. CLINICAL DATA: This is the patient's initial encounter. Patient reports that signs and symptoms have been present for 4 - 6 days and indicates a pain score of 2/10. MEDICAL/SURGICAL HISTORY: Diabetes. Deep venous thrombosis. Hypertension. CADHigh Cholestero lEnlarged prostateHypothyroidismNeuropathy CABG. COMPARISON: No prior exams available for comparison. FLUORO TIME (min): 0.21 IMAGE SERIES: 1 ACCESS SITE: Right internal jugular vein SEDATION TIME (min): 0 DEVICE(S): 14 Faroese double lumen Vas Cath . . PROCEDURE : 1. Ultrasound guided venipuncture. 2. Fluoroscopic guidance. 3. Central line placement. The risks, benefits and alternatives to the procedure were explained and verbal and written consent w as obtained. The site was prepped in sterile fashion. Full sterile technique was used, including ca p, mask, sterile gloves and gown and a large sterile sheet. Hand hygiene and 2% chlorhexidine prep w as utilized per protocol for cutaneous antisepsis with appropriate dry time for site. Sterile gel an d sterile probe cover were utilized for ultrasound guidance. The skin and subcutaneous tissues were infiltrated with local anesthetic solution. A suitable site a benja the vein was selected with ultrasound and fluoroscopic guidance. A small incision was made. Th e vein was accessed under direct ultrasound visualization using the micropuncture technique. The leon ropuncture set was exchanged for a 0.035 wire. The tract was dilated. The catheter was advanced int o position under direct fluoroscopic visualization, and was advanced with the tip at the junction of the superior vena cava and rt atrium. The catheter was fixed in place with suture and a sterile dres sing was applied. The patient tolerated the procedure well and there were no complications. CONCLUSION: Uncomplicated ultrasound and fluoroscopic guided central venous dialysis catheter placement as above. Electronically signed by: Dom Johnson MD 05/11/2018 10:00 AM EDT
[2018-05-11] MEDS ORDERED: Heparin Central Flush 100 UNIT/ML 5 ML Vial IV.FLUSH PRN (11:10)
[2018-05-11] MEDS: Isosorbide Mononitrate 30 MG ER 24HR Tablet (Imdur) PO SCH (11:42)
--- NOTE | 2018-05-11 13:29 | P.PNPAL ---
Reason for Visit Reason for visit: a. To assist with evaluation and management of symptoms including: dyspnea, weakness b. To assist medical decision maker(s) with: better understanding of current medical conditions; weighing benefits/burdens of medical treatment options; making medical treatment decisions. Subjective Subjective/Interval History: Follow-up visit for symptom management and clarification of medical treatment goals. Patient underwent Vas-Cath placement yesterday. He is somewhat confused today status post hemodialysis. Apparently patient had several runs of V. tach overnight. CODE STATUS was changed to ALTERNATE CODE at that time. Patient does not wish to be intubated but would consent to compressions, shock and ACLS drugs if indicated. Clinical data: * Sodium 141, potassium 4.7, chloride 109, carbon dioxide 17.9, glucose 151, calcium 7.7 * BUN: 115, creatinine 6.70, GFR 8 Patient has decreased strength and mobility; low activity tolerance secondary to reported fatigue and shortness of breath. Physical therapy is following. Patient would benefit from SNF placement at discharge for rehab, however the patient has filler spreader care at home. They visit 2 times a day for 4 hours each. Patient wants to go home and continue care with his private caregiver, if this is the case he may benefit from home health care. Spoke to patient's niece (Rose) via telephone. Updated on patient's medical condition; questions answered to the best of my ability. Family verbalizing aggressive goals as well as patient. Advance Directives Advance Directives Date on File: 05/08/18 Health Care Surrogate Name and Number: Rose Ramirez (niece) [phone] Documented care wishes:: Living will form and 5 wishes left at patient's bedside per patient's request Objective Vital Signs: Vital Signs 05/10/18 13:20 05/10/18 16:00 05/10/18 18:00 Temperature 98.0 F 98.0 F Pulse Rate 86 90 92 H Respiratory Rate 24 20 14 Blood Pressure 122/62 122/62 Pulse Oximetry 91 L 95 05/10/18 19:00 05/10/18 19:15 05/10/18 20:00 Temperature Pulse Rate 90 91 H 98 H Respiratory Rate 14 22 18 Blood Pressure 119/67 Pulse Oximetry 93 L 94 L 94 L 05/10/18 21:55 05/10/18 22:00 05/10/18 23:00 Temperature Pulse Rate 133 H 116 H 102 H Respiratory Rate 23 14 15 Blood Pressure 107/78 122/64 118/67 Pulse Oximetry 97 98 97 05/11/18 00:00 05/11/18 04:00 05/11/18 06:00 Temperature 97 F L 98 F Pulse Rate 94 H 94 H 98 H Respiratory Rate 13 16 22 Blood Pressure 104/65 103/66 113/65 Pulse Oximetry 96 93 L 98 05/11/18 07:24 05/11/18 08:00 05/11/18 09:23 Temperature 97.8 F Pulse Rate 99 H 100 H 106 H Respiratory Rate 22 18 24 Blood Pressure 155/76 H 155/76 H Pulse Oximetry 96 97 93 L 05/11/18 09:55 05/11/18 10:00 05/11/18 10:06 Temperature Pulse Rate 102 H 93 H 94 H Respiratory Rate 17 15 23 Blood Pressure 110/45 L 110/45 L 132/63 Pulse Oximetry 88 L 91 L 94 L 05/11/18 10:15 05/11/18 10:30 05/11/18 10:45 Temperature Pulse Rate 92 H 84 84 Respiratory Rate 14 21 17 Blood Pressure 127/69 131/82 92/64 L Pulse Oximetry 92 L 93 L 94 L 05/11/18 11:00 05/11/18 11:15 05/11/18 11:30 Temperature Pulse Rate 86 86 88 Respiratory Rate 12 13 9 L Blood Pressure 127/75 125/98 H 137/75 Pulse Oximetry 91 L 96 96 Intake & Output 05/10/18 05/11/18 05/11/18 18:59 06:59 18:59 Intake Total 580 / 580 160 / 160 56.5 / 56.5 Output Total 50 / 50 400 / 400 1200 / 1200 Balance 530 / 530 -240 / -240 -1143.5 / -1143.5 Intake: IV 100 / 100 100 / 100 56.5 / 56.5 Lasix Inj 100 MG In NS Inj 90 100 / 100 100 / 100 56.5 / 56.5 ML @ 10 mls/hr IV.CONT .Q10H [facility] Rx#:[id number] Oral 480 / 480 60 / 60 Output: Urine 50 / 50 Hemodialysis Amount 1200 / 1200 Urine Amount (Catheter) 400 / 400 Condom 400 / 400 Other: Date of Last Bowel Movement 05/07/18 05/10/18 # Bowel Movements 1 Physical Exam: CONSTITUTIONAL/GENERAL: This is a frail, elderly male patient in no acute ditress TUBES/LINES/DRAINS: PIV, NC, Condom catheter SKIN: No jaundice, rashes, or lesions. Ecchymoses on left side of his face. Skin temperature appropriate. Not diaphoretic. HEAD: Atraumatic. Normocephalic. EYES: Pupils equal and round and reactive. Extraocular motions intact. No scleral icterus. No injection or drainage. Fundi not examined. ENT: Hearing grossly normal. Nose without bleeding or purulent drainage. Throat without visible erythema, exudates, masses, or lesions. NECK: Trachea midline. Supple, nontender. No palpable thyroid enlargement or nodularity. CARDIOVASCULAR: Regular rate and rhythm without murmurs, gallops, or rubs. No JVD. Peripheral pulses symmetric. RESPIRATORY/CHEST: Symmetric, unlabored respirations. Clear to auscultation. No wheezes, rales, or rhonchi. GASTROINTESTINAL: Abdomen soft, non-tender, nondistended. No guarding. Bowel sounds present. GENITOURINARY: Without palpable bladder distension. Condom catheter in place. MUSCULOSKELETAL: Extremities without clubbing, cyanosis, or edema. No calf tenderness. No mottling or clubbing. LYMPHATICS: No palpable cervical or supraclavicular adenopathy. NEUROLOGICAL: Awake and alert. Lethargic. Follows commands. Cognitively sharp. Moves all extremities. PSYCHIATRIC: No obvious anxiety/depression. No apparent hallucinations or other psychotic thought process. Diagnostic Tests Laboratory: Laboratory Results - last 72 hr 05/08/18 05/08/18 05/09/18 16:36 21:12 05:30 CBC w Diff Auto diff final WBC 10.3 RBC 2.72 L Hgb 8.2 L Hct 25.0 L MCV 92.0 MCH 30.1 MCHC 32.7 RDW 17.7 H Plt Count 215 MPV 9.0 Neut % (Auto) 96.9 H Lymph % (Auto) 2.5 L [place] % (Auto) 0.4 Eos % (Auto) 0.1 Baso % (Auto) 0.1 Neut # (Auto) 10.0 H Lymph # (Auto) 0.3 L [place] # (Auto) 0.0 Eos # (Auto) 0.0 Baso # (Auto) 0.0 WBC Differential . Differential Comment . PT INR APTT Sodium Potassium Chloride Carbon Dioxide Anion Gap BUN Creatinine Estimated GFR POC Glucose 249 H 171 H Random Glucose Calcium Phosphorus Magnesium Vitamin D 25-Hydroxy PTH Intact Hepatitis A IgM Ab Hep Bs Antigen Hep B Core IgM Ab Hep C IgG Ab 05/09/18 05/09/18 05/09/18 05:30 05:30 05:30 CBC w Diff WBC RBC Hgb Hct MCV MCH MCHC RDW Plt Count MPV Neut % (Auto) Lymph % (Auto) [place] % (Auto) Eos % (Auto) Baso % (Auto) Neut # (Auto) Lymph # (Auto) [place] # (Auto) Eos # (Auto) Baso # (Auto) WBC Differential Differential Comment PT INR APTT Sodium 143 Potassium 4.3 Chloride 112 H Carbon Dioxide 17.3 L Anion Gap 14 BUN 85 H Creatinine 5.40 H Estimated GFR 10 L POC Glucose Random Glucose 195 H Calcium 7.6 L Phosphorus 5.8 H Magnesium Vitamin D 25-Hydroxy 18.4 L PTH Intact 275.1 H Hepatitis A IgM Ab Hep Bs Antigen Hep B Core IgM Ab Hep C IgG Ab 05/09/18 05/09/18 05/09/18 08:05 12:34 16:38 CBC w Diff WBC RBC Hgb Hct MCV MCH MCHC RDW Plt Count MPV Neut % (Auto) Lymph % (Auto) [place] % (Auto) Eos % (Auto) Baso % (Auto) Neut # (Auto) Lymph # (Auto) [place] # (Auto) Eos # (Auto) Baso # (Auto) WBC Differential Differential Comment PT INR APTT Sodium Potassium Chloride Carbon Dioxide Anion Gap BUN Creatinine Estimated GFR POC Glucose 226 H 260 H 223 H Random Glucose Calcium Phosphorus Magnesium Vitamin D 25-Hydroxy PTH Intact Hepatitis A IgM Ab Hep Bs Antigen Hep B Core IgM Ab Hep C IgG Ab 05/09/18 05/10/18 05/10/18 21:16 04:15 08:00 CBC w Diff WBC RBC Hgb Hct MCV MCH MCHC RDW Plt Count MPV Neut % (Auto) Lymph % (Auto) [place] % (Auto) Eos % (Auto) Baso % (Auto) Neut # (Auto) Lymph # (Auto) [place] # (Auto) Eos # (Auto) Baso # (Auto) WBC Differential Differential Comment PT INR APTT Sodium 140 Potassium 4.6 Chloride 109 H Carbon Dioxide 17.8 L Anion Gap 13 BUN 100 H Creatinine 6.00 H Estimated GFR 9 L POC Glucose 202 H 226 H Random Glucose 193 H Calcium 7.7 L Phosphorus Magnesium Vitamin D 25-Hydroxy PTH Intact Hepatitis A IgM Ab Hep Bs Antigen Hep B Core IgM Ab Hep C IgG Ab 05/10/18 05/10/18 05/10/18 11:15 11:15 12:02 CBC w Diff WBC RBC Hgb Hct MCV MCH MCHC RDW Plt Count MPV Neut % (Auto) Lymph % (Auto) [place] % (Auto) Eos % (Auto) Baso % (Auto) Neut # (Auto) Lymph # (Auto) [place] # (Auto) Eos # (Auto) Baso # (Auto) WBC Differential Differential Comment PT 12.2 H INR 1.2 APTT 29.2 Sodium Potassium Chloride Carbon Dioxide Anion Gap BUN Creatinine Estimated GFR POC Glucose 336 H Random Glucose Calcium Phosphorus Magnesium Vitamin D 25-Hydroxy PTH Intact Hepatitis A IgM Ab Nonreactive Hep Bs Antigen Nonreactive Hep B Core IgM Ab Nonreactive Hep C IgG Ab Nonreactive 05/10/18 05/10/18 05/10/18 17:26 21:30 21:45 CBC w Diff WBC RBC Hgb Hct MCV MCH MCHC RDW Plt Count MPV Neut % (Auto) Lymph % (Auto) [place] % (Auto) Eos % (Auto) Baso % (Auto) Neut # (Auto) Lymph # (Auto) [place] # (Auto) Eos # (Auto) Baso # (Auto) WBC Differential Differential Comment PT INR APTT Sodium 139 Potassium 4.4 Chloride 108 H Carbon Dioxide 17.3 L Anion Gap 14 BUN 113 H Creatinine 6.50 H Estimated GFR 8 L POC Glucose 230 H 228 H Random Glucose 203 H Calcium 7.7 L Phosphorus Magnesium Vitamin D 25-Hydroxy PTH Intact Hepatitis A IgM Ab Hep Bs Antigen Hep B Core IgM Ab Hep C IgG Ab 05/10/18 05/11/18 05/11/18 21:45 04:10 07:44 CBC w Diff WBC RBC Hgb Hct MCV MCH MCHC RDW Plt Count MPV Neut % (Auto) Lymph % (Auto) [place] % (Auto) Eos % (Auto) Baso % (Auto) Neut # (Auto) Lymph # (Auto) [place] # (Auto) Eos # (Auto) Baso # (Auto) WBC Differential Differential Comment PT INR APTT Sodium 141 Potassium 4.7 Chloride 109 H Carbon Dioxide 17.9 L Anion Gap 14 BUN 115 H Creatinine 6.70 H Estimated GFR 8 L POC Glucose 227 H Random Glucose 151 H Calcium 7.7 L Phosphorus Magnesium 2.1 Vitamin D 25-Hydroxy PTH Intact Hepatitis A IgM Ab Hep Bs Antigen Hep B Core IgM Ab Hep C IgG Ab Result Diagrams: 05/09/18 05:30 05/11/18 04:10 Assessment and Plan Pertinent Non-Medical Issues: Psychosocial: Patient is originally from [place]. His highest level of education was high school. He moved to [place] in 1998. He was for approximately 48 years. His in 1999, and he has been single since that time. He had 2 sons (Thony and Rayray), both . His younger son secondary to MVA in February,. He lives alone but has a private caregiver at his home almost daily. Spiritual: Yarsani alena Legal: Healthcare surrogate designation form was completed 05/08/2018. Patient' s niece (Rose Ramirez) is the primary healthcare surrogate decision maker. His nephew (Lino España) is the alternate healthcare surrogate decision-maker Ethical issues impacting care: No known ethical issues impacting care at this time Important Contacts: daniele Shiece: [phone] Linobeth España, nephew: [phone] Prognosis: Patient is an 87-year-old with a complex medical history who has had a recent decline in functional status. Now with end-stage renal disease, uncertain if he wishes to proceed with hemodialysis. If the patient decides to refuse hemodialysis, hospice would not be an appropriate option at that time. Code Status: No Code DNR Plan: * NO CODE * Discussed the process of cardiopulmonary resuscitation with the patient in detail. Patient states in the event of cardiac or respiratory arrest, he does not want aggressive interventions but would prefer to be allowed to pass peacefully and naturally putting it in "God's hands." This is consistent with conversations the patient has had previously with Candy Reis APRN. * Healthcare surrogate designation form was completed 05/08/2018. Patient's niece (Rose Ramirez) is the primary healthcare surrogate decision maker. His nephew (Lino España) is the alternate healthcare surrogate decision-maker * Spoke to patient's niece (Rose) who should be arriving in [place] this evening. She has Palliative care's contact information. possibly meeting tomorrow 05/11/18 * Discussed patient with Candy Reis APRN and RN * Discussed risks versus benefits of HD in patient's with ESRD as well as over all prognosis without dialysis. Patient reluctantly states he plans to move forward with HD. * Symptom management: Weakness: Patient has decreased strength and mobility; low activity tolerance secondary to reported fatigue and shortness of breath. Physical therapy is following. Patient would benefit from SNF placement at discharge for rehab, however the patient has filler spreader care at home. They visit 2 times a day for 4 hours each. Patient wants to go home and continue care with his private caregiver, if this is the case he may benefit from home health care. Dyspnea: Patient reporting shortness of breath with minimal exertion. Patient requiring 5L supplemental oxygen via nasal cannula. A repeat x-ray has been ordered and reviewed showing congestion. Previous x-ray showing pleural effusions with stable infiltrates. On Lasix gtt. * Palliative care will continue to follow this patient throughout his hospitalization to establish trust, assist with symptom management and clarification of medical treatment goals.
[2018-05-11] MEDS: guaiFENesin/Dextromethorphan 200 MG/20 MG 10 ML UDC PO PRN (15:39)
[2018-05-11 17:12] LABS: ABG Base Excess -3.9 mmol/L (-2-2); ABG PCO2 37 mmHg (38-42); ABG PO2 85 mmHg (61-120)
--- NOTE | 2018-05-11 17:36 | XR ---
EXAM DATE: 05/11/2018 5:13 PM EDT AGE/SEX: 87 years / Male INDICATIONS: Cough, shortness of breath CLINICAL DATA: This is the patient's initial encounter. Patient reports that signs and symptoms have been present for 1 day and indicates a pain score of 0/10. MEDICAL/SURGICAL HISTORY: . Diabetes. Chronic kidney disease. Myocardial infarction. Dementia. Anticoagulant therapy. CABG. COMPARISON: [facility], CHEST 1V SINGLE AP, 05/08/2018. . FINDINGS: Single view the chest demonstrate the right IJ Vas-Cath is in excellent position. There is a moderate size left pleural effusion with left basilar atelectasis. There are numerous sternal wires and clips suggesting CABG. Small right pleural effusion. Mild pulmonary hilar vascular congestion. CONCLUSION: Vas-Cath in good position. Moderate left pleural effusion with some basilar atelectasis unchanged. D iffuse pulmonary vascular congestion. Electronically signed by: Brent Winter MD 05/11/2018 5:34 PM EDT
[2018-05-11 17:37] LABS: Baso # (Auto) 0.2 th/mm3 (0.0-0.2); Baso % (Auto) 1.7 % (0.0-2.0); Hematocrit 25.7 % (39.0-51.0); Hemoglobin 8.7 gm/dL (13.0-17.0); Lymph # (Auto) 0.5 th/mm3 (1.0-4.8); Lymph % (Auto) 3.8 % (9.0-44.0); Mean Corpuscular HGB Conc 33.7 % (32.0-36.0); Mean Corpuscular Hemoglobin 30.4 pg (27.0-34.0); Mean Corpuscular Volume 90.4 fL (80.0-100.0); Mean Platelet Volume 9.3 fL (7.0-11.0); Mono # (Auto) 1.1 th/mm3 (0.0-0.9); Mono % (Auto) 8.1 % (0.0-8.0); Neut # (Auto) 12.4 th/mm3 (1.8-7.7); Neut % (Auto) 86.4 % (16.0-70.0); Platelet Count 263 th/mm3 (150-450); Red Blood Count 2.85 mil/mm3 (4.50-5.90); Red Cell Distribution Width 17.9 % (11.6-17.2); White Blood Count 14.2 th/mm3 (4.0-11.0)
[2018-05-11 17:44] LABS: Chloride 104 meq/L (98-107); Potassium 4.1 meq/L (3.5-5.1); Sodium 139 meq/L (136-145)
[2018-05-11 17:48] LABS: Calcium 8.1 mg/dL (8.5-10.1)
[2018-05-11 17:49] LABS: Anion Gap 12 meq/L (5-15); Carbon Dioxide 22.8 meq/L (21.0-32.0); Glucose,Random 185 mg/dL (74-106); Magnesium 2.1 mg/dL (1.5-2.5)
--- NOTE | 2018-05-11 17:49 | P.PNCA ---
Subjective Interval history: pt denies chest pain and SOB Medications and Allergies Active Medications: Active Medications Acetaminophen (Tylenol) 650 mg PO Q4H PRN PRN Reason: Temp > 100.4 Al Hydrox/Mg Hydrox/Simethicone (Mag-Al Plus Susp Liq) 30 ml PO Q6H PRN PRN Reason: DYSPEPSIA Al Hydroxide/Mg Hydroxide (Milk Of Magnesia Liq) 30 ml PO Q12H PRN PRN Reason: Mild Constipation Albuterol (Duoneb Neb (Prn)) 1 ampul NEB Q2HR NEB PRN PRN Reason: SHORTNESS OF BREATH/WHEEZING Last Admin: 05/09/18 03:21 Dose: 1 ampul Albuterol (Duoneb Neb (Juan A)) 1 ampul NEB Q6HR WHILE AWAKE NEB JUAN A Last Admin: 05/11/18 15:15 Dose: 1 ampul Aspirin (Ecotrin) 81 mg PO DAILY JUAN A Last Admin: 05/11/18 09:40 Dose: 81 mg Atorvastatin Calcium (Lipitor) 40 mg PO HS JUAN A Last Admin: 05/10/18 21:27 Dose: 40 mg Calcium Acetate (Phoslo) 667 mg PO TID JUAN A Last Admin: 05/11/18 17:00 Dose: 667 mg Clonidine HCl (Catapres) 0.1 mg PO UNSCH PRN PRN Reason: SEE LABEL COMMENTS Dextrose (D50w Vial) 50 ml IV.PUSH UNSCH PRN PRN Reason: PER HYPOGLYCEMIA PROTOCOL Diphenhydramine HCl (Benadryl) 25 mg PO UNSCH PRN PRN Reason: SEE LABEL COMMENTS Epoetin Livan (Epogen Inj) 10,000 unit IV.PUSH UNSCH PRN PRN Reason: SEE LABEL COMMENTS Last Admin: 05/11/18 10:17 Dose: 10,000 unit Gelatin (Gelfoam 12 Mm/7 Mm Topical) 1 foam TOPICAL PRN PRN PRN Reason: help stop bleeding from site Gentamicin Sulfate (Gentamicin Inj) 20 mg OTHER WITH DIALYSIS PRN PRN Reason: Dwell Gentamycin Lock Last Admin: 05/11/18 10:18 Dose: 20 mg Glucagon (Glucagon Inj) 1 mg OTHER PRN PRN PRN Reason: for Hypoglycemia Protocol Guaifenesin/Dextromethorphan (Robitussin Dm 200/20 Mg/10 Ml Liq) 10 ml PO Q4H PRN PRN Reason: COUGH Last Admin: 05/11/18 15:39 Dose: 10 ml Heparin Sodium (Porcine) (Heparin Inj) 1,000 units OTHER WITH DIALYSIS PRN PRN Reason: Dwell Heparin to Fill Catheter Heparin Sodium (Porcine) (Heparin Inj) 8,000 units OTHER WITH DIALYSIS PRN PRN Reason: for machine prime Heparin Sodium (Porcine) (Heparin Central Flush) 0 unit IV.FLUSH DAILY PRN PRN Reason: SEE DOSE INSTRUCTIONS Albumin Human (Flexbumin 25% Inj) 100 mls @ 60 mls/hr IV.SIG WITH DIALYSIS PRN PRN Reason: hypotension / volume replace Sodium Chloride (Ns Inj) 1,000 mls @ 0 mls/hr OTHER .Q0M PRN PRN Reason: for prime and rinse back Sodium Chloride (Ns Inj) 1,000 mls @ 200 mls/hr OTHER .Q5H PRN PRN Reason: for dialyzer flush PRN Sodium Chloride (Ns Inj) 1,000 mls @ 0 mls/hr IV.CONT .Q0M PRN PRN Reason: hypotension / volume replace Cefazolin Sodium/Dextrose (Ancef 2 Gm Premix Inj) 2 gm in 50 mls @ 100 mls/hr IV.SIG SWITCH INSPECTOR PRN PRN Reason: GIVE SWITCH INSPECTOR TO IR Stop: 05/11/18 22:00 Vancomycin HCl 1,000 mg/ (Sodium Chloride) 250 mls @ 250 mls/hr IV.SIG SWITCH INSPECTOR PRN PRN Reason: GIVE SWITCH INSPECTOR TO IR Stop: 05/11/18 22:00 Insulin Aspart (Novolog Insulin Correctional Sugar Inj) 0 unit SQ ACHS [facility]; Protocol Last Admin: 05/11/18 17:00 Dose: 3 unit Isosorbide Mononitrate (Imdur) 30 mg PO DAILY [facility] Last Admin: 05/11/18 11:42 Dose: Not Given Levothyroxine Sodium (Synthroid) 100 mcg PO DAILY@0600 [facility] Last Admin: 05/11/18 05:41 Dose: 100 mcg Mannitol (Mannitol Inj) 12.5 gm IV.PUSH UNSCH PRN PRN Reason: hypotension / volume replace Methylprednisolone Sodium Succinate (Solumedrol Inj) 40 mg IV.PUSH BID [facility] Metoprolol Tartrate (Lopressor) 50 mg PO BID [facility] Last Admin: 05/11/18 09:45 Dose: 50 mg Nifedipine (Procardia Xl) 60 mg PO BID [facility] Last Admin: 05/11/18 11:42 Dose: Not Given Nitroglycerin (Nitrostat Sl) 0.4 mg SL Q5M PRN PRN Reason: CHEST PAIN Ondansetron HCl (Zofran Inj) 4 mg IV.PUSH Q6H PRN PRN Reason: NAUSEA OR VOMITING Pantoprazole Sodium (Protonix) 20 mg PO DAILY [facility] Last Admin: 05/11/18 09:42 Dose: 20 mg Paricalcitol (Zemplar) 1 mcg PO DAILY [facility] Last Admin: 05/11/18 09:42 Dose: 1 mcg Sodium Chloride (Ns Flush) 2 ml IV.FLUSH PRN PRN PRN Reason: FLUSH AFTER USING IV ACCESS Sodium Chloride (Ns Flush) 5 ml IV.FLUSH PRN PRN PRN Reason: flush each lumen during HD Sodium Chloride (Ns Flush) 0 ml IV.FLUSH PRN PRN PRN Reason: SEE DOSE INSTRUCTIONS Tamsulosin HCl (Flomax) 0.4 mg PO DAILY [facility] Last Admin: 05/11/18 11:42 Dose: Not Given Vitamin B Complex/Vit C/Folic Acid (Nephrocaps) 1 tab PO DAILY [facility] Last Admin: 05/11/18 09:42 Dose: 1 tab Allergies Allergy/AdvReac Type Severity Reaction Status Date / Time codeine AdvReac Severe NAUSEA Verified 05/07/18 13:06 Home Medications Medication Instructions Recorded Confirmed Type gabapentin 600 mg PO BID 03/17/18 05/07/18 History rosuvastatin [Crestor] 20 mg PO HS 03/28/18 05/07/18 History tamsulosin 0.4 mg PO DAILY 05/07/18 05/07/18 History vitamins A,C,Q-wnpy-lloron 1 tab PO BID 05/07/18 05/07/18 History [PreserVision AREDS] Physical Exam Vital signs: Vital Signs 05/10/18 18:00 05/10/18 19:00 05/10/18 19:15 Temperature 98.0 F Pulse Rate 92 H 90 91 H Respiratory Rate 14 14 22 Blood Pressure 122/62 119/67 Pulse Oximetry 95 93 L 94 L 05/10/18 20:00 05/10/18 21:55 05/10/18 22:00 Temperature Pulse Rate 98 H 133 H 116 H Respiratory Rate 18 23 14 Blood Pressure 107/78 122/64 Pulse Oximetry 94 L 97 98 05/10/18 23:00 05/11/18 00:00 05/11/18 04:00 Temperature 97 F L 98 F Pulse Rate 102 H 94 H 94 H Respiratory Rate 15 13 16 Blood Pressure 118/67 104/65 103/66 Pulse Oximetry 97 96 93 L 05/11/18 06:00 05/11/18 07:24 05/11/18 08:00 Temperature 97.8 F Pulse Rate 98 H 99 H 100 H Respiratory Rate 22 22 18 Blood Pressure 113/65 155/76 H Pulse Oximetry 98 96 97 05/11/18 09:00 05/11/18 09:23 05/11/18 09:55 Temperature Pulse Rate 100 H 106 H 102 H Respiratory Rate 24 17 Blood Pressure 155/76 H 110/45 L Pulse Oximetry 93 L 88 L 05/11/18 10:00 05/11/18 10:06 05/11/18 10:15 Temperature Pulse Rate 93 H 94 H 92 H Respiratory Rate 15 23 14 Blood Pressure 110/45 L 132/63 127/69 Pulse Oximetry 91 L 94 L 92 L 05/11/18 10:30 05/11/18 10:45 05/11/18 11:00 Temperature Pulse Rate 84 84 86 Respiratory Rate 21 17 12 Blood Pressure 131/82 92/64 L 127/75 Pulse Oximetry 93 L 94 L 91 L 05/11/18 11:15 05/11/18 11:30 05/11/18 11:45 Temperature 97.2 F L Pulse Rate 86 88 90 Respiratory Rate 13 9 L 11 L Blood Pressure 125/98 H 137/75 136/80 Pulse Oximetry 96 96 97 05/11/18 12:00 05/11/18 12:58 05/11/18 14:00 Temperature 97.9 F 97.9 F Pulse Rate 90 92 H 92 H Respiratory Rate 12 22 23 Blood Pressure 108/57 L 137/64 115/80 Pulse Oximetry 94 L 88 L 90 L 05/11/18 14:08 05/11/18 14:58 05/11/18 15:19 Temperature Pulse Rate 92 H 90 90 Respiratory Rate 21 20 23 Blood Pressure 115/80 128/74 Pulse Oximetry 94 L Intake & Output 05/10/18 05/11/18 05/11/18 18:59 06:59 18:59 Intake Total 580 / 580 160 / 160 56.5 / 56.5 Output Total 50 / 50 400 / 400 1200 / 1200 Balance 530 / 530 -240 / -240 -1143.5 / -1143.5 Weight 68 kg Intake: IV 100 / 100 100 / 100 56.5 / 56.5 Lasix Inj 100 MG In NS Inj 90 100 / 100 100 / 100 56.5 / 56.5 ML @ 10 mls/hr IV.CONT .Q10H [facility] Rx#:[id number] Oral 480 / 480 60 / 60 Output: Urine 50 / 50 Hemodialysis Amount 1200 / 1200 Urine Amount (Catheter) 400 / 400 Condom 400 / 400 Other: Date of Last Bowel Movement 05/07/18 05/10/18 05/07/18 # Bowel Movements 1 - Constitutional no acute distress, chronically ill appearing - Routine HEENT Exam Head: Present: normocephalic, atraumatic Eye: Present: PERRL - Routine Neck Exam Present: supple, JVD, carotid bruit - Routine Respiratory Exam Present: CTA bilaterally. Absent: wheezes, crackles - Routine Cardiovascular Exam Present: RRR, S1, S2. Absent: murmur - Routine Abdominal Exam Present: soft, normoactive bowel sounds, firm - Routine Extremities Exam Absent: cyanosis, clubbing, edema - Routine Skin Exam Present: warm - Urinary Catheter Management Condom Cath placed during this visit: no Results 05/11/18 17:30 05/11/18 04:10 Coagulation 05/10/18 Range/Units 11:15 PT 12.2 H (9.8-11.6) sec APTT 29.2 (24.3-30.1) sec CBC 05/11/18 Range/Units 17:30 WBC 14.2 H (4.0-11.0) th/mm3 RBC 2.85 L (4.50-5.90) mil/mm3 Hgb 8.7 L (13.0-17.0) gm/dL Hct 25.7 L (39.0-51.0) % Plt Count 263 (150-450) th/mm3 Neut # (Auto) 12.4 H (1.8-7.7) th/mm3 Lymph # (Auto) 0.5 L (1.0-4.8) th/mm3 [place] # (Auto) 1.1 H (0.0-0.9) th/mm3 Eos # (Auto) 0.0 (0.0-0.4) th/mm3 Baso # (Auto) 0.2 (0.0-0.2) th/mm3 Comprehensive Metabolic Panel 05/10/18 05/10/18 05/11/18 Range/Units 04:15 21:45 04:10 Sodium 140 139 141 (136-145) meq/L Potassium 4.6 4.4 4.7 (3.5-5.1) meq/L Chloride 109 H 108 H 109 H (98-107) meq/L Carbon Dioxide 17.8 L 17.3 L 17.9 L (21.0-32.0) meq/L BUN 100 H 113 H 115 H (7-18) mg/dL Creatinine 6.00 H 6.50 H 6.70 H (0.60-1.30) mg/dL Calcium 7.7 L 7.7 L 7.7 L (8.5-10.1) mg/dL Intake and Output 05/11/18 05/11/18 05/11/18 06:59 14:59 22:59 Intake Total 160 / 160 56.5 / 56.5 Output Total 400 / 400 1200 / 1200 Balance -240 / -240 -1143.5 / -1143.5 Intake: IV 100 / 100 56.5 / 56.5 Lasix Inj 100 MG In NS Inj 90 100 / 100 56.5 / 56.5 ML @ 10 mls/hr IV.CONT .Q10H [facility] Rx#:[id number] Oral 60 / 60 Output: Hemodialysis Amount 1200 / 1200 Urine Amount (Catheter) 400 / 400 Condom 400 / 400 Other: Date of Last Bowel Movement 05/10/18 05/07/18 05/07/18 # Bowel Movements 1 Weight 68 kg Patient Weight 05/12/18 06:59 Weight 68 kg - Imaging and Cardiology Imaging: Impressions Central Venous Line 05/11/18 00:00 CONCLUSION: Uncomplicated ultrasound and fluoroscopic guided central venous dialysis catheter placement as above. Chest X-Ray 05/11/18 17:13 CONCLUSION: Vas-Cath in good position. Moderate left pleural effusion with some basilar atelectasis unchanged. Diffuse pulmonary vascular congestion. Assessment and Plan - Plan CONSERVATIVE MANAGEMENT. Had wide QRS tachycardia today which appears to be AFIB with aberrancy with varying R-R intervals. I will start him on IV Amiodaone. Pt will need Life -vest before discharge. I will follow
[2018-05-11] MEDS ORDERED: Amiodarone Inj 150 MG in Dextrose 5% in Water Inj 97 ML IV.SIG ONE ×2 (17:57)
[2018-05-11 18:06] LABS: Alanine Aminotransferase 53 U/L (12-78); Alkaline Phosphatase 76 U/L (45-117); Aspartate Aminotransferase 31 U/L (15-37); Blood Urea Nitrogen 84 mg/dL (7-18); Glomerular Filtration Rate 10 mL/min (>89); Total Protein 6.9 g/dL (6.4-8.2)
[2018-05-11 19:09] LABS: Troponin I 1.83 ng/mL (0.02-0.05)
--- NOTE | 2018-05-11 19:58 | P.PNNP ---
Subjective Interval history: Patient seen, alert, mild SOB, feeling better after dialysis. Physical Exam Vital signs: Vital Signs 05/10/18 20:00 05/10/18 21:55 05/10/18 22:00 Temperature Pulse Rate 98 H 133 H 116 H Respiratory Rate 18 23 14 Blood Pressure 107/78 122/64 Pulse Oximetry 94 L 97 98 05/10/18 23:00 05/11/18 00:00 05/11/18 04:00 Temperature 97 F L 98 F Pulse Rate 102 H 94 H 94 H Respiratory Rate 15 13 16 Blood Pressure 118/67 104/65 103/66 Pulse Oximetry 97 96 93 L 05/11/18 06:00 05/11/18 07:24 05/11/18 08:00 Temperature 97.8 F Pulse Rate 98 H 99 H 100 H Respiratory Rate 22 22 18 Blood Pressure 113/65 155/76 H Pulse Oximetry 98 96 97 05/11/18 09:00 05/11/18 09:23 05/11/18 09:55 Temperature Pulse Rate 100 H 106 H 102 H Respiratory Rate 24 17 Blood Pressure 155/76 H 110/45 L Pulse Oximetry 93 L 88 L 05/11/18 10:00 05/11/18 10:06 05/11/18 10:15 Temperature Pulse Rate 93 H 94 H 92 H Respiratory Rate 15 23 14 Blood Pressure 110/45 L 132/63 127/69 Pulse Oximetry 91 L 94 L 92 L 05/11/18 10:30 05/11/18 10:45 05/11/18 11:00 Temperature Pulse Rate 84 84 86 Respiratory Rate 21 17 12 Blood Pressure 131/82 92/64 L 127/75 Pulse Oximetry 93 L 94 L 91 L 05/11/18 11:15 05/11/18 11:30 05/11/18 11:45 Temperature 97.2 F L Pulse Rate 86 88 90 Respiratory Rate 13 9 L 11 L Blood Pressure 125/98 H 137/75 136/80 Pulse Oximetry 96 96 97 05/11/18 12:00 05/11/18 12:58 05/11/18 14:00 Temperature 97.9 F 97.9 F Pulse Rate 90 92 H 92 H Respiratory Rate 12 22 23 Blood Pressure 108/57 L 137/64 115/80 Pulse Oximetry 94 L 88 L 90 L 05/11/18 14:08 05/11/18 14:58 05/11/18 15:19 Temperature Pulse Rate 92 H 90 90 Respiratory Rate 21 20 23 Blood Pressure 115/80 128/74 Pulse Oximetry 94 L 05/11/18 15:58 05/11/18 16:58 Temperature 97.7 F Pulse Rate 102 H 116 H Respiratory Rate 23 19 Blood Pressure 141/71 H 115/76 Pulse Oximetry 96 90 L Intake & Output 05/11/18 05/11/18 05/12/18 06:59 18:59 06:59 Intake Total 160 / 160 536.5 / 536.5 Output Total 400 / 400 1500 / 1500 Balance -240 / -240 -963.5 / -963.5 Weight 68 kg Intake: IV 100 / 100 56.5 / 56.5 Lasix Inj 100 MG In NS Inj 90 100 / 100 56.5 / 56.5 ML @ 10 mls/hr IV.CONT .Q10H PAMELA Rx#:[id number] Oral 60 / 60 480 / 480 Output: Hemodialysis Amount 1200 / 1200 Urine Amount (Catheter) 400 / 400 300 / 300 Condom 400 / 400 300 / 300 Other: Date of Last Bowel Movement 05/10/18 05/07/18 # Bowel Movements 1 Narrative: GENERAL: Well-developed, in mild distress. On supplemental O2. SKIN: Warm and dry. No rash. Left upper ext swelling, previous DVT. Right vas cath in place. HEAD: Normocephalic. Atraumatic. EYES: Pupils equal and round. No scleral icterus. Left eye ecchymosis. ENT: No nasal bleeding or discharge. Mucous membranes pink and moist. NECK: Supple. Trachea midline. CARDIOVASCULAR: Regular rate and rhythm. S1-S2 noted. Grade 2/6 systolic murmur. RESPIRATORY: No accessory muscle use. Rhonchi throughout. Breath sounds equal bilaterally. GASTROINTESTINAL: Abdomen soft, non-tender, nondistended. Normoactive bowel sounds x4. MUSCULOSKELETAL: No obvious deformities. Extremities without clubbing, cyanosis , or edema. NEUROLOGICAL: Awake and alert. No obvious cranial nerve deficits. Motor grossly within normal limits. 5/5 muscle strength in bilateral upper and lower extremities. Normal speech. PSYCHIATRIC: Appropriate mood and affect; insight and judgment normal. Left upper extremity: Swollen with scattered ecchymosis. Previous DVT. - Urinary Catheter Management Condom Cath placed during this visit: no Assessment and Plan - Assessment (1) Acute renal failure Code(s): N17.9 - Acute kidney failure, unspecified Status: Acute (2) Diabetes Code(s): E11.9 - Type 2 diabetes mellitus without complications Status: Acute (3) Acute non-ST elevation myocardial infarction (NSTEMI) Code(s): I21.4 - Non-ST elevation (NSTEMI) myocardial infarction Status: Acute (4) CKD (chronic kidney disease) Code(s): N18.9 - Chronic kidney disease, unspecified Status: Acute Qualifiers: Chronic kidney disease stage: unspecified stage Qualified Code(s): N18.9 - Chronic kidney disease, unspecified - Plan Patient has of end-stage renal disease and hemodialysis was started after the vascath. Patient is feeling better after HD. Breathing improved, he is not sure about detention HD and want to wait until get 2nd treatment. BP is stable, HD again in AM.
[2018-05-11 20:24] LABS: ABG Base Excess -7.4 mmol/L (-2-2); ABG PCO2 36 mmHg (38-42); ABG PO2 67 mmHg (61-120)
[2018-05-11] MEDS ORDERED: MethylPREDNISolone Sod Succinate Inj 40 MG/ML Vial IV.PUSH SCH (21:00)
[2018-05-11 21:28] LABS: Hematocrit 24.5 % (39.0-51.0); Hemoglobin 7.9 gm/dL (13.0-17.0)
--- NOTE | 2018-05-12 02:42 | XR ---
EXAM DATE: 05/12/2018 2:16 AM EDT AGE/SEX: 87 years / Male INDICATIONS: Chest congestion CLINICAL DATA: This is the patient's subsequent encounter. Patient reports that signs and symptoms h ave been present for 1 day and indicates a pain score of Nonresponsive. MEDICAL/SURGICAL HISTORY: . Diabetes. Chronic kidney disease. Myocardial infarction. Dementia. Anticoagulant therapy. CABG. COMPARISON: [facility], CHEST 1V SINGLE AP, 05/11/2018. . FINDINGS: A single AP view of the chest demonstrates cardiomegaly with moderate left pleural effusion and bibas ilar densities. No infiltrate or effusion. Status post CABG. The cardiomediastinal contours are unrem arkable. Osseous structures are intact. CONCLUSION: Moderate left pleural effusion with left basilar density. Moderate bibasilar densities Electronically signed by: Jerry Johnson MD 05/12/2018 2:41 AM EDT
[2018-05-12] MEDS: guaiFENesin/Dextromethorphan 200 MG/20 MG 10 ML UDC PO PRN ×2 (03:43→13:14)
[2018-05-12] MEDS: Levothyroxine 100 MCG Tablet PO SCH (05:37)
[2018-05-12 06:30] LABS: Baso % (Auto) 0.2 % (0.0-2.0); Hematocrit 25.3 % (39.0-51.0); Hemoglobin 8.5 gm/dL (13.0-17.0); Lymph # (Auto) 0.2 th/mm3 (1.0-4.8); Lymph % (Auto) 1.2 % (9.0-44.0); Mean Corpuscular HGB Conc 33.5 % (32.0-36.0); Mean Corpuscular Hemoglobin 30.7 pg (27.0-34.0); Mean Corpuscular Volume 91.6 fL (80.0-100.0); Mean Platelet Volume 9.3 fL (7.0-11.0); Mono # (Auto) 0.9 th/mm3 (0.0-0.9); Mono % (Auto) 6.4 % (0.0-8.0); Neut # (Auto) 13.1 th/mm3 (1.8-7.7); Neut % (Auto) 92.2 % (16.0-70.0); Platelet Count 224 th/mm3 (150-450); Red Blood Count 2.76 mil/mm3 (4.50-5.90); Red Cell Distribution Width 18.9 % (11.6-17.2); White Blood Count 14.2 th/mm3 (4.0-11.0)
[2018-05-12 07:05] LABS: Calcium 7.9 mg/dL (8.5-10.1)
[2018-05-12 07:51] LABS: Hypersegmented Neutrophils 1+; Ovalocytes 1+; Platelet Estimate Normal (Normal); Platelet Morphology Normal (Normal)
--- NOTE | 2018-05-12 08:41 | US ---
EXAM DATE: 05/12/2018 12:00 AM EDT AGE/SEX: 87 years / Male INDICATIONS: Shortness of breath. Left pleural effusion. CLINICAL DATA: This is the patient's initial encounter. Patient reports that signs and symptoms have been present for 1 day and indicates a pain score of Nonresponsive. MEDICAL/SURGICAL HISTORY: Hypercholesterolemia. Hypothyroidism. Coronary artery disease. [place]. DVT. Enlarged prostate. HTN. Neuropathy. . CABG. Cardiac radiofrequency ablation. COMPARISON: No prior exams available for comparison. MEASUREMENTS: Skin To Parietal Pleura:__1.7 cm Skin To Max Safe Depth:__3.8 cm Estimated Fluid Volume:__423 cc Fluid Composition:__simple FINDINGS: Pleural effusion as above. Small to moderate in size. CONCLUSION: 1. Small to moderate-sized left pleural effusion. 2. The technologist stated that the patient could not be marked and was unresponsive. Electronically signed by: Daniel Jiménez MD 05/12/2018 8:39 AM EDT
[2018-05-12] MEDS: Vitamin B Complex/Vit C/Folic Tablet PO SCH (08:50)
[2018-05-12] MEDS: Calcium Acetate 667 MG Capsule PO SCH ×2 (08:51→13:12)
[2018-05-12] MEDS: Metoprolol Tartrate 50 MG Tablet PO SCH (08:51)
[2018-05-12] MEDS: Insulin NovoLOG Aspart Correctional Sugar Inj SQ SCH ×3 (09:27→18:14)
[2018-05-12] MEDS: Isosorbide Mononitrate 30 MG ER 24HR Tablet (Imdur) PO SCH (09:44)
[2018-05-12] MEDS: Pantoprazole Sodium 20 MG DR Tablet PO SCH (09:44)
--- NOTE | 2018-05-12 09:56 | P.PNIM ---
Subjective Interval history: f/u; ESRD confused and now on restraints. had to be placed on oxygen mask. d/w the RN and RT. Physical Exam Vital signs: Vital Signs 05/11/18 09:55 05/11/18 10:00 05/11/18 10:06 Temperature Pulse Rate 102 H 93 H 94 H Respiratory Rate 17 15 23 Blood Pressure 110/45 L 110/45 L 132/63 Pulse Oximetry 88 L 91 L 94 L 05/11/18 10:15 05/11/18 10:30 05/11/18 10:45 Temperature Pulse Rate 92 H 84 84 Respiratory Rate 14 21 17 Blood Pressure 127/69 131/82 92/64 L Pulse Oximetry 92 L 93 L 94 L 05/11/18 11:00 05/11/18 11:15 05/11/18 11:30 Temperature Pulse Rate 86 86 88 Respiratory Rate 12 13 9 L Blood Pressure 127/75 125/98 H 137/75 Pulse Oximetry 91 L 96 96 05/11/18 11:45 05/11/18 12:00 05/11/18 12:58 Temperature 97.2 F L 97.9 F Pulse Rate 90 90 92 H Respiratory Rate 11 L 12 22 Blood Pressure 136/80 108/57 L 137/64 Pulse Oximetry 97 94 L 88 L 05/11/18 14:00 05/11/18 14:08 05/11/18 14:58 Temperature 97.9 F Pulse Rate 92 H 92 H 90 Respiratory Rate 23 21 20 Blood Pressure 115/80 115/80 128/74 Pulse Oximetry 90 L 94 L 05/11/18 15:19 05/11/18 15:58 05/11/18 16:58 Temperature 97.7 F Pulse Rate 90 102 H 116 H Respiratory Rate 23 23 19 Blood Pressure 141/71 H 115/76 Pulse Oximetry 96 90 L 05/11/18 19:38 05/11/18 20:00 05/12/18 00:00 Temperature 97.8 F 97.2 F L Pulse Rate 101 H 106 H 99 H Respiratory Rate 22 15 32 H Blood Pressure 107/62 115/57 L Pulse Oximetry 93 L 90 L 05/12/18 03:29 05/12/18 07:38 05/12/18 07:46 Temperature 97.2 F L Pulse Rate 92 H 121 H Respiratory Rate 17 Blood Pressure 103/75 Pulse Oximetry 92 L 95 Intake & Output 05/11/18 05/12/18 05/12/18 18:59 06:59 18:59 Intake Total 536.5 / 536.5 108 / 108 Output Total 1500 / 1500 Balance -963.5 / -963.5 108 / 108 Weight 68 kg 69.8 kg Intake: IV 56.5 / 56.5 78 / 78 Cordarone Inj 450 MG In D5W Inj 78 / 78 241 ML @ 1 MG/MIN 33.33 mls/hr IV.CONT TITRATE PRN Rx#: [id number] Lasix Inj 100 MG In NS Inj 90 56.5 / 56.5 ML @ 10 mls/hr IV.CONT .Q10H PAMELA Rx#:[id number] Oral 480 / 480 30 / 30 Output: Hemodialysis Amount 1200 / 1200 Urine Amount (Catheter) 300 / 300 Condom 300 / 300 Other: # Incontinent Voids 5 Date of Last Bowel Movement 05/07/18 05/12/18 # Bowel Movements 4 - Constitutional moderate distress - Routine Respiratory Exam Present: CTA bilaterally - Routine Cardiovascular Exam Present: RRR - Routine Abdominal Exam Present: soft - Routine Extremities Exam Comments: no pedal edema. - Routine Neurological Exam confused and on restraints. - Urinary Catheter Management Condom Cath placed during this visit: no Results - Labs CBC & Chem 7: 05/12/18 06:10 05/12/18 06:10 Laboratory Results - last 24 hr 05/11/18 05/11/18 05/11/18 13:29 16:52 17:00 CBC w Diff WBC RBC Hgb Hct MCV MCH MCHC RDW Plt Count MPV Neut % (Auto) Lymph % (Auto) [place] % (Auto) Eos % (Auto) Baso % (Auto) Neut # (Auto) Lymph # (Auto) [place] # (Auto) Eos # (Auto) Baso # (Auto) WBC Differential Diff Scan Differential Comment Hypersegmented Neuts Platelet Estimate Platelet Morphology Ovalocytes Puncture Site Right radial Patient Temperature 98.6 O2 Saturation 94 ABG pH 7.37 L ABG pCO2 37 L ABG pO2 85 ABG HCO3 21 L ABG O2 Content 10.6 L ABG Base Excess -3.9 L ABG Methemoglobin 0.5 Pramod Test Present Hemoglobin 8.0 L Carboxyhemoglobin 0.1 O2 Delivery Device Nasal cannula Liter Flow 6.00 Critical Value No Sodium Potassium Chloride Carbon Dioxide Anion Gap BUN Creatinine Estimated GFR POC Glucose 167 H 205 H Random Glucose Calcium Magnesium Total Bilirubin AST ALT Alkaline Phosphatase Troponin I Total Protein Albumin 05/11/18 05/11/18 05/11/18 17:30 17:30 20:14 CBC w Diff Slide review pending WBC 14.2 H RBC 2.85 L Hgb 8.7 L Hct 25.7 L MCV 90.4 MCH 30.4 MCHC 33.7 RDW 17.9 H Plt Count 263 MPV 9.3 Neut % (Auto) 86.4 H Lymph % (Auto) 3.8 L [place] % (Auto) 8.1 H Eos % (Auto) 0.0 Baso % (Auto) 1.7 Neut # (Auto) 12.4 H Lymph # (Auto) 0.5 L [place] # (Auto) 1.1 H Eos # (Auto) 0.0 Baso # (Auto) 0.2 WBC Differential . Diff Scan Auto diff confirmed Differential Comment . Hypersegmented Neuts Platelet Estimate Platelet Morphology Ovalocytes Puncture Site Right brachial Patient Temperature 98.6 O2 Saturation 90 ABG pH 7.31 L ABG pCO2 36 L ABG pO2 67 ABG HCO3 18 L ABG O2 Content 9.9 L ABG Base Excess -7.4 L ABG Methemoglobin 0.7 Pramod Test Y Hemoglobin 7.8 L* Carboxyhemoglobin 1.1 O2 Delivery Device Nasal cannula Liter Flow 6.00 Critical Value Yes Sodium 139 Potassium 4.1 Chloride 104 Carbon Dioxide 22.8 Anion Gap 12 BUN 84 H Creatinine 5.30 H Estimated GFR 10 L POC Glucose Random Glucose 185 H Calcium 8.1 L Magnesium 2.1 Total Bilirubin 0.7 AST 31 ALT 53 Alkaline Phosphatase 76 Troponin I 1.83 H* Total Protein 6.9 Albumin 3.0 L 05/11/18 05/11/18 05/12/18 21:21 21:25 00:01 CBC w Diff WBC RBC Hgb 7.9 L Hct 24.5 L MCV MCH MCHC RDW Plt Count MPV Neut % (Auto) Lymph % (Auto) [place] % (Auto) Eos % (Auto) Baso % (Auto) Neut # (Auto) Lymph # (Auto) [place] # (Auto) Eos # (Auto) Baso # (Auto) WBC Differential Diff Scan Differential Comment Hypersegmented Neuts Platelet Estimate Platelet Morphology Ovalocytes Puncture Site Patient Temperature O2 Saturation ABG pH ABG pCO2 ABG pO2 ABG HCO3 ABG O2 Content ABG Base Excess ABG Methemoglobin Pramod Test Hemoglobin Carboxyhemoglobin O2 Delivery Device Liter Flow Critical Value Sodium Potassium Chloride Carbon Dioxide Anion Gap BUN Creatinine Estimated GFR POC Glucose 367 H Random Glucose Calcium Magnesium Total Bilirubin AST ALT Alkaline Phosphatase Troponin I 1.88 H* Total Protein Albumin 05/12/18 05/12/18 05/12/18 06:10 06:10 06:10 CBC w Diff Slide review pending WBC 14.2 H RBC 2.76 L Hgb 8.5 L Hct 25.3 L MCV 91.6 MCH 30.7 MCHC 33.5 RDW 18.9 H Plt Count 224 MPV 9.3 Neut % (Auto) 92.2 H Lymph % (Auto) 1.2 L [place] % (Auto) 6.4 Eos % (Auto) 0.0 Baso % (Auto) 0.2 Neut # (Auto) 13.1 H Lymph # (Auto) 0.2 L [place] # (Auto) 0.9 Eos # (Auto) 0.0 Baso # (Auto) 0.0 WBC Differential . Diff Scan Auto diff confirmed Differential Comment . Hypersegmented Neuts 1+ H Platelet Estimate Normal Platelet Morphology Normal Ovalocytes 1+ H Puncture Site Patient Temperature O2 Saturation ABG pH ABG pCO2 ABG pO2 ABG HCO3 ABG O2 Content ABG Base Excess ABG Methemoglobin Pramod Test Hemoglobin Carboxyhemoglobin O2 Delivery Device Liter Flow Critical Value Sodium 138 Potassium 5.0 D Chloride 103 Carbon Dioxide 16.0 L Anion Gap 19 H BUN 97 H Creatinine 5.90 H Estimated GFR 9 L POC Glucose Random Glucose 151 H Calcium 7.9 L Magnesium Total Bilirubin AST ALT Alkaline Phosphatase Troponin I 2.15 H* Total Protein Albumin 05/12/18 08:40 CBC w Diff WBC RBC Hgb Hct MCV MCH MCHC RDW Plt Count MPV Neut % (Auto) Lymph % (Auto) [place] % (Auto) Eos % (Auto) Baso % (Auto) Neut # (Auto) Lymph # (Auto) [place] # (Auto) Eos # (Auto) Baso # (Auto) WBC Differential Diff Scan Differential Comment Hypersegmented Neuts Platelet Estimate Platelet Morphology Ovalocytes Puncture Site Patient Temperature O2 Saturation ABG pH ABG pCO2 ABG pO2 ABG HCO3 ABG O2 Content ABG Base Excess ABG Methemoglobin Pramod Test Hemoglobin Carboxyhemoglobin O2 Delivery Device Liter Flow Critical Value Sodium Potassium Chloride Carbon Dioxide Anion Gap BUN Creatinine Estimated GFR POC Glucose 154 H Random Glucose Calcium Magnesium Total Bilirubin AST ALT Alkaline Phosphatase Troponin I Total Protein Albumin - Imaging Impressions Central Venous Line 05/11/18 00:00 CONCLUSION: Uncomplicated ultrasound and fluoroscopic guided central venous dialysis catheter placement as above. Chest X-Ray 05/11/18 17:13 CONCLUSION: Vas-Cath in good position. Moderate left pleural effusion with some basilar atelectasis unchanged. Diffuse pulmonary vascular congestion. Chest Ultrasound 05/12/18 00:00 CONCLUSION: 1. Small to moderate-sized left pleural effusion. 2. The technologist stated that the patient could not be marked and was unresponsive. Chest X-Ray 05/12/18 02:16 CONCLUSION: Moderate left pleural effusion with left basilar density. 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 Denies any chest pain. -Patient's surface water manager Dr. Dumont has been consulted and has seen patient. Conservative measures recommended for now. Keep H&H above 10 per cards recommendations. -Continue beta-becca. Recommendations are to hold anticoagulates secondary to GI bleed. -started on Amiodarone drip. -Continue on cardiac telemetry, monitor for any arrhythmias. No arrhythmias overnight. Continue to monitor BP trends. -Supportive care. Systolic heart failure in exacerbation Acute hypoxia suspect secondary to above History of severe cardiomyopathy with EF 20% -Patient has been placed on supplemental O2 via oxygen mask. A repeat x-ray has been ordered and reviewed showing congestion. Previous x-ray showing pleural effusions with stable infiltrates. -Continue Lasix gtt. Monitor intake and output. Minimal response to Lasix drip. Will undergo dialysis, status post vas cath placement. -Cardiology following. Fall at home -Patient states he asleep in his wheelchair and slipped out onto his face and left arm. Denies any LOC. Did hit his head with resultant left eye ecchymosis. Improving. -Head CT on presentation negative. -PT evaluation ordered, and input/recommendations appreciated. -Monitor closely. Acute on chronic kidney disease, worsening. acute hypoxemic respiratory failure -Nephrology consulted and has seen patient. -A palliative care consult has been placed to further discuss goals. Appreciate input and recommendations. -US has been ordered and reviewed showing echogenic kidneys consistent with medical renal disease. No obstructive uropathy. -Avoid nephrotoxins. -Continue to follow BMP. -HD initiated. Type 2 diabetes mellitus, chronic -ACCU check ACHS, sliding scale, cover as needed. Monitor blood sugar trends. Recent history of left upper arm DVT -Recently placed on Xarelto at home. Per cardiology recommendations, will hold anticoagulation for now. Encourage elevation. Hyperlipidemia, chronic: Continue home statin. DVT Prophylaxis: SCDs. Chemical prophylaxis held per cardiology recommendations. patient with multiple comorbidities- and now with respiratory failure. d/w the POA; hospice evaluation was offered which the POA agreed with; hospice will be consulted. prognosis is poor. Discharge Planning: awaiting hospice evaluation and the POA decision on hospice. (3) Anemia Qualifiers: Anemia type: unspecified type Qualified Code(s): D64.9 - Anemia, unspecified
--- NOTE | 2018-05-12 10:40 | P.PNCA ---
Subjective Interval history: pt is very confused and not responsive Medications and Allergies Active Medications: Active Medications Acetaminophen (Tylenol) 650 mg PO Q4H PRN PRN Reason: Temp > 100.4 Al Hydrox/Mg Hydrox/Simethicone (Mag-Al Plus Susp Liq) 30 ml PO Q6H PRN PRN Reason: DYSPEPSIA Al Hydroxide/Mg Hydroxide (Milk Of Magnesia Liq) 30 ml PO Q12H PRN PRN Reason: Mild Constipation Albuterol (Duoneb Neb (Prn)) 1 ampul NEB Q2HR NEB PRN PRN Reason: SHORTNESS OF BREATH/WHEEZING Last Admin: 05/09/18 03:21 Dose: 1 ampul Albuterol (Duoneb Neb (Juan A)) 1 ampul NEB Q6HR WHILE AWAKE NEB JUAN A Last Admin: 05/12/18 07:34 Dose: 1 ampul Aspirin (Ecotrin) 81 mg PO DAILY JUAN A Last Admin: 05/12/18 08:50 Dose: 81 mg Atorvastatin Calcium (Lipitor) 40 mg PO HS [facility] Last Admin: 05/11/18 20:51 Dose: Not Given Calcium Acetate (Phoslo) 667 mg PO TID JUAN A Last Admin: 05/12/18 08:51 Dose: 667 mg Clonidine HCl (Catapres) 0.1 mg PO UNSCH PRN PRN Reason: SEE LABEL COMMENTS Dextrose (D50w Vial) 50 ml IV.PUSH UNSCH PRN PRN Reason: PER HYPOGLYCEMIA PROTOCOL Diphenhydramine HCl (Benadryl) 25 mg PO UNSCH PRN PRN Reason: SEE LABEL COMMENTS Last Admin: 05/12/18 03:44 Dose: 25 mg Epoetin Livan (Epogen Inj) 10,000 unit IV.PUSH UNSCH PRN PRN Reason: SEE LABEL COMMENTS Last Admin: 05/11/18 10:17 Dose: 10,000 unit Gelatin (Gelfoam 12 Mm/7 Mm Topical) 1 foam TOPICAL PRN PRN PRN Reason: help stop bleeding from site Gentamicin Sulfate (Gentamicin Inj) 20 mg OTHER WITH DIALYSIS PRN PRN Reason: Dwell Gentamycin Lock Last Admin: 05/11/18 10:18 Dose: 20 mg Glucagon (Glucagon Inj) 1 mg OTHER PRN PRN PRN Reason: for Hypoglycemia Protocol Guaifenesin/Dextromethorphan (Robitussin Dm 200/20 Mg/10 Ml Liq) 10 ml PO Q4H PRN PRN Reason: COUGH Last Admin: 05/12/18 03:43 Dose: 10 ml Heparin Sodium (Porcine) (Heparin Inj) 1,000 units OTHER WITH DIALYSIS PRN PRN Reason: Dwell Heparin to Fill Catheter Heparin Sodium (Porcine) (Heparin Inj) 8,000 units OTHER WITH DIALYSIS PRN PRN Reason: for machine prime Heparin Sodium (Porcine) (Heparin Central Flush) 0 unit IV.FLUSH DAILY PRN PRN Reason: SEE DOSE INSTRUCTIONS Albumin Human (Flexbumin 25% Inj) 100 mls @ 60 mls/hr IV.SIG WITH DIALYSIS PRN PRN Reason: hypotension / volume replace Sodium Chloride (Ns Inj) 1,000 mls @ 0 mls/hr OTHER .Q0M PRN PRN Reason: for prime and rinse back Sodium Chloride (Ns Inj) 1,000 mls @ 200 mls/hr OTHER .Q5H PRN PRN Reason: for dialyzer flush PRN Sodium Chloride (Ns Inj) 1,000 mls @ 0 mls/hr IV.CONT .Q0M PRN PRN Reason: hypotension / volume replace Amiodarone HCl 450 mg/ (Dextrose) 250 mls @ 33.33 mls/hr IV.CONT TITRATE PRN; Protocol PRN Reason: Per Protocol Last Admin: 05/12/18 09:59 Dose: 0.5 mg/min, 16.66 mls/hr Insulin Aspart (Novolog Insulin Correctional Sugar Inj) 0 unit SQ ACHS JUAN A; Protocol Last Admin: 05/12/18 09:27 Dose: Not Given Isosorbide Mononitrate (Imdur) 30 mg PO DAILY [facility] Last Admin: 05/12/18 09:44 Dose: Not Given Levothyroxine Sodium (Synthroid) 100 mcg PO DAILY@0600 [facility] Last Admin: 05/12/18 05:37 Dose: 100 mcg Lorazepam (Ativan Inj) 0.5 mg IV.PUSH Q6H PRN PRN Reason: ANXIETY Last Admin: 05/11/18 18:32 Dose: 0.5 mg Mannitol (Mannitol Inj) 12.5 gm IV.PUSH UNSCH PRN PRN Reason: hypotension / volume replace Metoprolol Tartrate (Lopressor) 50 mg PO BID [facility] Last Admin: 10/20/18 08:51 Dose: 50 mg Nifedipine (Procardia Xl) 60 mg PO BID [facility] Last Admin: 05/12/18 09:44 Dose: Not Given Nitroglycerin (Nitrostat Sl) 0.4 mg SL Q5M PRN PRN Reason: CHEST PAIN Ondansetron HCl (Zofran Inj) 4 mg IV.PUSH Q6H PRN PRN Reason: NAUSEA OR VOMITING Pantoprazole Sodium (Protonix) 20 mg PO DAILY [facility] Last Admin: 05/12/18 09:44 Dose: Not Given Paricalcitol (Zemplar) 1 mcg PO DAILY [facility] Last Admin: 05/12/18 08:51 Dose: 1 mcg Sodium Chloride (Ns Flush) 2 ml IV.FLUSH PRN PRN PRN Reason: FLUSH AFTER USING IV ACCESS Sodium Chloride (Ns Flush) 5 ml IV.FLUSH PRN PRN PRN Reason: flush each lumen during HD Sodium Chloride (Ns Flush) 0 ml IV.FLUSH PRN PRN PRN Reason: SEE DOSE INSTRUCTIONS Tamsulosin HCl (Flomax) 0.4 mg PO DAILY [facility] Last Admin: 05/12/18 09:44 Dose: Not Given Vitamin B Complex/Vit C/Folic Acid (Nephrocaps) 1 tab PO DAILY [facility] Last Admin: 05/12/18 08:50 Dose: 1 tab Allergies Allergy/AdvReac Type Severity Reaction Status Date / Time codeine AdvReac Severe NAUSEA Verified 05/07/18 13:06 Home Medications Medication Instructions Recorded Confirmed Type gabapentin 600 mg PO BID 03/17/18 05/07/18 History rosuvastatin [Crestor] 20 mg PO HS 03/28/18 05/07/18 History tamsulosin 0.4 mg PO DAILY 05/07/18 05/07/18 History vitamins A,C,T-[id number] 1 tab PO BID 05/07/18 05/07/18 History [PreserVision AREDS] Physical Exam Vital signs: Vital Signs 05/11/18 10:45 05/11/18 11:00 05/11/18 11:15 Temperature Pulse Rate 84 86 86 Respiratory Rate 17 12 13 Blood Pressure 92/64 L 127/75 125/98 H Pulse Oximetry 94 L 91 L 96 05/11/18 11:30 05/11/18 11:45 05/11/18 12:00 Temperature 97.2 F L 97.9 F Pulse Rate 88 90 90 Respiratory Rate 9 L 11 L 12 Blood Pressure 137/75 136/80 108/57 L Pulse Oximetry 96 97 94 L 05/11/18 12:58 05/11/18 14:00 05/11/18 14:08 Temperature 97.9 F Pulse Rate 92 H 92 H 92 H Respiratory Rate 22 23 21 Blood Pressure 137/64 115/80 115/80 Pulse Oximetry 88 L 90 L 94 L 05/11/18 14:58 05/11/18 15:19 05/11/18 15:58 Temperature Pulse Rate 90 90 102 H Respiratory Rate 20 23 23 Blood Pressure 128/74 141/71 H Pulse Oximetry 96 05/11/18 16:58 05/11/18 19:38 05/11/18 20:00 Temperature 97.7 F 97.8 F Pulse Rate 116 H 101 H 106 H Respiratory Rate 19 22 15 Blood Pressure 115/76 107/62 Pulse Oximetry 90 L 93 L 90 L 05/12/18 00:00 05/12/18 03:29 05/12/18 07:38 Temperature 97.2 F L 97.2 F L Pulse Rate 99 H 92 H 121 H Respiratory Rate 32 H 17 Blood Pressure 115/57 L 103/75 Pulse Oximetry 92 L 05/12/18 07:46 05/12/18 08:00 Temperature 97.1 F L Pulse Rate 92 H Respiratory Rate 14 Blood Pressure 121/43 L Pulse Oximetry 95 96 Intake & Output 05/11/18 05/12/18 05/12/18 18:59 06:59 18:59 Intake Total 536.5 / 536.5 108 / 108 172 / 172 Output Total 1500 / 1500 Balance -963.5 / -963.5 108 / 108 172 / 172 Weight 68 kg 69.8 kg Intake: IV 56.5 / 56.5 78 / 78 172 / 172 Cordarone Inj 450 MG In D5W Inj 172 / 172 241 ML @ 1 MG/MIN 33.33 mls/hr IV.CONT TITRATE PRN Rx#: [id number] Lasix Inj 100 MG In NS Inj 90 56.5 / 56.5 ML @ 10 mls/hr IV.CONT .Q10H JUAN A Rx#:[id number] Oral 480 / 480 30 / 30 Output: Hemodialysis Amount 1200 / 1200 Urine Amount (Catheter) 300 / 300 Condom 300 / 300 Other: # Incontinent Voids 5 Date of Last Bowel Movement 05/07/18 05/12/18 # Bowel Movements 4 - Constitutional moderate distress - Routine Respiratory Exam Present: accessory muscle use, crackles - Routine Cardiovascular Exam Present: S1, S2, tachycardia, irregular rhythm - Routine Abdominal Exam Present: soft. Absent: firm, rigid - Routine Extremities Exam Present: edema. Absent: cyanosis, clubbing - Routine Neurological Exam Present: altered mental status - Urinary Catheter Management Condom Cath placed during this visit: no Results 05/12/18 06:10 05/12/18 06:10 Cardiac Enzymes 05/11/18 05/12/18 05/12/18 Range/Units 17:30 00:01 06:10 AST 31 (15-37) U/L Troponin I 1.83 H* 1.88 H* 2.15 H* (0.02-0.05) ng/mL Coagulation 05/10/18 Range/Units 11:15 PT 12.2 H (9.8-11.6) sec APTT 29.2 (24.3-30.1) sec CBC 05/11/18 05/11/18 05/12/18 Range/Units 17:30 21:25 06:10 WBC 14.2 H 14.2 H (4.0-11.0) th/mm3 RBC 2.85 L 2.76 L (4.50-5.90) mil/mm3 Hgb 8.7 L 7.9 L 8.5 L (13.0-17.0) gm/dL Hct 25.7 L 24.5 L 25.3 L (39.0-51.0) % Plt Count 263 224 (150-450) th/mm3 Neut # (Auto) 12.4 H 13.1 H (1.8-7.7) th/mm3 Lymph # (Auto) 0.5 L 0.2 L (1.0-4.8) th/mm3 Saline # (Auto) 1.1 H 0.9 (0.0-0.9) th/mm3 Eos # (Auto) 0.0 0.0 (0.0-0.4) th/mm3 Baso # (Auto) 0.2 0.0 (0.0-0.2) th/mm3 Comprehensive Metabolic Panel 05/10/18 05/11/18 05/11/18 Range/Units 21:45 04:10 17:30 Sodium 139 141 139 (136-145) meq/L Potassium 4.4 4.7 4.1 (3.5-5.1) meq/L Chloride 108 H 109 H 104 (98-107) meq/L Carbon Dioxide 17.3 L 17.9 L 22.8 (21.0-32.0) meq/L BUN 113 H 115 H 84 H (7-18) mg/dL Creatinine 6.50 H 6.70 H 5.30 H (0.60-1.30) mg/dL Calcium 7.7 L 7.7 L 8.1 L (8.5-10.1) mg/dL AST 31 (15-37) U/L ALT 53 (12-78) U/L Alkaline Phosphatase 76 (45-117) U/L Total Protein 6.9 (6.4-8.2) g/dL Albumin 3.0 L (3.4-5.0) g/dL 05/12/18 Range/Units 06:10 Sodium 138 (136-145) meq/L Potassium 5.0 D (3.5-5.1) meq/L Chloride 103 (98-107) meq/L Carbon Dioxide 16.0 L (21.0-32.0) meq/L BUN 97 H (7-18) mg/dL Creatinine 5.90 H (0.60-1.30) mg/dL Calcium 7.9 L (8.5-10.1) mg/dL AST (15-37) U/L ALT (12-78) U/L Alkaline Phosphatase (45-117) U/L Total Protein (6.4-8.2) g/dL Albumin (3.4-5.0) g/dL Intake and Output 05/11/18 05/12/18 05/12/18 22:59 06:59 14:59 Intake Total 480 / 480 108 / 108 172 / 172 Output Total 300 / 300 Balance 180 / 180 108 / 108 172 / 172 Intake: IV 0 / 0 172 / 172 Cordarone Inj 450 MG In D5W Inj 172 / 172 241 ML @ 1 MG/MIN 33.33 mls/hr IV.CONT TITRATE PRN Rx#: [id number] Lasix Inj 100 MG In NS Inj 90 0 / 0 ML @ 10 mls/hr IV.CONT .Q10H JUAN A Rx#:[id number] Oral 480 / 480 30 / 30 Output: Urine Amount (Catheter) 300 / 300 Condom 300 / 300 Other: # Incontinent Voids 5 Date of Last Bowel Movement 05/07/18 05/12/18 # Bowel Movements 4 Weight 68 kg 69.8 kg - Imaging and Cardiology Imaging: Impressions Central Venous Line 05/11/18 00:00 CONCLUSION: Uncomplicated ultrasound and fluoroscopic guided central venous dialysis catheter placement as above. Chest X-Ray 05/11/18 17:13 CONCLUSION: Vas-Cath in good position. Moderate left pleural effusion with some basilar atelectasis unchanged. Diffuse pulmonary vascular congestion. Chest Ultrasound 05/12/18 00:00 CONCLUSION: 1. Small to moderate-sized left pleural effusion. 2. The technologist stated that the patient could not be marked and was unresponsive. Chest X-Ray 05/12/18 02:16 CONCLUSION: Moderate left pleural effusion with left basilar density. Moderate bibasilar densities Assessment and Plan - Plan pt is very confused , in moderate respiratory distress. he is getting HD AND BECAME TACHYCARDIC. I had a lengthy discussion with his niece who has power of coal mine inspector about his condition, apperantly me voiced wished of accepting ventilation and not being DNR at this point. we will continue supportive management. I discussed the i will refrain from invasive cardiac procedures like LT HC due to pt advanced age, comorbid condition and unresponsiveness. she agreed. I will continue IV Amiodarone and switch him to IV BB. I will follow
--- NOTE | 2018-05-12 11:38 | P.PNADD ---
Addendum to Inpatient Note Reason for Addendum: Additional Documentation (d/w and the POA; poor prognosis in light of multiple comorbidities. no intubation/ mechanical ventilation per our discussion- awaiting hospice evaluation. d/w the RN.)
[2018-05-12] MEDS ORDERED: Metoprolol Inj 5 MG/5 ML Vial IV.PUSH SCH (15:00)
--- NOTE | 2018-05-12 15:45 | P.DS ---
Date of admission: 05/07/18 15:36 Primary care physician: Prashanth Mason MD Brief History from admission: This is an 87-year-old male patient with a known medical history of CAD with previous OR, diabetes, CKD, dementia and who presented to the ED status post fall at home. Patient is awake and alert upon assessment this morning, he states that yesterday he fell asleep in his wheelchair and he slipped falling out of his wheelchair hitting his left side of his face as well as his arm. Patient does live at home alone, is independent with his ADLs, does have a caregiver that comes in every day to see him. He denies any recent illness including fever, chills, cough, chest pain, shortness of breath, dumping, nausea , vomiting, diarrhea or dysuria. Patient denies any dizziness or lightheadedness prior to slipping out of his wheelchair. He has been eating well without any nausea or vomiting. Patient does state that he follows closely with his PCP, was diagnosed with a left upper extremity DVT 2 weeks ago and placed on Xarelto. Patient also follows with retirement sales consultant, Dr. Dumont. Patient denies any new changes to his medications. He is also been told he has a history of chronic kidney disease and follows closely with Dr. Blake. 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 Denies any chest pain. -Patient's retirement sales consultant Dr. Dumont has been consulted and has seen patient. Conservative measures recommended . -Continue beta-becca. Recommendations are to hold anticoagulates secondary to GI bleed. -started on Amiodarone drip. -Supportive care. Systolic heart failure in exacerbation Acute hypoxia suspect secondary to above History of severe cardiomyopathy with EF 20% -Patient has been placed on supplemental O2 via oxygen mask. A repeat x-ray has been ordered and reviewed showing congestion. Previous x-ray showing pleural effusions with stable infiltrates. - status post vas cath placement. -Cardiology following. Fall at home -Patient states he asleep in his wheelchair and slipped out onto his face and left arm. Denies any LOC. Did hit his head with resultant left eye ecchymosis. Improving. -Head CT on presentation negative. -PT evaluation ordered, and input/recommendations appreciated. Acute on chronic kidney disease, worsening. acute hypoxemic respiratory failure -Nephrology consulted and has seen patient. -A palliative care consult has been placed to further discuss goals. Appreciate input and recommendations. -US has been ordered and reviewed showing echogenic kidneys consistent with medical renal disease. No obstructive uropathy. -HD initiated. Type 2 diabetes mellitus, chronic -ACCU check ACHS, sliding scale, cover as needed. Monitor blood sugar trends. Recent history of left upper arm DVT -Recently placed on Xarelto at home. Per cardiology recommendations, will hold anticoagulation for now. Hyperlipidemia, chronic: Continue home statin. in light of multiple comorbidities had a lengthy d/w the POA; Hospice was offered which she agreed with. Hospice met with the family and decision was made to transfer to care center. - Time Spent with Patient Total time spent providing and/or coordinating discharge services: Greater than 30 minutes (40 min.) - Quality: VTE Deep Vein Thrombosis/Pulmonary Embolism Present on Admission: No Exam Vital signs: Vital Signs 05/11/18 15:58 05/11/18 16:58 05/11/18 19:38 Temperature 97.7 F Pulse Rate 102 H 116 H 101 H Respiratory Rate 23 19 22 Blood Pressure 141/71 H 115/76 Pulse Oximetry 96 90 L 93 L 05/11/18 20:00 05/12/18 00:00 05/12/18 03:29 Temperature 97.8 F 97.2 F L 97.2 F L Pulse Rate 106 H 99 H 92 H Respiratory Rate 15 32 H Blood Pressure 107/62 115/57 L 103/75 Pulse Oximetry 90 L 92 L 05/12/18 07:38 05/12/18 07:46 05/12/18 08:00 Temperature 97.1 F L Pulse Rate 121 H 93 H Respiratory Rate 17 14 Blood Pressure 121/43 L Pulse Oximetry 95 96 05/12/18 12:00 05/12/18 13:55 Temperature Pulse Rate 102 H 77 Respiratory Rate 9 L 11 L Blood Pressure 132/59 L Pulse Oximetry 97 Intake & Output 05/11/18 05/12/18 05/12/18 18:59 06:59 18:59 Intake Total 536.5 / 536.5 108 / 108 172 / 172 Output Total 1500 / 1500 Balance -963.5 / -963.5 108 / 108 172 / 172 Weight 68 kg 69.8 kg Intake: IV 56.5 / 56.5 78 / 78 172 / 172 Cordarone Inj 450 MG In D5W Inj 172 / 172 241 ML @ 1 MG/MIN 33.33 mls/hr IV.CONT TITRATE PRN Rx#: [id number] Lasix Inj 100 MG In NS Inj 90 56.5 / 56.5 ML @ 10 mls/hr IV.CONT .Q10H PAMELA Rx#:[id number] Oral 480 / 480 30 / 30 Output: Hemodialysis Amount 1200 / 1200 Urine Amount (Catheter) 300 / 300 Condom 300 / 300 Other: # Incontinent Voids 5 Date of Last Bowel Movement 05/11/18 05/12/18 05/12/18 # Bowel Movements 4 Results Procedures completed during hospitalization: vas-cath placement. Labs on day of discharge: Labs from last 24 hours 05/12/18 05/12/18 05/12/18 12:56 08:40 06:10 CBC w Diff Slide review pending WBC 14.2 H RBC 2.76 L Hgb 8.5 L Hct 25.3 L MCV 91.6 MCH 30.7 MCHC 33.5 RDW 18.9 H Plt Count 224 MPV 9.3 Neut % (Auto) 92.2 H Lymph % (Auto) 1.2 L Callahan % (Auto) 6.4 Eos % (Auto) 0.0 Baso % (Auto) 0.2 Neut # (Auto) 13.1 H Lymph # (Auto) 0.2 L Callahan # (Auto) 0.9 Eos # (Auto) 0.0 Baso # (Auto) 0.0 WBC Differential . Diff Scan Auto diff confirmed Differential Comment . Hypersegmented Neuts 1+ H Platelet Estimate Normal Platelet Morphology Normal Ovalocytes 1+ H Puncture Site Patient Temperature O2 Saturation ABG pH ABG pCO2 ABG pO2 ABG HCO3 ABG O2 Content ABG Base Excess ABG Methemoglobin Pramod Test Hemoglobin Carboxyhemoglobin O2 Delivery Device Liter Flow Critical Value Sodium Potassium Chloride Carbon Dioxide Anion Gap BUN Creatinine Estimated GFR POC Glucose 109 154 H Random Glucose Calcium Magnesium Total Bilirubin AST ALT Alkaline Phosphatase Troponin I Total Protein Albumin 05/12/18 05/12/18 05/12/18 06:10 06:10 00:01 CBC w Diff WBC RBC Hgb Hct MCV MCH MCHC RDW Plt Count MPV Neut % (Auto) Lymph % (Auto) Callahan % (Auto) Eos % (Auto) Baso % (Auto) Neut # (Auto) Lymph # (Auto) Callahan # (Auto) Eos # (Auto) Baso # (Auto) WBC Differential Diff Scan Differential Comment Hypersegmented Neuts Platelet Estimate Platelet Morphology Ovalocytes Puncture Site Patient Temperature O2 Saturation ABG pH ABG pCO2 ABG pO2 ABG HCO3 ABG O2 Content ABG Base Excess ABG Methemoglobin Pramod Test Hemoglobin Carboxyhemoglobin O2 Delivery Device Liter Flow Critical Value Sodium 138 Potassium 5.0 D Chloride 103 Carbon Dioxide 16.0 L Anion Gap 19 H BUN 97 H Creatinine 5.90 H Estimated GFR 9 L POC Glucose Random Glucose 151 H Calcium 7.9 L Magnesium Total Bilirubin AST ALT Alkaline Phosphatase Troponin I 2.15 H* 1.88 H* Total Protein Albumin 05/11/18 05/11/18 05/11/18 21:25 21:21 20:14 CBC w Diff WBC RBC Hgb 7.9 L Hct 24.5 L MCV MCH MCHC RDW Plt Count MPV Neut % (Auto) Lymph % (Auto) Callahan % (Auto) Eos % (Auto) Baso % (Auto) Neut # (Auto) Lymph # (Auto) Callahan # (Auto) Eos # (Auto) Baso # (Auto) WBC Differential Diff Scan Differential Comment Hypersegmented Neuts Platelet Estimate Platelet Morphology Ovalocytes Puncture Site Right brachial Patient Temperature 98.6 O2 Saturation 90 ABG pH 7.31 L ABG pCO2 36 L ABG pO2 67 ABG HCO3 18 L ABG O2 Content 9.9 L ABG Base Excess -7.4 L ABG Methemoglobin 0.7 Pramod Test Y Hemoglobin 7.8 L* Carboxyhemoglobin 1.1 O2 Delivery Device Nasal cannula Liter Flow 6.00 Critical Value Yes Sodium Potassium Chloride Carbon Dioxide Anion Gap BUN Creatinine Estimated GFR POC Glucose 367 H Random Glucose Calcium Magnesium Total Bilirubin AST ALT Alkaline Phosphatase Troponin I Total Protein Albumin 05/11/18 05/11/18 05/11/18 17:30 17:30 17:00 CBC w Diff Slide review pending WBC 14.2 H RBC 2.85 L Hgb 8.7 L Hct 25.7 L MCV 90.4 MCH 30.4 MCHC 33.7 RDW 17.9 H Plt Count 263 MPV 9.3 Neut % (Auto) 86.4 H Lymph % (Auto) 3.8 L Callahan % (Auto) 8.1 H Eos % (Auto) 0.0 Baso % (Auto) 1.7 Neut # (Auto) 12.4 H Lymph # (Auto) 0.5 L Callahan # (Auto) 1.1 H Eos # (Auto) 0.0 Baso # (Auto) 0.2 WBC Differential . Diff Scan Auto diff confirmed Differential Comment . Hypersegmented Neuts Platelet Estimate Platelet Morphology Ovalocytes Puncture Site Right radial Patient Temperature 98.6 O2 Saturation 94 ABG pH 7.37 L ABG pCO2 37 L ABG pO2 85 ABG HCO3 21 L ABG O2 Content 10.6 L ABG Base Excess -3.9 L ABG Methemoglobin 0.5 Pramod Test Present Hemoglobin 8.0 L Carboxyhemoglobin 0.1 O2 Delivery Device Nasal cannula Liter Flow 6.00 Critical Value No Sodium 139 Potassium 4.1 Chloride 104 Carbon Dioxide 22.8 Anion Gap 12 BUN 84 H Creatinine 5.30 H Estimated GFR 10 L POC Glucose Random Glucose 185 H Calcium 8.1 L Magnesium 2.1 Total Bilirubin 0.7 AST 31 ALT 53 Alkaline Phosphatase 76 Troponin I 1.83 H* Total Protein 6.9 Albumin 3.0 L 05/11/18 16:52 CBC w Diff WBC RBC Hgb Hct MCV MCH MCHC RDW Plt Count MPV Neut % (Auto) Lymph % (Auto) Callahan % (Auto) Eos % (Auto) Baso % (Auto) Neut # (Auto) Lymph # (Auto) Callahan # (Auto) Eos # (Auto) Baso # (Auto) WBC Differential Diff Scan Differential Comment Hypersegmented Neuts Platelet Estimate Platelet Morphology Ovalocytes Puncture Site Patient Temperature O2 Saturation ABG pH ABG pCO2 ABG pO2 ABG HCO3 ABG O2 Content ABG Base Excess ABG Methemoglobin Pramod Test Hemoglobin Carboxyhemoglobin O2 Delivery Device Liter Flow Critical Value Sodium Potassium Chloride Carbon Dioxide Anion Gap BUN Creatinine Estimated GFR POC Glucose 205 H Random Glucose Calcium Magnesium Total Bilirubin AST ALT Alkaline Phosphatase Troponin I Total Protein Albumin - Impressions ITS Impressions Cervical Spine CT 05/07/18 13:05 CONCLUSION: 1. No acute fracture or subluxation. 2. 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 Head CT 05/07/18 13:05 CONCLUSION: 1. No acute intracranial abnormality. . Abdomen/Bladder Ultrasound 05/08/18 00:00 CONCLUSION: 1. Echogenic kidneys consistent with medical renal disease. No obstructive uropathy. 2. Redemonstration of small right renal cysts. 3. Prominent prostate gland with anterior bladder diverticulum measuring 2.6 cm. This may reflect some degree of chronic bladder outlet obstruction. Central Venous Line 05/11/18 00:00 CONCLUSION: Uncomplicated ultrasound and fluoroscopic guided central venous dialysis catheter placement as above. Chest Ultrasound 05/12/18 00:00 CONCLUSION: 1. Small to moderate-sized left pleural effusion. 2. The technologist stated that the patient could not be marked and was unresponsive. Chest X-Ray 05/12/18 02:16 CONCLUSION: Moderate left pleural effusion with left basilar density. Moderate bibasilar densities Discharge Plan - Discharge Condition Condition: Stable - Physicians Team Primary Care Provider: Prashanth Mason Attending Provider: Galileo Parra
--- NOTE | 2018-05-12 15:49 | P.PNADD ---
Addendum to Inpatient Note Reason for Addendum: Additional Documentation (met the POA again along with the hospice; POA decided to proceed with hospice at [facility]; patient will be discharged to hospice- time spent on discharge forty minutes.)
--- NOTE | 2018-05-12 16:57 | P.PNNP ---
Subjective Interval history: remains confused, tolerated HD earlier today. Physical Exam Vital signs: Vital Signs 05/11/18 16:58 05/11/18 19:38 05/11/18 20:00 Temperature 97.7 F 97.8 F Pulse Rate 116 H 101 H 106 H Respiratory Rate 19 22 15 Blood Pressure 115/76 107/62 Pulse Oximetry 90 L 93 L 90 L 05/12/18 00:00 05/12/18 03:29 05/12/18 07:38 Temperature 97.2 F L 97.2 F L Pulse Rate 99 H 92 H 121 H Respiratory Rate 32 H 17 Blood Pressure 115/57 L 103/75 Pulse Oximetry 92 L 05/12/18 07:46 05/12/18 08:00 05/12/18 12:00 Temperature 97.1 F L Pulse Rate 93 H 102 H Respiratory Rate 14 9 L Blood Pressure 121/43 L 132/59 L Pulse Oximetry 95 96 97 05/12/18 13:55 05/12/18 16:00 Temperature 97.2 F L Pulse Rate 77 71 Respiratory Rate 11 L 23 Blood Pressure 119/69 Pulse Oximetry 93 L Intake & Output 05/11/18 05/12/18 05/12/18 18:59 06:59 18:59 Intake Total 536.5 / 536.5 108 / 108 172 / 172 Output Total 1500 / 1500 Balance -963.5 / -963.5 108 / 108 172 / 172 Weight 68 kg 69.8 kg Intake: IV 56.5 / 56.5 78 / 78 172 / 172 Cordarone Inj 450 MG In D5W Inj 78 / 78 172 / 172 241 ML @ 1 MG/MIN 33.33 mls/hr IV.CONT TITRATE PRN Rx#: [id number] Lasix Inj 100 MG In NS Inj 90 56.5 / 56.5 ML @ 10 mls/hr IV.CONT .Q10H PAMELA Rx#:[id number] Oral 480 / 480 30 / 30 Output: Hemodialysis Amount 1200 / 1200 Urine Amount (Catheter) 300 / 300 Condom 300 / 300 Other: # Incontinent Voids 5 Date of Last Bowel Movement 05/11/18 05/12/18 05/12/18 # Bowel Movements 4 - Constitutional moderate distress - Routine HEENT Exam Head: Present: normocephalic ENT: Present: mucous membranes moist - Routine Neck Exam Present: supple - Routine Respiratory Exam Present: decreased breath sounds - Routine Cardiovascular Exam Present: RRR - Routine Abdominal Exam Present: soft - Routine Skin Exam Present: intact - Routine Psychiatric Exam Present: unable to assess - Urinary Catheter Management Condom Cath placed during this visit: no Assessment and Plan - Assessment (1) Acute renal failure Code(s): N17.9 - Acute kidney failure, unspecified Status: Acute (2) Diabetes Code(s): E11.9 - Type 2 diabetes mellitus without complications Status: Acute (3) Acute non-ST elevation myocardial infarction (NSTEMI) Code(s): I21.4 - Non-ST elevation (NSTEMI) myocardial infarction Status: Acute (4) CKD (chronic kidney disease) Code(s): N18.9 - Chronic kidney disease, unspecified Status: Acute Qualifiers: Chronic kidney disease stage: unspecified stage Qualified Code(s): N18.9 - Chronic kidney disease, unspecified - Plan Tolerated HD earlier today. Poor overall prognosis, little response to lasix drip initially. Now apparent plan for hospice - will sign off for now. Please call if questions.
[2018-05-12 18:13] VITALS: BP 118/54; PULSE 70; RESP 21; TEMP 98; O2SAT 89
--- NOTE | 2018-05-12 19:57 | ECG ---
Date Performed: 05/12/2018 Time Performed: 05:35:10 PTAGE: 87 years EKG: Sinus rhythm WITH OCCASIONAL SUPRAVENTRICULAR PREMATURE COMPLEXES BORDERLINE LEFT AXIS DEVIATION INTRAVENTRICULAR CONDUCTION DELAY ABNORMAL ECG PREVIOUS TRACING : 05/12/2018 00.55 Since the previous tracing, no significant change noted DOCTOR: Cheryl Ro Interpretating Date/Time 05/12/2018 19:55:39
--- NOTE | 2018-05-12 20:03 | ECG ---
Date Performed: 05/12/2018 Time Performed: 00:55:24 PTAGE: 87 years EKG: Sinus rhythm WITH SINUS ARRHYTHMIA BORDERLINE LEFT AXIS DEVIATION INTRAVENTRICULAR CONDUCTION DELAY ABNORMAL ECG PREVIOUS TRACING : 05/11/2018 17.45 Since the previous tracing, no significant change noted DOCTOR: Cheryl Ro Interpretating Date/Time 05/12/2018 20:02:21
--- NOTE | 2018-05-12 20:34 | ECG ---
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
== END 2018-05-12 06:00 | disposition hospice, inpatient (51) ==
LOC: PHED 12:13 → PHEDA 15:36 → PH3 18:08 → PHICU 21:15
PROVIDERS: ADMIT Internal Medicine; ATTEND Internal Medicine